=== PATIENT | female | born 1980 | race Caucasian/White ===

== ENCOUNTER → 2018-10-13 17:30 | Outpatient (CLI) | payer OTHER, SELFPAY | PROVIDERS: Referring Provider Obstetrics & Gynecology; Visit Provider Obstetrics & Gynecology | DX: N39.0 Urinary tract infection, site not specified (principal) | CPT/HCPCS: 87077; 87086; 87088; 87186 ==

== ENCOUNTER → 2019-11-16 | Outpatient (CLI) | payer OTHER, SELFPAY | END | disposition home or self-care (01) | LOC: LABSPEC 16:54 | PROVIDERS: Visit Provider Student in an Organized Health Care Education/Training Program | DX: N39.0 Urinary tract infection, site not specified (principal) | CPT/HCPCS: 87086; 87088 ==

== ENCOUNTER → 2020-03-17 | Outpatient (CLI) | payer OTHER, SELFPAY ==
[2020-03-22 13:25] LABS: HPV Reflexed? NOT INDICATED
== END | disposition home or self-care (01) ==
LOC: LABSPEC 09:42
PROVIDERS: Visit Provider Student in an Organized Health Care Education/Training Program
DX: Z12.4 Encounter for screening for malignant neoplasm of cervix (principal)
CPT/HCPCS: 88175; G0145

== ENCOUNTER → 2020-04-06 15:28 | Outpatient (CLI) | payer OTHER, SELFPAY ==
--- NOTE | 2020-04-06 15:32 | BI_ITS ---
MAMMOGRAPHY - BILATERAL SCREENING REASON FOR EXAM: Female, 39 years old. Routine annual screening examination. PERTINENT HISTORY: Grandmother with breast cancer. TECHNIQUE: Digital bilateral breast claudia (3D mammographic acquisition) in the CC and MLO projections. 2-D mediolateral oblique (MLO) and craniocaudad (CC) views of both breasts were obtained. CAD: Full Field Digital Mammography with Computer Added Detection was performed. COMPARISON: None. Baseline examination. FINDINGS: Breast Composition: The breasts are extremely dense, which lowers the sensitivity of mammography. There are no dominant masses or suspicious calcifications. No other significant abnormalities are identified. BI/SCRN MAMM (CAD)W/CLAUDIA BILAT IMPRESSION: Negative screening mammogram. Yearly followup mammogram recommended. (A) ASSESSMENT CATEGORY: BIRADS Category 1: Negative. A letter regarding these results will be sent to the patient by the facility within 30 days. Approximately 10% of breast cancers are not detected by mammography. A normal mammogram should not delay biopsy of a clinically suspicious abnormality. [id number] Electronically Signed: Sunil Boykin MD at 8:12 EST , Service support ,
== END ==
PROVIDERS: PCP Internal Medicine; Referring Provider Student in an Organized Health Care Education/Training Program; Visit Provider Student in an Organized Health Care Education/Training Program
DX: Z12.31 Encounter for screening mammogram for malignant neoplasm of breast (principal); Z80.3 Family history of malignant neoplasm of breast
CPT/HCPCS: 77063; 77067

== ENCOUNTER → 2021-02-14 08:44 | Outpatient (CLI) | payer OTHER, SELFPAY ==
--- NOTE | 2021-02-14 08:46 | US_ITS ---
STUDY: ULTRASOUND BREAST - LEFT REASON FOR EXAM: Female, 40 years old. Palpable lump left breast. TECHNIQUE: Axial and longitudinal images of the LEFT breast were performed with a high resolution ultrasound transducer. # OF IMAGES: 47 COMPARISON: Comparison is made with prior mammogram done earlier today. FINDINGS: LEFT Breast: The upper inner quadrant of the left breast was examined by ultrasound. There is dense fibroglandular tissue. There is a 4 mm x 5 mm x 2 mm cyst at the 11 o''clock position of the breast at 2 cm from nipple. There is also evidence of a 9 mm x 6 mm x 4 mm cyst at the 10 o''clock position of the breast at 4 cm from the nipple. US/Breast Limited Unilateral IMPRESSION: 2 small cysts are seen at the 10 o''clock and 11 o''clock position of the breast. ASSESSMENT CATEGORY: BIRADS Category 2: Benign. A letter regarding these results will be sent to the patient by the facility within 30 days. Electronically Signed: Sunil Boykin MD at 11:31 EST , Service support ,
--- NOTE | 2021-02-14 08:46 | BI_ITS ---
MAMMOGRAPHY - BILATERAL DIAGNOSTIC REASON FOR EXAM: Female, 40 years old. 2 week history of left breast lump. PERTINENT HISTORY: Grandmother with breast cancer. TECHNIQUE: Digital bilateral breast bryon (3D mammographic acquisition) in the CC and MLO projections. 2-D mediolateral oblique (MLO) and craniocaudad (CC) views of both breasts were obtained. CAD: Full Field Digital Mammography with Computer Added Detection was performed. COMPARISON: Comparison is made with prior study dated 04/06/2020. FINDINGS: Breast Composition: The breasts are extremely dense, which lowers the sensitivity of mammography. There are no dominant masses or suspicious calcifications. No other significant abnormalities are identified. There has been no significant change since the prior study. BI/DIAG MAMM W/CAD, BILAT IMPRESSION: Stable bilateral diagnostic mammogram. With the patient''s history of a palpable lump in the left breast, targeted ultrasound examination is recommended. ASSESSMENT CATEGORY: BIRADS Category 0: Incomplete. Need additional imaging evaluation. A letter regarding these results will be sent to the patient by the facility within 30 days. Approximately 10% of breast cancers are not detected by mammography. A normal mammogram should not delay biopsy of a clinically suspicious abnormality. Electronically Signed: Sunil Boykin MD at 11:10 EST , Service support ,
== END ==
PROVIDERS: PCP Internal Medicine; Visit Provider Student in an Organized Health Care Education/Training Program
DX: N63.22 Unspecified lump in the left breast, upper inner quadrant (principal)
CPT/HCPCS: 76642; 77062; 77066; G0279

== ENCOUNTER → 2021-10-25 | Outpatient (CLI) | payer OTHER, SELFPAY ==
[2021-10-25 12:31] LABS: AST(SGOT) 11 U/L (15-37); Alanine Aminotransfer ALT/SGPT 17 U/L (13-56); Albumin, Serum 4.2 g/dL (3.2-5.0); Alkaline Phosphatase 62 U/L (45-117); Bilirubin, Direct 0.16 mg/dL (0.00-0.30); Globulin 3.3 g/dL (2.2-4.2); Protein, Total 7.5 g/dL (6.4-8.2)
== END | disposition home or self-care (01) ==
LOC: MTLAB 10:34
PROVIDERS: PCP Internal Medicine; Referring Provider Physician Assistant; Visit Provider Physician Assistant
DX: B35.3 Tinea pedis (principal); L30.9 Dermatitis, unspecified; L84 Corns and callosities
CPT/HCPCS: 36415; 80076

== ENCOUNTER 2022-01-10 16:08 | Emergency (ER) | payer OTHER, SELFPAY ==
[2022-01-10 16:10] VITALS: BP 135/75; PULSE 102; RESP 14; TEMP 36.9; O2SAT 100; BMI 22.1
--- NOTE | 2022-01-10 16:32 | NURSING ---
NO OLD EKGS
--- NOTE | 2022-01-10 17:01 | EKG12_ITS ---
Test Reason : SOB Blood Pressure : / mmHG Vent. Rate : 101 BPM Atrial Rate : 101 BPM P-R Int : 126 ms QRS Dur : 074 ms QT Int : 336 ms P-R-T Axes : 064 089 004 degrees QTc Int : 435 ms Sinus tachycardia T wave abnormality, consider inferior ischemia Abnormal ECG Confirmed by LIZZY VELASQUEZ, DELIO ([id number]), newspaper or periodical editor GARDENIA PICHARDO ([id number]) on 01/12/2022 2:09:43 P M Referred By: SABAS/MAKEDA Confirmed By:LAITH BALL MD
--- NOTE | 2022-01-10 17:02 | NURSING ---
NO OLD EKGS
--- NOTE | 2022-01-10 17:15 | RAD_ITS ---
STUDY: X-RAY CHEST REASON FOR EXAM: Female, 41 years old. CHEST PAIN chest pain TECHNIQUE: XR Chest 1 View COMPARISON: None FINDINGS: There is no demonstrated pleural abnormality. Normal size heart. Normal mediastinum and latia. Normal visualized pulmonary arteries. Normal visualized aortic arch and descending thoracic aorta. Normal visualized thoracic spine. Normal visualized ribs, clavicles, and shoulders. There is no demonstrated abnormality of the visualized soft tissue structures of the upper abdomen. RAD/Chest 1 View IMPRESSION: There are no acute findings. Electronically Signed: Elder Wang MD at 17:23 EDT ,
[2022-01-10 17:29] LABS: Absolute Lymphocyte Count 1.82 X10^3/uL (0.83-4.51); Absolute Neutrophil Count 10.2 X10^3/uL (2.0-7.7); Basophil# 0.06 X10^3/uL; Basophil% 0.5 % (0-1); Eosinophil# 0.05 X10^3/uL; Eosinophils% 0.4 % (0-5); Hematocrit 40.3 % (37-47); Hemoglobin 13.5 g/dL (12.0-15.0); Lymphocyte # 1.82 X10^3/ul (0.83-4.51); Lymphocyte % 14.3 % (19-41); Mean Corp Hgb Conc 33.5 g/dL (32-36); Mean Corpuscular Hgb 28.6 pg (27.0-32.0); Mean Corpuscular Volume 85.4 fL (81-99); Mean Platelet Vol. 10.2 fl (6.2-12.0); Monocyte# 0.51 X10^3/uL; NRBC Flagged by Analyzer 0 % (0-5); Neutrophil # 10.21 X10^3/uL (2.7-7.7); Neutrophil % 80.3 % (47-70); Platelet Count 252 K/mm3 (150-450); RBC Distribution Width CV 12.3 % (11.6-14.6); RBC Distribution Width SD 38.3 fl (35.1-43.9); Red Blood Count 4.72 M/mm3 (4.2-5.4); White Blood Count 12.7 K/mm3 (4.4-11.0)
[2022-01-10 17:46] LABS: Anion Gap 5 (5-15); BUN 12 mg/dL (7-18); Calcium,Total 9.7 mg/dL (8.5-10.1); Chloride 108 mmol/L (98-107); Creatinine, Serum 0.75 mg/dL (0.55-1.02); EST Glomerular Filtration Rate 91 mL/min (>60); Est Glom Filt Rate - Afr Amer 110 mL/min (>60); Glucose 112 mg/dL (74-106); Sodium Level 140 mmol/L (136-145); Troponin-I HS 20 pg/mL (3.0-54.0)
[2022-01-10 18:03] VITALS: BP 113/76; PULSE 86; RESP 18; TEMP 36.6; O2SAT 100
--- NOTE | 2022-01-10 19:04 | EDS_ITS ---
HPI History of Present Illness Chief Complaint: Chest Pain Informant: patient Onset/Context/Timing Onset: Today Activity at onset: sudden and onset Timing: Continuous Quality: Positive for Dull Location: Left Chest (upper chest, no radiation) Current Severity: Mild Maximum Severity: Moderate Worsened By: Breathing Relieved By: Nothing Associated Symptoms: Positive for Lightheadedness and Palpitations; Negative for Nausea, Vomiting, Diaphoresis, Dyspnea or Cough Narrative Narrative: Started having chest discomfort earlier this morning, it has not gone away, but it is better than it was. Left upper chest, nonpleuritic. She felt lightheaded earlier, but separate from 2 episodes of palpitations that felt like skipping or racing, she checked her heart rate and it was in the 110s, up from 70 when she had checked it earlier on her apple watch, but the lightheadedness was not associated with the palpitations. No history of any heart problems. She drinks caffeine but similar amount every day and has never had palpitations before. She does not use drugs. She is on citalopram for anxiety, no other medications. No history of blood clots. No recent hospitalization, travel out of the area, surgery of any type, she had her appendix out remotely. She denies any urinary symptoms, recent illness. She was not near syncopal or syncopal today. [facility] Medical History Anxiety Home Medications citalopram 40 mg tablet (Celexa) 40 mg PO DAILY 02/17/21 [History Last Taken Unknown] Allergy/AdvReac Type Severity Reaction Status Date / Time No Known Allergies Allergy Verified 01/10/22 16:10 Family History (Updated 02/17/21 @ 09:20 by Nola Saturday) Grandmother Breast cancer Mother Diabetes Father Hypertension High cholesterol Surgical History History of appendectomy Social History Smoking Status: Never smoker alcohol intake: never substance use type: does not use ROS ROS ED Constitutional Constitutional ED: Denies chills or fever(s) Eyes Eyes: Denies change in vision or diplopia ENT ENT ED: Denies rhinorrhea or sore throat Cardiovascular Cardiovascular: Reports as per HPI, chest pain, lightheadedness, palpitations and racing heartbeat Respiratory/Chest Respiratory/Chest: Denies cough or dyspnea Gastrointestinal Gastrointestinal: Denies abdominal pain, diarrhea, nausea or vomiting Genitourinary Genitourinary ED: Denies dysuria or hematuria Musculoskeletal Musculoskeletal: Denies back pain or neck pain Integumentary Denies abscess or rash Neurologic Neurologic: Denies headache(s), paresthesias or weakness Psychiatric Psychiatric: Reports anxiety; Denies suicidal thoughts EXAM Physical Exam Const Vital Signs: 01/10/22 16:10 01/10/22 18:03 01/10/22 18:03 Temperature 98.4 F 97.8 F Temperature Source Temporal Temporal Pulse Rate 102 H 86 Respiratory Rate 14 18 Blood Pressure 135/75 H 113/76 Blood Pressure Mean 95 88 Pulse Ox 100 100 Oxygen Delivery Method Room Air Room Air Room Air 01/10/22 19:23 01/10/22 20:15 Temperature Temperature Source Pulse Rate 85 78 Respiratory Rate 20 H 24 H Blood Pressure 115/73 109/65 Blood Pressure Mean 87 79 Pulse Ox 100 100 Oxygen Delivery Method Room Air Room Air Positive well nourished and well developed General Appearance ED: well developed and NAD HEENT Reports moist mucous membranes normocephalic and atraumatic Eyes PERRL and EOMs intact bilaterally Neck full ROM and supple Chest Wall inspection of chest normal and palpation of chest normal Resp normal respiratory effort and clear to auscultation bilaterally Effort and Inspection: able to speak in complete sentences Cardio regular rate, regular rhythm and no murmurs Rate: other Other Details: Mild tachycardia during exam around 100-102 Peripheral Pulses: pulses 2+ throughout GI non-tender and non-distended Auscultation: normoactive bowel sounds Palpation: soft Back/Spine no CVA tenderness General Back: other FROM Extremity normal to inspection and no calf tenderness General Extremety ED: Negative for edema, pulses abnormal or tenderness General Extremity: Negative for edema or pulses abnormal Neuro oriented x3, CN's II-XII intact bilaterally and no sensory deficits noted Sensorium / Orientation: awake and alert Motor Exam: strength 5/5 throughout Skin no rashes or lesions noted and no wounds Heart Score History: Slightly/Non-Suspicious ECG: Nonspecific Repolarization Age: </= 45 years Risk Factors: No Risk Factors Troponin: </= Normal Limit Score: 1 MDM MDM MDM Narrative Medical decision making narrative: EKG shows some nonspecific T wave abnormalities but nothing acute, chest x-ray 1 view on my interpretation normal, blood work is unremarkable with a troponin of 20. Repeat was done 2 hours later, it went down to 19. I did a D-dimer, it is negative, ruling out pulmonary embolus as etiology for discomfort. With resting, her chest discomfort is much better. She did not have any telemetry events or more palpitations. At this time I think it is reasonable to discharge home with close outpatient follow-up, her doctor may choose to put her on a Holter or event monitor if she has recurrent episodes of palpitations which may or may not be related to the discomfort she was having and the lightheadedness. She has had no dysrhythmias here in the emergency department and her EKG shows nothing acute. Lab Data Attestation: I reviewed the patient's lab results. Labs: Laboratory Results - last 24 hr 01/10/22 01/10/22 01/10/22 17:20 17:20 19:20 WBC 12.7 H RBC 4.72 Hgb 13.5 Hct 40.3 MCV 85.4 MCH 28.6 MCHC 33.5 RDW Std Deviation 38.3 RDW Coeff of Ced 12.3 Plt Count 252 MPV 10.2 Immature Gran % (Auto) 0.500 Neut % (Auto) 80.3 H Lymph % (Auto) 14.3 L [place] % (Auto) 4.0 Eos % (Auto) 0.4 Baso % (Auto) 0.5 Absolute Neuts (auto) 10.2 H Absolute Lymphs (auto) 1.82 Nucleated RBC % 0 D-Dimer Quant (PE/DVT) < 0.27 L Sodium 140 Potassium 4.0 Chloride 108 H Carbon Dioxide 27.0 Anion Gap 5 BUN 12 Creatinine 0.75 Estim Creat Clear Calc 108.90 Est GFR (MDRD) Af Amer 110 Est GFR (MDRD) Non-Af 91 BUN/Creatinine Ratio 16.0 Glucose 112 H Calcium 9.7 Troponin I High Sens 20 01/10/22 19:20 WBC RBC Hgb Hct MCV MCH MCHC RDW Std Deviation RDW Coeff of Ced Plt Count MPV Immature Gran % (Auto) Neut % (Auto) Lymph % (Auto) [place] % (Auto) Eos % (Auto) Baso % (Auto) Absolute Neuts (auto) Absolute Lymphs (auto) Nucleated RBC % D-Dimer Quant (PE/DVT) Sodium Potassium Chloride Carbon Dioxide Anion Gap BUN Creatinine Estim Creat Clear Calc Est GFR (MDRD) Af Amer Est GFR (MDRD) Non-Af BUN/Creatinine Ratio Glucose Calcium Troponin I High Sens 19 Radiography Diagnostic Testing: Clinical Impression(s) from Imaging Studies Chest X-Ray 01/10/22 17:15 IMPRESSION: There are no acute findings. Electronically Signed: Elder Wang MD at 17:23 EDT Reading Location ID and State: [facility] / [place] , Service support , Rhythm Strip Rhythm Strip: Sinus Tach Rate: 100 Ectopy: None EKG Initial EKG: Attestation: I personally reviewed and interpreted this EKG as follows: Interpretation: No Acute Injury Pattern, Sinus Tachycardia and Non- Specific ST Changes (Inferior leads) Prior: No Prior Discharge Plan Triage Chief Complaint: Chest Pain ED Provider: Rickie Araujo Dx/Rx/DC Orders Clinical Impression: Left-sided chest pain, Palpitations Instructions: ED Palpitations Prescriptions: No Action citalopram [Celexa] 40 mg tablet 40 mg PO DAILY Primary Care Provider: Alysa Parks Referrals: Alysa Parks MD [Primary Care Provider] - As soon as possible Disposition Disposition: Home, Self Care
[2022-01-10 19:23] VITALS: BP 115/73; PULSE 85; RESP 20; O2SAT 100
[2022-01-10] MEDS: 0.9% Normal Saline 1,000 ML 999 ML IV (19:23)
[2022-01-10 19:50] LABS: Troponin-I HS 19 pg/mL (3.0-54.0)
[2022-01-10 20:15] VITALS: BP 109/65; PULSE 78; RESP 24; O2SAT 100
[2022-01-10 20:38] LABS: D-Dimer Quantitative (DVT/PE) < 0.27 FEU/ug/m (0.27-0.49)
[2022-01-10 22:00] VITALS: BP 105/75; PULSE 78; RESP 16; O2SAT 99
== END 2022-01-10 22:00 | disposition home or self-care (01) ==
PROVIDERS: Emergency Provider Emergency Medicine; PCP Internal Medicine; Visit Provider Emergency Medicine
DX: R07.9 Chest pain, unspecified (principal); R00.2 Palpitations; F41.9 Anxiety disorder, unspecified; Z79.899 Other long term (current) drug therapy
CPT/HCPCS: 71045; 80048; 84484; 85025; 85379; 93005; 96360; 99283; J7030; A4216

== ENCOUNTER → 2022-10-26 | Outpatient (CLI) | payer OTHER, SELFPAY ==
--- NOTE | 2022-10-26 09:17 | BI_ITS ---
MAMMOGRAPHY - BILATERAL SCREENING REASON FOR EXAM: Female, 42 years old. Routine annual screening examination. PERTINENT HISTORY: Grandmother with breast cancer. TECHNIQUE: Digital bilateral breast claudia (3D mammographic acquisition) in the CC and MLO projections. 2-D mediolateral oblique (MLO) and craniocaudad (CC) views of both breasts were obtained. CAD: Full Field Digital Mammography with Computer Added Detection was performed. COMPARISON: Comparison is made with prior study dated February 14, 2021. FINDINGS: Breast Composition: The breasts are extremely dense, which lowers the sensitivity of mammography. There are no dominant masses or suspicious calcifications. No other significant abnormalities are identified. There has been no significant change since the prior study. BI/SCRN MAMM (CAD)W/CLAUDIA BILAT IMPRESSION: Stable bilateral screening mammogram. Yearly follow-up mammogram recommended. (A) ASSESSMENT CATEGORY: BIRADS Category 1: Negative. A letter regarding these results will be sent to the patient by the facility within 30 days. Approximately 10% of breast cancers are not detected by mammography. A normal mammogram should not delay biopsy of a clinically suspicious abnormality. [id number] Electronically Signed: Sunil Boykin MD at 10:29 EDT ,
== END | disposition home or self-care (01) ==
LOC: OPBI 09:12
PROVIDERS: PCP Internal Medicine
DX: Z12.31 Encounter for screening mammogram for malignant neoplasm of breast (principal)
CPT/HCPCS: 77063; 77067

== ENCOUNTER → 2023-10-29 | Outpatient (CLI) | payer OTHER, SELFPAY ==
--- NOTE | 2023-10-29 09:12 | BI_ITS ---
MAMMOGRAPHY - BILATERAL SCREENING REASON FOR EXAM: Female, 43 years old. Routine annual screening examination. PERTINENT HISTORY: Grandmother with breast cancer. TECHNIQUE: Digital bilateral breast claudia (3D mammographic acquisition) in the CC and MLO projections. 2-D mediolateral oblique (MLO) and craniocaudad (CC) views of both breasts were obtained. CAD: Full Field Digital Mammography with Computer Added Detection was performed. COMPARISON: Comparison is made with prior study October 26, 2022 and February 14, 2021. FINDINGS: Breast Composition: The breasts are extremely dense, which lowers the sensitivity of mammography. There are no dominant masses or suspicious calcifications. No other significant abnormalities are identified. There has been no significant change since the prior study. BI/SCRN MAMM (CAD)W/CLAUDIA BILAT IMPRESSION: Stable bilateral screening mammogram. Yearly follow-up mammogram recommended. (A) ASSESSMENT CATEGORY: BIRADS Category 1: Negative. A letter regarding these results will be sent to the patient by the facility within 30 days. Approximately 10% of breast cancers are not detected by mammography. A normal mammogram should not delay biopsy of a clinically suspicious abnormality. [id number] Electronically Signed: Sunil Boykin MD at 10:12 EDT ,
== END | disposition home or self-care (01) ==
LOC: OPBI 09:10
PROVIDERS: PCP Internal Medicine; Referring Provider Obstetrics & Gynecology; Visit Provider Obstetrics & Gynecology
DX: Z12.31 Encounter for screening mammogram for malignant neoplasm of breast (principal); Z80.3 Family history of malignant neoplasm of breast
CPT/HCPCS: 77063; 77067

== ENCOUNTER → 2024-10-01 | Outpatient (CLI) | payer OTHER, SELFPAY ==
--- NOTE | 2024-10-01 17:02 | RAD_ITS ---
PROCEDURE: TIBIA FIBULA 2 VIEWS 10/01/2024 REASON FOR EXAM: LEG INJURY TECHNIQUE: Four views of the right tibia and fibula COMPARISON: None FINDINGS: No displaced fracture or traumatic malalignment. Postoperative changes of the foot are partially imaged. Soft tissues are unremarkable. Bone mineral density is subjectively normal. RAD/Tibia & Fibula 2 Views IMPRESSION: Unremarkable radiographs of the right tibia and fibula. Reading Location: [facility]
--- NOTE | 2024-10-01 17:02 | RAD_ITS ---
PROCEDURE: FOOT MIN 3 VIEWS 10/01/2024 REASON FOR EXAM: FOOT INJURY TECHNIQUE: Three views of the left foot COMPARISON: None FINDINGS: Minimally displaced and slightly comminuted fracture through the base of the 5th metatarsal with extension to the tarsometatarsal joint. There is overlying soft tissue swelling. Bone mineral density is subjectively normal. RAD/Foot min 3 Views IMPRESSION: Minimally displaced intra-articular fracture at the base of th left e 5th metat arsal. Reading Location: [facility]
== END | disposition home or self-care (01) ==
LOC: MTRAD 17:02
PROVIDERS: PCP Internal Medicine; Referring Provider Physician Assistant Surgical; Visit Provider Physician Assistant Surgical
DX: S99.922A Unspecified injury of left foot, initial encounter (principal); S89.91XA Unspecified injury of right lower leg, initial encounter; X58.XXXA Exposure to other specified factors, initial encounter
CPT/HCPCS: 73590; 73630

== ENCOUNTER → 2024-10-28 | Outpatient (CLI) | payer OTHER, SELFPAY ==
--- NOTE | 2024-10-28 07:32 | BI_ITS ---
EXAM: SCRN MAMM (CAD)W/CLAUDIA BILAT DATE: 10/28/2024 CLINICAL HISTORY: F, Age 44 y/o , SCREENING Grandmother with breast cancer. TECHNIQUE: SCRN MAMM (CAD)W/CLAUDIA BILAT COMPARISON: Prior exam(s) dated October 29, 2023.. FINDINGS: TISSUE DENSITY: The breasts are extremely dense, which lowers the sensitivity of mammography. Bilateral Breast Mammographic Findings: No significant masses, calcifications or other abnormalities are identified. No suspicious masses, areas of developing architectural distortion, or suspicious calcifications. There has been no significant interval change. BI/SCRN MAMM (CAD)W/CLAUDIA BILAT IMPRESSION: Stable examination. OVERALL FINAL ASSESSMENT BI-RADS 1: NEGATIVE. RECOMMENDATION: Routine annual follow-up in 1 Year A letter with findings and recommendations will be mailed to the patient. Reading Location: [id number]
--- OUTSIDE RECORDS SUMMARY | 2024-10-28 07:34 | XMS RPT_ITS | CCD ---
Author Organization [facility] Care Team Providers Care Bark Peeler Name Role Phone JUSTIN SUPERVISOR COSTUMING - NEONATAL PEDIATRIC NURSE, JOLENE Kaur Primary Care Phys ician Unavailable Primary Care Provider Taz Kahn MD Primary Care Provider JOHN VELASQUEZ, DR JADA Suarez Primary Care Physician FRANCINE VELASQUEZ, YAZ Attending Maria Isabel LOPEZ MD, DR JADA Suarez Primary Care Beti LOPEZ MD, DR JADA Suarez Primary Care Beti SKINNER MD, YAZ Consulting Unavailable FRANCINE VELASQUEZ, YAZ Attending Maria Isabel SKINNER MD, YAZ Attending Unavailable JOHN VELASQUEZ, DR JADA Suarez Primary Care Beti SKINNER MD, YAZ Attending Unavailable JOHN VELASQUEZ, DR JADA Suarez Primary Care Unavailjoana KENNEDY SUPERVISOR COSTUMING-NEONATAL PEDIATRIC NURSE, ERIC Attending Yuly Feliz MD, DR JADA Suarez Primary Care Beti SKINNER MD, YAZ Attending Unavailable JOHN VELASQUEZ, DR JADA Suarez Primary Care Beti SMITH MD, OVIDIO W Attending Maria Isabel LOPEZ MD, DR JADA Suarez Primary Care UnavailTaz Patiño MD Primary Care Provider [phone] Luis Felipe CANTU.NEONATAL PEDIATRIC NURSE, Patrica M Unavailable Dr. Taz López MD Primary Care Provider Sergio Smallwood Attending Provider Sergio Smallwood Referring Provider [phone] Taz López MD Referring Provider TAZ LÓPEZ Primary Care Unavailable OPAL LOPEZ Referring Unavailable OPAL LOPEZ Attending Unavailable TAZ LÓPEZ Primary Care Unavailable TESTRAKE, OPAL Referring Unavailable LÓPEZ, JEFFREY Primary Care Unavailable TESTRAKE, OPAL Attending Unavailable LÓPEZ, JEFFREY Primary Care Unavailable TESTRAKE, OPAL Attending Unavailable LÓPEZ, JEFFREY Primary Care Unavailable TESTRAKE, OPAL Referring Unavailable LÓPEZ, JEFFREY Primary Care Unavailable TESTRAKE, OPAL Attending Unavailable LÓPEZ, JEFFREY Primary Care Unavailable TESTRAKE, OPAL Referring Unavailable LÓPEZ, [facility] Primary Care Unavailable TESTRAKE, OPAL Referring Unavailable AIDEN DAVILA Attending Unavailable LÓPEZ, [facility] Primary Care Unavailable TESTRAKE, OPAL Referring Unavailable GIOVANNI, AIDEN Attending Unavailable LÓPEZ, JEFFREY Primary Care Unavailable TESTRAKE, OPAL Referring Unavailable GIOVANNI, AIDEN Attending Unavailable LÓPEZ, JEFFREY Primary Care Unavailable TESTRAKE, OPAL Attending Unavailable LÓPEZ, JEFFREY Primary Care Unavailable TESTRAKE, OPAL Referring Unavailable LÓPEZ, JEFFREY Primary Care Unavailable TESTRAKE, OPAL Referring Unavailable AIDEN DAVILA Attending Unavailable LÓPEZ, JEFFREY Primary Care Unavailable TESTRAKE, OPAL Referring Unavailable GIOVANNI, AIDEN Attending Unavailable LÓPEZ, JEFFREY Primary Care Unavailable TESTRAKE, OPAL Referring Unavailable AIDEN DAVILA Attending Unavailable LÓPEZ, JEFFREY Primary Care Unavailable TESTRAKE, OPAL Referring Unavailable JOCELIN HACKETT Attending Unavailable LÓPEZ, JEFFREY Primary Care Unavailable TESTRAKE, OPAL Referring Unavailable AIDEN DAVILA Attending Unavailable LÓPEZ, JEFFREY Primary Care Unavailable TESTRAKE, OPAL Referring Unavailable LÓPEZ, JEFFREY Primary Care Unavailable TESTRAKE, OPAL Referring Unavailable LÓPEZ, JEFFREY Primary Care Unavailable TESTRAKE, OPAL Referring Unavailable RICARDO LOPEZ Attending Unavailable LÓPEZ, JEFFREY Primary Care Unavailable TESTRAKE, OPAL Referring Unavailable LÓPEZ, JEFFREY Primary Care Unavailable TESTRAKE, OPAL Referring Unavailable LÓPEZ, JEFFREY Primary Care Unavailable TESTRAKE, OPAL Attending Unavailable LÓPEZ, JEFFREY Primary Care Unavailable TESTRAKE, OPAL Referring Unavailable TESTRAKE, OPAL Attending Unavailable KELLY, JEFFREY Primary Care Unavailable MAYE OSPINA Referring Unavailable LÓPEZ, JEFFREY Primary Care Unavailable TESTRAKE, OPAL Referring Unavailable Sergio Smallwood Referring Unavailable Sergio Smallwood Attending Unavailable Taz López Primary Care Unavailable Yaz Skinner Referring Unavailable Yaz Skinner Attending Unavailable Taz López Primary Care Unavailable Yaz Skinner Referring Unavailable Yaz Skinner Attending Unavailable Taz López Primary Care Unavailable Sergio Smallwood Attending Unavailable Taz López Referring Unavailable Taz López Primary Care Unavailable Medications Current Medications Medication Drug Class(es) Dates Sig (Normalized) Sig (Original) acetaminophen 500 mg oral tablet (1 source) Start: 08-31-2022 End: 09-28-2022 Tylenol Extra Strength 500 mg oral tablet Dose : 500 mg = 1 tab(s), Oral, q4h, X 14 day(s), # 30 tab(s), 1 Refill(s), 09/28/22 7:32:00 EDT, Pharmacy: [facility] #[id number], 175, cm, 08/31/22 6:30:00 EDT, Height Start Date: 08/31/22 Stop Date: 09/28/22 Status: Ordered acetaminophen 325 mg / oxyCODONE hydrochloride 5 mg oral tablet (4 sources) Opioid Agonist Start: 02-04-2024 End: 02-11-2024 take 1 tablet by mouth every six hours as needed oxyCODONE-acetamino phen (PERCOCET) 5-325 mg tablet Indications: Hallux valgus of right foot Take 1 tablet by mouth every 6 hours as needed for up to 7 days. 28 tablet 02/04/2024 02/11/2024 Active citalopram 40 mg oral tablet (20 sources) Serotonin Reuptake Inhibitor Start: 02-17-2021 take 1 tablet by mouth once daily Citalopram (Celexa) 40 mg tablet Active 40 mg PO DAILY February 17, 2021 1:00am Comment on above: Take 40 mg by mouth once daily. docusate sodium 100 mg oral capsule (1 source) Start: 08-31-2022 Colace 100 mg oral capsule Dose : 100 mg = 1 cap(s), Oral, BID, PRN as needed for constipation, # 60 cap(s), 0 Refill(s), Pharmacy: [facility] #[id number], 175, cm, 08/31/22 6:30:00 EDT, Height Start Date: 08/31/22 Status: Ordered ibuprofen 800 mg oral tablet (1 source) Nonsteroidal Anti-inflammatory Drug Start: 08-31-2022 End: 09-14-2022 ibuprofen 800 mg oral tablet Dose : 800 mg = 1 tab(s), Oral, q8h, X 14 day(s), # 42 tab(s), 0 Refill(s), 09/14/22 7:32:00 EDT, Pharmacy: [facility] #[id number], 175, cm, 08/31/22 6:30:00 EDT, Height Start Date: 08/31/22 Stop Date: 09/14/22 Status: Ordered metroNIDAZOLE 500 mg oral tablet (1 source) Nitroimidazole Antimicrobial Start: 09-19-2022 End: 09-26-2022 metroNIDAZOLE 500 mg oral tablet Dose : 500 mg = 1 tab(s), Oral, q12h, X 7 day(s), # 14 tab(s), 0 Refill(s), 09/26/22 10:52:00 EDT, Pharmacy: [facility] #[id number], 175, cm, 08/31/22 6:30:00 EDT, Height, 69 Start Date: 09/19/22 Stop Date: 09/26/22 Status: Ordered nitrofurantoin, macrocrystals 50 mg oral capsule (1 source) Nitrofuran Antibacterial Start: 09-11-2021 nitrofurantoin macrocrystals 50 mg oral capsule take 1 capsule by mouth if needed AFTER INTERCOURSE Start Date: 09/11/21 Status: Ordered oxyCODONE hydrochloride 5 mg oral tablet (1 source) Opioid Agonist Start: 08-31-2022 End: 09-07-2022 Roxicodone 5 mg oral tablet ( IMMEDIATE release ) Dose : 5 mg = 1 tab(s), Oral, q6h, X 7 day(s), # 20 tab(s), 0 Refill(s), 09/07/22 7:32:00 EDT, Pharmacy: [facility] #[id number], Postoperative pain, 175, cm, 08/31/22 6:30:00 EDT, Height, 70 Start Date: 08/31/22 Stop Date: 09/07/22 Status: Ordered PEG-3350 with Electrolytes (Eqv-GoLYTELY) oral powder for reconstitution (1 source) Start: 11-21-2022 PEG-3350 with Electrolytes (Eqv-GoLYTELY) oral powder for reconstitution See Instructions, Take as directed 1 day before colonoscopy. Follow instructions as provided by your GI provider at [facility] # 1 EA, 0 Refill(s), Pharmacy: [facility] #[id number], 175, cm, 10/15/22 13:09:00 EDT, Height, kg, 10/15/22 13:09:00 EDT, Dosing Weight Start Date: 11/21/22 Status: Ordered polyethylene glycol 3350 31535 mg powder for oral solution (1 source) Osmotic Laxative Start: 08-31-2022 End: 09-14-2022 take 17 doses by mouth once daily MiraLax oral powder for reconstitution Dose : 17 gram(s) =, Oral, qDay, dissolve in water before taking, X 14 day(s), # 238 gram(s), 0 Refill(s), 09/14/22 8:57:00 EDT, Pharmacy: [facility] #[id number], 175, cm, 08/31/22 6:30:00 EDT, Height Start Date: 08/31/22 Stop Date: 09/14/22 Status: Ordered Completed/Discontinued Medications Medication Drug Class(es) Dates Sig (Normalized) Sig (Original) cephalexin 500 mg oral capsule (11 sources) Cephalosporin Antibacterial Start: 02-04-2024 End: 03-24-2024 take 1 capsule by mouth three times daily cephALEXin (KEFLEX) 500 mg capsule Indications: Hallux valgus of right foot Take 1 capsule by mouth three times a day. 21 capsule 02/04/2024 03/24/2024 Discontinued ofloxacin 3 mg/ml otic solution (1 source) Quinolone Antimicrobial Start: 04-23-2021 End: 03-13-2022 ofloxacin (FLOXIN) 0.3 % otic solution INSTILL 10 DROPS INTO AFFECTED EAR(S) once daily for 10 days 0 04/23/2021 03/13/2022 Discontinued (Course of therapy completed) Comment on above: INSTILL 10 DROPS INT O AFFECTED EAR(S) once daily for 10 days polyethylene glycol 3350 439655 mg / potassium chloride 2970 mg / sodium bicarbonate 6740 mg / sodium chloride 5860 mg / sodium sulfate 49376 mg powder for oral solution (1 source) Osmotic Laxative Start: 11-20-2022 End: 11-21-2022 GaviLyte-G oral powder for reconstitution Dose = 8 oz, Oral, q10min, Drink 8oz every 10 minutes until contents of bottle are consumed., # 1 EA, 0 Refill(s) Start Date: 11/20/22 Stop Date: 11/21/22 Status: Ordered Problems Active Problems Problem Classification Problem Date Documented Da te Episodic/Chronic Abdominal pain (12 sources) Left lower quadrant pain; Translations: [Left lower quadrant pain] Onset: 08-31-2022 Episodic Acquired foot deformities (20 sources) Hallux valgus; Translations: [Hallux valgus (acquired), right foot] Onset: 11-06-2023 08-05-2023 Chronic Anxiety disorders (20 sources) Anxiety; Translations: [Anxiety disorder, unspecified] Onset: 04-23-2014 09-11-2021 Chronic Asthma (2 sources) Asthma 09-11-2021 Chronic Cardiac dysrhythmias (3 sources) Palpitations; Translations: [Palpitations] 01-18-2022 Episodic Female infertility (7 sources) Female infertility 09-11-2021 Chronic Fracture of lower limb (7 sources) Closed fracture of metatarsal bone of left foot; Translations: [Fracture of unspecified metatarsal bone(s), left foot, initial encounter for closed fracture] Onset: 10-02-2024 10-02-2024 Episodic Immunizations and screening for infectious disease (1 source) Exposure to streptococcal pharyngitis; Translations: [Contact with and (suspected) exposure to other bacterial communicable diseases] Episodic Nonmalignant breast conditions (4 sources) Cyst of breast; Translations: [Solitary cyst of left breast] 02-17-2021 Episodic Nonspecific chest pain (3 sources) Left sided chest pain; Translations: [Chest pain, unspecified] 01-18-2022 Episodic Other circulatory disease (2 sources) Abnormal peripheral pulse; Translations: [Other specified symptoms and signs involving the circulatory and respiratory systems] 09-05-2023 Episodic Other connective tissue disease (2 sources) Pain in hallux; Translations: [Pain in right toe(s)] 08-05-2023 Episodic Other female genital disorders (2 sources) Other specified noninflammatory disorders of vagina; Translations: [Other specified noninflammatory disorders of vagina] Onset: 02-06-2023 Episodic Other gastrointestinal disorders (1 source) Diarrhea; Translations: [Diarrhea, unspecified] Episodic Other gastrointestinal disorders (6 sources) Alteration in bowel elimination 06-13-2022 Episodic Other gastrointestinal disorders (6 sources) Constipation 06-13-2022 Episodic Other injuries and conditions due to external causes (1 source) Unspecified injury of unspecified foot, initial encounter; Translations: [Unspecified injury of unspecified foot, initial encounter] Onset: 10-01-2024 Episodic Other injuries and conditions due to external causes (1 source) Unspecified injury of unspecified lower leg, initial encounter; Translations: [Unspecified injury of unspecified lower leg, initial encounter] Onset: 10-01-2024 Episodic Other injuries and conditions due to external causes (1 source) Unspecified injury of left foot, initial encounter; Translations: [Unspecified injury of left foot, initial encounter] Onset: 10-06-2024 Episodic Other nervous system disorders (1 source) Postoperative pain ; Translations: [Other acute postprocedural pain] Onset: 08-31-2022 Episodic Other nervous system disorders (1 source) Paresthesia of foot ; Translations: [Anesthesia of skin] 07-04-2024 Episodic Other non-traumatic joint disorders (4 sources) Hip pain; Translations: [Pain in left hip] 01-18-2023 Episodic Other non-traumatic joint disorders (3 sources) Pain in right knee; Translations: [Pain in joint, lower leg] Onset: 10-02-2024 10-02-2024 Episodic Other screening for suspected conditions (not mental disorders or infectious disease) (5 sources) Patient encounter status; Translations: [Encounter for screening mammogram for malignant neoplasm of breast] Onset: 11-25-2023 Episodic Other upper respiratory infections (1 source) Pharyngitis; Translations: [Acute pharyngitis, unspecified] Episodic Screening and history of mental health and substance abuse codes (4 sources) H/O: anxiety state; Translations: [Personal history of other mental and behavioral disorders] 04-20-2013 Episodic Spondylosis; intervertebral disc disorders; other back problems (20 sources) Degeneration of lumbar intervertebral disc; Translations: [Other intervertebral disc degeneration, lumbar region] Onset: 01-23-2023 02-11-2023 Chronic Spondylosis; intervertebral disc disorders; other back problems (2 sources) Chronic low back pain; Translations: [Chronic bilateral low back pain without sciatica] 01-18-2023 Episodic Sprains and strains (4 sources) Sprain of right knee; Translations: [Sprain of unspecified site of right knee, initial encounter] Onset: 10-02-2024 10-02-2024 Episodic Unclassified (1 source) Hallux valgus of right foot 04-28-2024 Unclassified (4 sources) Acute pain of right knee 10-02-2024 Past or Other Problems Problem Classification Problem Date Documented Da te Episodic/Chronic Conditions associated with dizziness or vertigo (20 sources) Dizziness; Translations: [Dizziness and giddiness] Onset: 01-05-2013 Resolved: 06-07-2023 01-05-2013 Episodic E Codes: Fall (3 sources) Fall; Translations: [Unspecified fall, initial encounter] Onset: 02-06-2024 02-06-2024 Episodic Genitourinary symptoms and ill-defined conditions (2 sources) Unspecified symptoms and signs involving the genitourinary system; Translations: [Unspecified symptoms and signs involving the genitourinary system] Onset: 09-19-2022 Episodic Inflammatory diseases of female pelvic organs (2 sources) Acute vaginitis; Translations: [Acute vaginitis] Onset: 09-19-2022 Episodic Malaise and fatigue (20 sources) Fatigue; Translations: [Other fatigue] Onset: 01-16-2013 Resolved: 06-07-2023 01-16-2013 Episodic Other gastrointestinal disorders (20 sources) Chronic constipation; Translations: [Other constipation] Onset: 01-23-2023 01-23-2023 Episodic Other nervous system disorders (2 sources) Other acute postprocedural pain; Translations: [Other acute postprocedural pain] Onset: 09-19-2022 Episodic Other nervous system disorders (20 sources) Abnormal gait; Translations: [Unspecified abnormalities of gait and mobility] Onset: 05-15-2024 04-28-2024 Episodic Other nervous system disorders (1 source) Unspecified abnormalities of gait and mobility; Translations: [Gait disturbance] Onset: 05-14-2024 Episodic Other non-traumatic joint disorders (20 sources) Arthralgia of the pelvic region and thigh; Translations: [Pain in left hip] Onset: 01-23-2023 02-11-2023 Episodic Residual codes; unclassified (20 sources) Postoperative state; Translations: [Other specified postprocedural states] Onset: 05-15-2024 02-06-2024 Episodic Residual codes; unclassified (1 source) Other specified postprocedural states; Translations: [Post-operative state] Onset: 05-15-2024 Episodic Unclassified (3 sources) Closed fracture of metatarsal bone of left foot 10-02-2024 Results Test Name Value Interpretation Reference Range Facility XR FOOT 3V AP/LAT/OBL LTon 0 10-14-2024 XR FOOT 3V AP/LAT/OBL LT * * *Final Report* * * DATE OF EXAM: Oct 14 2024 3:05PM [id number] - XR FOOT 3V AP/LAT/OBL LT / PROCEDURE REASON: Closed nondisplaced fracture of metatarsal bone of left foot, unspecified metata * * * * Physician Interpretation * * * * EXAMINATION: XR FOOT 3V AP/LAT/OBL LT CLINICAL HISTORY: Closed nondisplaced fracture of metatarsal bone of left foot, unspecified metatarsal, initial encounter PT STATES LEFT FOOT FX FOLLOW UP COMPARISON: 10/02/2024 FINDINGS: There has been interval osseous bridging at the proximal fifth metatarsal fracture site, with persistent lucency. Joint spaces are preserved. Pes cavus. _ IMPRESSION: Healing fracture of base of fifth metatarsal. Field Control Inspector: PSCB Transcribe Date/Time: Oct 21 2024 10:34P Dictated by : TOSHA HUNG MD This examination was interpreted and the report reviewed and electronically signed by: TOSHA HUNG MD on Oct 21 2024 10:35PM EST [id number] Normal [facility] CNOVon 10-02-2024 CNOV Office Visit (FRFHWS ) JOSHUA DUNN ([id number]) 1980 F Date Time Provider Department 10/02/24 1:30 PM RICARDO LOPEZ During your visit today, we recorded the following information about you: Dwayne Aliza NATE Seals 10/02/2024 1:54 PM Signed AMB ROOMING INTAKE FLOWSHEET DATA Pain Pain Level: 6 Pain Location: Knee-Right Description: Aching, Radiating, Sharp Duration Amount of Time: 1 Duration Units: Days Frequency: Continuous Intervention/Comfort measure: Medication, Cold, Reposition Ricardo Lopez V, DO 10/02/2024 1:54 PM Signed Subjective The patient is a 44-year-old female presenting for evaluation of right knee pain following a fall. Right Knee Pain: - Acute onset following a fall yesterday. - Incident occurred while wearing a backpack leaf blower and stepping on a landscaping rock that gave way. - Union significant pain in the right leg before the fall. - Pain localized to the posterior aspect of the knee. - Able to bear weight, but reports significant pain. - Currently using crutches; finds it manageable to bear some weight on the heel. - Taking Advil with minimal relief; prefers to avoid heavy pain medications. Musculoskeletal: (+) right leg pain, (+) right foot swelling, (+) pain with weight bearing Objective Last menstrual period 11/22/2015. General: No acute distress. MSK/Ext: Right knee without visible swelling or effusion; tenderness over fibular head; mild pain with palpation and manipulation of the knee; able to flex and extend knee with some discomfort. Labs Tests Imaging - Foot X-ray: Fifth metatarsal fracture. - Knee X-ray: No evidence of fracture or effusion. - Tib-fib X-ray: No abnormalities identified. Assessment AND Plan 1. Sprain of unspecified site of right knee, initial encounter (S83.91XA) - Right knee sprain secondary to torsional injury during a fall; no joint effusion observed, and X-rays show no fractures. - Educated on the anatomy and function of ligaments and tendons, explaining the mechanism of injury and expected healing process. - Advised to use crutches as an assistive device, allowing partial weight-bearing as tolerated to prevent further injury and maintain balance. - Applied an KAREN wrap to the right knee to provide compression and reduce swelling; instructed to wear during the day and remove at night. - Recommended alternating ice application for 15-20 minutes several times a day to control swelling and inflammation. - Advised to take Advil and Tylenol, either concurrently or staggered, to manage pain and inflammation. - Encouraged gentle range of motion exercises to promote blood flow and facilitate healing. - Instructed to monitor for improvement over the next couple of weeks; if no significant improvement is noted, further evaluation may be necessary. Recording using Vinfolio software for draft documentation of the visit was discussed with the patient/authorized personal service representative; all questions welcomed and answered. Patient/authorized personal service representative agreed to proceed Referring Provider: OPAL LOPEZ [[id number]] Allergies As of Date: 10/02/2024 (No Known Allergies) Date Reviewed: 10/02/2024 Reviewed by: Aliza Rice MA - Fully Assessed Reason for Visit: Right Knee Pain [1209] Visit Diagnosis:Sprain of unspecified site of right knee, initial encounter [S83.91XA] Prescriptions as of 10/02/2024 - citalopram (CELEXA) 40 mg tablet Take 40 mg by mouth once daily. Problem List As Of Date 10/02/2024 Noted Resolved Dizziness [R42] 01/05/2013 06/07/2023 Fatigue [R53.83] 01/16/2013 06/07/2023 Anxiety [F41.9] 04/23/2014 Pelvic joint pain, left [M25.552] 01/23/2023 DDD (degenerative disc disease), lumbar [M51.36*01/23/2023 Chronic constipation [K59.09] 01/23/2023 Hallux valgus of right foot [M20.11] 11/06/2023 Post-operative state [Z98.890] 05/15/2024 Gait disturbance [R26.9] 05/15/2024 Encounter Status:Closed by RICARDO LOPEZ V on 10/02/24 [facility] CNOV Office Visit (PODIWS ) JOSHUA DUNN ([id number]) 1980 F Date Time Provider Department 10/02/24 10:45 AM OPAL LOPEZ During your visit today, we recorded the following information about you: Alicia Diaz LPN 10/02/2024 12:49 PM Signed AMB ROOMING INTAKE FLOWSHEET DATA Pain Pain Level: 6 Pain Location: Foot-Left Description: Aching, Radiating, Sharp Duration Amount of Time: 1 Duration Units: Days Frequency: Continuous Intervention/Comfort measure: Medication, Reposition, Cold, Positioning Patient presents with: Left Foot - Established Patient, Fracture, Pain, Swelling Patient was leaf blower backpack when she stepped on landscaping rock and rock gave way which led to fall. Patient complains for left foot pain and right knee pain. Patient was seen at now clinic on 10/01/2024. SARAH Gutierrez Amanda, RN 10/02/2024 12:[address] Lopez Joshua was provided with Pneumatic walking boot, size Large, and instructed/educated in its application, wear, and care. All questions were answered, and patient was able to demonstrate competence with the necessary skills to utilize the above equipment. Patient signed DJO Patient agreement. [employer] to bill patient's insurance for Boot. BRIONNA Villarreal Matthew 10/02/2024 12:49 PM Signed Subjective Joshua Dunn is a 44-year-old female with a history of right foot bunionectomy, presenting for evaluation of a left foot injury and right knee pain following a fall. Left Foot Injury: - Sustained a left foot injury yesterday around 16:15 while gardening; reports rolling the foot. - Evaluated at urgent care; x-rays revealed a fracture of the fifth metatarsal. - Currently using a surgical shoe. - Pain in the left foot was initially more severe than the right knee but is now described as even. - Denies known trauma to the right foot during the incident. Right Knee Pain: - Pain localized to the right knee, exacerbated by weight-bearing and use of crutches. - Bruising noted under the knee. - Pain described as severe, making crutch use impossible. - Pain in the right knee is now described as even with the left foot pain. Right Foot Bunionectomy: - Underwent right foot bunionectomy in August 2023. - Joshua reports ongoing numbness and night pain in the right foot, with good days and bad days. - Recent x-rays show progressive fusion with no alarming findings. - overall, patient is doing well. Musculoskeletal: (+) right knee pain, (+) left foot pain, (+) right foot night pain, (+) left foot swelling, (+) right knee swelling, (-) right ankle pain Skin: (+) bruising right knee, (+) bruising left midfoot Psychiatric: (+) nervousness PAST MEDICAL HISTORY Diagnosis Date Anxiety 2006 Dr. Jaramillo Chronic constipation 01/23/2023 Chronic pelvic pain in female 2022 [employer] Yaz Skinner MD DDD (degenerative disc disease), lumbar 01/23/2023 Pelvic joint pain, left 01/23/2023 Current Outpatient Medications Medication Sig Dispense Refill citalopram (CELEXA) 40 mg tablet Take 40 mg by mouth once daily. No current facility-administered medications for this visit. Family History Problem Relation Age of Onset Diabetes Mother Heart Father mild valvular HD Heart Sister mild valvular HD No Known Problems Brother Heart Maternal Grandmother Hypertension Maternal Grandmother Diabetes Maternal Grandfather Prostate Cancer Maternal Grandfather Breast Cancer Paternal Grandmother Diabetes Paternal Grandfather Malig Hyperthermia No Family History Objective Last menstrual period 11/22/2015. - Cardiovascular: Dorsalis pedis and posterior tibial pulses palpable bilaterally; capillary refill <5 seconds. - Skin: No open sores on bilateral feet; slight bruising and swelling on the lateral aspect of the left midfoot along the fifth metatarsal base; increased warmth and swelling on the right lateral fibula, distal to the knee. - Musculoskeletal: - Left Foot: Guarded movement. pain present to left 5th metatarsal base - right foot: s/p lapidus bunionectomy with rectus appearing first ray. - Right Knee: Pain with squeeze tests of the proximal tibia and fibula. Labs: Tests: Imaging: - X-ray (Left foot): Fifth metatarsal base fracture measuring approximately 13 mm from the base. Acceptable alignment, no displacement. - X-ray (Right foot): Post-bunionectomy progressive fusion with hardware in place. No alarming findings. Assessment AND Plan 1. Closed nondisplaced fracture of metatarsal bone of left foot, unspecified metatarsal, initial encounter (Q92.302A) - Fracture of the fifth metatarsal base with acceptable alignment, no displacement observed on x-ray. - Educated patient on the nature of the fracture, explaining it as an in-betweener type, close to a Hung fracture, which is a h (more content not included)... Normal [facility] CNPNon 10-02-2024 CNPN Telephone (PODIWS) JOSHUA DUNN ([id number]) 1980 F Date Time Provider Department 10/02/24 OPAL LOPEZIWS During your visit today, we recorded the following information about you: Opal Lopez 10/02/2024 3:42 PM Signed I shared chart with colleague who agrees in conservative care. Will repeat xray in 2 weeks and 4 weeks. Please have her follow-up in 4 weeks JEANNETTE Wright Amanda, BRIONNA 10/02/2024 3:54 PM Signed Appointment scheduled Allergies As of Date: 10/02/2024 (No Known Allergies) Date Reviewed: 10/02/2024 Reviewed by: Aliza Rice MA - Fully Assessed Primary Visit Diagnosis:Closed nondisplaced fracture of metatarsal bone of left foot, unspecified metatarsal, initial encounter [X19.759X] Order(s):XR FOOT GENERAL 3V AP/LAT/OBL LEFT [[id number]] Order #: [id number] FUTURE XR FOOT GENERAL 3V AP/LAT/OBL LEFT [[id number]] Order #: [id number] FUTURE Prescriptions as of 10/02/2024 - citalopram (CELEXA) 40 mg tablet Take 40 mg by mouth once daily. Problem List As Of Date 10/02/2024 Noted Resolved Dizziness [R42] 01/05/2013 06/07/2023 Fatigue [R53.83] 01/16/2013 06/07/2023 Anxiety [F41.9] 04/23/2014 Pelvic joint pain, left [M25.552] 01/23/2023 DDD (degenerative disc disease), lumbar [M51.36*01/23/2023 Chronic constipation [K59.09] 01/23/2023 Hallux valgus of right foot [M20.11] 11/06/2023 Post-operative state [Z98.890] 05/15/2024 Gait disturbance [R26.9] 05/15/2024 Encounter Status:Closed by RADHA BRAR on 10/02/24 Normal [facility] XR FOOT 3V AP/LAT/OBL BILon 10-02-2024 XR FOOT 3V AP/LAT/OBL PARKER * * *Final Report* * * DATE OF EXAM: Oct 02 2024 10:32AM WOX 5555 - XR FOOT 3V AP/LAT/OBL PARKER / PROCEDURE REASON: multiple diagnoses * * * * Physician Interpretation * * * * HISTORY: Closed nondisplaced fracture of metatarsal bone of left foot, unspecified metatarsal, initial encounter Post-operative state . Pt. states she fell 1 day ago. Pain throughout Lt foot. Rt foot pain. No injury. TECHNIQUE: XR FOOT 3V AP/LAT/OBL PARKER Laterality: BILATERAL Number of different views (projections): 5 COMPARISON: 07/02/2024 RESULT: Right foot: Again seen are postoperative changes of first TMT arthrodesis with plate and screw devices, and transversely oriented partially threaded screw spanning the first and second metatarsal bases in their articulation. Hardware is intact and similar to prior. Pes cavus. Plantar calcaneal and Achilles tendon enthesophytes. No acute fracture or dislocation. Left foot: Acute nondisplaced fracture of the fifth metatarsal base with intra-articular extension to the fifth TMT joint. No dislocation. Adjacent soft tissue swelling. Pes cavus. Tiny Achilles tendon enthesophyte. IMPRESSION: Acute fracture of the left fifth metatarsal base. Right foot postoperative changes similar to prior. Field Control Inspector: SHAMA Transcribe Date/Time: Oct 08 2024 7:11A Dictated by : MARQUEZ FERNANDES MD This examination was interpreted and the report reviewed and electronically signed by: MARQUEZ FERNANDES MD on Oct 08 2024 7:13AM EST [id number] Normal [facility] XR KNEE 4V AP/PA BOTH+LAT/ME R RTon 10-02-2024 XR KNEE 4V AP/PA BOTH+LAT/TOSHIA RT * * *Final Report* * * DATE OF EXAM: Oct 02 2024 12:10PM WOX 5203 - XR KNEE 4V AP/PA BOTH+LAT/TOSHIA RT / PROCEDURE REASON: Acute pain of right knee * * * * Physician Interpretation * * * * HISTORY: Acute pain of right knee . Pt. states she fell.. Pain lateral aspect of Rt knee and Rt proximal tib/fib. TECHNIQUE: XR KNEE 4V AP/PA BOTH+LAT/TOSHIA RT, XR TIBIA FIBULA 2V AP/LAT RT Laterality: RIGHT Number of different views (projections): 4 (accession [id number]), 2 (accession [id number]) COMPARISON: Left knee radiographs 04/09/2014 RESULT: Right knee: No acute fracture or dislocation. Right knee joint spaces and alignment are maintained. No right knee joint effusion. Mild anterior knee soft tissue swelling. Included images of the left knee are unremarkable. Right tibia/fibula: No acute fracture or dislocation. Alignment is maintained. Apparent mild soft tissue swelling about the leg greater distally. IMPRESSION: Right knee and right tibia/fibula: Mild soft tissue swelling. No acute osseous abnormality. Field Control Inspector: PSCB Transcribe Date/Time: Oct 08 2024 7:13A Dictated by : MARQUEZ FERNANDES MD This examination was interpreted and the report reviewed and electronically signed by: MARQUEZ FERNANDES MD on Oct 08 2024 7:15AM EST [id number] Normal [facility] XR TIBIA FIBULA 2V AP/LAT RT on 10-02-2024 XR TIBIA FIBULA 2V AP/LAT RT * * *Final Report* * * DATE OF EXAM: Oct 02 2024 12:10PM WOX 5266 - XR TIBIA FIBULA 2V AP/LAT RT / PROCEDURE REASON: Acute pain of right knee * * * * Physician Interpretation * * * * HISTORY: Acute pain of right knee . Pt. states she fell.. Pain lateral aspect of Rt knee and Rt proximal tib/fib. TECHNIQUE: XR KNEE 4V AP/PA BOTH+LAT/TOSHIA RT, XR TIBIA FIBULA 2V AP/LAT RT Laterality: RIGHT Number of different views (projections): 4 (accession [id number]), 2 (accession [id number]) COMPARISON: Left knee radiographs 04/09/2014 RESULT: Right knee: No acute fracture or dislocation. Right knee joint spaces and alignment are maintained. No right knee joint effusion. Mild anterior knee soft tissue swelling. Included images of the left knee are unremarkable. Right tibia/fibula: No acute fracture or dislocation. Alignment is maintained. Apparent mild soft tissue swelling about the leg greater distally. IMPRESSION: Right knee and right tibia/fibula: Mild soft tissue swelling. No acute osseous abnormality. Field Control Inspector: SHAMA Transcribe Date/Time: Oct 08 2024 7:13A Dictated by : MARQUEZ FERNANDES MD This examination was interpreted and the report reviewed and electronically signed by: MARQUEZ FERNANDES MD on Oct 08 2024 7:15AM EST [id number] Normal [facility] Foot min 3 Viewson Foot min 3 Views [facility] [address] [place] [address] [id number] Foot min 3 Views MR#: [id number] Acct: [id number] Name: JOSHUA DUNN Rep #: [id number] : 1980 F 44 From: Dillan Hernandez MD PCP: Dr. Taz López MD Status: REG CLI Study: Foot min 3 Views Date of Exam: 10/01/24 Exam# [id number] Ordering Dr: Sergio Davenport PROCEDURE: FOOT MIN 3 VIEWS 10/01/2024 REASON FOR EXAM: FOOT INJURY TECHNIQUE: Three views of the left foot COMPARISON: None FINDINGS: Minimally displaced and slightly comminuted fracture through the base of the 5th metatarsal with extension to the tarsometatarsal joint. There is overlying soft tissue swelling. Bone mineral density is subjectively normal. RAD/Foot min 3 Views IMPRESSION: Minimally displaced intra-articular fracture at the base of th left e 5th metatarsal. Reading Location: [facility] CC: [facility]; Dr. Taz López MD Field Control Inspector: Signed Normal [facility] Tibia Fibula 2 Viewson 10-01 Tibia Fibula 2 Views [facility] [address] [place] [address] Tibia Fibula 2 Views MR#: [id number] Acct: [id number] Name: JOSHUA DUNNBETH Rep #: [id number] : 1980 F 44 From: Dillan Hernandez MD PCP: Dr. Taz López MD Status: REG CLI Study: Tibia Fibula 2 Views Date of Exam: 10/01/24 Exam# [id number] Ordering Dr: Sergio Davenport PROCEDURE: TIBIA FIBULA 2 VIEWS 10/01/2024 REASON FOR EXAM: LEG INJURY TECHNIQUE: Four views of the right tibia and fibula COMPARISON: None FINDINGS: No displaced fracture or traumatic malalignment. Postoperative changes of the foot are partially imaged. Soft tissues are unremarkable. Bone mineral density is subjectively normal. RAD/Tibia Fibula 2 Views IMPRESSION: Unremarkable radiographs of the right tibia and fibula. Reading Location: J[facility] CC: [facility]; Dr. Taz López MD Field Control Inspector: Signed Normal [facility] Urgent Care Visit Reporton 0 10-01-2024 Urgent Care Visit Report [facility] [address], [address] [place] [address] OFFICE VISIT Date of Service: 10/01/24 MR#: [id number] Acct: [id number] Name: JOSHUA DUNNZABETH Rep #: [id number] : 1980 Provider: [facility] Age/Sex: 44/F Location: [facility] Status: Signed Intake Vital Signs 01/10/22 16:10 10/01/24 17:11 Height 5 ft 10 in 5 ft 10 in Weight: 160 lb BMI 22.9 BP 112/66 Blood Pressure Location Lt brachial Position Sitting Respiration 16 Pulse 77 Pulse Source NIBP Temp 98 F Temp Source Oral Pulse Oximetry (%) 98 Oxygen Delivery Method room air Intake Visit Reasons: L FOOT, R LEG INJURY Chief Complaint: left foot, right leg injury Signal Processing Engineer Required: No Is patient in pain?: Yes Allergies No Known Allergies Allergy (Verified 10/01/24 17:10) Medications ???Medication ???Instructions ???Recorded ???Confirmed ???Type citalopram 40 mg tablet (Celexa) 40 mg PO DAILY 02/17/21 10/01/24 H istory Is last menstrual period known: No Post menopausal: No Patient : No Have you fallen in the past year?: Yes [facility] Medical History (Updated 10/01/24 @ 17:38 by Sergio WILLIAM, PA) Anxiety Surgical History (Updated 10/01/24 @ 17:10 by Brinda Zafar) History of bunionectomy History of appendectomy Family History (Updated 02/17/21 @ 09:20 by Nola Saturday) Grandmother Breast cancer Mother Diabetes Father Hypertension High cholesterol Social History Smoking Status: Never smoker alcohol intake: never substance use type: does not use [facility] HPI Chief Complaint: left foot, right leg injury Details: JOSUHA DUNN, is a 44 F who presents to the office today for initial evaluation of left foot pain along with right leg injury. Patient states that she stepped on a landscaping rock rolling her left foot and then caught caught herself with her right leg. Patient states that most of her pain is in her left foot. Patient denies numbness, tingling or loss of range of motion. No previous injuries to the same. Patient states that ambulation makes the pain worse. No other associated symptoms or alleviating/aggravating factors. ROS Const Constitutional: No other (6 system ROS completed with pertinent findings in the HPI otherwise normal.) Exam Const General: cooperative and healthy appearing Skin General: no rashes or lesions noted Neuro General: patient alert Extrem General: full ROM and capillary refill normal Other: Pain to palpation proximal left fifth metatarsal along with moderate swelling. Full range of motion throughout with no pain to palpation of the right leg. Appropriate distal pulses intact throughout. Psych Appearance: grossly normal Mental Status: mental status grossly normal Coding Level of Care Code Off vis,new,level 4 Diagnoses Muscle strain of right lower leg S86.911A Nondisplaced fracture of fifth left metatarsal bone S92.355A Assessment and Plan Assessment and Plan (1) Muscle strain of right lower leg: Status: Acute (2) Nondisplaced fracture of fifth left metatarsal bone: Status: Acute Orders: Orders Foot min 3 Views Today S99.929A - Unspecified injury of unspecified foot, initial encounter Tibia Fibula 2 Views Today S89.90XA - Unspecified injury of unspecified lower leg, initial encounter Plan Three-view left foot x-ray read by myself finding a fracture of the proximal left fifth metatarsal going through the articular surface. Three-view right tibia and fibula x-rays read by myself and no acute osseous abnormalities, awaiting radiology interpretation at time of patient discharge. Patient placed in a postop shoe and advised to use the crutches that she has for ambulation with only touchdown weightbearing to the right foot. Patient advised she needs to follow-up with podiatry at the next available appointment. Advised to use ibuprofen or Tylenol as needed for pain unless contraindicated. RICE techniques advised to the patient. Patient advised of other symptomatic management techniques as well as potential red flags and when appropriate to report to the ED. Patient verbalized understanding and agreement with all the above. Clinical Quality Measures Falls Risk Screening/Assistive Devices Have you fallen in the past year?: Yes 10/01/24 7976 Date Sergio Montoya Signature: Date (if applicable) CC: Brandie [facility] Moises 07-04-2024 MCKENZIE Telephone (PODIWS) JOSHUA DUNN ([id number]) 1980 F Date Time Provider Department 07/04/24 OPAL LOPEZ During your visit today, we recorded the following information about you: Allergies As of Date: 07/04/2024 (No Known Allergies) Date Reviewed: 07/02/2024 Reviewed by: Fartun Mckay MA - Fully Assessed Reason for Visit: Patient Update [1234] Prescriptions as of 07/08/2024 - citalopram (CELEXA) 40 mg tablet Take 40 mg by mouth once daily. Problem List As Of Date 07/04/2024 Noted Resolved Dizziness [R42] 01/05/2013 06/07/2023 Fatigue [R53.83] 01/16/2013 06/07/2023 Anxiety [F41.9] 04/23/2014 Pelvic joint pain, left [M25.552] 01/23/2023 DDD (degenerative disc disease), lumbar [M51.36*01/23/2023 Chronic constipation [K59.09] 01/23/2023 Hallux valgus of right foot [M20.11] 11/06/2023 Post-operative state [Z98.890] 05/15/2024 Gait disturbance [R26.9] 05/15/2024 Encounter Status:Closed by ALICIA DIAZ on 07/08/24 [facility] CNOVyanni 07-02-2024 CNOV Office Visit (PODIWS ) JOSHUA DUNN ([id number]) 1980 F Date Time Provider Department 07/02/24 4:00 PM TESTRAKE, OPAL PODIWS During your visit today, we recorded the following information about you: Woody FartunNATE 07/04/2024 7:16 AM Signed Patient presents with: Right Foot - Post Op AMB ROOMING INTAKE FLOWSHEET DATA Risk Screening Do you have concerns about personal safety or safety in the home?: No Pain Pain Level: 5 Pain Location: Foot-Right Description: Aching, Sharp, Dull Duration Amount of Time: (Post op) Duration Units: Weeks Frequency: Continuous Intervention/Comfort measure: (None) Patient states she finished PT on Saturday. Continuing home exercises. Patient states her pain was intermittent until this past week. No specific injury. Taking no med's for the pain. Opal Lopez 07/04/2024 7:16 AM Signed FOLLOW UP PODIATRIC OFFICE VISIT Chief Complaint: This 43 year old who presents for follow up:right foot Patient presents to clinic for follow-up right foot Patient had surgery on the right bunion back in January Was getting better but noticed over this past week, the pain returned. Patient complains of burning type pain that will often wake her up at night. PAIN EVALUATION 06/28/2024 1641 07/02/2024 0726 07/02/2024 1624 Pain Level: -- -- 5 Pain Location: Foot-Right Foot-Right Foot-Right Description: Aching;Pressure;Sharp;S hooting;Throbbing Aching;Pressure;Sharp;S hooting;Throbbing Aching;Sharp;Dull Duration Amount of Time: -- -- -- Post op Duration Units: Weeks Weeks -- Frequency: Intermittent Intermittent Continuous Intervention/Comfort measure: Reposition;Cold;Exercis e;Heat;Massage;Position ing Reposition;Cold;Exercis e;Heat;Massage;Position ing -- None No results found for: HBA1C PCP: Taz López MD PAST MEDICAL HISTORY Diagnosis Date Anxiety 2006 Dr. Jaramillo Chronic constipation 01/23/2023 Chronic pelvic pain in female 2022 [employer] Yaz Skinner MD DDD (degenerative disc disease), lumbar 01/23/2023 Pelvic joint pain, left 01/23/2023 Current Outpatient Medications Medication Sig citalopram (CELEXA) 40 mg tablet Take 40 mg by mouth once daily. No current facility-administered medications for this visit. ALLERGIES No Known Allergies PAST SURGICAL HISTORY Procedure Laterality Date COLONOSCOPY SCREENING 11/2022 [facility] LAPAROSCOPIC APPENDECTOMY 03/18/2010 [facility] LAPAROSCOPIC SUPRACERVICAL HYSTERECTOMY 08/2022 Dr. Maryann Skinner, [facility] Physical Exam: OBJECTIVE: Constitutional: Pt is a well developed 43 year old female who is alert, oriented, cooperative and in no apparent distress. Eyes: Following during examination. No redness or drainage. Respiratory: RR normal and nonlabored. Even breathing. No evidence of distress. Psychology: Patient is engaged during conversation. Normal affect and mood. Does not appear depressed or anxious. NVSI unchanged from previous visit. Dermatological: No open sores noted to right foot. Healed incision sites with minimal scarring. Musculoskeletal/Orthopa edic: Patient has pain to palpation of medial aspect of right 1st metatarsal cuneiform joint. No pain to distal first ray. No pain to 2nd tarsal metatarsal joint. Range of motion of first mtpj is near anatomic. ASSESSMENT: (Z98.890) Post-operative state (primary encounter diagnosis) (R20.0, R20.2) Numbness and tingling of foot PLAN: Discussed pain in right foot. Clinically, her foot looks stable. First ray is rectus and rom of great toe joint is improving. I am ok with her progressing with activity as tolerated. I discussed the occasional numbness of right foot. This seems to be along the medial aspect of first metatarsal cun joint and it is possible the medial plate fixation could be placing pressure along the digital nerve. We discussed removal of this hardware pending xray and ct scan. I would only consider removing the hardware if complete fusion is present. I informed patient that complete fusion may take several months to achieve. Patient is ok leaving the hardware in as the pain seems tolerable. I will call in a topical pain cream to use as needed She can follow-up in 2 months or let us know how she is doing. Opal Lopez DPM Referring Provider: OPAL LOPEZ [[id number]] Allergies As of Date: 07/02/2024 (No Known Allergies) Date Reviewed: 07/02/2024 Reviewed by: Fartun Mckay MA - Fully Assessed Reason for Visit: Post Op [174] Primary Visit Diagnosis:Post-operativ e state [Z98.890] Other Visit Diagnosis:Numbness and tingling of foot [R20.0, R20.2] Order(s):XR FOOT GENERAL 3V AP/LAT/OBL RIGHT [[id number]] Order #: [id number] FUTURE Prescriptions as of 07/04/2024 - citalopram (CELEXA) 40 mg tablet Take 40 mg by mouth once daily. Problem List As Of Date 07/02/2024 Noted R (more content not included)... Normal [facility] XR FOOT 3V AP/LAT/OBL RTon 0 07-02-2024 XR FOOT 3V AP/LAT/OBL RT * * *Final Report* * * DATE OF EXAM: Jul 02 2024 5:02PM WRX 5337 - XR FOOT 3V AP/LAT/OBL RT / PROCEDURE REASON: Post-operative state * * * * Physician Interpretation * * * * EXAMINATION / TECHNIQUE: XR FOOT 3V AP/LAT/OBL RT HISTORY: post-op imaging. Pt states she has been experiencing pain around the hardware. Post-operative state COMPARISON: 04/23/2024. RESULT: Intact medial midfoot arthrodesis hardware. No acute fracture or dislocation. Remaining joint spaces are preserved. No osseous erosion. IMPRESSION: Postoperative changes with intact hardware. No acute bony abnormality. Field Control Inspector: PSCB Transcribe Date/Time: Jul 08 2024 5:22A Dictated by : ROX CURRY MD This examination was interpreted and the report reviewed and electronically signed by: ROX CURRY MD on Jul 08 2024 5:23AM EST [id number] Normal [facility] CNTHERAPYon 06-29-2024 CNTHERAPY OT/PT/Speech Visit (PTWS) JOSHUA DUNN ([id number]) 1980 F Date Time Provider Department 06/29/24 3:45 PM AIDEN DAVILA PTWS Date Time Provider Department Center 06/29/2024 3:45 PM [id number], COLIN PTWS Tia Travon Reason for Visit: PT Discharge [752] Primary Visit Diagnosis:Post-operativ e state [Z98.890] Other Visit Diagnoses:Hallux valgus of right foot [M20.11] Gait disturbance [R26.9] Allergies As of Date: 06/29/2024 (No Known Allergies) Date Reviewed: 04/27/2024 Reviewed by: Alicia Diaz LPN - Fully Assessed Prescriptions as of 06/29/2024 - citalopram (CELEXA) 40 mg tablet Take 40 mg by mouth once daily. Philatelic Consultant: Therapy (PT/OT/Speech/Resp) ID: [id number] 06/29/2024 4:09 PM Author: AIDEN DAVILA Signed by AIDEN DAVILA PT on 06/29/2024 at 4:09 PM Document text: Program_ID:[id number] Access Code: [email or web address] URL: [email or web address] Date: 06-29-2024 Prepared By: Aiden Davila Program Notes Exercises - Long Sitting Ankle Dorsiflexion AROM - 2 x daily - 7 x weekly - 3 sets - 10 reps - Supine Ankle Inversion and Eversion AROM - 2 x daily - 7 x weekly - 3 sets - 10 reps - Standing Dorsiflexion Self-Mobilization on Step - 1-2 x daily - 7 x weekly - 2 sets - 10 reps - Self Talar [place] with Anchored Resistance - 2 x daily - 7 x weekly - 3 sets - 10 reps - Long Sitting Ankle Plantar Flexion with Resistance - 1-2 x daily - 7 x weekly - 2 sets - 10-12 reps - Long Sitting Ankle Eversion with Resistance - 1-2 x daily - 7 x weekly - 2 sets - 10-12 reps - Long Sitting Ankle Dorsiflexion with Anchored Resistance - 1-2 x daily - 7 x weekly - 2 sets - 10-12 reps - Seated Ankle Inversion with Resistance and Legs Crossed - 1-2 x daily - 7 x weekly - 2 sets - 10-12 reps - Seated Arch Lifts - 2 x daily - 7 x weekly - 3 sets - 10-15 reps - Standing Eccentric Heel Raise - 2 x daily - 7 x weekly - 2-3 sets - 8-10 reps - Sidelying Ankle Inversion with Ankle Weight - 2 x daily - 7 x weekly - 2-3 sets - 10-15 reps - Sidelying Ankle Eversion Strengthening with Ankle Weight - 2 x daily - 7 x weekly - 2-3 sets - 10-15 reps Normal [facility] THERAPY NTon 06-29-2024 THERAPY NT HNO ID: [id number] Author: AIDEN DAVILA PT Service: ? Author Type: Physical Therapist Type: Therapy (PT/OT/Speech/Resp) Filed: 06/29/2024 16:09 Note Text: Program_ID:[id number] Access Code: [email or web address] URL: [email or web address] Date: 06-29-2024 Prepared By: Aiden Davila Program Notes Exercises - Long Sitting Ankle Dorsiflexion AROM - 2 x daily - 7 x weekly - 3 sets - 10 reps - Supine Ankle Inversion and Eversion AROM - 2 x daily - 7 x weekly - 3 sets - 10 reps - Standing Dorsiflexion Self-Mobilization on Step - 1-2 x daily - 7 x weekly - 2 sets - 10 reps - Self Talar [place] with Anchored Resistance - 2 x daily - 7 x weekly - 3 sets - 10 reps - Long Sitting Ankle Plantar Flexion with Resistance - 1-2 x daily - 7 x weekly - 2 sets - 10-12 reps - Long Sitting Ankle Eversion with Resistance - 1-2 x daily - 7 x weekly - 2 sets - 10-12 reps - Long Sitting Ankle Dorsiflexion with Anchored Resistance - 1-2 x daily - 7 x weekly - 2 sets - 10-12 reps - Seated Ankle Inversion with Resistance and Legs Crossed - 1-2 x daily - 7 x weekly - 2 sets - 10-12 reps - Seated Arch Lifts - 2 x daily - 7 x weekly - 3 sets - 10-15 reps - Standing Eccentric Heel Raise - 2 x daily - 7 x weekly - 2-3 sets - 8-10 reps - Sidelying Ankle Inversion with Ankle Weight - 2 x daily - 7 x weekly - 2-3 sets - 10-15 reps - Sidelying Ankle Eversion Strengthening with Ankle Weight - 2 x daily - 7 x weekly - 2-3 sets - 10-15 reps Normal [facility] CNTHERAPYon 06-22-2024 CNTHERAPY OT/PT/Speech Visit (PTWS) JOSHUA DUNN ([id number]) 1980 F Date Time Provider Department 06/22/24 3:45 PM AIDEN DAVILA PTWS Date Time Provider Department Center 06/22/2024 3:45 PM [id number], COLIN PTWS Tia Hale Reason for Visit: Physical Therapy [503] Primary Visit Diagnosis:Post-operativ e state [Z98.890] Other Visit Diagnoses:Hallux valgus of right foot [M20.11] Gait disturbance [R26.9] Allergies As of Date: 06/22/2024 (No Known Allergies) Date Reviewed: 04/27/2024 Reviewed by: Alicia Diaz LPN - Fully Assessed Prescriptions as of 06/22/2024 - citalopram (CELEXA) 40 mg tablet Take 40 mg by mouth once daily. Philatelic Consultant: Therapy (PT/OT/Speech/Resp) ID: [id number] 06/22/2024 4:12 PM Author: AIDEN DAVILA Signed by AIDEN DAVILA PT on 06/22/2024 at 4:12 PM Document text: Program_ID:[id number] Access Code: [email or web address] URL: [email or web address] Date: 06-22-2024 Prepared By: Aiden Davila Program Notes Exercises - Standing Toe Dorsiflexion Stretch - 2 x daily - 7 x weekly - 2 sets - 10 reps - Long Sitting Ankle Dorsiflexion AROM - 2 x daily - 7 x weekly - 3 sets - 10 reps - Supine Ankle Inversion and Eversion AROM - 2 x daily - 7 x weekly - 3 sets - 10 reps - Standing Dorsiflexion Self-Mobilization on Step - 1-2 x daily - 7 x weekly - 2 sets - 10 reps - Self Talar [place] with Anchored Resistance - 2 x daily - 7 x weekly - 3 sets - 10 reps - Long Sitting Ankle Plantar Flexion with Resistance - 1-2 x daily - 7 x weekly - 2 sets - 10-12 reps - Long Sitting Ankle Eversion with Resistance - 1-2 x daily - 7 x weekly - 2 sets - 10-12 reps - Long Sitting Ankle Dorsiflexion with Anchored Resistance - 1-2 x daily - 7 x weekly - 2 sets - 10-12 reps - Seated Ankle Inversion with Resistance and Legs Crossed - 1-2 x daily - 7 x weekly - 2 sets - 10-12 reps - Seated Arch Lifts - 2 x daily - 7 x weekly - 3 sets - 10-15 reps - Standing Eccentric Heel Raise - 2 x daily - 7 x weekly - 2-3 sets - 8-10 reps Normal [facility] THERAPY NTon 06-22-2024 THERAPY NT HNO ID: [id number] Author: AIDEN DAVILA PT Service: ? Author Type: Physical Therapist Type: Therapy (PT/OT/Speech/Resp) Filed: 06/22/2024 16:12 Note Text: Program_ID:[id number] Access Code: [email or web address] URL: [email or web address] Date: 06-22-2024 Prepared By: Aiden Davila Program Notes Exercises - Standing Toe Dorsiflexion Stretch - 2 x daily - 7 x weekly - 2 sets - 10 reps - Long Sitting Ankle Dorsiflexion AROM - 2 x daily - 7 x weekly - 3 sets - 10 reps - Supine Ankle Inversion and Eversion AROM - 2 x daily - 7 x weekly - 3 sets - 10 reps - Standing Dorsiflexion Self-Mobilization on Step - 1-2 x daily - 7 x weekly - 2 sets - 10 reps - Self Talar [place] with Anchored Resistance - 2 x daily - 7 x weekly - 3 sets - 10 reps - Long Sitting Ankle Plantar Flexion with Resistance - 1-2 x daily - 7 x weekly - 2 sets - 10-12 reps - Long Sitting Ankle Eversion with Resistance - 1-2 x daily - 7 x weekly - 2 sets - 10-12 reps - Long Sitting Ankle Dorsiflexion with Anchored Resistance - 1-2 x daily - 7 x weekly - 2 sets - 10-12 reps - Seated Ankle Inversion with Resistance and Legs Crossed - 1-2 x daily - 7 x weekly - 2 sets - 10-12 reps - Seated Arch Lifts - 2 x daily - 7 x weekly - 3 sets - 10-15 reps - Standing Eccentric Heel Raise - 2 x daily - 7 x weekly - 2-3 sets - 8-10 reps Normal [facility] CNTHERAPYon 06-15-2024 CNTHERAPY OT/PT/Speech Visit (PTWS) JOSHUA DUNN ([id number]) 1980 F Date Time Provider Department 06/15/24 4:30 PM AIDEN DAVILA PTWS Date Time Provider Department Center 06/15/2024 4:30 PM [id number], COLIN PTWS Tia Hale Reason for Visit: Physical Therapy [503] Primary Visit Diagnosis:Post-operativ e state [Z98.890] Other Visit Diagnoses:Hallux valgus of right foot [M20.11] Gait disturbance [R26.9] Allergies As of Date: 06/15/2024 (No Known Allergies) Date Reviewed: 04/27/2024 Reviewed by: Alicia Diaz LPN - Fully Assessed Prescriptions as of 06/15/2024 - citalopram (CELEXA) 40 mg tablet Take 40 mg by mouth once daily. [facility]/PT/Speech Visit (PTWS) JOSHUA DUNN ([id number]) 1980 F Date Time Provider Department 06/08/24 4:30 PM AIDEN DAVILA Date Time Provider Department Neal 06/08/2024 4:30 PM [id number] DAVILA Reason for Visit: Physical Therapy [503] Primary Visit Diagnosis:Post-operativ e state [Z98.890] Other Visit Diagnoses:Hallux valgus of right foot [M20.11] Gait disturbance [R26.9] Allergies As of Date: 06/08/2024 (No Known Allergies) Date Reviewed: 04/27/2024 Reviewed by: Alicia Diaz LPN - Fully Assessed Prescriptions as of 06/08/2024 - citalopram (CELEXA) 40 mg tablet Take 40 mg by mouth once daily. [facility] OT/PT/Speech Visit (PTWS) JOSHUA DUNN ([id number]) 1980 F Date Time Provider Department 06/01/24 5:15 PM AIDEN DAVILA PTWS Date Time Provider Department Neal 06/01/2024 5:15 PM [id number], COLIN PTWS Tia Travon Reason for Visit: Physical Therapy [503] Primary Visit Diagnosis:Post-operativ e state [Z98.890] Other Visit Diagnoses:Hallux valgus of right foot [M20.11] Gait disturbance [R26.9] Allergies As of Date: 06/01/2024 (No Known Allergies) Date Reviewed: 04/27/2024 Reviewed by: Alicia Diaz LPN - Fully Assessed Prescriptions as of 06/01/2024 - citalopram (CELEXA) 40 mg tablet Take 40 mg by mouth once daily. Philatelic Consultant: Therapy (PT/OT/Speech/Resp) ID: [id number] 06/01/2024 5:01 PM Author: AIDEN DAVILA Signed by AIDEN DAVILA PT on 06/01/2024 at 5:01 PM Document text: Program_ID:[id number] Access Code: [email or web address] URL: [email or web address] Date: 06-01-2024 Prepared By: Aiden Davila Program Notes Exercises - Standing Toe Dorsiflexion Stretch - 2 x daily - 7 x weekly - 2 sets - 10 reps - Long Sitting Ankle Dorsiflexion AROM - 2 x daily - 7 x weekly - 3 sets - 10 reps - Supine Ankle Inversion and Eversion AROM - 2 x daily - 7 x weekly - 3 sets - 10 reps - Standing Dorsiflexion Self-Mobilization on Step - 1-2 x daily - 7 x weekly - 2 sets - 10 reps - Self Talar [place] with Anchored Resistance - 2 x daily - 7 x weekly - 3 sets - 10 reps - Long Sitting Ankle Plantar Flexion with Resistance - 1-2 x daily - 7 x weekly - 2 sets - 10-12 reps - Long Sitting Ankle Eversion with Resistance - 1-2 x daily - 7 x weekly - 2 sets - 10-12 reps - Long Sitting Ankle Dorsiflexion with Anchored Resistance - 1-2 x daily - 7 x weekly - 2 sets - 10-12 reps - Seated Ankle Inversion with Resistance and Legs Crossed - 1-2 x daily - 7 x weekly - 2 sets - 10-12 reps Normal [facility] THERAPY NTon 06-01-2024 THERAPY NT HNO ID: [id number] Author: AIDEN DAVILA PT Service: ? Author Type: Physical Therapist Type: Therapy (PT/OT/Speech/Resp) Filed: 06/01/2024 17:01 Note Text: Program_ID:[id number] Access Code: [email or web address] URL: [email or web address] Date: 06-01-2024 Prepared By: Aiden Davila Program Notes Exercises - Standing Toe Dorsiflexion Stretch - 2 x daily - 7 x weekly - 2 sets - 10 reps - Long Sitting Ankle Dorsiflexion AROM - 2 x daily - 7 x weekly - 3 sets - 10 reps - Supine Ankle Inversion and Eversion AROM - 2 x daily - 7 x weekly - 3 sets - 10 reps - Standing Dorsiflexion Self-Mobilization on Step - 1-2 x daily - 7 x weekly - 2 sets - 10 reps - Self Talar [place] with Anchored Resistance - 2 x daily - 7 x weekly - 3 sets - 10 reps - Long Sitting Ankle Plantar Flexion with Resistance - 1-2 x daily - 7 x weekly - 2 sets - 10-12 reps - Long Sitting Ankle Eversion with Resistance - 1-2 x daily - 7 x weekly - 2 sets - 10-12 reps - Long Sitting Ankle Dorsiflexion with Anchored Resistance - 1-2 x daily - 7 x weekly - 2 sets - 10-12 reps - Seated Ankle Inversion with Resistance and Legs Crossed - 1-2 x daily - 7 x weekly - 2 sets - 10-12 reps Normal [facility] CNTHERAPYon 05-28-2024 CNTHERAPY OT/PT/Speech Visit (PTWS) JOSHUA DUNN ([id number]) 1980 F Date Time Provider Department 05/28/24 5:15 PM AIDEN DAVILA PTWS Date Time Provider Department Center 05/28/2024 5:15 PM [id number], COLIN PTWS Tia Hale Reason for Visit: Physical Therapy [503] Primary Visit Diagnosis:Post-operativ e state [Z98.890] Other Visit Diagnoses:Hallux valgus of right foot [M20.11] Gait disturbance [R26.9] Allergies As of Date: 05/28/2024 (No Known Allergies) Date Reviewed: 04/27/2024 Reviewed by: Alicia Diaz LPN - Fully Assessed Prescriptions as of 05/28/2024 - citalopram (CELEXA) 40 mg tablet Take 40 mg by mouth once daily. Philatelic Consultant: Therapy (PT/OT/Speech/Resp) ID: [id number] 05/28/2024 5:49 PM Author: AIDEN DAVILA Signed by AIDEN DAVILA PT on 05/28/2024 at 5:49 PM Document text: Program_ID:[id number] Access Code: [email or web address] URL: [email or web address] Date: 05-28-2024 Prepared By: Aiden Davila Program Notes Exercises - Standing Toe Dorsiflexion Stretch - 2 x daily - 7 x weekly - 2 sets - 10 reps - Seated Toe Flexion Extension PROM - 2 x daily - 7 x weekly - 3 sets - 10 reps - Long Sitting Ankle Dorsiflexion AROM - 2 x daily - 7 x weekly - 3 sets - 10 reps - Supine Ankle Inversion and Eversion AROM - 2 x daily - 7 x weekly - 3 sets - 10 reps - Standing Dorsiflexion Self-Mobilization on Step - 1-2 x daily - 7 x weekly - 2 sets - 10 reps - Self Talar [place] with Anchored Resistance - 2 x daily - 7 x weekly - 3 sets - 10 reps Normal [facility] THERAPY NTon 05-28-2024 THERAPY NT HNO ID: [id number] Author: AIDEN DAVILA PT Service: ? Author Type: Physical Therapist Type: Therapy (PT/OT/Speech/Resp) Filed: 05/28/2024 17:49 Note Text: Program_ID:[id number] Access Code: [email or web address] URL: [email or web address] Date: 05-28-2024 Prepared By: Aiden Davila Program Notes Exercises - Standing Toe Dorsiflexion Stretch - 2 x daily - 7 x weekly - 2 sets - 10 reps - Seated Toe Flexion Extension PROM - 2 x daily - 7 x weekly - 3 sets - 10 reps - Long Sitting Ankle Dorsiflexion AROM - 2 x daily - 7 x weekly - 3 sets - 10 reps - Supine Ankle Inversion and Eversion AROM - 2 x daily - 7 x weekly - 3 sets - 10 reps - Standing Dorsiflexion Self-Mobilization on Step - 1-2 x daily - 7 x weekly - 2 sets - 10 reps - Self Talar [place] with Anchored Resistance - 2 x daily - 7 x weekly - 3 sets - 10 reps Normal [facility] CNTHERAPYon 05-14-2024 CNTHERAPY OT/PT/Speech Visit (PTWS) JOSHUA DUNN ([id number]) 1980 F Date Time Provider Department 05/14/24 3:45 PM AIDEN DAVILA PTWS Date Time Provider Department Neal 05/14/2024 3:45 PM [id number], COLIN PTWS Tia Hale Reason for Visit: PT Eval [747] Primary Visit Diagnosis:Post-operativ e state [Z98.890] Other Visit Diagnoses:Hallux valgus of right foot [M20.11] Gait disturbance [R26.9] Allergies As of Date: 05/14/2024 (No Known Allergies) Date Reviewed: 04/27/2024 Reviewed by: Alicia Diaz LPN - Fully Assessed Prescriptions as of 05/15/2024 - citalopram (CELEXA) 40 mg tablet Take 40 mg by mouth once daily. Philatelic Consultant: Therapy (PT/OT/Speech/Resp) ID: [id number] 05/14/2024 4:30 PM Author: AIDEN DAVILA Signed by AIDEN DAVILA PT on 05/14/2024 at 4:30 PM Document text: Program_ID:[id number] Access Code: [email or web address] URL: [email or web address]/ Date: 05-14-2024 Prepared By: Aiden Davila Program Notes Exercises - Standing Toe Dorsiflexion Stretch - 2 x daily - 7 x weekly - 2 sets - 10 reps - Seated Toe Flexion Extension PROM - 2 x daily - 7 x weekly - 3 sets - 10 reps - Long Sitting Ankle Dorsiflexion AROM - 2 x daily - 7 x weekly - 3 sets - 10 reps - Supine Ankle Inversion and Eversion AROM - 2 x daily - 7 x weekly - 3 sets - 10 reps - Standing Dorsiflexion Self-Mobilization on Step - 1-2 x daily - 7 x weekly - 2 sets - 10 reps Normal [facility] THERAPY NTon 05-14-2024 THERAPY NT HNO ID: [id number] Author: AIDEN DAVILA, KINGS Service: ? Author Type: Physical Therapist Type: Therapy (PT/OT/Speech/Resp) Filed: 05/14/2024 16:30 Note Text: Program_ID:[id number] Access Code: [email or web address] URL: [email or web address] Date: 05-14-2024 Prepared By: Aiden Davila Program Notes Exercises - Standing Toe Dorsiflexion Stretch - 2 x daily - 7 x weekly - 2 sets - 10 reps - Seated Toe Flexion Extension PROM - 2 x daily - 7 x weekly - 3 sets - 10 reps - Long Sitting Ankle Dorsiflexion AROM - 2 x daily - 7 x weekly - 3 sets - 10 reps - Supine Ankle Inversion and Eversion AROM - 2 x daily - 7 x weekly - 3 sets - 10 reps - Standing Dorsiflexion Self-Mobilization on Step - 1-2 x daily - 7 x weekly - 2 sets - 10 reps Normal [facility] CNOVon 04-27-2024 CNOV Office Visit (PODIWS ) JOSHUA DUNN ([id number]) 1980 F Date Time Provider Department 04/27/24 4:00 PM OPAL LOPEZ PODIWS During your visit today, we recorded the following information about you: Alicia Diaz LPN 04/28/2024 11:12 AM Signed AMB ROOMING INTAKE FLOWSHEET DATA Pain Pain Level: 6 Pain Location: Foot-Right Description: Aching, Sharp, Stiffness Intervention/Comfort measure: Reposition, Relaxation, Cold, Positioning Patient presents with: Right Foot - Established Patient, Follow Up, Pain, Post Op SARAH Gutierrez Matthew 04/28/2024 11:12 AM Signed FOLLOW UP PODIATRIC OFFICE VISIT Chief Complaint: This 43 year old who presents for follow up:bunionectomy, right foot Patient presents to clinic for follow-up follow-up bunionectomy of right foot Patient had surgery on February 03. She is 83 days post-op She still has some pain that is 4/10- 6/10 Over all, doing stable Is wearing a regular shoe at this point. Notices that with certain shoes, she will experiene pain with pressure She mentions that she sometimes has difficult time walking or getting her balance. PAIN EVALUATION 04/26/20242026 Pain Level: 6 Pain Location: Foot-Right Description: Aching;Sharp;Stiffness Intervention/Comfort measure: Reposition;Relaxation;C old;Positioning No results found for: HBA1C PCP: Taz López MD PAST MEDICAL HISTORY Diagnosis Date Anxiety 2006 Dr. Jaramillo Chronic constipation 01/23/2023 Chronic pelvic pain in female 2022 [employer] Yaz Skinner MD DDD (degenerative disc disease), lumbar 01/23/2023 Pelvic joint pain, left 01/23/2023 Current Outpatient Medications Medication Sig citalopram (CELEXA) 40 mg tablet Take 40 mg by mouth once daily. No current facility-administered medications for this visit. ALLERGIES No Known Allergies PAST SURGICAL HISTORY Procedure Laterality Date COLONOSCOPY SCREENING 11/2022 [facility] LAPAROSCOPIC APPENDECTOMY 03/18/2010 [facility] LAPAROSCOPIC SUPRACERVICAL HYSTERECTOMY 08/2022 Dr. Maryann Skinner, [facility] Physical Exam: OBJECTIVE: Constitutional: Pt is a well developed 43 year old female who is alert, oriented, cooperative and in no apparent distress. Eyes: Following during examination. No redness or drainage. Respiratory: RR normal and nonlabored. Even breathing. No evidence of distress. Psychology: Patient is engaged during conversation. Normal affect and mood. Does not appear depressed or anxious. NVSI unchanged from previous visit. Dermatological: Nails 1-5 b/l are normal. Webspaces clean and dry 1-4 b/l. Skin appears well hydrated and supple. good color, texture, turgor. No open lesions present. No callosities present. Musculoskeletal/Orthopa edic: Patient has pain to palpation of medial aspect of left tarsal metatasrsal joint. Mild swelling along the left 1st tarsal metatarsal joint Rom of right 1st mtpj is slightly decreased but when compared to left, has nearly the same amount of motion Xrays reviewed shows progressive fusion of first metatarsal cun joint ASSESSMENT: (Z98.890) Post-operative state (primary encounter diagnosis) (M20.11) Hallux valgus of right foot (R26.9) Gait disturbance PLAN: Patient is 83 days post-op from lapidus bunioenctomy Her xrays show progressive healing. At this time, I am fine with her continuing to pursue activities as tolerated I discussed the pain in foot. She still has some swelling and this could be placing pressure on the superficial digital nerves. I would have her continue with compression stocking and wider shoe. If this pain persists, we discussed various options not limited to topical cream, trial of gabapentin and/or removal of hardware. For now, she is going to continue with compression stocking and will have her use voltaren gel I want and encourage her to continue with rom exercises of the great toe joint. Will make referral to physical therapy to help facilitate increased motion in the great toe F/u in 1-2 months JEANNETTE Wright Matthew 04/27/2024 4:25 PM Signed Continue with good supportive shoes, ie hoka, deras or asics Consider compression stocking for swelling Will make referral to physical therapy for range of motion exercises. Consider voltaren gel over the counter for topical pain relief. Can follow-up in 1-2 months to see how you are doing Opal Lopez DPM Referring Provider: OPAL LOPEZ [[id number]] Allergies As of Date: 04/27/2024 (No Known Allergies) Date Reviewed: 04/27/2024 Reviewed by: Alicia Diaz LPN - Fully Assessed Reason for Visit: Established Patient [175] Follow Up [171] Pain [78] Post Op [174] Primary Visit Diagnosis:Post-operativ e state [Z98.890] Other Visit Diagnoses:Hallux valgus of right foot [M20.11] Gait disturbance [R26.9] Order(s):CON (more content not included)... Normal [facility] XR FOOT 3V AP/LAT/OBL RTon 0 04-23-2024 XR FOOT 3V AP/LAT/OBL RT * * *Final Report* * * DATE OF EXAM: Apr 23 2024 3:44PM [id number] - XR FOOT 3V AP/LAT/OBL RT / PROCEDURE REASON: Post-operative state * * * * Physician Interpretation * * * * EXAMINATION / TECHNIQUE: XR FOOT 3V AP/LAT/OBL RT HISTORY: PT STATES POST OP FILMS RIGHT FOOT Post-operative state COMPARISON: 03/24/2024. RESULT: Status post medial midfoot arthrodesis with intact hardware. Bony alignment is unchanged. No new acute bony abnormality is identified. IMPRESSION: Healing medial midfoot arthrodesis with intact hardware. Field Control Inspector: PSCB Transcribe Date/Time: Apr 27 2024 7:17P Dictated by : ROX CURRY MD This examination was interpreted and the report reviewed and electronically signed by: ROX CURRY MD on Apr 27 2024 7:18PM EST [id number] Normal [facility] CNOVon 03-24-2024 CNOV Office Visit (PODIWS ) JOSHUA DUNN ([id number]) 1980 F Date Time Provider Department 03/24/24 3:15 PM OPAL LOPEZ PODIWS During your visit today, we recorded the following information about you: Alicia Diaz LPN 03/30/2024 10:04 PM Signed AMB ROOMING INTAKE FLOWSHEET DATA Pain Pain Level: 5 Pain Location: Foot-Right Description: Radiating, Sharp, Throbbing, Tingling Duration Amount of Time: 7 Duration Units: Weeks Frequency: Intermittent Intervention/Comfort measure: Reposition, Cold, Positioning Patient presents with: Right Foot - Post Op, Established Patient, Follow Up, Pain Patient complains of pain mainly at night. SARAH Gutierrez Matthew 03/24/2024 3:40 PM Signed Continue with the boot x 1 week In one week can transition into firm sole shoe with insert at 1 hour/day and increase daily Continue with karen wrap or compression stocking Follow-up in 1 month with repeat xrays JEANNETTE Wright Matthew 03/30/2024 10:04 PM Signed This 43 year old presents post op right foot lapidus bunionectomy Pain level: minimal Vomiting, fever, chills, shortness of breath: no Pain Control: n/a Weightbearing status: partial weightbearing in a boot PAST MEDICAL HISTORY Diagnosis Date Anxiety 2006 Dr. Jaramillo Chronic constipation 01/23/2023 Chronic pelvic pain in female 2022 [employer] Yaz Skinner MD DDD (degenerative disc disease), lumbar 01/23/2023 Pelvic joint pain, left 01/23/2023 Current Outpatient Medications Medication Sig citalopram (CELEXA) 40 mg tablet Take 40 mg by mouth once daily. No current facility-administered medications for this visit. ALLERGIES No Known Allergies Objective: first ray appears rectus. Minimal to no pain along right first ray. Mild swelling noted of right foot consistent with post-op expectations. No calf pain present. Patient has no pain to palpation of right calf. Negative Yarbrough's test. Xrays show progressive healing of right midfoot fusion. Assessment: (Z98.890) Post-operative state (primary encounter diagnosis) (M20.11) Hallux valgus of right foot Plan: Patient is s/p right foot lapidus bunionectomy. Patient is doing very well. I will allow patient to start walking in the boot In one week, I will allow her to transition to firm sole shoe with insert at one hour/day and increase daily Follow-up in one month with repeat xrays Discussed pro/cons regarding hardware removal. Patient to call if any issues arise. Opal Lopez DPM Allergies As of Date: 03/24/2024 (No Known Allergies) Date Reviewed: 03/24/2024 Reviewed by: Alicia Diaz LPN - Fully Assessed Reason for Visit: Post Op [174] Established Patient [175] Follow Up [171] Pain [78] Primary Visit Diagnosis:Post-operativ e state [Z98.890] Other Visit Diagnosis:Hallux valgus of right foot [M20.11] Prescriptions as of 03/30/2024 - citalopram (CELEXA) 40 mg tablet Take 40 mg by mouth once daily. Problem List As Of Date 03/24/2024 Noted Resolved Dizziness [R42] 01/05/2013 06/07/2023 Fatigue [R53.83] 01/16/2013 06/07/2023 Anxiety [F41.9] 04/23/2014 Pelvic joint pain, left [M25.552] 01/23/2023 DDD (degenerative disc disease), lumbar [M51.36*01/23/2023 Chronic constipation [K59.09] 01/23/2023 Hallux valgus of right foot [M20.11] 11/06/2023 Other instructions from your clinician: Continue with the boot x 1 week In one week can transition into firm sole shoe with insert at 1 hour/day and increase daily Continue with karen wrap or compression stocking Follow-up in 1 month with repeat xrays Opal Lopez DPM Medications Discontinued During This Encounter Prescriptions - cephALEXin (KEFLEX) 500 mg capsule (Discontinued) Take 1 capsule by mouth three times a day. Letter Text Encounter Status:Closed by OPAL LOPEZ DPM on 03/30/24 [facility] XR FOOT 3V AP/LAT/OBL RTon 0 03-24-2024 XR FOOT 3V AP/LAT/OBL RT * * *Final Report* * * DATE OF EXAM: Mar 24 2024 2:51PM WRX [id number] - XR FOOT 3V AP/LAT/OBL RT / PROCEDURE REASON: Post-operative state * * * * Physician Interpretation * * * * EXAMINATION / TECHNIQUE: XR FOOT 3V AP/LAT/OBL RT HISTORY: PT STATES 7 WEEKS POST OP RIGHT FOOT SURGERY Post-operative state COMPARISON: 02/20/2024. RESULT: Medial midfoot arthrodesis hardware is intact and unchanged in position. Bony alignment is unchanged. No new acute bony abnormality is identified. IMPRESSION: Healing postoperative changes with intact hardware. Field Control Inspector: PSCB Transcribe Date/Time: Mar 27 2024 5:51P Dictated by : ROX CURRY MD This examination was interpreted and the report reviewed and electronically signed by: ROX CURRY MD on Mar 27 2024 5:51PM EST [id number] Normal [facility] CNOVon 02-28-2024 CNOV Office Visit (PODIWS ) DUNNJOSHUA ([id number]) 1980 F Date Time Provider Department 02/28/24 1:00 PM OPAL LOPEZ PODIWS During your visit today, we recorded the following information about you: Ying Badillo RN 02/28/2024 3:35 PM Signed AMB ROOMING INTAKE FLOWSHEET DATA Pain Pain Level: 5 Pain Location: Foot-Right Description: Aching, Sharp Frequency: Continuous Intervention/Comfort measure: Reposition, Relaxation, Cold Patient presents with: Right Foot - Post Op Opal Lopez 02/28/2024 3:35 PM Signed DOS: 02/04/24 POD: 24 POV: 3 Surgical side: right This 43 year old presents post op lapidus bunionectomy Pain level: 5/10 Vomiting, fever, chills, shortness of breath: no Pain Control: n/a Weightbearing status: partial weightbearing to heel in boot PAST MEDICAL HISTORY Diagnosis Date 2006 Dr. Jaramillo Chronic constipation 01/23/2023 Chronic pelvic pain in female 2022 [employer] Yaz Skinner MD DDD (degenerative disc disease), lumbar 01/23/2023 Pelvic joint pain, left 01/23/2023 Current Outpatient Medications Medication Sig citalopram (CELEXA) 40 mg tablet Take 40 mg by mouth once daily. cephALEXin (KEFLEX) 500 mg capsule Take 1 capsule by mouth three times a day. No current facility-administered medications for this visit. ALLERGIES No Known Allergies Objective: Incision site is well coapted with no evidence of dehiscence. Suture was removed and incisions are now healed. Small bleeding from suture removal but no open wounds. no erythema and mild edema surrounding surgical site. No drainage. No lymphadenopathy. No lymphangitis. No surrounding cellulitis. Patient has no pain to palpation of right calf. Negative Yarbrough's test. Assessment: (Z98.890) Post-operative state (primary encounter diagnosis) Plan: Patient is 24 days s/p lapidus bunionectomy. At this time, suture was removed. All incisions are healed. Patient is now able to shower I will have her continue with boot and she can apply weight to heel for transfer Will have patient f/u in 3.5 weeks with follow-up xray At next follow-up, pending appearance on xray, may allow patient to start placing full weight in boot Discussed internal hardware. Discussed possible removal in future. If patient has any questions, she is to contact the office. JEANNETTE Wright Matthew 02/28/2024 1:26 PM Signed Your incisions are now healed. Ok to shower. Ok to apply lotion Continue with walking in boot to heel. Repeat xray in 3.5 -4 weeks Follow-up in 3.5 -4 weeks Alicia Diaz LPN 02/28/2024 3:35 PM Signed Per Joshua Santa surgical site was dressed with non adherent, 4 in roll gauze and karen wrap. instructed/educated in its application, wear, and care. All questions were answered, and patient was able to demonstrate competence with the necessary skills to utilize the above equipment. Alicia Diaz LPN Allergies As of Date: 02/28/2024 (No Known Allergies) Date Reviewed: 02/28/2024 Reviewed by: Ying Badillo, BRIONNA - Fully Assessed Reason for Visit: Post Op [174] Primary Visit Diagnosis:Post-operativ e state [Z98.890] Order(s):XR FOOT GENERAL 3V AP/LAT/OBL RIGHT [[id number]] Order #: [id number] FUTURE Prescriptions as of 02/28/2024 - cephALEXin (KEFLEX) 500 mg capsule Take 1 capsule by mouth three times a day. - citalopram (CELEXA) 40 mg tablet Take 40 mg by mouth once daily. Problem List As Of Date 02/28/2024 Noted Resolved Dizziness [R42] 01/05/2013 06/07/2023 Fatigue [R53.83] 01/16/2013 06/07/2023 Anxiety [F41.9] 04/23/2014 Pelvic joint pain, left [M25.552] 01/23/2023 DDD (degenerative disc disease), lumbar [M51.36*01/23/2023 Chronic constipation [K59.09] 01/23/2023 Hallux valgus of right foot [M20.11] 11/06/2023 Other instructions from your clinician: Your incisions are now healed. Ok to shower. Ok to apply lotion Continue with walking in boot to heel. Repeat xray in 3.5 -4 weeks Follow-up in 3.5 -4 weeks Encounter Status:Closed by OPAL LOPEZ DPM on 02/28/24 [facility] CNOVon 02-20-2024 CNOV Office Visit (PODIWS ) JOSHUA DUNN ([id number]) 1980 F Date Time Provider Department 02/20/24 1:00 PM OPAL LOPEZ PODIWS During your visit today, we recorded the following information about you: Wendie Mcmillan MA 02/25/2024 6:44 PM Signed AMB ROOMING INTAKE FLOWSHEET DATA Pain Pain Level: 6 Pain Location: Foot-Right Description: Aching, Sharp, Shooting, Surgical/Not Incision Frequency: Continuous Intervention/Comfort measure: Medication, Reposition, Cold, Modify dressing application, Positioning Opal Lopez 02/25/2024 6:44 PM Signed This 43 year old presents post op right lapidus bunionectomy Pain level: minimal Vomiting, fever, chills, shortness of breath: no Pain Control: n/a Weightbearing status: nwb Patient does report falling again recently . She does not feel that the pain is too severe PAST MEDICAL HISTORY Diagnosis Date Anxiety 2006 Dr. Jaramillo Chronic constipation 01/23/2023 Chronic pelvic pain in female 2022 [employer] Yaz Skinner MD DDD (degenerative disc disease), lumbar 01/23/2023 Pelvic joint pain, left 01/23/2023 Current Outpatient Medications Medication Sig citalopram (CELEXA) 40 mg tablet Take 40 mg by mouth once daily. cephALEXin (KEFLEX) 500 mg capsule Take 1 capsule by mouth three times a day. (Patient not taking: Reported on 02/20/2024) No current facility-administered medications for this visit. ALLERGIES No Known Allergies Objective: Incision site is well coapted with no evidence of dehiscence. No erythema and mild edema surrounding surgical site. No drainage. No lymphadenopathy. No lymphangitis. No surrounding cellulitis. Patient has no pain to palpation of right calf. Negative Yarbrough's test. Xrays reviewed. Stable post-op appearance s/p lapidus bunionectomy. No loosening of hardware. No fracture noted. Expected post-op swelling noted. Assessment: (Z98.890) Post-operative state (primary encounter diagnosis) Plan: Bandage removed and new dressing applied. Sutures: due to swelling, will plan to remove next week Weightbearing status: ok for partial weightbearing in boot to right heel RTC 1 week Continue with aspirin for dvt prophylaxis JEANNETTE Wright Matthew 02/20/2024 1:37 PM Signed Your foot appears stable Continue with dressing change every 2 days or so Apply nonadherent with betadine followed by guaze and karen wrap vs tubigrip Plan to remove suture next week. Continue with boot. Ok to apply weight to heel for transfer Continue with 81 mg aspirin twice daily for dvt Alicia Diaz LPN 02/25/2024 6:44 PM Signed Per Joshua Santa incision site was dressed with iodine, adaptic, nonadherent, 4 in roll gauze, and karen wrap. instructed/educated in its application, wear, and care. All questions were answered, and patient was able to demonstrate competence with the necessary skills to utilize the above equipment. Alicia Diaz LPN Allergies As of Date: 02/20/2024 (No Known Allergies) Date Reviewed: 02/20/2024 Reviewed by: Wendie Mcmillan MA - Fully Assessed Reason for Visit: Post Op [174] Primary Visit Diagnosis:Post-operativ e state [Z98.890] Prescriptions as of 02/25/2024 - cephALEXin (KEFLEX) 500 mg capsule Take 1 capsule by mouth three times a day. - citalopram (CELEXA) 40 mg tablet Take 40 mg by mouth once daily. Problem List As Of Date 02/20/2024 Noted Resolved Dizziness [R42] 01/05/2013 06/07/2023 Fatigue [R53.83] 01/16/2013 06/07/2023 Anxiety [F41.9] 04/23/2014 Pelvic joint pain, left [M25.552] 01/23/2023 DDD (degenerative disc disease), lumbar [M51.36*01/23/2023 Chronic constipation [K59.09] 01/23/2023 Hallux valgus of right foot [M20.11] 11/06/2023 Other instructions from your clinician: Your foot appears stable Continue with dressing change every 2 days or so Apply nonadherent with betadine followed by guaze and karen wrap vs tubigrip Plan to remove suture next week. Continue with boot. Ok to apply weight to heel for transfer Continue with 81 mg aspirin twice daily for dvt Encounter Status:Closed by OPAL LOPEZ DPM on 02/25/24 Normal [facility] XR FOOT 3V AP/LAT/OBL RTon 1 04-22-2023 XR FOOT 3V AP/LAT/OBL RT * * *Final Report* * * DATE OF EXAM: Feb 20 2024 1:29PM [id number] [id number] - XR FOOT 3V AP/LAT/OBL RT / PROCEDURE REASON: Post-operative state * * * * Physician Interpretation * * * * PROCEDURE: Right foot INDICATION: Post-operative state .PT STATES 2 WEEKS POST OP RIGHT, FELL AGAIN AT HOME TECHNIQUE: XR FOOT 3V AP/LAT/OBL RT COMPARISON: 02/06/2024 FINDINGS: Stable bridging hardware at the 1st MTP joint and from the bases of the 1st and 2nd metatarsals. There is good bony apposition at the 1st TMT joint. There is incomplete bony fusion. No acute fracture or dislocation. Soft tissue swelling without soft tissue gas. IMPRESSION: Stable postoperative changes. Field Control Inspector: PSCB Transcribe Date/Time: Feb 23 2024 12:24P Dictated by : VILMA BOLDEN MD This examination was interpreted and the report reviewed and electronically signed by: VILMA BOLDEN MD on Feb 23 2024 12:25PM EST [id number] Normal [facility] CNOVon 02-06-2024 CNOV Office Visit (PODIWS ) JOSHUA DUNN ([id number]) 1980 F Date Time Provider Department 02/06/24 1:00 PM OPAL LOPEZ PODIWS During your visit today, we recorded the following information about you: Alicia Diaz LPN 02/06/2024 3:14 PM Signed AMB ROOMING INTAKE FLOWSHEET DATA Pain Pain Level: 7 Pain Location: Foot-Right Description: Throbbing, Stabbing Duration Amount of Time: 3 Duration Units: Days Frequency: Continuous Intervention/Comfort measure: Relaxation, Reposition, Medication Patient presents with: Right Foot - Established Patient, Pain, Post Op, Swelling, Follow Up Patient presents to office 2 days s/p Lapidus bunionectomy with possible armida osteotomy, right foot. Patient states she took a fall this morning down 1 stair landing on her toes. Patient complains of pain 7/10. Patient last took percocet around 4 Am and has been aleve instead of percocet when able. SARAH Gutierrez Matthew 02/06/2024 3:14 PM Signed DOS: 02/04/24 POD: 2 POV: 1 Surgical side: right This 43 year old presents post op right foot lapidus bunionectomy (lapiplasty) Pain level: 7/10 Vomiting, fever, chills, shortness of breath: no Pain Control: percocet Weightbearing status: nwb Patient did sustain a fall today. She was coming down the steps and missed the last step. Her weight landed on her toe. PAST MEDICAL HISTORY Diagnosis Date Anxiety 2006 Dr. Jaramillo Chronic constipation 01/23/2023 Chronic pelvic pain in female 2022 [employer] Yaz Skinner MD DDD (degenerative disc disease), lumbar 01/23/2023 Pelvic joint pain, left 01/23/2023 Current Outpatient Medications Medication Sig cephALEXin (KEFLEX) 500 mg capsule Take 1 capsule by mouth three times a day. oxyCODONE-acetaminophen (PERCOCET) 5-325 mg tablet Take 1 tablet by mouth every 6 hours as needed for up to 7 days. citalopram (CELEXA) 40 mg tablet Take 40 mg by mouth once daily. No current facility-administered medications for this visit. ALLERGIES No Known Allergies Objective: Incision site is well coapted with no evidence of dehiscence. No erythema and moderate edema surrounding surgical site. No drainage. No lymphadenopathy. No lymphangitis. No surrounding cellulitis. Patient has no pain to palpation of right calf. Negative Yarbrough's test. Assessment: (W19.XXXA) Fall, initial encounter (primary encounter diagnosis) (M20.11) Hallux valgus of right foot (Z98.890) Post-operative state Plan: Bandage removed and new dressing applied. Incisions all look well. Will have her change dressing every 2 -3days. She will apply betadine and adaptic to incision followed by arik camilo. Will place her in pneumatic boot. Sutures: will plan for removal at 3 weeks post-op. Weightbearing status: partial weightbearing to heel in boot for transfer only. RTC 2 weeks as this provider will be out of the office next week. This provider has provided patient with my phone number so she can contact me if she has any issues. Continue with 81 mg aspirin bid out of caution for dvt Reviewed xrays as patient had fall. I do not see any fracture or hardware loosening. JEANNETTE Wright Matthew 02/06/2024 3:04 PM Signed Your foot appears stable Would continue with boot Elevate your foot x 2-3 pillows to minimize swelling. Change dressing every 2-3 days. Apply betadine and adaptic to incision followed by arik Can take 81 mg aspirin twice daily to lower risk of blood clot If you have any shortness of breath or calf pain, present to Emergency Dept Call Dr. Lopez at [phone] with any questions. JEANNETTE Wright Amelia, LPN 02/06/2024 3:26 PM Signed Per Joshua Santa was provided with [employer], size L, and instructed/educated in its application, wear, and care. All questions were answered, and patient was able to demonstrate competence with the necessary skills to utilize the above equipment. Billed to [place] Per Joshua Santa incision site was dressed with iodine, adaptic, non adherent, 4x4 guaze anchoring great toe secured with 4 in roll gauze and karen wrap. Instructed/educated in its application, wear, and care. All questions were answered, and patient was able to verbalize competence with the necessary skills to utilize the above equipment. Patient was provided with supplies. Alicia Diaz LPN Allergies As of Date: 02/06/2024 (No Known Allergies) Date Reviewed: 02/06/2024 Reviewed by: Alicia Diaz LPN - Fully Assessed Reason for Visit: Established Patient [175] Pain [78] Post Op [174] Swelling [205] Follow Up [171] Primary Visit Diagnosis:Fall, initial encounter [W19.XXXA] Other Visit Diagnoses:Hallux valgus of right foot [M20.11] Post-operative state [Z98.890] Order(s):XR FOOT GENERAL 3V AP/LAT/OBL RIGHT [[id number]] Order #: [id number] (more content not included)... Normal [facility] CNPAlissa 02-06-2024 CNPN Telephone (PODIWS) JOSHUA DUNN ([id number]) 1980 F Date Time Provider Department 02/06/24 OPAL LOPEZ During your visit today, we recorded the following information about you: Alicia Diaz LPN 02/06/2024 4:52 PM Signed Patient was seen in office for 2 day post op visit. Patient called into office stating that there is painful burning sensation at every incision site. Provider was consulted. Per Dr. Lopez, have patient lossen dressing if pain falls to improve patient is to perform dressing change, remove boot and elevate foot 4 pillows high. Patient verbalized understanding and will contact office or provide if issues persist or worsen. Alicia Diaz LPN Allergies As of Date: 02/06/2024 (No Known Allergies) Date Reviewed: 02/06/2024 Reviewed by: Alicia Diaz LPN - Fully Assessed Prescriptions as of 02/07/2024 - cephALEXin (KEFLEX) 500 mg capsule Take 1 capsule by mouth three times a day. - oxyCODONE-acetaminophen (PERCOCET) 5-325 mg tablet Take 1 tablet by mouth every 6 hours as needed for up to 7 days. - citalopram (CELEXA) 40 mg tablet Take 40 mg by mouth once daily. Problem List As Of Date 02/06/2024 Noted Resolved Dizziness [R42] 01/05/2013 06/07/2023 Fatigue [R53.83] 01/16/2013 06/07/2023 Anxiety [F41.9] 04/23/2014 Pelvic joint pain, left [M25.552] 01/23/2023 DDD (degenerative disc disease), lumbar [M51.36*01/23/2023 Chronic constipation [K59.09] 01/23/2023 Hallux valgus of right foot [M20.11] 11/06/2023 Encounter Status:Closed by ALICIA DIAZ on 02/07/24 Normal [facility] XR FOOT 3V AP/LAT/OBL RTon 1 04-07-2023 XR FOOT 3V AP/LAT/OBL RT * * *Final Report* * * DATE OF EXAM: Feb 06 2024 2:10PM [id number] [id number] - XR FOOT 3V AP/LAT/OBL RT / PROCEDURE REASON: Fall, initial encounter * * * * Physician Interpretation * * * * EXAMINATION: XR FOOT 3V AP/LAT/OBL RT PATIENT/TECHNOLOGIST PROVIDED HISTORY: PT STATES SURGERY ON RIGHT FOOD SATURDAY FELL AT HOME TODAY. CLINICAL INFORMATION ( PROVIDED BY ORDERING CLINICIAN) : Fall, initial encounter TECHNIQUE: XR FOOT 3V AP/LAT/OBL RT COMPARISON: 02/04/2024 RESULT: No acute fracture or dislocation. Again seen are postsurgical changes of first TMT joint arthrodesis and screw fixation across the base of the first and second metatarsals. Hardware remains intact without periprosthetic lucency. Alignment is unchanged. Soft tissue swelling of the forefoot. IMPRESSION: Expected postoperative findings. No acute osseous findings. Field Control Inspector: PSCB Transcribe Date/Time: Feb 10 2024 2:32P Dictated by : KEVIN GREGORY MD This examination was interpreted and the report reviewed and electronically signed by: KEVIN GREGORY MD on Feb 10 2024 2:34PM EST [id number] Normal [facility] ANES POSTPROC EVALon 024 ANES POSTPROC EVAL HNO ID: [id number] Author: VERNON MOREIRA MD Service: Anesthesiology Author Type: Anesthesiologist Type: Anesthesia Postprocedure Evaluation Filed: 02/04/2024 19:02 Note Text: POST ANESTHESIA EVALUATION NOTE : 1980 Procedure Summary Date: 02/04/24 Room / Location: [place] [address] / OR Anesthesia Start: 1402 Anesthesia Stop: 1748 Procedures: BUNIONECTOMY W/1ST MTJ AND MCJ ARTHRODESIS,ANY METHOD (Right: Popliteal) BUNIONECTOMY W/PROXIMAL PHALANX OSTEOTOMY,ANY METHOD (Right: Popliteal) Diagnosis: Acquired hallux valgus of right foot (Acquired hallux valgus of right foot [M20.11]) Surgeons: Opal Lopez Responsible Provider: Vernon Moreira MD Anesthesia Type: MAC ASA Status: 2 Anesthesia Type: MAC Last Vitals Vitals Value Taken Time BP 102/71 02/04/24 1900 Temp 37.2 ?C (98.9 ?F) 02/04/24 1751 HR SpO2 79 02/04/24 1901 Resp 11 02/04/24 1901 SpO2 95 % 02/04/24 1901 Vitals shown include unfiled device data. Post Anesthesia Patient Status Patient Evaluation: PACU. PACU/ICU Patient Condition: stable. Anticipated Disposition: phase 2 then home. Neurological Status: aware and responsive. Pulmonary Status: breathing comfortably on room air Airway Control: returned to baseline unsupported. Cardiovascular Status: stable. Pain Management: clinically adequate - multimodal analgesia pain management approach Postoperative Hydration: acceptable. Intraoperative Events: no significant anesthesia events Post Operative Nausea/Vomiting Status: no significant post operative nausea or vomiting Recommendation: continue current plan of care and further care per PACU/ICU/floor team. Anesthesia Observations No Documentation SIGNATURE: Vernon Moreira MD PATIENT NAME: Joshua Dunn DATE: February 04, 2024 TIME: 7:01 PM CSN: [id number] [facility] ANES PRE-OPon 02-04-2024 ANES PRE-OP HNO ID: [id number] Author: ELMER EDGE MD Service: Anesthesiology Author Type: Anesthesiologist Type: Anesthesia Preprocedure Evaluation Filed: 02/04/2024 12:53 Note Text: ANESTHESIOLOGY DAY OF SURGERY NOTE : 1980 Procedure Information Date/Time: 02/04/24 1225 Procedures: BUNIONECTOMY W/1ST MTJ AND MCJ ARTHRODESIS,ANY METHOD (Right: Popliteal) - general with Popliteal block BUNIONECTOMY W/PROXIMAL PHALANX OSTEOTOMY,ANY METHOD (Right: Popliteal) Location: MM OR01 / MM OR Surgeons: Opal Lopez Estimated body mass index is 22.67 kg/m? as calculated from the following: Height as of 01/15/24: 177.8 cm (5' 10). Weight as of 01/15/24: 71.7 kg (158 lb). Most recent hematocrit and potassium results: Hematocrit 38.2 01/15/2024 Potassium 4.0 01/15/2024 Relevant Problems No relevant active problems I - PHYSICAL EVALUATION AIRWAY Patient intubated: No. Tracheostomy tube not present Mallampati: I. TM distance: >3 FB. Neck ROM: full ROM without neurological symptoms. Mouth opening: adequate. Short neck: no. Thick neck: no DENTAL Dental findings: teeth intact. Additional exam findings: no II - ANESTHESIA PLAN ASA Score: 2 Anesthetic Plan: MAC NPO Status: adequate Beta Adenike Monitoring Plan Monitoring plan: Standard ASA. Post Procedure Analgesic Plan Postoperative analgesic plan: parenteral or oral opioids, peripheral nerve block and multimodal analgesia. Informed Consent Anesthetic risks, benefits, alternatives, personnel and consent discussed: yes. Patient / Responsible Alliance Party agrees to proceed: yes Patient / Surrogate agrees to blood products: yes DNR status not reviewed with patient and/or family prior to surgery. Significant changes in the patient condition since the History and Physical, not otherwise documented in primary service progress note: no. Potential Anesthesia issues that may suggest increased risk of complications or contraindication to planned procedure: none. Vitals Value Taken Time BP 106/69 02/04/24 1215 Pulse 69 02/04/24 1215 Resp 20 02/04/24 1215 Temp 36.6 ?C (97.8 ?F) 02/04/24 1215 SpO2 100 % 02/04/24 1215 Facility-Administered Medications as of 02/04/2024 Medication Dose Route Frequency lidocaine (PF) 10 mg/mL (1 %) 1-2 mg injection (XYLOCAINE) 0.1-0.2 mL INTRADERMAL PRN NaCl 0.9% iv flush bag 20 mL INTRAVENOUS PRN ceFAZolin iv piggyback 2 g in D5W (iso-osmotic) 100 mL (ANCEF) 2 g INTRAVENOUS Pre-Op Once midazolam (PF) 4 mg injection (VERSED) 4 mg INTRAVENOUS ONCE scopolamine (delivers 1 mg over 3 days) 1 Patch (TRANSDERM-SCOP) 1 Patch TRANSDERMAL q 72 HR And [START ON 02/07/2024] scopolamine - REMOVE PATCH OTHER q 72 HR And scopolamine - VERIFY patch OTHER q 8 H midazolam (PF) 6 mg injection (VERSED) 6 mg INTRAVENOUS ONCE Outpatient Medications as of 02/04/2024 Medication Sig citalopram (CELEXA) 40 mg tablet Take 40 mg by mouth once daily. I have interviewed and examined the patient. I have reviewed the medical record and/or the pre-anesthesia evaluation, pertinent labs, and test results. This contains updated information obtained within 48 hours of Surgery/Procedure. SIGNATURE: Elmer Edge MD PATIENT NAME: Joshua Dunn DATE: February 04, 2024 TIME: 12:47 PM CSN: [id number] [facility] HISTORY PHYSICALon 4 HISTORY PHYSICAL HNO ID: [id number] Author: OPAL LOPEZ, ? Service: Podiatry Author Type: Physician Type: H&P Filed: 02/04/2024 12:38 Note Text: UPDATED HISTORY AND PHYSICAL EXAMINATION SERVICE DATE: 02/04/2024 SERVICE TIME: 12:34 SENSITIVE EXAMINATION CONSENT: The sensitive examination was discussed with the Patient or Patient's Authorized Entertainment Lawyer. As applicable, any other physician, advance practice provider, medical student, or other health professional student that will be observing or involved in the sensitive examination for educational or training purposes was discussed with the Patient or Authorized Entertainment Lawyer. The Patient or Authorized Entertainment Lawyer has agreed to proceed with the sensitive examination. (Sensitive examination includes inspection and/or palpation of the breasts, pelvis, prostate and anorectal regions) PHYSICAL EXAM MUST BE COMPLETED ON ADMISSION The History and Physical (completed in the past 30 days) has been reviewed and the patient has been examined. The contents accurately reflect the patient's condition with the following additions or revisions since the HANDP was completed. Examination indicates no changes. This HANDP can be found in the Electronic Medical Record dated 01/15/24. Physical exam: Lungs are clear Heart: regular rate and rhythm Foot: Vascular: DP and PT pulses are palpable to right foot. CFT is brisk. Derm: no open lesions noted to right foot M/s: bunion with hypermobility, right first ray Plan for lapidus with possible armida, right foot Discussed popliteal block. Patient declining today. SIGNATURE: Opal Lopez DPM PATIENT NAME: Joshua Dunn DATE: February 04, 2024 TIME: 12:34 PM [facility] OPERATIVE NOon 02-04-2024 OPERATIVE NO HNO ID: [id number] Author: OPAL LOPEZ, ? Service: Podiatry Author Type: Physician Type: Operative Report Filed: 02/05/2024 22:23 Note Text: OPERATIVE/PROCEDURE REPORT LOG ID: [id number] SURGERY/PROCEDURE DATE: 02/04/2024 INCISION/PROCEDURE START TIME: 2:27 PM INCISION CLOSE/PROCEDURE END TIME: 5:36 PM SURGEON(S)/PROCEDURALIS T(S) AND BEHAVIORAL THERAPY COORDINATOR(S): Surgeons and Role: * Opal Lopez - Primary * James, [place]AN[place] - Resident - Assisting * Melanie Salcedo DPM No Additional Staff SURGERY/PROCEDURE(S): Lapidus bunionectomy, right foot ANESTHESIA: [facility] - Extremity Lower SURGERY/PROCEDURE DETAILS: This patient is a pleasant 43 year old female who complains of painful bunion of the right foot. This has been progressively causing her pain. She has tried wider shoes, padding, inserts but continues to have pain. On exam, she has a hypermobile bunion deformity with an increased IM 1-2. We discussed surgical intervention by way of lapidus bunionectomy. I discussed the nature of the lapidus bunionectomy, that being a midtarsal fusion (first metatarsal cun fusion). I discussed the risks of the procedure not limited to infection, pain, swelling, bleeding, slow wound healing, nonunion, malunion, delayed union. We also discussed undercorrection, overcorrection, hallux varus. I discussed post-op protocol to include period of nwb followed by protective ambulation in a boot. All questions have been answered. No guarantees expressed. I also discussed risk of dvt following surgery. We discussed the use of blood thinners following surgery. This patient declined any lovenox or blood thinner. I offered popliteal/saphenous nerve block but she elected for regional. The patient was transferred to the operating room and placed on the operating room table in the supine position. She was identified by name and procedure. The patient was placed under sedation and a local field block consisting of 1% lidocaine plain was placed along the first ray. A well padded tourniquet was placed to the right calf. The right lower extremity was prepped and draped in the usual aseptic technique. . The right lower extremity was then elevated and the tourniquet was inflated . Time out was performed making note of the procedure and personal involved. Attention was directed to the right foot. A dorsal medial incision along the first metatarsal cuneiform joint was made. This incision was made with aide of intra-op flouroscopy. Careful dissection was performed down thru the subcutaneous tissue. The capsule was identified along the first metatarsal cuneiform joint. The capsule was reflected off the joint. Using a sagittal saw, the 1st metatarsal cuneiform joint was planed to allow placement of the cutting guide by navarro. After the joint was planed, a lateral release of the first metatarsal phalangeal joint was performed using a speed release.. A small incision along the first interspace was performed to perform the lateral release. Dissection performed down thru layers. The lateral capsule was incised vertically. The lateral release was performed. A k-wire was placed along the proximal 1st ray and stressing of the great toe joint confirmed successful release. The sesamoids were able to be relocated beneath the 1st metatarsal head. Attention was then directed to the first metatarsal cuneiform joint. A cutting guide was placed along the first metatarsal cuneiform joint and then the IM 1-2 was reduced with reduction clamp by navarro. A small longitudinal incision was performed just lateral to the 2nd metatarsal shaft to allow placement of the reduction clamp. The IM 1-2 was now reduced. AP xrays confirmed successful reduction of our IM.Lateral xrays confirmed no elevation of the first ray. The joint cartilage was then resected via sagittal saw by using the cutting guide. The joint was then distracted. The fragments were removed. The joint was irrigated with saline. Subchondral drilling was then performed. The joint was then compressed. At this time, it was noted there was a significant dorsal step off and it was noted that some elevatus was noted. It was at this time that decision was made to remove all cutting guides and reciprocally plane the first metatarsal cun joint to allow for correctoin of elevatus. Upon completing this, xrays confirmed satisfactory alignment of the first ray without gapping of the dorsal or plantar aspect of the first metatarsal cuneiform joint. Placement of temporary fixation was performed with crossing k-wires. Two speedplates were then placed, one dorsally and one medially . All temporary fixation was removed and good compression was noted across our first metatarsal cuneiform fusion. Attention was then directed to the first mtpj. A small linear incision along the medial eminence was performed. Dissection was performed thru layers to the first metatarsal phalangea (more content not included)... [facility] XR FOOT 3V AP/LAT/OBL RTon 1 04-05-2023 XR FOOT 3V AP/LAT/OBL RT * * *Final Report* * * DATE OF EXAM: Feb 04 2024 6:50PM MMX [id number] - XR FOOT 3V AP/LAT/OBL RT / PROCEDURE REASON: Post-operative / post-procedure assessment * * * * Physician Interpretation * * * * HISTORY: post-op. Post-operative / post-procedure assessment. TECHNIQUE: XR FOOT 3V AP/LAT/OBL RT Laterality: RIGHT COMPARISON: 09/05/2023 RESULT: There is now postsurgical change including dorsal hardware crossing the first TMT joint and additional screw crossing the bases of the first and second metatarsals. Hardware appears intact and alignment is anatomic. There is dorsal soft tissue swelling. - IMPRESSION: Postsurgical change. Field Control Inspector: SHAMA Transcribe Date/Time: Feb 05 2024 8:41A Dictated by : MELANIE RAMÍREZ MD This examination was interpreted and the report reviewed and electronically signed by: MELANIE RAMÍREZ MD on Feb 05 2024 8:42AM EST [id number] [facility] JOSHUA DUNN ([id number]) 1980 F Date Time Provider Department 01/20/24 OPAL LOPEZ During your visit today, we recorded the following information about you: Alicia Diaz LPN 01/20/2024 4:38 PM Signed Patient has been identified by name and date of : Yes, Provider opal Lopez Date 01/20/2024 Time 4:37 Type of form: [facility] Form received via: Fax When form is completed, fax form to fax number provided. Form has been forwarded to: Provider's desk. Provider name: SARAH Daigle Amanda, RN 01/30/2024 10:00 AM Signed Forms Faxed at this time Allergies As of Date: 01/20/2024 (No Known Allergies) Date Reviewed: 01/15/2024 Reviewed by: Maye Ospina APRN.[facility] - Fully Assessed Reason for Visit: [place] Paperwork [4185] Prescriptions as of 03/02/2024 - cephALEXin (KEFLEX) 500 mg capsule Take 1 capsule by mouth three times a day. - citalopram (CELEXA) 40 mg tablet Take 40 mg by mouth once daily. Problem List As Of Date 01/20/2024 Noted Resolved Dizziness [R42] 01/05/2013 06/07/2023 Fatigue [R53.83] 01/16/2013 06/07/2023 Anxiety [F41.9] 04/23/2014 Pelvic joint pain, left [M25.552] 01/23/2023 DDD (degenerative disc disease), lumbar [M51.36*01/23/2023 Chronic constipation [K59.09] 01/23/2023 Hallux valgus of right foot [M20.11] 11/06/2023 Encounter Status:Closed by ALICIA DIAZ on 03/02/24 Normal [facility] Basic metabolic 2000 panelOr dered By: Melonie Jang on 01-15-2024 Anion gap [Moles/Vol] 11 mmol/L 8 - 15 mmol/L [facility] Calcium [Mass/Vol] 9.1 mg/dL 8.5 - 10. 2 mg/dL [facility] Chloride [Moles/Vol] 102 mmol/L 98 - 10 7 mmol/L [facility] CO2 [Moles/Vol] 24 mmol/L 22 - 30 mmol/L [facility] Creatinine [Mass/Vol] 0.79 mg/dL 0.58 - 0.96 mg/dL [facility] GFR/1.73 sq M.predicted among non-blacks MDRD (S/P/Bld) [Vol rate/Area] 97 mL/min/{1.73_m2} - PINF [facility] Comment on above: Estimated Glomerular Filtration Rate (eGFR) is calculated using the 2020 CKD-EPI creatinine equation. This equation utilizes serum creatinine, sex, and age as parameters. The creatinine assay has traceable calibration to isotope dilution-mass spectrometry. Refer to KDIGO guidelines for clinical interpretation. In patients with unstable renal function, e.g. those with acute kidney injury, the eGFR may not accurately reflect actual GFR. Glucose [Mass/Vol] 92 mg/dL 74 - 99 mg/dL [facility] Comment on above: The [place] Diab[employer] s Association (ADA) provides guidance for cutoff values for fasting glucose and random glucose. The ADA defines fasting as no caloric intake for at least 8 hours. Fasting plasma glucose results between 100 to 125 mg/dL indicate increased risk for diabetes (prediabetes). Fasting plasma glucose results greater than or equal to 126 mg/dL meet the criteria for diagnosis of diabetes. In the absence of unequivocal hyperglycemia, results should be confirmed by repeat testing. In a patient with classic symptoms of hyperglycemia or hyperglycemic crisis, random plasma glucose results greater than or equal to 200 mg/dL meet the criteria for diagnosis of diabetes. Reference: Standards of Medical Care in Diabetes 2016, [place] [employer] Association. Diabetes Care. 2016.39(Suppl 1). Interpretation and review of laboratory results Normal [facility] Potassium [Moles/Vol] 4.0 mmol/L 3.7 - 5.1 mmol/L [facility] Sodium [Moles/Vol] 137 mmol/L 136 - 144 mmol/L [facility] Urea nitrogen [Mass/Vol] 12 mg/dL 7 - 21 mg/dL [facility] Basic metabolic 2000 panelon 01-15-2024 Anion gap [Moles/Vol] 11 mmol/L Normal 8-15 [facility] Comment on above: Order Comment: Speci men Type: BLOOD SPECIMENOrdering Facility: [facility] Address: [address] [place] [address] Performed By: #### 2 4321-2 ####[facility] [id number] [place] [address] [place] Calcium [Mass/Vol] 9.1 mg/dL Normal 8.5-10.2 [facility] Comment on above: Order Comment: Speci men Type: BLOOD SPECIMENOrdering Facility: [facility] Address: [address] [place] [address] Performed By: #### 2 4321-2 ####[facility]ITALLIA [id number] [place] [address] [place] Chloride [Moles/Vol] 102 mmol/L Normal 98-107 [facility] Comment on above: Order Comment: Speci men Type: BLOOD SPECIMENOrdering Facility: [facility] Address: [address] [place] [address] Performed By: #### 2 4321-2 ####[facility]ITALNCLIA [id number] [place] [address] [place] CO2 [Moles/Vol] 24 mmol/L Normal 22-30 [facility] Comment on above: Order Comment: Speci men Type: BLOOD SPECIMENOrdering Facility: [facility] Address: [address] [place] [address] Performed By: #### 2 4321-2 ####[facility] HOSPITALNCS[facility] [id number] [place] [address] [place] Creatinine [Mass/Vol] 0.79 mg/dL Normal 0.58-0.96 [facility] Comment on above: Order Comment: Speci men Type: BLOOD SPECIMENOrdering Facility: [facility] Address: [address] [place] [address] Performed By: #### 2 4321-2 ####[facility] H[facility]PITALNCS[facility] [id number] [place] [address] [place] Creatinine and Glomerular filtration rate.predicted panel (S/P/Bld) 97 mL/min/1.73m??? Normal >=60 [facility] Comment on above: Order Comment: Speci men Type: BLOOD SPECIMENOrdering Facility: [facility] Address: [address] [place] [address] Result Comment: Marlene mated Glomerular Filtration Rate (eGFR) is calculated using the 2020 CKD-EPI creatinine equation. This equation utilizes serum creatinine, sex, and age as parameters. The creatinine assay has traceable calibration to isotope dilution-mass spectrometry. Refer to KDIGO guidelines for clinical interpretation. In patients with unstable renal function, e.g. those with acute kidney injury, the eGFR may not accurately reflect actual GFR. Performed By: #### 2 4321-2 ####[facility] HOSPITALNCLIA [id number] [place] [address] [place] Glucose [Mass/Vol] 92 mg/dL Normal 74-99 [facility] Comment on above: Order Comment: Speci men Type: BLOOD SPECIMENOrdering Facility: [facility] Address: [address] [place] [address] Result Comment: The [place] Diabetes Association (ADA) provides guidance for cutoff values for fasting glucose and random glucose. The ADA defines fasting as no caloric intake for at least 8 hours. Fasting plasma glucose results between 100 to 125 mg/dL indicate increased risk for diabetes (prediabetes). Fasting plasma glucose results greater than or equal to 126 mg/dL meet the criteria for diagnosis of diabetes. In the absence of unequivocal hyperglycemia, results should be confirmed by repeat testing. In a patient with classic symptoms of hyperglycemia or hyperglycemic crisis, random plasma glucose results greater than or equal to 200 mg/dL meet the criteria for diagnosis of diabetes. Reference: Standards of Medical Care in Diabetes 2016, [place] Diabetes Association. Diabetes Care. 2016.39(Suppl 1). Performed By: #### 2 4321-2 ####[facility] MILLTOWNCLIA [id number] [place] [address] [place] Potassium [Moles/Vol] 4.0 mmol/L Normal 3.7-5.1 [facility] Comment on above: Order Comment: Speci men Type: BLOOD SPECIMENOrdering Facility: [facility] Address: [address] [place] [address] Performed By: #### 2 4321-2 ####[facility]ITALLIA [id number] [place] [address] [place] Sodium [Moles/Vol] 137 mmol/L Normal 136-144 [facility] Comment on above: Order Comment: Speci men Type: BLOOD SPECIMENOrdering Facility: [facility] Address: [address] [place] [address] Performed By: #### 2 4321-2 ####[facility] MILLTOWNCLIA [id number] [place] [address] [place] Urea nitrogen [Mass/Vol] 12 mg/dL Normal 7-21 [facility] Comment on above: Order Comment: Speci men Type: BLOOD SPECIMENOrdering Facility: [facility] Address: [address] [place] [address] Performed By: #### 2 4321-2 ####[facility] EMERALD COASTWNCLIA [id number] [place] [id number] [place] CBC W Auto Differential pane l (Bld)on 01-15-2024 Basophils (Bld) [#/Vol] 0.06 10*3/uL [facility] Basophils/100 WBC (Bld) 0.7 % [facility] Differential cell count method Nom (Bld) Auto [facility] Eosinophils (Bld) [#/Vol] 0.11 10*3/uL [facility] Eosinophils/100 WBC (Bld) 1.4 % [facility] Erythrocyte distribution width (RBC) [Ratio] 12.1 % 11.5 - 15.0 % [facility] Hematocrit (Bld) [Volume fraction] 38.2 % 36.0 - 46.0 % [facility] Hemoglobin (Bld) [Mass/Vol] 12.8 g/dL 11.5 - 15.5 g/dL [facility] Immature granulocytes (Bld) [#/Vol] 0.03 10*3/uL [facility] Immature granulocytes/100 WBC (Bld) 0.4 % [facility] Lymphocytes (Bld) [#/Vol] 2.42 10*3/uL [facility] Lymphocytes/100 WBC (Bld) 30.0 % [facility] MCH (RBC) [Entitic mass] 29.0 pg 26.0 - 34.0 pg [facility] MCHC (RBC) [Mass/Vol] 33.5 g/dL 30.5 - 36.0 g/dL [facility] MCV (RBC) [Entitic vol] 86.4 fL 80.0 - 100.0 fL [facility] Monocytes (Bld) [#/Vol] 0.57 10*3/uL [facility] Monocytes/100 WBC (Bld) 7.1 % [facility] Neutrophils (Bld) [#/Vol] 4.89 10*3/uL [facility] Neutrophils/100 WBC (Bld) 60.4 % [facility] Nucleated RBC (Bld) [#/Vol] [facility] Nucleated RBC/100 WBC (Bld) [Ratio] 0.0 % /100 WBC [facility] Platelet mean volume (Bld) [Entitic vol] 9.9 fL 9.0 - 12.7 fL [facility] Platelets (Bld) [#/Vol] 251 10*3/uL [facility] RBC (Bld) [#/Vol] 4.42 10*6/uL 3.90 - 5.2 0 m/uL [facility] WBC (Bld) [#/Vol] 8.08 10*3/uL [facility] Basophils (Bld) [#/Vol] 0.06 10*3/uL Normal <0.11 [facility] Comment on above: Order Comment: Speci men Type: BLOOD SPECIMENOrdering Facility: [facility] Address: [address] [place] [address] Performed By: #### 5 7021-8 ####[facility] MILLWNCLIA [id number] [place] [address] [place] Basophils/100 WBC (Bld) 0.7 % Normal [facility] Comment on above: Order Comment: Speci men Type: BLOOD SPECIMENOrdering Facility: [facility] Address: [address] [place] [address] Performed By: #### 5 7021-8 ####[facility] HOSPITALLIA [id number] [place] [address] [place] Differential cell count method Nom (Bld) Auto Normal [facility] Comment on above: Order Comment: Speci men Type: BLOOD SPECIMENOrdering Facility: [facility] Address: [address] [place] [address] Performed By: #### 5 7021-8 ####[facility] MILLWNCLIA [id number] [place] [address] [place] Eosinophils (Bld) [#/Vol] 0.11 10*3/uL Normal <0.46 [facility] Comment on above: Order Comment: Speci men Type: BLOOD SPECIMENOrdering Facility: [facility] Address: [address] [place] [address] Performed By: #### 5 7021-8 ####[facility] MILLGLENSHAWNCLIA [id number] [place] [address] [place] Eosinophils/100 WBC (Bld) 1.4 % Normal [facility] Comment on above: Order Comment: Speci men Type: BLOOD SPECIMENOrdering Facility: [facility] Address: [address] [place] [address] Performed By: #### 5 7021-8 ####[facility] HOSPITALNCA [id number] [place] [address] [place] Erythrocyte distribution width (RBC) [Ratio] 12.1 % Normal 11.5-15.0 [facility] Comment on above: Order Comment: Speci men Type: BLOOD SPECIMENOrdering Facility: [facility] Address: [address] [place] [address] Performed By: #### 5 7021-8 ####[facility] HOSPITALNCS[facility] [id number] [place] [address] [place] Hematocrit (Bld) [Volume fraction] 38.2 % Normal 36.0-46.0 [facility] Comment on above: Order Comment: Speci men Type: BLOOD SPECIMENOrdering Facility: [facility] Address: [address] [place] [address] Performed By: #### 5 7021-8 ####[facility] HOSPITALNCA [id number] [place] [address] [place] Hemoglobin (Bld) [Mass/Vol] 12.8 g/dL Normal 11.5-15.5 [facility] Comment on above: Order Comment: Speci men Type: BLOOD SPECIMENOrdering Facility: [facility] Address: [address] [place] [address] Performed By: #### 5 7021-8 ####[facility] HOSPITALNCLIA [id number] [place] [address] [place] Immature granulocytes (Bld) [#/Vol] 0.03 10*3/uL Normal <0.10 [facility] Comment on above: Order Comment: Speci men Type: BLOOD SPECIMENOrdering Facility: [facility] Address: [address] [place] [address] Performed By: #### 5 7021-8 ####[facility] HOSPITALTATE [id number] [place] [address] [place] Immature granulocytes/100 WBC (Bld) 0.4 % Normal [facility] Comment on above: Order Comment: Speci men Type: BLOOD SPECIMENOrdering Facility: [facility] Address: [address] [place] [address] Performed By: #### 5 7021-8 ####[facility] [id number] [place] [address] [place] Lymphocytes (Bld) [#/Vol] 2.42 10*3/uL Normal 1.00-4.00 [facility] Comment on above: Order Comment: Speci men Type: BLOOD SPECIMENOrdering Facility: [facility] Address: [address] [place] [address] Performed By: #### 5 7021-8 ####[facility] [id number] [place] [address] [place] Lymphocytes/100 WBC (Bld) 30.0 % Normal [facility] Comment on above: Order Comment: Speci men Type: BLOOD SPECIMENOrdering Facility: [facility] Address: [address] [place] [address] Performed By: #### 5 7021-8 ####[facility] [id number] [place] [address] [place] MCH (RBC) [Entitic mass] 29.0 pg Normal 26.0-34.0 [facility] Comment on above: Order Comment: Speci men Type: BLOOD SPECIMENOrdering Facility: [facility] Address: [address] [place] [address] Performed By: #### 5 7021-8 ####[facility] HOSPITALNCLIA [id number] [place] [address] [place] MCHC (RBC) [Mass/Vol] 33.5 g/dL Normal 30.5-36.0 [facility] Comment on above: Order Comment: Speci men Type: BLOOD SPECIMENOrdering Facility: [facility] Address: [address] [place] [address] Performed By: #### 5 7021-8 ####[facility] HOSPITALNCLIA [id number] [place] [address] [place] MCV (RBC) [Entitic vol] 86.4 fL Normal 80.0-100.0 [facility] Comment on above: Order Comment: Speci men Type: BLOOD SPECIMENOrdering Facility: [facility] Address: [address] [place] [address] Performed By: #### 5 7021-8 ####[facility] [id number] [place] [address] [place] Monocytes (Bld) [#/Vol] 0.57 10*3/uL Normal <0.87 [facility] Comment on above: Order Comment: Speci men Type: BLOOD SPECIMENOrdering Facility: [facility] Address: [address] [place] [address] Performed By: #### 5 7021-8 ####[facility]PITALLIA [id number] [address] [place] [facility] Monocytes/100 WBC (Bld) 7.1 % Normal [facility] Comment on above: Order Comment: Speci men Type: BLOOD SPECIMENOrdering Facility: [facility] Address: [address] [place] [address] Performed By: #### 5 7021-8 ####[facility] HOSPITALNCLIA [id number] [place] [address] [place] Neutrophils (Bld) [#/Vol] 4.89 10*3/uL Normal 1.45-7.50 [facility] Comment on above: Order Comment: Speci men Type: BLOOD SPECIMENOrdering Facility: [facility] Address: [address] [place] [address] Performed By: #### 5 7021-8 ####[facility] [id number] [place] [address] [place] Neutrophils/100 WBC (Bld) 60.4 % Normal [facility] Comment on above: Order Comment: Speci men Type: BLOOD SPECIMENOrdering Facility: [facility] Address: [address] [place] [address] Performed By: #### 5 7021-8 ####[facility] HOSPITALNCS[facility] [id number] [place] [address] [place] Nucleated RBC (Bld) [#/Vol] 10*3/uL Normal <0.01 [facility] Comment on above: Order Comment: Speci men Type: BLOOD SPECIMENOrdering Facility: [facility] Address: [address] [place] [address] Performed By: #### 5 7021-8 ####[facility] [id number] [place] [address] [place] Nucleated RBC/100 WBC (Bld) [Ratio] 0.0 /100 WBC Normal [facility] Comment on above: Order Comment: Speci men Type: BLOOD SPECIMENOrdering Facility: [facility] Address: [address] [place] [address] Performed By: #### 5 7021-8 ####[facility] HOSPITALNCS[facility] [id number] [place] [address] [place] Platelet mean volume (Bld) [Entitic vol] 9.9 fL Normal 9.0-12.7 [facility] Comment on above: Order Comment: Speci men Type: BLOOD SPECIMENOrdering Facility: [facility] Address: [address] [place] [address] Performed By: #### 5 7021-8 ####[facility] TIA HINOJOSANCLIA [id number] [place] [address] [place] Platelets (Bld) [#/Vol] 251 10*3/uL Normal 150-400 [facility] Comment on above: Order Comment: Speci men Type: BLOOD SPECIMENOrdering Facility: [facility] Address: [address] [place] [address] Performed By: #### 5 7021-8 ####[facility] TRAVONRichardNCLIA [id number] [place] [address] [place] RBC (Bld) [#/Vol] 4.42 10*6/uL Normal 3.90-5.20 [facility] Comment on above: Order Comment: Speci men Type: BLOOD SPECIMENOrdering Facility: [facility] Address: [address] [place] [address] Performed By: #### 5 7021-8 ####[facility] HOSPITALNCAPA [id number] [address] [place] WBC (Bld) [#/Vol] 8.08 10*3/uL Normal 3.70-11.00 [facility] Comment on above: Order Comment: Speci men Type: BLOOD SPECIMENOrdering Facility: [facility] Address: [address] [place] [address] Performed By: #### 5 7021-8 ####[facility] HOSPITALNCLIA [id number] [address] [facility] [facility] Moises 01-15-2024 MCKENZIE Telephone (PODIMM) JOSHUA DUNN ([id number]) 1980 F Date Time Provider Department 01/15/24 JOHN OPAL REGALADO During your visit today, we recorded the following information about you: Opal Lopez 01/15/2024 1:51 PM Signed Patient name: Joshua Dunn* Type of surgery:Lapidus bunionectomy. Possible armida right* Diagnosis: hallux valgus right* Length of surgery:180* min Seasonal Package Handler needed: none* Anesthesia: general Special equipment: c arm. Vendor Equipment lapiplasty (treace). Arthrex dynamite stape (armida)* Special instructions: This case was scheduled for [facility] on the . Will now do at [facility] on the . Dr. Salcedo to assist. Opal Lopez 01/15/2024 2:48 PM Signed Joshua Dunn is a patient that I would like to add to [facility]. I spoke with Amber who agreed to assist. February 03 we would add after his 3 cases. Would need his nurse or Amber to let hospital know that we are adding our patient. Katherin, would you be able to keep amber's block time but we add our lapidus to that slot. Alicia: I contacted our rep who is aware. I will also reach out to [employer]x reps in case I need the staple. Thanks Allergies As of Date: 01/15/2024 (No Known Allergies) Date Reviewed: 01/15/2024 Reviewed by: Maye Ospina APRN.NEONATAL PEDIATRIC NURSE - Fully Assessed Reason for Visit: Patient Update [1234] Prescriptions as of 02/04/2024 - cephALEXin (KEFLEX) 500 mg capsule Take 1 capsule by mouth three times a day. - oxyCODONE-acetaminophen (PERCOCET) 5-325 mg tablet Take 1 tablet by mouth every 6 hours as needed for up to 7 days. - citalopram (CELEXA) 40 mg tablet Take 40 mg by mouth once daily. Facility-Administered Medications as of 02/04/2024 - lidocaine (PF) 10 mg/mL (1 %) 1-2 mg injection (XYLOCAINE) - NaCl 0.9% iv flush bag - ceFAZolin iv piggyback 2 g in D5W (iso-osmotic) 100 mL (ANCEF) - midazolam (PF) 4 mg injection (VERSED) - scopolamine (delivers 1 mg over 3 days) 1 Patch (TRANSDERM-SCOP) - scopolamine - REMOVE PATCH - scopolamine - VERIFY patch - lactated ringers iv infusion - propofol injection (DIPRIVAN) - midazolam (PF) injection (VERSED) - fentaNYL 50 mcg/mL injection (SUBLIMAZE) - lidocaine (PF) 20 mg/mL (2 %) injection (XYLOCAINE) - propofol infusion (DIPRIVAN) - ondansetron (PF) injection (ZOFRAN) - dexAMETHasone sodium phosphate injection (DECADRON) Problem List As Of Date 01/15/2024 Noted Resolved Dizziness [R42] 01/05/2013 06/07/2023 Fatigue [R53.83] 01/16/2013 06/07/2023 Anxiety [F41.9] 04/23/2014 Pelvic joint pain, left [M25.552] 01/23/2023 DDD (degenerative disc disease), lumbar [M51.36*01/23/2023 Chronic constipation [K59.09] 01/23/2023 Hallux valgus of right foot [M20.11] 11/06/2023 Encounter Status:Closed by ALICIA DIAZ on 02/04/24 Normal [facility] HISTORY PHYSICALon HISTORY PHYSICAL HNO ID: [id number] Author: MAYE OSPINA APRN.NEONATAL PEDIATRIC NURSE Service: ? Author Type: Nurse Practitioner Type: H&P Filed: 01/15/2024 15:44 Note Text: [facility] HISTORY AND PHYSICAL EXAMINATION SERVICE DATE: 01/15/2024 SERVICE TIME: 3:43 PM PRIMARY CARE PHYSICIAN: Taz López MD Assessment Patient has the following medical conditions which may affect jaya-operative course: Anxiety Assessment: controlled on rx Pelvic joint pain, left Assessment: chronic, otc analgesics as needed Marquez Activity Status Index: METS: Climb a flight of stairs or walk up a hill (5.50 METs) DASI Score: 5.5 Patient denies any chest pain or undue shortness of breath with the above physical activity. Clinical Frailty Scale: 1. Very fit STOP-Bang Score: Denies snoring loudly Denies feeling tired, fatigued, or sleepy during the daytime Has not been observed to stop breathing or choking/gasping during sleep Denies having high blood pressure BMI less than or equal to 35 kg/m2 Patient 50 years old or younger Does not have a large neck Non-male patient STOP-Bang Score: 0 [id number] Score: Age: <65 Sex: female CHF history: No Hypertension history: No Stroke/TIA/thromboembol ism history: No Vascular disease history: No Diabetes history: No [id number] Score: 1 ARISCAT Score: Age: <=50 Preoperative SpO2: >=96% Respiratory infection in the last month: No Preoperative anemia: No Surgical incision: peripheral Duration of surgery: 2-3 hrs Emergency procedure: No ARISCAT Score: 16 ANESTHESIA FINDINGS: Intubation History: No history of difficult intubation Significant Anesthesia Considerations: none Airway History: No history of difficult airway I - PHYSICAL EVALUATION AIRWAY Patient intubated: No. Tracheostomy tube not present Mallampati: II. TM distance: >3 FB. Neck ROM: full ROM without neurological symptoms. Mouth opening: adequate. Short neck: no. Thick neck: no Mohr present: no Lip Bite Test: I Microretrognathia/Micro nagthia/Recessed Chin: No DENTAL Dental findings: teeth intact. Additional comments: +crowns/back. II - ANESTHESIA PLAN Anesthetic Plan: other Beta Adenike Monitoring Plan Post Procedure Analgesic Plan Prepared for Surgery: optimally prepared for surgery, pending [see comment]. labs CONSULTS: Patient does not require consults for optimization at this time Planned Anesthetic: other anesthesia choice The Following Tests/Procedures Have Been Initiated: Orders Placed This Encounter >CBC + AUTO DIFF Standing Status: Future Standing Expiration Date: 04/15/2024 >BMP Standing Status: Future Standing Expiration Date: 04/15/2024 REASON FOR VISIT: Joshua Dunn is a 43 year old female who is scheduled for Procedure(s): BUNIONECTOMY W/1ST MTJ AND MCJ ARTHRODESIS,ANY METHOD (Right) BUNIONECTOMY W/PROXIMAL PHALANX OSTEOTOMY,ANY METHOD (Right) at the request of Dr. Opal Lopez for consultation. My final recommendation will be communicated back to the requesting physician by way of shared medical record or letter. Subjective The patient has the following: COVID-19 Immunization Status Overdue - Covid-19 Vaccine ( season) Overdue since 11/17/2023 05/20/2020 Imm Admin: COVID-19 original vaccine, full dose, monovalent (MODERNA) 04/19/2020 Imm Admin: COVID-19 original vaccine, full dose, monovalent (MODERNA) CHIEF COMPLAINT: Pre-op exam HPI: Joshua Dunn is a 43 year old seen for PAC due to scheduled above surgery because of right foot bunion. 10/14/2023, Dr. Opal Lopez Patient presents to clinic for follow-up bunion deformity of right foot Has had pain with the bunion since she 22 years old. States that she got her foot stuck under a go cart when she was 22 and has had pain ever since. She now has pain when shoes rub against the bunion Is here interested in bunion surgery. REVIEW OF SYSTEMS: General: No weight loss, malaise or fevers. 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 No neurological symptoms or problems. Respiratory: No history of current cough or dyspnea, or pneumonia in the past 6 weeks. No history of respiratory/pulmonary symptoms or problems. Cardiovascular: No history of HTN requiring medication, no history of angina, CHF, MO, cardiac surgery or stents. Denies rest pain, gangrene or revascularization/amput ation for PVD. No history of cardiovascular symptoms or problems. GI: No history of GI symptoms or problems. No history of esophageal varices, recent ascites, or ETOH greater than 2 drinks per day. : No history of dysuria, frequency or incontinence, stones or chronic kidney disease. No difficulty urinating, nocturia > 1 time per night or hematuria. PEDIATRIC NURSE: Negative for abnormal vaginal bleeding, abnormal vaginal discharge. Endocr (more content not included)... Normal [facility] CNCOon 11-07-2023 CNCO Letter Text Normal [facility] [id number] 11-06-2023 [id number] HNO ID: [id number] Author: JOCELIN HACKETT PT Service: ? Author Type: Physical Therapist Type: [id number] Filed: 11/06/2023 17:09 Note Text: [facility] Physical Therapy Plan of Care Certification Patient Name: Joshua Dunn : 1980 [facility] #: [id number] Date: 11/06/2023 To: Opal Lopez DPM From Therapist: Jocelin Hackett PT RE: Patient Certification/ Recertification Your review, approval and electronic signature are required in order to comply with Pay[facility] / Plan: [employer] PPO / Product Type: PPO / regulations. The identified Physical Therapy PLAN OF CARE for the patient is as follows: M20.11 Hallux valgus of right foot PLAN OF CARE: Assessment: Joshua Dunn presents with diagnosis of hallux valgus of right foot that interferes with (correct and safe use of crutches) . She presents with impairments in ADL's, balance, gait, independence in exercise, joint mobility, overall function, patient reported outcome measures, symptom management, and tissue tenderness. PROMIS? (Patient-Reported Outcomes Measurement Information System) scores were reviewed and identified as within normal limits. Prognosis for therapy is Good due to: current objective clinical presentation, good overall health status, acuteness of condition, within-session changes, good support system/ coping skills . She will benefit from skilled therapy services to meet the goals established for this plan of care as noted below. Anticipated post-operative precautions: NWB Anticipated ability to follow post-op precautions: Without caregiver assistance in their current home environment Goals for Episode of Care: created on 11/06/23 through 11/06/23 Patient will demonstrate independent and proper use of assisstive device to allow for improved walking quality and safety therefore reducing the risk of falls. Patient Goals: indep with B crutches while NWB RLE Planned Interventions, Frequency, and Duration: Current Frequency: 1 visit Duration: 1 visit Total Number of Visits Planned: 1 Planned Treatment Interventions: Therapeutic exercise (97341), Neuromuscular re-education (72645), Manual therapy (24878), Therapeutic activities (77636), Self-detention management (47607), Gait Training (72191) PLAN FOR NEXT VISIT: pt. indep with B crutches while NWB RLE - DC PT Patient demonstrates good understanding of plan of care and treatment. The above goals and plan of care were discussed and agreed upon by patient/family. For further details regarding this patient refer to the Physical Therapy electronically documented visit dated 11/06/2023. Provider Attestation I have reviewed the treatment plan for Joshua Dunn, CCF# [id number] for the period of 11/06/23 -- 12/18/23, established on 11/06/2023. Signature certifies the need for therapy services. Normal [facility] CNTHERAPYon 11-06-2023 CNTHERAPY OT/PT/Speech Visit (PTWS) JOSHUA DUNN ([id number]) 1980 F Date Time Provider Department 11/06/23 3:45 PM JOCELIN HACKETT PTWS Date Time Provider Department Center 11/06/2023 3:45 PM [id number] HACKETT PTWS [facility] Reason for Visit: PT Eval [747] Visit Diagnosis:Hallux valgus of right foot [M20.11] Allergies As of Date: 11/06/2023 (No Known Allergies) Date Reviewed: 10/14/2023 Reviewed by: Alicia Diaz LPN - Fully Assessed Prescriptions as of 11/06/2023 - citalopram (CELEXA) 40 mg tablet Take 40 mg by mouth once daily. Philatelic Consultant: Therapy (PT/OT/Speech/Resp) ID: [id number] 11/06/2023 4:08 PM Author: JOCELIN HACKETT Signed by JOCELIN HACKETT PT on 11/06/2023 at 4:08 PM Document text: Program_ID:[id number] Access Code: [email or web address] URL: [email or web address] Date: 11-06-2023 Prepared By: Jocelin Hackett Program Notes Patient Education - Walking with Crutches: Non Weight-Bearing - cc Gait Training Crutches Non Weight Bearing NWB Normal [facility] THERAPY NTon 11-06-2023 THERAPY NT HNO ID: [id number] Author: JOCELIN HACKETT PT Service: ? Author Type: Physical Therapist Type: Therapy (PT/OT/Speech/Resp) Filed: 11/06/2023 16:08 Note Text: Program_ID:[id number] Access Code: [email or web address] URL: [email or web address] Date: 11-06-2023 Prepared By: Jocelin Hackett Program Notes Patient Education - Walking with Crutches: Non Weight-Bearing - cc Gait Training Crutches Non Weight Bearing NWB Normal [facility] SCRN MAMM (CAD)W/MILES BILATo n 10-29-2023 SCRN MAMM (CAD)W/MILES BILAT [facility] Imaging Services [address] [place] [id number] SCRN MAMM (CAD)W/MILES BILAT MR#: [id number] Acct: [id number] Name: JOSHUA DUNN Rep #: [id number] : 1980 F 43 From: Sunil rudolph MD PCP: Dr. Taz López MD Status: REG [facility] Study: SCRN MAMM (CAD)W/MILES BILAT Date of Exam: 10/16 06/08 Exam# [id number] Ordering [place]: [place] [id number] MAMMOGRAPHY - BILATERAL SCREENING REASON FOR EXAM: Female, 43 years old. Routine annual screening examination. PERTINENT HISTORY: Grandmother with breast cancer. TECHNIQUE: Digital bilateral breast miles (3D mammographic acquisition) in the CC and MLO projections. 2-D mediolateral oblique (MLO) and craniocaudad (CC) views of both breasts were obtained. CAD: Full Field Digital Mammography with Computer Added Detection was performed. COMPARISON: Comparison is made with prior study October 26, 2022 and February 14, 2021. FINDINGS: Breast Composition: The breasts are extremely dense, which lowers the sensitivity of mammography. There are no dominant masses or suspicious calcifications. No other significant abnormalities are identified. There has been no significant change since the prior study. BI/SCRN MAMM (CAD)W/MILES BILAT IMPRESSION: Stable bilateral screening mammogram. Yearly follow-up mammogram recommended. (A) ASSESSMENT CATEGORY: BIRADS Category 1: Negative. A letter regarding these results will be sent to the patient by the facility within 30 days. Approximately 10% of breast cancers are not detected by mammography. A normal mammogram should not delay biopsy of a clinically suspicious abnormality. [id number] Electronically Signed: Sunil Boykin MD at 10:12 EDT , CC: Dr. Yaz Skinner MD; Dr. Taz López MD Field Control Inspector: Signed Normal [facility] 25-hydroxyvitamin D3 [Mass/V ol]on 09-06-2023 Interpretation and review of laboratory results Normal [facility] The reference range interval was based on an analysis of samples from healthy adults and may not pertain to children from 0-18 years old. [facility] VITAMIN D 25 HYDROXYon 09-05 25-hydroxyvitamin D3 [Mass/Vol] 34.4 ng/mL 31.0 - 80.0 ng/mL [facility] Comment on above: Classification of 25 [place] Vitamin D status: Deficiency/Insufficiency: < or = 30 ng/ml. Sufficiency/Optimal Levels: 31-80 ng/mL Toxicity: > 100 ng/mL. Test performed by chemiluminescent immunoassay. XR Foot - right AP and Later al and obliqueon 08-05-2023 IMPRESSION: No acute radiographic abnormalities seen in the right foot Field Control Inspector: SHAMA Transcribe Date/Time: Aug 05 2023 3:38P Dictated by : VANESSA NAIDU MD This examination was interpreted and the report reviewed and electronically signed by: VANESSA NAIDU MD on Aug 05 2023 3:40PM [facility] DIVISION OF RADIOLOGY * * *Final Report* * * DATE OF EXAM: Aug 05 2023 3:34PM WOX 5337 - XR FOOT 3V AP/LAT/OBL RT / PROCEDURE REASON: Pain of right great toe * * * * Physician Interpretation * * * * EXAM TITLE: XR FOOT 3V AP/LAT/OBL RT EXAM DATE/TIME: 08/05/2023 3:34 PM COMPARISON: None CLINICAL INDICATION/HISTORY: Pain in great toe. TECHNIQUE: AP, lateral and oblique views of the right foot are presented. FINDINGS: No acute fractures or subluxations are noted. There appears be borderline bunion deformity. The joint spaces are maintained, without obvious osteophyte formation. The mineralization of the bones is normal. There is no significant soft tissue swelling. DIVISION OF RADIOLOGY Provider, Phuong Rosaura [facility] - 08/05/2023 * * *Final Report* * * DATE OF EXAM: Aug 05 2023 3:34PM WOX 5337 - XR FOOT 3V AP/LAT/OBL RT / PROCEDURE REASON: Pain of right great toe * * * * Physician Interpretation * * * * EXAM TITLE: XR FOOT 3V AP/LAT/OBL RT EXAM DATE/TIME: 08/05/2023 3:34 PM COMPARISON: None CLINICAL INDICATION/HISTORY: Pain in great toe. TECHNIQUE: AP, lateral and oblique views of the right foot are presented. FINDINGS: No acute fractures or subluxations are noted. There appears be borderline bunion deformity. The joint spaces are maintained, without obvious osteophyte formation. The mineralization of the bones is normal. There is no significant soft tissue swelling. IMPRESSION IMPRESSION: No acute radiographic abnormalities seen in the right foot Field Control Inspector: SHAMA Transcribe Date/Time: Aug 05 2023 3:38P Dictated by : VANESSA NAIDU MD This examination was interpreted and the report reviewed and electronically signed by: VANESSA NAIDU MD on Aug 05 2023 3:40PM EST [facility] Radiology Study observation (narrative) [facility] XR Foot - right AP and Later al and obliqueOrdered By: Ccf Provider on 08-05-2023 [facility] LIPID PANEL, NONFASTINGon Cholesterol [Mass/Vol] 156 mg/dL <200 mg/dL [facility] HDL Cholesterol, Nonfasting 69 mg/dL >39 mg/dL [facility] LDL Cholesterol, Nonfasting 75 mg/dL <100 mg/dL [facility] LDL/HDL Ratio, Nonfasting 1.09 mg/dL <2.54 mg/dL [facility] Non HDL Cholesterol, Nonfasting 87 mg/dL <130 mg/dL [facility] Total Chol/HDL Ratio, Nonfasting 2.26 mg/dL <5.10 mg/dL [facility] Triglycerides, Nonfasting 60 mg/dL <150 mg/dL [facility] VLDL Cholesterol, Nonfasting 12 mg/dL <30 mg/dL [facility] CTPCRon 02-07-2023 C. trachomatis Interp Normal See CT Interp N [facility] ([place]) Comment on above: Result Comment: C. t rachomatis DNA not detected. Specimen is presumptive negative for C. trachomatis. A negative result does not preclude C. trachomatis infection because results depend on adequate specimen collection, absence of inhibitors, and sufficient DNA to be detected. See CT Interp N Performed By: #### C TPCR, [email or web address] ####[address] [address] C.trachomatis PCR Negative Normal Negative [facility] ([place]) Comment on above: Result Comment: Roscoe chi (PCR) assay performed on the Mary Tiki 4800 system. Performed By: #### C TPCR, NGPCR1 ####[address] [address] Chlam Source Cervix Normal [facility] ([place]) Comment on above: Performed By: #### C TPCR, [email or web address] ####[place] [id number] [place] [address] [id number] 02-07-2023 GC PCR Source Cervix Normal [facility] ([place]) Comment on above: Performed By: #### C TPCR, NGPCR1 ####[place] [id number] [place] [address] N. gonorrhoeae (PCR) Negative Normal Negative [facility] ([place]) Comment on above: Result Comment: Mole cular (PCR) assay performed on the Mary Tiki 4800 System. Performed By: #### C TPCR, NGPCR1 ####[address] [address] N. gonorrhoeae Interp Normal See NG Interp N [facility] ([place]) Comment on above: Result Comment: N. g onorrhoeae DNA not detected. Specimen is presumptive negative for N. gonorrhoeae. A negative result does not preclude Neisseria gonorrhoeae infection because results depend on adequate specimen collection, absence of inhibitors, and sufficient DNA to be detected. See NG Interp N Performed By: #### C TPCR, NGPCR1 ####[place] [address] LABORATORYOrdered By: Cindy Mcfarlane on 02-06-2023 C. trachomatis DNA MAYO+probe Ql (Unsp spec) Negative 2 (02/06/23 4:29 PM) Normal Negative [facility] Comment on above: Interpretive Data: M olecular (PCR) assay performed on the Mary Tiki 4800 system. C. trachomatis DNA MAYO+probe Ql (Unsp spec) C. trachomatis DNA not detected. Specimen is presumptive negative forC. trachomatis.A negative result does not preclude C. trachomatis infection becauseresults depend on adequate specimen collection, absence of inhibitors,and sufficient DNA to be detected. Normal See CT Interp N [facility] Auto Viro/Sero SS N. gonorrhoeae DNA MAYO+probe Ql (Unsp spec) Negative 1 (02/06/23 4:29 PM) Normal Negative [facility]Sero SS Comment on above: Interpretive Data: M olecular (PCR) assay performed on the Mary Tiki 4800 System. N. gonorrhoeae DNA MAYO+probe Ql (Unsp spec) N. gonorrhoeae DNA not detected. Specimen is presumptive negative forN. gonorrhoeae. A negative result does not preclude Neisseria gonorrhoeaeinfection because results depend on adequate specimen collection, absenceof inhibitors, and sufficient DNA to be detected. Normal See NG Interp N [facility]Sero [facility] Laboratory - Specimen inform ationOrdered By: Cindy Mcfarlane on 02-06-2023 Specimen source Nom (Unsp spec) Cervix (02/06/23 4:29 PM) Normal [facility] Viro/Sero SS No Panel InformationOrdered By: Patrick Andrew on 02-06-2023 Affirm Pathogens DNA Direct Probe Trichomonas vaginalis DNA Probe Negative Gardnerella vaginalis DNA Probe Negative Judith species DNA Probe Positive [facility] No Panel Informationon 02-06 FUNSM Fungal elements observed by calcofluor white stain. [facility] Work Phone: XR Pelvis and Hip - left AP and Lateral frogon 01-22-2023 IMPRESSION: No acute osseous abnormalities. Field Control Inspector: SHAMA Transcribe Date/Time: Jan 22 2023 4:09P Dictated by : ANA KENT MD This examination was interpreted and the report reviewed and electronically signed by: ANA KENT MD on Jan 22 2023 4:12PM [facility] DIVISION OF RADIOLOGY * * *Final Report* * * DATE OF EXAM: Jan 22 2023 4:04PM WOX 5351 - XR HIP 3V PELV+ AP/LAT LT / PROCEDURE REASON: multiple diagnoses * * * * Physician Interpretation * * * * EXAMINATION: XR HIP 3V PELV+ AP/LAT LT CLINICAL HISTORY: Hip pain Technique: XR HIP 3V PELV+ AP/LAT LT -- LEFT with 3 views on 3 images Comparison: none RESULT: No acute fracture or dislocation. Joint spaces are maintained. DIVISION OF RADIOLOGY Provider, [facility] - 01/22/2023 * * *Final Report* * * DATE OF EXAM: Jan 22 2023 4:04PM WOX 5351 - XR HIP 3V PELV+ AP/LAT LT / PROCEDURE REASON: multiple diagnoses * * * * Physician Interpretation * * * * EXAMINATION: XR HIP 3V PELV+ AP/LAT LT CLINICAL HISTORY: Hip pain Technique: XR HIP 3V PELV+ AP/LAT LT -- LEFT with 3 views on 3 images Comparison: none RESULT: No acute fracture or dislocation. Joint spaces are maintained. IMPRESSION IMPRESSION: No acute osseous abnormalities. Field Control Inspector: [employer] Transcribe Date/Time: Jan 22 2023 4:09P Dictated by : ANA KENT MD This examination was interpreted and the report reviewed and electronically signed by: ANA KENT MD on Jan 22 2023 4:12PM EST [facility] Radiology Study observation (narrative) [facility] XR Pelvis and Hip - left AP and Lateral frogOrdered By: Ccf Provider on 01-22-2023 [facility] XR Lumbar spine 3 Viewson IMPRESSION: Lumbar spine degenerative changes with L5-S1 disc space narrowing. Field Control Inspector: [employer] Transcribe Date/Time: Jan 21 2023 10:26A Dictated by : VANESSA NAIDU MD This examination was interpreted and the report reviewed and electronically signed by: VANESSA NAIDU MD on Jan 21 2023 10:28AM EST DIVISION OF RADIOLOGY * * *Final Report* * * DATE OF EXAM: Jan 18 2023 3:57PM WOX 5228 - XR LUMBAR 3V AP/LAT/L5-S1 / PROCEDURE REASON: multiple diagnoses * * * * Physician Interpretation * * * * EXAM TITLE: XR LUMBAR 3V AP/LAT/L5-S1 EXAM DATE/TIME: 01/18/2023 3:57 PM COMPARISON: None. CLINICAL INDICATION/HISTORY: Chronic left hip pain. TECHNIQUE: AP, lateral and cone down lateral views of the lumbar spine are presented. FINDINGS: There are five fjy-ypj-bffcnib lumbar vertebrae. No fracture or subluxations are noted. L5-S1 disc space narrowing is demonstrated, with endplate sclerosis and osteophyte formation. Others: Moderate to large stool burden. DIVISION OF RADIOLOGY Provider, [facility] - 01/21/2023 * * *Final Report* * * DATE OF EXAM: Jan 18 2023 3:57PM WOX 5228 - XR LUMBAR 3V AP/LAT/L5-S1 / PROCEDURE REASON: multiple diagnoses * * * * Physician Interpretation * * * * EXAM TITLE: XR LUMBAR 3V AP/LAT/L5-S1 EXAM DATE/TIME: 01/18/2023 3:57 PM COMPARISON: None. CLINICAL INDICATION/HISTORY: Chronic left hip pain. TECHNIQUE: AP, lateral and cone down lateral views of the lumbar spine are presented. FINDINGS: There are five uwz-ccz-wldvmvs lumbar vertebrae. No fracture or subluxations are noted. L5-S1 disc space narrowing is demonstrated, with endplate sclerosis and osteophyte formation. Others: Moderate to large stool burden. IMPRESSION IMPRESSION: Lumbar spine degenerative changes with L5-S1 disc space narrowing. Field Control Inspector: SHAMA Transcribe Date/Time: Jan 21 2023 10:26A Dictated by : VANESSA NAIDU MD This examination was interpreted and the report reviewed and electronically signed by: VANESSA NAIDU MD on Jan 21 2023 10:28AM EST [facility] XR Lumbar spine 3 ViewsOrder ed By: Ccf Provider on 01-21-2023 [facility] XR Lumbar spine 3 Viewson Radiology Study observation (narrative) [facility] CT ABDOMEN/PELVIS W/CONTRAST on 01-11-2023 CT ABDOMEN/PELVIS W/CONTRAST ORIGINAL EXAMINATION: CT OF THE ABDOMEN AND PELVIS WITH CONTRAST 01/11/2023 1:36 pm TECHNIQUE: CT of the abdomen and pelvis was performed with the administration of intravenous contrast. Multiplanar reformatted images are provided for review. Automated exposure control, iterative reconstruction, and/or weight based adjustment of the mA/kV was utilized to reduce the radiation dose to as low as reasonably achievable. COMPARISON: None. HISTORY: ORDERING SYSTEM PROVIDED HISTORY: Reason for Exam: left lower quadrant pain, constipation FINDINGS: Lower Chest: Visualized lung bases unremarkable. Organs: Liver, spleen, pancreas, bilateral adrenal glands are unremarkable. Bilateral kidneys show normal morphology and enhancement pattern. Small 2-3 mm renal calculus seen on bilateral kidneys, no obstruction is seen. 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 The bilateral ureters nondilated. Urinary bladder unremarkable. GI/Bowel: Small hiatal hernia. No dilated bowel loops seen. No acute gastrointestinal abnormality. Scattered sigmoid colonic diverticula with no evidence of diverticulitis. Pelvis: Uterus not seen, possibly surgically absent. Peritoneum/Retroperiton eum: No obvious lymphadenopathy. No aortic aneurysm. Bones/Soft Tissues: Moderate degenerative changes in the lumbosacral spine region. IMPRESSION: No acute abnormality. Nonobstructing bilateral nephrolithiasis. I have personally reviewed the images of this examination and agree with the resident's findings and interpretation. Interpreted by: Marcelino Ronquillo MD Preliminary Report By: Royce Padilla Electronically signed By Marcelino Ronquillo MD Dictated Date: 01/11/2023 3:01:42 PM Prelim Date: 01/11/2023 4:43:12 PM Sign Date: 01/11/2023 4:43:12 PM Ordering Provider: ERIC KENNEDY [facility] ([place]) No Panel Informationon 09-19 Culture Urine 10,000 - 50,000 cfu/ ml Mixed growth consistent with normal urogenital alfred. [facility] Work Phone: Final Surgical Pathology Rep [facility] 09-04-2022 Final Surgical Pathology Report . Pathology Reports Accession: Collected Date/Time: Received Date/Time: Pathologist: [id number] 08/31/2022 08:59 EDT 09/03/2022 08:16 EDT SAMUEL DA SILVA MD Final Surgical Pathology Report DIAGNOSIS: CERVIX, UTERUS, BILATERAL FALLOPIAN TUBES (63 G): - CERVIX: CHRONIC CERVICITIS - ENDOMETRIUM: PROLIFERATIVE PHASE; NEGATIVE FOR HYPERPLASIA - MYOMETRIUM: UNREMARKABLE - BILATERAL FALLOPIAN TUBES: UNREMARKABLE CLINICAL INFORMATION: PELVIC AND PERINEAL PAIN, ABNORMAL UTERINE AND VAGINAL BLEEDING, UNSPECIFIED Procedure: TOTAL LAPAROSCOPIC HYSTERECTOMY WITH BILATERAL SALPINGECTOMY, CYSTOSCOPY Preoperative diagnosis: CHRONIC PELVIC PAIN, ABNORMAL UTERINE BLEEDING Postoperative diagnosis: CHRONIC PELVIC PAIN, ABNORMAL UTERINE BLEEDING SPECIMEN: A CERVIX, UTERUS, BILATERAL FALLOPIAN TUBES GROSS DESCRIPTION: A. Received in formalin, labeled with the patients name, Case #[id number], and uterus, cervix, bilateral fallopian tubes Weight/dimensions-63 g and measures 8 cm (fundus to cervix), 5 cm (cornu to cornu), 3.5 cm (anterior to posterior). Cyauzg-esr-gsst, smooth Cervix/endocervix-3 cm in diameter and 3.5 cm in length Endometrium-triangular- shaped endometrial cavity measuring 1.5 x 2.5 cm, endometrium lining measuring 0.1 cm Pgiaaqqwvo-rmr-zscm measuring up to 1.6 cm with no masses or nodules identified Right fallopian tube: 6.5 x 0.7 cm Left fallopian tube: 6 x 0.6 cm RS-5 Cassette Summary: A1-Cervix A2-Anterior endomyometrium A3-Posterior endomyometrium A4-Right fallopian tube A5-Left fallopian tube Dictated by KAREN CHOW MICROSCOPIC DESCRIPTION: The microscopic examination is performed, except in the case of Gross Only. Electronically Signed by Pathology Report verified by [facility] SAMUEL DA SILVA Sign out Date: 09/04/2022 12:23 Performing Lab: [facility], [address] [place] [address] Pathology Dept Disclaimer If ancillary studies were utilized, the following Laboratory Developed Test (LDT) disclaimer will apply: Pathology Reports Accession: Collected Date/Time: Received Date/Time: Pathologist: [id number] 08/31/2022 08:59 EDT 09/03/2022 08:16 EDT SAMUEL DA SILVA MD Disclaimer Under CLIA requirements, [facility] Pathology Laboratory is qualified to perform high complexity testing. For all ancillary stains, positive and negative controls stain appropriately. Performance characteristics of immunohistochemical and chromogenic in-situ hybridization tests have been determined by [facility] Pathology Laboratory. These tests are used for clinical purposes, They should not be regarded as investigational or for research. Normal [facility] ([place]) Gel ABOon 08-31-2022 ABO/Rh Interp Positive Invalid Interpretation Code [facility] ([place]) Comment on above: Performed By: #### A EUGENE BREWER ####[id number] [place], [place] [address] Gel ABSon 08-31-2022 Antibody Screen Gel Negative Normal [facility] ([place]) Comment on above: Performed By: #### A DANIELLA, ALONDRAG ####[address] [place], [place] [address] LABORATORYOrdered By: Thuy Silva on 08-31-2022 ABO/Rh Interp Positive Invalid Interpretation Code AO BB SS Antibody Screen Gel Negative ABSC (08/31/22 6:11 AM) Invalid Interpretation Code AO BB SS HCG ( test) Ql Negative (08/31/22 6:11 AM) Invalid Interpretation Code AO Manual Urine SS test (u) int Not detected Invalid Interpretation Code AO Manual Urine SS PREGUon 08-31-2022 HCG ( test) Ql (U) Negative Normal [facility] ([place]) Comment on above: Performed By: #### P REGU ####[address] [address] test (u) int Not detected Invalid Interpretation Code [facility] ([place]) Comment on above: Performed By: #### P REGU ####[address] [address] .Auto Diffon 08-21-2022 Basophil, Absolute 0.1 10 3/mcL Normal 0.0-0.2 [facility] ([place]) Comment on above: Performed By: #### G FR, ANEU, ABOG, ADIFF, CMP, CBC, ANSG #### [address] [address] Basophils/100 WBC (Bld) 0.8 % Normal 0.0-2.5 [facility] ([place]) Comment on above: Performed By: #### G FR, ANEU, ABOG, ADIFF, CMP, CBC, ANSG #### [address] [address] Eosinophil, Absolute 0.2 10 3/mcL Normal 0.0-0.4 [facility] ([place]) Comment on above: Performed By: #### G FR, ANEU, ABOG, ADIFF, CMP, CBC, ANSG #### [address] [address] Eosinophils/100 WBC (Bld) 2.9 % Normal 0.0-7.0 [facility] ([place] Comment on above: Performed By: #### G FR, ANEU, ABOG, ADIFF, CMP, CBC, ANSG #### [address] [address] Lymphocyte, Absolute 1.9 10 3/mcL Normal 0.8-3.9 [facility] ([place]) Comment on above: Performed By: #### G FR, ANEU, ABOG, ADIFF, CMP, CBC, ANSG #### [address] [address] Lymphocytes/100 WBC (Bld) 29.2 % Normal 10.0-50.0 [facility] ([place] Comment on above: Performed By: #### G FR, ANEU, ABOG, ADIFF, CMP, CBC, ANSG #### [address] [address] Monocyte, Absolute 0.4 10 3/mcL Normal 0.2-1.0 [facility] ([place]) Comment on above: Performed By: #### G FR, ANEU, ABOG, ADIFF, CMP, CBC, ANSG #### [address] [address] Monocytes/100 WBC (Bld) 6.2 % Normal 1.7-13.0 [facility] ([place] Comment on above: Performed By: #### G FR, ANEU, ABOG, ADIFF, CMP, CBC, ANSG #### [address] [address] Neutrophils/100 WBC (Bld) 60.9 % Normal 37.0-80.0 [facility] ([place] Comment on above: Performed By: #### G FR, ANEU, ABOG, ADIFF, CMP, CBC, ANSG #### [address] [address] .GFRon 08-21-2022 GFR 105 ml/min/1.73sqm Normal [facility] ([place]) Comment on above: Result Comment: GFR Population mean for , Non- Americans Ages 20-29 = 116 mL/min/1.73 sq.m. Ages 30-39 = 107 mL/min/1.73 sq.m. Ages 40-49 = 99 mL/min/1.73 sq.m. Ages 50-59 = 93 mL/min/1.73 sq.m. Ages 60-69 = 85 mL/min/1.73 sq.m. Ages 70+ = 75 mL/min/1.73 sq.m. Chronic Kidney Disease: Less than 60 mL/min/1.73 square meters End Stage Renal Disease: Less than 15 mL/min/1.73 square meters Performed By: #### G FR, ANEU, ABOG, ADIFF, CMP, CBC, ANSG #### [address] [address] GFR Non- 87 ml/min/1.73sqm Normal [facility] ([place]) Comment on above: Result Comment: GFR Population mean for , Non- Americans Ages 20-29 = 116 mL/min/1.73 sq.m. Ages 30-39 = 107 mL/min/1.73 sq.m. Ages 40-49 = 99 mL/min/1.73 sq.m. Ages 50-59 = 93 mL/min/1.73 sq.m. Ages 60-69 = 85 mL/min/1.73 sq.m. Ages 70+ = 75 mL/min/1.73 sq.m. Chronic Kidney Disease: Less than 60 mL/min/1.73 square meters End Stage Renal Disease: Less than 15 mL/min/1.73 square meters Performed By: #### G FR, ANEU, ABOG, ADIFF, CMP, CBC, ANSG #### [address] [address] .NEUABSon 08-21-2022 Neutrophil, Absolute 3.9 10 3/mcL Normal 2.9-6.2 [facility] ([place]) Comment on above: Performed By: #### G FR, ANEU, ABOG, ADIFF, CMP, CBC, ANSG #### [address] [address] CBCon 08-21-2022 Erythrocyte distribution width (RBC) [Ratio] 12.6 % Normal 11.5-14.5 [facility] ([place]) Comment on above: Order Comment: Pre-A dmission Testing Performed By: #### G FR, ANEU, ABOG, ADIFF, CMP, CBC, ANSG #### [address] [place] [address] Hematocrit (Bld) [Volume fraction] 38.3 % Normal 37.0-47.0 [facility] ([place] Comment on above: Order Comment: Pre-A dmission Testing Performed By: #### G FR, ANEU, ABOG, ADIFF, CMP, CBC, ANSG #### [address] [address] Hgb 13.0 G/dL Normal 12.0-16.0 [facility] ([place] Comment on above: Order Comment: Pre-A dmission Testing Performed By: #### G FR, ANEU, ABOG, ADIFF, CMP, CBC, ANSG #### [place] [address] MCH (RBC) [Entitic mass] 28.5 pg Normal 27.0-31.2 [facility] ([place] Comment on above: Order Comment: Pre-A dmission Testing Performed By: #### G FR, ANEU, ABOG, ADIFF, CMP, CBC, ANSG #### [address] [address] MCHC 33.9 G/dL Normal 33.0-37.0 [facility] ([place] Comment on above: Order Comment: Pre-A dmission Testing Performed By: #### G FR, ANEU, ABOG, ADIFF, CMP, CBC, ANSG #### [address] [address] MCV (RBC) [Entitic vol] 84.1 fL Normal 80.0-94.0 [facility] ([place] Comment on above: Order Comment: Pre-A dmission Testing Performed By: #### G FR, ANEU, ABOG, ADIFF, CMP, CBC, ANSG #### [address] [address] Platelet 256 10 3/mcL Normal 130-400 [facility] ([place] Comment on above: Order Comment: Pre-A dmission Testing Performed By: #### G FR, ANEU, ABOG, ADIFF, CMP, CBC, ANSG #### [address] [address] Platelet mean volume (Bld) [Entitic vol] 8.1 fL Normal 7.4-10.4 [facility] ([place] Comment on above: Order Comment: Pre-A dmission Testing Performed By: #### G FR, ANEU, ABOG, ADIFF, CMP, CBC, ANSG #### [address] [address] RBC 4.55 10 6/mcL Normal 4.20-5.40 [facility] ([place] Comment on above: Order Comment: Pre-A dmission Testing Performed By: #### G FR, ANEU, ABOG, ADIFF, CMP, CBC, ANSG #### [address] [address] WBC 6.4 10 3/mcL Normal 4.6-10.8 [facility] ([place] Comment on above: Order Comment: Pre-A dmission Testing Performed By: #### G FR, ANEU, ABOG, ADIFF, CMP, CBC, ANSG #### [address] [address] CMPon 08-21-2022 Albumin Level 3.9 G/dL Normal 3.5-5.0 [facility] ([place] Comment on above: Performed By: #### G FR, ANEU, ABOG, ADIFF, CMP, CBC, ANSG #### [address] [address] Albumin/Globulin [Mass ratio] 1.3 {ratio} Normal 1.1-2.5 [facility] ([place] Comment on above: Performed By: #### G FR, ANEU, ABOG, ADIFF, CMP, CBC, ANSG #### [address] [address] ALP [Catalytic activity/Vol] 84 U/L Normal 40-135 [facility] ([place] Comment on above: Performed By: #### G FR, ANEU, ABOG, ADIFF, CMP, CBC, ANSG #### [address] [address] ALT [Catalytic activity/Vol] 20 U/L Normal 14-59 [facility] ([place] Comment on above: Performed By: #### G FR, ANEU, ABOG, ADIFF, CMP, CBC, ANSG #### [address] [address] AST [Catalytic activity/Vol] 11 U/L Normal 10-40 [facility] ([place] Comment on above: Performed By: #### G FR, ANEU, ABOG, ADIFF, CMP, CBC, ANSG #### [address] [address] Bili Total 0.5 mg/dL Normal 0.2-1.0 [facility] ([place]) Comment on above: Result Comment: Use of this assay is not recommended for patients undergoing treatment with eltrombopag due to the potential for falsely elevated results. Performed By: #### G FR, ANEU, ABOG, ADIFF, CMP, CBC, ANSG #### [place] [id number] BUN/Creatinine Ratio 12 ratio Normal 7-27 [facility] ([place]) Comment on above: Performed By: #### G FR, ANEU, ABOG, ADIFF, CMP, CBC, ANSG #### [address] [address] Calcium [Mass/Vol] 9.0 mg/dL Normal 8.4-10.2 [facility] ([place]) Comment on above: Performed By: #### G FR, ANEU, ABOG, ADIFF, CMP, CBC, ANSG #### [address] [address] Chloride [Moles/Vol] 106 mmol/L Normal 98-107 [facility] ([place] Comment on above: Performed By: #### G FR, ANEU, ABOG, ADIFF, CMP, CBC, ANSG #### [address] [address] CO2 [Moles/Vol] 29 mmol/L Normal 22-29 [facility] ([place] Comment on above: Performed By: #### G FR, ANEU, ABOG, ADIFF, CMP, CBC, ANSG #### [address] [address] Creatinine [Mass/Vol] 0.74 mg/dL Normal 0.55-1.02 [facility] ([place]) Comment on above: Performed By: #### G FR, ANEU, ABOG, ADIFF, CMP, CBC, ANSG #### [address] [address] Electrolyte Balance 9.0 mEq/L Normal 4.0-15.0 [facility] ([place] Comment on above: Performed By: #### G FR, ANEU, ABOG, ADIFF, CMP, CBC, ANSG #### [address] [address] Globulin 2.9 G/dL Normal [facility] ([place]) Comment on above: Performed By: #### G FR, ANEU, ABOG, ADIFF, CMP, CBC, ANSG #### [address] [address] Glucose [Mass/Vol] 87 mg/dL Normal 70-105 [facility] ([place]) Comment on above: Performed By: #### G FR, ANEU, ABOG, ADIFF, CMP, CBC, ANSG #### [address] [address] Potassium [Moles/Vol] 4.0 mmol/L Normal 3.5-5.1 [facility] ([place]) Comment on above: Performed By: #### G FR, ANEU, ABOG, ADIFF, CMP, CBC, ANSG #### [address] [address] Sodium [Moles/Vol] 144 mmol/L Normal 136-145 [facility] ([place]) Comment on above: Performed By: #### G FR, ANEU, ABOG, ADIFF, CMP, CBC, ANSG #### [address] [address] Total Protein 6.8 G/dL Normal 6.4-8.2 [facility] ([place] Comment on above: Performed By: #### G FR, ANEU, ABOG, ADIFF, CMP, CBC, ANSG #### [address] [address] Urea nitrogen [Mass/Vol] 9 mg/dL Normal 7-18 [facility] ([place] Comment on above: Performed By: #### G FR, ANEU, ABOG, ADIFF, CMP, CBC, ANSG #### [address] [address] Gel ABOon 08-21-2022 ABO/Rh Interp Positive Invalid Interpretation Code [facility] ([place]) Comment on above: Performed By: #### G FR, ANEU, ABOG, ADIFF, CMP, CBC, ANSG #### [address] [address] Gel ABSon 08-21-2022 Antibody Screen Gel Negative Normal [facility] ([place] Comment on above: Performed By: #### G FR, ANEU, ABOG, ADIFF, CMP, CBC, ANSG #### [address] [address] LABORATORYOrdered By: Julio C Castellanos on 08-21-2022 ABO/Rh Interp Positive Invalid Interpretation Code AO BB SS Antibody Screen Gel Negative ABSC (08/21/22 9:15 AM) Invalid Interpretation Code AO BB SS Basophil, Absolute 0.1 103/mcL Invalid Interpretation Code 0.0 - 0.2 10^3/mcL AO Workflow SS Basophils/100 WBC (Bld) 0.8 % Invalid Interpretation Code 0.0 - 2.5 % AO Workflow SS Eosinophil, Absolute 0.2 103/mcL Invalid Interpretation Code 0.0 - 0.4 10^3/mcL AO Workflow SS Eosinophils/100 WBC (Bld) 2.9 % Invalid Interpretation Code 0.0 - 7.0 % AO Workflow SS Erythrocyte distribution width (RBC) [Ratio] 12.6 % Invalid Interpretation Code 11.5 - 14.5 % AO Workflow SS Hematocrit (Bld) [Volume fraction] 38.3 % Invalid Interpretation Code 37.0 - 47.0 % AO Workflow SS Hemoglobin (Bld) [Mass/Vol] 13.0 G/dL Invalid Interpretation Code 12.0 - 16.0 G/dL AO Workflow SS Lymphocyte, Absolute 1.9 103/mcL Invalid Interpretation Code 0.8 - 3.9 10^3/mcL AO Workflow SS Lymphocytes/100 WBC (Bld) 29.2 % Invalid Interpretation Code 10.0 - 50.0 % AO Workflow SS MCH (RBC) [Entitic mass] 28.5 pg Invalid Interpretation Code 27.0 - 31.2 pg AO Workflow SS MCHC 33.9 G/dL Invalid Interpretation Code 33.0 - 37.0 G/dL AO Workflow SS MCV (RBC) [Entitic vol] 84.1 fL Invalid Interpretation Code 80.0 - 94.0 fL AO Workflow SS Monocyte, Absolute 0.4 103/mcL Invalid Interpretation Code 0.2 - 1.0 10^3/mcL AO Workflow SS Monocytes/100 WBC (Bld) 6.2 % Invalid Interpretation Code 1.7 - 13.0 % AO Workflow SS Neutrophil, Absolute 3.9 103/mcL Invalid Interpretation Code 2.9 - 6.2 10^3/mcL AO Workflow SS Neutrophils/100 WBC (Bld) 60.9 % Invalid Interpretation Code 37.0 - 80.0 % AO Workflow SS Platelet mean volume (Bld) [Entitic vol] 8.1 fL Invalid Interpretation Code 7.4 - 10.4 fL AO Workflow SS Platelets (Bld) [#/Vol] 256 103/mcL Invalid Interpretation Code 130 - 400 10^3/mcL AO Workflow SS RBC (Bld) [#/Vol] 4.55 106/mcL Invalid Interpretation Code 4.20 - 5.40 10^6/mcL AO Workflow SS WBC (Bld) [#/Vol] 6.4 103/mcL Invalid Interpretation Code 4.6 - 10.8 10^3/mcL AO Workflow SS LABORATORYOrdered By: SYSTEM SYSTEM on 08-21-2022 Albumin BCP dye [Mass/Vol] 3.9 G/dL Invalid Interpretation Code 3.5 - 5.0 G/dL AO ADM SS Albumin/Globulin [Mass ratio] 1.3 {ratio} Invalid Interpretation Code 1.1 - 2.5 ratio AO ADM SS ALP [Catalytic activity/Vol] 84 U/L Invalid Interpretation Code 40 - 135 U/L AO ADM SS ALT With P-5'-P [Catalytic activity/Vol] 20 U/L Invalid Interpretation Code 14 - 59 U/L AO ADM SS AST With P-5'-P [Catalytic activity/Vol] 11 U/L Invalid Interpretation Code 10 - 40 U/L AO ADM SS Bilirubin [Mass/Vol] 0.5 mg/dL Invalid Interpretation Code 0.2 - 1.0 mg/dL AO ADM SS Calcium [Mass/Vol] 9.0 mg/dL Invalid Interpretation Code 8.4 - 10.2 mg/dL AO ADM SS Chloride [Moles/Vol] 106 mmol/L Invalid Interpretation Code 98 - 107 mmol/L AO ADM SS CO2 [Moles/Vol] 29 mmol/L Invalid Interpretation Code 22 - 29 mmol/L AO ADM SS Creatinine [Mass/Vol] 0.74 mg/dL Invalid Interpretation Code 0.55 - 1.02 mg/dL AO ADM SS Electrolyte Balance 9.0 mEq/L Invalid Interpretation Code 4.0 - 15.0 mEq/L AO ADM SS GFR/1.73 sq M.predicted among blacks MDRD (S/P/Bld) [Vol rate/Area] 105 ml/min/1.73sqm Invalid Interpretation Code AO Chemistry S GFR/1.73 sq M.predicted among non-blacks MDRD (S/P/Bld) [Vol rate/Area] 87 ml/min/1.73sqm Invalid Interpretation Code AO Chemistry S Globulin 2.9 G/dL Invalid Interpretation Code AO ADM SS Glucose [Mass/Vol] 87 mg/dL Invalid Interpretation Code 70 - 105 mg/dL AO ADM SS Potassium [Moles/Vol] 4.0 mmol/L Invalid Interpretation Code 3.5 - 5.1 mmol/L AO ADM SS Protein [Mass/Vol] 6.8 G/dL Invalid Interpretation Code 6.4 - 8.2 G/dL AO ADM SS Sodium [Moles/Vol] 144 mmol/L Invalid Interpretation Code 136 - 145 mmol/L AO ADM SS Urea nitrogen [Mass/Vol] 9 mg/dL Invalid Interpretation Code 7 - 18 mg/dL AO ADM SS Urea nitrogen/Creatinine [Mass ratio] 12 ratio Invalid Interpretation Code 7 - 27 ratio AO ADM SS STREP A MOLECULAR (POC)on Procedural Control Valid [facility] Strep A (POCT) Negative Negative [facility] CBC W Auto Differential pane l (Bld)on 03-14-2022 Basophils (Bld) [#/Vol] 0.05 10*3/uL <0.11 k/uL [facility] Basophils/100 WBC (Bld) 0.6 % [facility] Differential cell count method Nom (Bld) Auto [facility] Eosinophils (Bld) [#/Vol] 0.11 10*3/uL <0.46 k/uL [facility] Eosinophils/100 WBC (Bld) 1.4 % [facility] Erythrocyte distribution width (RBC) [Ratio] 12.3 % 11.5 - 15.0 % [facility] Hematocrit (Bld) [Volume fraction] 39.5 % 36.0 - 46.0 % [facility] Hemoglobin (Bld) [Mass/Vol] 13.2 g/dL 11.5 - 15.5 g/dL [facility] Immature granulocytes (Bld) [#/Vol] <0.10 k/uL [facility] Immature granulocytes/100 WBC (Bld) 0.2 % [facility] Lymphocytes (Bld) [#/Vol] 2.42 10*3/uL 1.00 - 4.00 k/uL [facility] Lymphocytes/100 WBC (Bld) 30.2 % [facility] MCH (RBC) [Entitic mass] 28.8 pg 26.0 - 34.0 pg [facility] MCHC (RBC) [Mass/Vol] 33.4 g/dL 30.5 - 36.0 g/dL [facility] MCV (RBC) [Entitic vol] 86.2 fL 80.0 - 100.0 fL [facility] Monocytes (Bld) [#/Vol] 0.59 10*3/uL <0.87 k/uL [facility] Monocytes/100 WBC (Bld) 7.4 % [facility] Neutrophils (Bld) [#/Vol] 4.82 10*3/uL 1.45 - 7.50 k/uL [facility] Neutrophils/100 WBC (Bld) 60.2 % [facility] Nucleated RBC (Bld) [#/Vol] <0.01 k/uL [facility] Nucleated RBC/100 WBC (Bld) [Ratio] 0.0 /100 WBC [facility] Platelet mean volume (Bld) [Entitic vol] 10.6 fL 9.0 - 12.7 fL [facility] Platelets (Bld) [#/Vol] 280 10*3/uL 150 - 400 k/uL [facility] RBC (Bld) [#/Vol] 4.58 10*6/uL 3.90 - 5.2 0 m/uL [facility] WBC (Bld) [#/Vol] 8.01 10*3/uL 3.70 - 11. 00 k/uL [facility] Comprehensive metabolic 2000 panelon 03-14-2022 Albumin [Mass/Vol] 4.6 g/dL 3.9 - 4.9 g/dL [facility] ALP [Catalytic activity/Vol] 68 U/L 34 - 123 U/L [facility] ALT [Catalytic activity/Vol] 12 U/L 7 - 38 U/L [facility] Anion gap [Moles/Vol] 11 mmol/L 9 - 18 mmol/L [facility] AST [Catalytic activity/Vol] 14 U/L 13 - 35 U/L [facility] Bilirubin [Mass/Vol] 0.2 mg/dL 0.2 - 1 .3 mg/dL [facility] Calcium [Mass/Vol] 9.4 mg/dL 8.5 - 10. 2 mg/dL [facility] Chloride [Moles/Vol] 102 mmol/L 97 - 10 5 mmol/L [facility] CO2 [Moles/Vol] 27 mmol/L 22 - 30 mmol/L [facility] Creatinine [Mass/Vol] 0.75 mg/dL 0.58 - 0.96 mg/dL [facility] Estimated Glomerular Filtration Rate 104 mL/min/1.73m >=60 mL/min/1.73m [facility] Glucose [Mass/Vol] 83 mg/dL 74 - 99 mg/dL [facility] Potassium [Moles/Vol] 3.9 mmol/L 3.7 - 5.1 mmol/L [facility] Protein [Mass/Vol] 6.9 g/dL 6.3 - 8.0 g/dL [facility] Sodium [Moles/Vol] 140 mmol/L 136 - 144 mmol/L [facility] Urea nitrogen [Mass/Vol] 10 mg/dL 7 - 21 mg/dL [facility] UA DIP, URINE (POC)on 2021 BILIRUBIN UA (POCT) Negative Negative [facility] CLARITY UA (POCT) Clear [facility] COLOR UA (POCT) Yellow [facility] GLUCOSE UA (POCT) Negative Negative mg/dL [facility] HEMOGLOBIN/BLOOD UA (POCT) Negative Negative [facility] KETONE UA (POCT) Negative Negative mg/dL [facility] LEUKOCYTES UA (POCT) Negative Negative [facility] [facility] NITRITE UA (POCT) Negative Negative [facility] PH UA (POCT) 6.0 4.5 - 8.0 [facility] Protein Ql (U) Negative Negative mg/dL [facility] SPECIFIC GRAVITY UA (POCT) 1.025 1.005 - 1.030 [facility] UROBILINOGEN UA (POCT) 0.2 E.U./dL Normal E.U./dL [facility] Basophil percentageon 2021 Bilirubin [Mass/Vol] 0.70 mg/dL 0.20-1.00 [facility] Work Phone: Comment on above: For patients on eltr ombopag therapy, use of Dimension [place] TBIL is not recommended. Protein [Mass/Vol] 7.5 g/dL 6.4-8.2 [facility] Work Phone: Direct bilirubinon Bilirubin.direct [Mass/Vol] 0.16 mg/dL 0.00-0.30 [facility] Work Phone: Laboratory - Chemistry and C hemistry - challengeon 10-25-2021 ALP [Catalytic activity/Vol] 62 U/L 45-117 [facility] Work Phone: ALT [Catalytic activity/Vol] 17 U/L 13-56 [facility] Work Phone: [phone] Globulin (S) [Mass/Vol] 3.3 g/dL 2.2-4.2 [facility] Work Phone: [phone] Serum or plasma albumin michell urement (mass/volume)on 10-25-2021 Albumin [Mass/Vol] 4.2 g/dL 3.2-5.0 [facility] Work Phone: [phone] Thin prep Papanicolaou smear with manual screeningon 10-25-2021 Thin prep Papanicolaou smear with manual screening 11 U/L 15-37 [facility] Work Phone: [phone] Vital Signs Date Time Vital Sign Value Performing Clinician Facility 10-01-2024 17:11-0400 Body height 177.[address] Taz López MD Work Phone: [facility] 10-01-2024 17:11-0400 Body mass index (BMI) [Ratio] 22.9 kg/m2 Dr. Taz López MD Work Phone: [phone] [place] [address] 10-01-2024 17:11-0400 Body temperature 98 [degF] Dr. Taz López MD Work Phone: [phone] [place] [address] 10-01-2024 17:11-0400 Body weight 72.[address] Taz López MD Work Phone: [phone] [place] [address] 10-01-2024 17:11-0400 Diastolic blood pressure 66 mm[Hg] Dr. Taz López MD Work Phone: [phone] [place] [address] 10-01-2024 17:11-0400 Heart rate 77 /min Dr. Taz López MD Work Phone: [phone] [place] [address] 10-01-2024 17:11-0400 Respiratory rate 16 /min Dr. Taz López MD Work Phone: [phone] [place] [address] 10-01-2024 17:11-0400 SaO2% (BldA) [Mass fraction] 98 % Dr. Taz López MD Work Phone: [phone] [place] [address] 10-01-2024 17:11-0400 Systolic blood pressure 112 mm[Hg] Dr. Taz López MD Work Phone: [facility] 01-15-2024 15:23-0400 Body height 177.8 cm Pacc 1 Work Phone: [facility] 01-15-2024 15:23-0400 Body mass index (BMI) [Ratio] 22.67 kg/m2 Pacc 1 Work Phone: [facility] 01-15-2024 15:23-0400 Body temperature 97.7 [degF] Pacc 1 Work Phone: [facility] 01-15-2024 15:23-0400 Body weight 71.67 kg Pacc 1 Work Phone: [facility] 01-15-2024 15:23-0400 Diastolic blood pressure 70 mm[Hg] Pacc 1 Work Phone: [facility] 01-15-2024 15:23-0400 Heart rate 72 /min Pacc 1 Work Phone: [facility] 01-15-2024 15:23-0400 Respiratory rate 14 /min Pacc 1 Work Phone: [facility] 01-15-2024 15:23-0400 SaO2% (BldA) [Mass fraction] 100 % Pacc 1 Work Phone: [facility] 01-15-2024 15:23-0400 Systolic blood pressure 112 mm[Hg] Pacc 1 Work Phone: [facility] 08-05-2023 15:18-0400 Body mass index (BMI) [Ratio] 23.39 kg/m2 Favian Taylor MD Work Phone: [facility] 08-05-2023 15:18-0400 Body temperature 98.01 [degF] Favian Taylor MD Work Phone: [facility] 08-05-2023 15:18-0400 Body weight 72.9 kg Favian Taylor MD Work Phone: [facility] 08-05-2023 15:18-0400 Diastolic blood pressure 82 mm[Hg] Favian Taylor MD Work Phone: [facility] 08-05-2023 15:18-0400 Heart rate 79 /min Favian Taylor MD Work Phone: [facility] 08-05-2023 15:18-0400 Respiratory rate 19 /min Favian Taylor MD Work Phone: [facility] 08-05-2023 15:18-0400 SaO2% (BldA) [Mass fraction] 99 % Favian Taylor MD Work Phone: [facility] 08-05-2023 15:18-0400 Systolic blood pressure 110 mm[Hg] Favian Taylor MD Work Phone: [facility] 06-07-2023 15:36-0400 Body height 176.5 cm Taz López MD Work Phone: [facility] 06-07-2023 15:36-0400 Body temperature 97.9 [degF] Taz López MD Work Phone: [facility] 06-07-2023 15:36-0400 Body weight 73.03 kg Taz López MD Work Phone: [facility] 06-07-2023 15:36-0400 Diastolic blood pressure 56 mm[Hg] Taz López MD Work Phone: [facility] 06-07-2023 15:36-0400 Heart rate 84 /min Taz López MD Work Phone: [facility] 06-07-2023 15:36-0400 Respiratory rate 12 /min Taz López MD Work Phone: [facility] 06-07-2023 15:36-0400 SaO2% (BldA) [Mass fraction] 99 % Taz López MD Work Phone: [facility] 06-07-2023 15:36-0400 Systolic blood pressure 122 mm[Hg] Taz López MD Work Phone: [facility] 11-26-2022 12:16-0400 Diastolic Blood Pressure Non-Invasive 66 1 OVIDIO SMITH MD [facility] 11-26-2022 12:16-0400 Heart rate 63 /min OVIDIO SMITH MD [facility] 11-26-2022 12:16-0400 Respiratory rate 16 /min OVIDIO SMITH MD [facility] 11-26-2022 12:16-0400 Systolic Blood Pressure Non-Invasive 115 1 OVIDIO SMITH MD [facility] 11-26-2022 12:03-0400 Diastolic Blood Pressure Non-Invasive 75 1 OVIDIO SMITH MD [facility] 11-26-2022 12:03-0400 Heart rate 69 /min OVIDIO SMITH MD [facility] 11-26-2022 12:03-0400 Respiratory rate 17 /min OVIDIO SMITH MD [facility] 11-26-2022 12:03-0400 Systolic Blood Pressure Non-Invasive 109 1 OVIDIO SMITH MD [facility] 11-26-2022 11:48-0400 Body temperature 98.24 [degF] OVIDIO SMITH MD [facility] 11-26-2022 11:48-0400 Diastolic Blood Pressure Non-Invasive 71 1 OVIDIO SMITH MD [facility] 11-26-2022 11:48-0400 Heart rate 72 /min OVIDIO SMITH MD [facility] 11-26-2022 11:48-0400 Respiratory rate 17 /min OVIDIO SMITH MD [facility] 11-26-2022 11:48-0400 Systolic Blood Pressure Non-Invasive 109 1 OVIDIO SMITH MD [facility] 11-26-2022 11:40-0400 Respiratory Rate - Anes 22 br/min OVIDIO SMITH MD [facility] 11-26-2022 11:35-0400 Respiratory Rate - Anes 25 br/min OVIDIO SMITH MD [facility] 11-26-2022 11:30-0400 Respiratory Rate - Anes 20 br/min OVIDIO SMITH MD [facility] 11-26-2022 10:59-0400 Body height 175 cm OVIDIO SMITH MD [facility] 11-26-2022 10:59-0400 Body weight 67.1 kg OVIDIO SMITH MD [facility] 11-26-2022 10:59-0400 Body weight 21.91 kg/m2 OVIDIO SMITH MD [facility] 11-26-2022 10:46-0400 Body height 175 cm OVIDIO SMITH MD [facility] 11-26-2022 10:46-0400 Body temperature 97.7 [degF] OVIDIO SMITH MD [facility] 11-26-2022 10:46-0400 Body weight 67.1 kg OVIDIO SMITH MD [facility] 11-26-2022 10:46-0400 Heart rate 77 /min OVIDIO SMITH MD [facility] 08-31-2022 12:25-0400 Diastolic Blood Pressure Non-Invasive 68 1 YAZ SKINNER MD [facility] 08-31-2022 12:25-0400 Heart rate 71 /min YAZ SKINNER MD [facility] 08-31-2022 12:25-0400 Systolic Blood Pressure Non-Invasive 111 1 YAZ SKINNER MD [facility] 08-31-2022 12:05-0400 Diastolic Blood Pressure Non-Invasive 69 1 YAZ SKINNER MD [facility] 08-31-2022 12:05-0400 Heart rate 69 /min YAZ SKINNER MD [facility] 08-31-2022 12:05-0400 Systolic Blood Pressure Non-Invasive 102 1 YAZ SKINNER MD [facility] 08-31-2022 11:28-0400 Diastolic Blood Pressure Non-Invasive 66 1 YAZ SKINNER MD [facility] 08-31-2022 11:28-0400 Heart rate 63 /min YAZ SKINNER MD [facility] 08-31-2022 11:28-0400 Systolic Blood Pressure Non-Invasive 98 1 YAZ SKINNER MD [facility] 08-31-2022 10:15-0400 Respiratory rate 16 /min YAZ SKINNER MD [facility] 08-31-2022 09:55-0400 Respiratory rate 17 /min YAZ SKINNER MD [facility] 08-31-2022 09:42-0400 Respiratory rate 19 /min YAZ SKINNER MD [facility] 08-31-2022 09:05-0400 Respiratory Rate - Anes 0 br/min YAZ SKINNER MD [facility] 08-31-2022 09:01-0400 Body temperature 96.98 [degF] YAZ SKINNER MD [facility] 08-31-2022 08:55-0400 Respiratory Rate - Anes 14 br/min YAZ SKINNER MD [facility] 08-31-2022 08:45-0400 Body temperature 97.39 [degF] YAZ SKINNER MD [facility] 08-31-2022 08:40-0400 Body temperature 97.52 [degF] YAZ SKINNER MD [facility] 08-31-2022 08:35-0400 Body temperature 97.47 [degF] YAZ SKINNER MD [facility] 08-31-2022 06:22-0400 Body height 175 cm YAZ SKINNER MD [facility] 08-31-2022 06:22-0400 Body temperature 98.78 [degF] YAZ SKINNER MD [facility] 08-31-2022 06:22-0400 Body weight 70 kg YAZ SKINNER MD [facility] 08-31-2022 06:22-0400 Heart rate 61 /min YAZ SKINNER MD [facility] 08-21-2022 08:57-0400 Body height 175 cm YAZ SKINNER MD [facility] 08-21-2022 08:57-0400 Body weight 70 kg YAZ SKINNER MD [facility] 03-13-2022 15:09-0500 Body weight 70.76 kg 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 Phone: [facility] 03-13-2022 15:09-0500 Diastolic blood pressure 78 mm[Hg] 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 Phone: [facility] 03-13-2022 15:09-0500 Heart rate 73 /min 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 Phone: [facility] 03-13-2022 15:09-0500 Respiratory rate 14 /min 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 Phone: [facility] 03-13-2022 15:09-0500 Systolic blood pressure 121 mm[Hg] 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 Phone: [facility] Encounters Encounter Date Encounter Type Care Provider Facility Start: 10-28-2024 ambulatory Yaz Skinner Facility :[facility] Start: 10-14-2024 ambulatory TAZ LÓPEZ Faci lity:[facility] Start: 10-14-2024 End: 10-14-2024 Subsequent hospital visit by physician Xr [facility] Work Phone: Radiology Comment on above: Closed nondisplaced fracture of metatarsal bone of left foot, unspecified metatarsal, initial encounter [S92.302A] Start: 10-02-2024 End: 10-02-2024 Telephone encounter Opal Lopez Work Phone: Podiatry Start: 10-02-2024 End: 10-02-2024 Patient encounter procedure Ricardo Lopez DO Work Phone: [facility] Comment on above: Sprain of unspecifie d site of right knee, initial encounter Start: 10-02-2024 End: 10-02-2024 ambulatory TAZ LÓPEZ Facility:[facility] Start: 10-02-2024 ambulatory JEFFREY LÓPEZ Faci lity:[facility] Start: 10-02-2024 End: 10-02-2024 Subsequent hospital visit by physician Xr [facility] Work Phone: Radiology Comment on above: Acute pain of right knee [M25.561] Start: 10-02-2024 End: 10-02-2024 Patient encounter procedure Opal Lopez Work Phone: Podiatry Comment on above: Closed nondisplaced fracture of metatarsal bone of left foot, unspecified metatarsal, initial encounter (Primary Dx); Post-operative state; Acute pain of right knee Start: 10-02-2024 End: 10-02-2024 ambulatory TAZ LÓPEZ Facility:[facility] Start: 10-02-2024 End: 10-02-2024 Subsequent hospital visit by physician Harmony [facility] Tia Work Phone: Radiology Comment on above: Closed nondisplaced fracture of metatarsal bone of left foot, unspecified metatarsal, initial encounter [S92.302A] Start: 10-01-2024 End: 10-01-2024 Patient encounter procedure Sergio WILLIAM -[facility] Work Phone: Start: 10-01-2024 End: 10-02-2024 ambulatory Opal Lopez Work Phone: Podiatry Comment on above: Broken Foot Start: 10-01-2024 End: 10-01-2024 ambulatory Sergio WILLIAM Facility:[facility] Start: 07-08-2024 End: 09-07-2024 Follow-up encounter Opal Brownbabita Work Phone: Podiatry Start: 07-04-2024 End: 07-08-2024 Telephone encounter Opal Lopez Work Phone: Podiatry Comment on above: Patient Update Start: 07-02-2024 End: 07-02-2024 Subsequent hospital visit by physician Harmony [facility] Tia Doherty Work Phone: Radiology Comment on above: Post-operative state [Z98.890] Start: 07-02-2024 End: 07-02-2024 Patient encounter procedure Opal Lopez Work Phone: Podiatry Comment on above: Post-operative state (Primary Dx); Numbness and tingling of foot Start: 07-02-2024 End: 07-02-2024 ambulatory TAZ LÓPEZ Facility:[facility] Start: 06-29-2024 End: 06-29-2024 ambulatory Aiden Davila PT Work Phone: [facility] Comment on above: Post-operative state (Primary Dx); Hallux valgus of right foot; Gait disturbance Start: 06-22-2024 End: 06-22-2024 ambulatory Aiden Davila PT Work Phone: [facility] Comment on above: Post-operative state (Primary Dx); Hallux valgus of right foot; Gait disturbance Start: 06-15-2024 End: 06-15-2024 ambulatory Adien Davila PT Work Phone: [facility] Comment on above: Post-operative state (Primary Dx); Hallux valgus of right foot; Gait disturbance Start: 06-08-2024 End: 06-08-2024 ambulatory Aiden Davila PT Work Phone: [facility] Comment on above: Post-operative state (Primary Dx); Hallux valgus of right foot; Gait disturbance Start: 06-01-2024 End: 06-01-2024 ambulatory Aiden Davila PT Work Phone: [facility] Comment on above: Post-operative state (Primary Dx); Hallux valgus of right foot; Gait disturbance Start: 05-28-2024 End: 05-28-2024 ambulatory Aiden Davila PT Work Phone: [facility] Comment on above: Post-operative state (Primary Dx); Hallux valgus of right foot; Gait disturbance Start: 05-14-2024 End: 05-14-2024 ambulatory Aiden Davila PT Work Phone: [facility] Comment on above: Post-operative state (Primary Dx); Hallux valgus of right foot; Gait disturbance Start: 04-27-2024 End: 04-27-2024 ambulatory TAZ LÓPEZ Facility:[facility] Start: 04-27-2024 End: 04-27-2024 Patient encounter procedure Opal Lopez Work Phone: Podiatry Comment on above: Post-operative state (Primary Dx); Hallux valgus of right foot; Gait disturbance Start: 04-23-2024 End: 02-06-2025 Orders Only Opal Lopez Work Phone: Podiatry Comment on above: Post-operative state (Primary Dx) Post-operative state [Z98.890] Start: 03-24-2024 End: 03-24-2024 Patient encounter procedure Opal Lopez Work Phone: Podiatry Comment on above: Post-operative state (Primary Dx); Hallux valgus of right foot Start: 03-24-2024 End: 03-24-2024 ambulatory TAZ LÓPEZ Facility:[facility] Start: 03-24-2024 End: 03-24-2024 Subsequent hospital visit by physician Xr [facility] Tia Doherty Work Phone: Radiology Comment on above: Post-operative state [Z98.890] Start: 02-28-2024 End: 02-28-2024 ambulatory TAZ STONEZ Facility:[facility] Start: 02-28-2024 End: 02-28-2024 Patient encounter procedure Opal Brownbabita Work Phone: Podiatry Comment on above: Post-operative state (Primary Dx) Start: 02-20-2024 End: 02-20-2024 Subsequent hospital visit by physician Xr [facility] [employer] Work Phone: Radiology Comment on above: Post-operative state [Z98.890] Start: 02-20-2024 End: 02-20-2024 ambulatory TAZ LÓPEZ Facility:[facility] Start: 02-20-2024 End: 02-20-2024 Patient encounter procedure Opal Brizuelaconstantine Work Phone: Podiatry Comment on above: Post-operative state (Primary Dx) Start: 02-18-2024 End: 03-13-2024 ambulatory Opal Brownbabita Work Phone: Podiatry Comment on above: recent fall Start: 02-18-2024 End: 03-13-2024 E-mail encounter from caregiver Opal Brownbabita Work Phone: Podiatry Start: 02-18-2024 End: 02-20-2024 Patient encounter procedure Opal Lopez Work Phone: Podiatry Comment on above: Upcoming Appointment Start: 02-06-2024 End: 02-07-2024 Telephone encounter Opal Lopez Work Phone: Podiatry Start: 02-06-2024 End: 02-06-2024 Subsequent hospital visit by physician Harmony [facility] Mob Work Phone: Radiology Comment on above: Fall, initial encoun ter [W19.XXXA] Start: 02-06-2024 End: 02-06-2024 ambulatory TAZ LÓPEZ Facility:[facility] Start: 02-06-2024 End: 02-06-2024 Patient encounter procedure Opal Lopez Work Phone: Podiatry Comment on above: Fall, initial encoun ter (Primary Dx); Hallux valgus of right foot; Post-operative state Start: 02-04-2024 End: 02-04-2024 Orders Only Opal Lopez Work Phone: Podiatry Comment on above: Hallux valgus of rig ht foot (Primary Dx) Start: 01-20-2024 End: 03-02-2024 Telephone encounter Opal Lopez Work Phone: Podiatry Comment on above: FMLA Paperwork Start: 01-15-2024 Encounter for other preprocedural examination TAZ LÓPEZ [facility] Start: 01-15-2024 End: 01-15-2024 Admission to establishment [facility] 1 Work Phone: Pre Anesthesia Start: 01-15-2024 End: 01-15-[address] [facility] Start: 01-15-2024 End: 01-15-2024 Manual pelvic examination [facility] 1 Work Phone: Pre Anesthesia Comment on above: Pre-operative examin ation (Primary Dx); Anxiety; Pelvic joint pain, left Start: 01-15-2024 End: 01-15-2024 Preprocedural examination done [facility] 1 Work Phone: [facility] Work Phone: Start: 01-15-2024 End: 02-04-2024 Telephone encounter Opal Lopez Work Phone: Podiatry Comment on above: Patient Update Start: 12-04-2023 End: 12-09-2023 ambulatory Taz López MD Work Phone: Internal Medicine [place] [phone] Start: 11-06-2023 End: 11-06-2023 ambulatory Jocelin Hackett PT [facility] Physical Therapy Comment on above: Hallux valgus of rig ht foot Start: 10-29-2023 End: 10-29-2023 ambulatory Yaz Skinner Facility:[facility] Start: 10-22-2023 End: 11-12-2023 Telephone encounter Opal Lopez Work Phone: Podiatry Comment on above: Schedule Surgery Start: 10-14-2023 End: 10-14-2023 Patient encounter procedure Opal Lopez Work Phone: Podiatry Comment on above: Hallux valgus of rig ht foot (Primary Dx) Start: 09-05-2023 End: 09-05-2023 Subsequent hospital visit by physician Harmony [facility] Tia Doherty Work Phone: Radiology Comment on above: Hallux valgus of rig ht foot [M20.11] Start: 09-05-2023 End: 09-05-2023 Patient encounter procedure Opal Brownconstantine Work Phone: Podiatry Comment on above: Hallux valgus of rig ht foot (Primary Dx); Diminished pulses in lower extremity Start: 08-05-2023 End: 08-05-2023 Subsequent hospital visit by physician Harmony [facility] Tia Work Phone: Radiology Comment on above: Pain of right great toe [M79.674] Start: 08-05-2023 End: 08-05-2023 Patient encounter procedure Favian Taylor MD Work Phone: [facility] Comment on above: Pain of right great toe (Primary Dx); Hallux valgus of right foot Start: 06-07-2023 End: 06-07-2023 Patient encounter procedure Taz López MD Work Phone: Internal Medicine [place] Comment on above: Routine medical exam (Primary Dx); Screening for lipid disorders Start: 06-07-2023 End: 06-07-2023 Patient encounter status Taz López MD Work Phone: [facility] Work Phone: Start: 02-27-2023 End: 02-27-2023 ambulatory Lorena Stone INTERNATIONAL LOGISTICS MANAGER Work Phone: [facility] Start: 02-27-2023 End: 02-27-2023 Manual pelvic examination Lorena Stone INTERNATIONAL LOGISTICS MANAGER Work Phone: [facility] Physical Therapy Comment on above: Pelvic joint pain, l eft (Primary Dx); DDD (degenerative disc disease), lumbar Start: 02-11-2023 End: 02-11-2023 ambulatory Brittani Lemon PT [facility] Start: 02-11-2023 End: 02-11-2023 Manual pelvic examination Brittani Lemon PT [facility] Ph ysical Therapy Comment on above: Pelvic joint pain, l eft (Primary Dx); DDD (degenerative disc disease), lumbar Start: 02-06-2023 End: 02-11-2023 ambulatory YAZ SKINNER MD Facility:[facility] Start: 02-06-2023 End: 02-10-2023 Outreach Lab YAZ SIKNNER MD [facility] Start: 01-22-2023 End: 01-22-2023 Subsequent hospital visit by physician Xr [facility] T[facility] Work Phone: Radiology Comment on above: Chronic left hip airam n [M25.552, G89.29] Start: 01-18-2023 End: 01-18-2023 Subsequent hospital visit by physician Harmony [facility] Work Phone: Radiology Comment on above: Chronic bilateral lo w back pain without sciatica [M54.50, G89.29] Start: 01-18-2023 Telephone encounter Taz vizcaino MD Work Phone: Internal Medicine [place] Comment on above: Orders Start: 01-18-2023 End: 01-18-2023 ambulatory Patrica Deleon APRN.NEONATAL PEDIATRIC NURSE Work Phone: Internal Medicine [place] Comment on above: Left lower quadrant abdominal pain (Primary Dx); Chronic left hip pain; Chronic bilateral low back pain without sciatica Start: 01-18-2023 End: 01-18-2023 Telemedicine consultation with patient Patrica Deleon APRN.NEONATAL PEDIATRIC NURSE Work Phone: [facility] Start: 01-11-2023 End: 01-12-2023 ambulatory ERIC KENNEDY SUPERVISOR COSTUMING-NEONATAL PEDIATRIC NURSE Facility:[facility] Start: 01-11-2023 End: 01-11-2023 Patient encounter procedure ERIC KENNEDY SUPERVISOR COSTUMING-NEONATAL PEDIATRIC NURSE [facility] Start: 11-26-2022 End: 11-26-2022 ambulatory OVIDIO SMITH MD Facility:[facility] Start: 11-26-2022 End: 11-26-2022 Minor Procedure OVIDIO SMITH MD [facility] Start: 10-26-2022 End: 10-26-2022 ambulatory [facility] Work Phone: Start: 10-26-2022 End: 10-26-2022 Patient encounter procedure [facility] Work Phone: Start: 09-19-2022 End: 09-24-2022 ambulatory YAZ SKINNER MD Facility:[facility] Start: 09-19-2022 End: 09-24-2022 ambulatory YAZ SKINNER MD Facility:[facility] Start: 09-19-2022 End: 09-23-2022 Outreach Lab YAZ SKINNER MD [facility] Start: 08-31-2022 End: 08-31-[address] JADA LOPEZ MD Facility:[facility] Start: 08-31-2022 End: 08-31-2022 Manual pelvic examination YAZ SKINNER MD [facility] Start: 08-21-2022 End: 08-22-2022 ambulatory YAZ SKINNER MD Facility:[facility] Start: 08-21-2022 End: 08-21-2022 Admission to establishment YAZ SKINNER MD [facility] Start: 08-15-2022 ambulatory Jeffrey Sebastian victor MD Work Phone: Internal Medicine [facility] Start: 07-27-2022 End: 07-27-2022 ambulatory Haim Saravia SUPERVISOR COSTUMING.NEONATAL PEDIATRIC NURSE Work Phone: Telemedicine Comment on above: Pharyngitis, unspeci fied etiology (Primary Dx); Strep throat exposure Start: 07-27-2022 End: 07-27-2022 Telemedicine consultation with patient Haim Saravia SUPERVISOR COSTUMING.NEONATAL PEDIATRIC NURSE Work Phone: [facility] Start: 05-03-2022 ambulatory Patrica Older SUPERVISOR COSTUMING .NEONATAL PEDIATRIC NURSE Work Phone: [facility] Start: 05-03-2022 Patient encounter procedure Na z Older SUPERVISOR COSTUMING.NEONATAL PEDIATRIC NURSE Work Phone: Internal Medicine [place] Comment on above: Passport Application Examiner Martha crockett Start: 04-23-2022 ambulatory Patrica Older SUPERVISOR COSTUMING .NEONATAL PEDIATRIC NURSE Work Phone: Internal Medicine [facility] Comment on above: results Start: 04-23-2022 E-mail encounter fro m caregiver 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 Phone: [facility] Start: 03-20-2022 ambulatory Patrica Older SUPERVISOR COSTUMING .NEONATAL PEDIATRIC NURSE Work Phone: [facility] Medicine [facility] Comment on above: lab results Start: 03-20-2022 E-mail encounter fro m caregiver 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 Phone: [facility] Start: 03-13-2022 End: 03-13-2022 Patient encounter procedure 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 Phone: Internal Medicine [facility] Comment on above: Left lower quadrant abdominal pain (Primary Dx) Start: 10-25-2021 End: 10-25-2021 Patient encounter procedure T[facility] Comm [facility] [facility] Start: 09-11-2021 End: 09-15-2021 Outreach Lab YAZ SKINNER MD [facility] Procedures Date Procedure Procedure Detail Performing Clinician Start: 10-01-2024 Plain X-ray of tibia and fibula Dr. Taz López MD Work Phone: Start: 10-01-2024 X-ray of foot, three or more views Dr. Taz López MD Work Phone: Start: 08-05-2023 Radex foot complete minimum 3 views Favian Taylor MD Work Phone: Start: 06-07-2023 Adult depression scr eening assessment Opal Lopez Work Phone: Start: 01-22-2023 Radex hip unilateral with pelvis 2-3 views Patrica Briscoe SUPERVISOR COSTUMING.NEONATAL PEDIATRIC NURSE Work Phone: Start: 01-18-2023 Radex spine lumbosac ral 2/3 views Patrica Briscoe SUPERVISOR COSTUMING.NEONATAL PEDIATRIC NURSE Work Phone: Start: 10-26-2022 Screening mammography Start: 07-27-2022 STREP A MOLECULAR (POC) Haim Saravia SUPERVISOR COSTUMING.NEONATAL PEDIATRIC NURSE Work Phone: Start: 03-13-2022 Urnls dip stick/tabl et rgnt auto w/o microscopy 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 Phone: Start: 03-18-2010 Laparoscopic appendectomy YAZ SKINNER MD Hysterectomy OVIDIO SMITH MD Comment on above: Laparoscopic Plan of Treatment Date Care Activity Detail Author Start: 11-16-2024 Influenza vaccination C [facility] Start: 11-02-2024 End: 11-01-2025 XR Foot - left AP and Lateral and oblique XR FOOT GENERAL 3V AP/LAT/OBL LEFT Radiology Routine Closed nondisplaced fracture of metatarsal bone of left foot, unspecified metatarsal, initial encounter Expected: 11/02/2024, Expires: 11/01/2025 [facility] Comment on above: Expected: 11/02/2024 , Expires: 11/01/2025 Start: 10-29-2024 End: 10-29-2024 Patient encounter procedure 10/29/2024 1:00 PM EDT Office Visit Podiatry [address] [place] [address] Opal Lopez [address] [place] [address] 4 week follow up fracture Podiatry Comment on above: 4 week follow up fra cture Start: 10-16-2024 End: 11-01-2025 XR Foot - left AP and Lateral and oblique XR FOOT GENERAL 3V AP/LAT/OBL LEFT Radiology Routine Closed nondisplaced fracture of metatarsal bone of left foot, unspecified metatarsal, initial encounter Expected: 10/16/2024, Expires: 11/01/2025 [facility] Work Phone: Comment on above: Expected: 10/16/2024 , Expires: 11/01/2025 Start: 10-15-2024 End: 10-15-2024 Patient encounter procedure 10/15/2024 1:15 PM EDT Office Visit Podiatry [address] [place] [address] Opal Lopez [address] [place] [address] LEFT FOOT FX 10-01-24 Podiatry Comment on above: LEFT FOOT FX 10-01-24 Start: 10-01-2024 XR Tibia and Fibula 2 Views [facility] Start: 07-01-2024 End: 07-01-2024 Patient encounter procedure Podiatry Comment on above: 2 month follow up Start: 06-29-2024 End: 06-29-2024 ambulatory [facility] Comment on above: Dx: Post-operative s hussein [Z98.890 (ICD-10-CM)]; Hallux valgus of right foot [M20.11 (ICD-10-CM)]; Gait disturbance [R26.9 (ICD-10-CM)] Start: 06-22-2024 End: 06-22-2024 ambulatory [facility] Comment on above: Dx: Post-operative s hussein [Z98.890 (ICD-10-CM)]; Hallux valgus of right foot [M20.11 (ICD-10-CM)]; Gait disturbance [R26.9 (ICD-10-CM)] Start: 06-15-2024 End: 06-15-2024 ambulatory 06/15/2024 4:30 PM EDT OT/PT/Speech Visit [facility] [address] [place], [place] [id number] Aiden Davila, PT [address] [place], [place] [phone] Dx: Post-operative state [Z98.890 (ICD-10-CM)]; Hallux valgus of right foot [M20.11 (ICD-10-CM)]; Gait disturbance [R26.9 (ICD-10-CM)] [facility] Comment on above: Dx: Post-operative s hussein [Z98.890 (ICD-10-CM)]; Hallux valgus of right foot [M20.11 (ICD-10-CM)]; Gait disturbance [R26.9 (ICD-10-CM)] Start: 06-08-2024 End: 06-08-2024 ambulatory 06/08/2024 4:30 PM EDT OT/PT/Speech Visit [facility] [address] [place], [place] [phone] Aiden Davila, PT [address] [place] [address] Dx: Post-operative state [Z98.890 (ICD-10-CM)]; Hallux valgus of right foot [M20.11 (ICD-10-CM)]; Gait disturbance [R26.9 (ICD-10-CM)] [facility] Comment on above: Dx: Post-operative s hussein [Z98.890 (ICD-10-CM)]; Hallux valgus of right foot [M20.11 (ICD-10-CM)]; Gait disturbance [R26.9 (ICD-10-CM)] Start: 06-06-2024 Depression Screening Depression Scre [facility] Start: 06-01-2024 End: 06-01-2024 ambulatory 06/01/2024 5:15 PM EDT OT/PT/Speech Visit [facility] [address], [place] [phone] Aiden Davila, PT [address] [place], [place] [phone] Dx: Post-operative state [Z98.890 (ICD-10-CM)]; Hallux valgus of right foot [M20.11 (ICD-10-CM)]; Gait disturbance [R26.9 (ICD-10-CM)] [facility] Comment on above: Dx: Post-operative s hussein [Z98.890 (ICD-10-CM)]; Hallux valgus of right foot [M20.11 (ICD-10-CM)]; Gait disturbance [R26.9 (ICD-10-CM)] Start: 05-28-2024 End: 05-28-2024 ambulatory 05/28/2024 5:15 PM EDT OT/PT/Speech Visit [facility] [address] [place], [place] [phone] Aiden Davila, PT [address] [place] [address] Dx: Post-operative state [Z98.890 (ICD-10-CM)]; Hallux valgus of right foot [M20.11 (ICD-10-CM)]; Gait disturbance [R26.9 (ICD-10-CM)] [facility] Comment on above: Dx: Post-operative s hussein [Z98.890 (ICD-10-CM)]; Hallux valgus of right foot [M20.11 (ICD-10-CM)]; Gait disturbance [R26.9 (ICD-10-CM)] Start: 05-14-2024 End: 05-14-2024 ambulatory 05/14/2024 3:45 PM EST OT/PT/Speech Visit [facility] [address] [place], [place] [phone] Aiden Davila, PT [address] [place], [place] [phone] Cardiomyopathy, nonischemic (HCC) [I42.8] [facility] Comment on above: Cardiomyopathy, alexus schemic (HCC) [I42.8] Start: 04-27-2024 End: 04-27-2024 Patient encounter procedure 04/27/2024 4:00 PM EST Office Visit Podiatry [address], [place] [phone] Opal Lopez [address] [id number] 4 week post op Podiatry Comment on above: 4 week post op Start: 04-21-2024 End: 04-21-2024 Patient encounter procedure 04/21/2024 3:30 PM EST Office Visit Podiatry [address], [place] [phone] Opal Lopez [address] [id number] 4 week post op Podiatry Comment on above: 4 week post op Start: 03-24-2024 End: 03-24-2024 Patient encounter procedure 03/24/2024 3:15 PM EST Office Visit Podiatry [address] [place], [place] [address] Opal Lopez [address] [address] 4 week follow up Podiatry Comment on above: 4 week follow up Start: 02-28-2024 End: 02-28-2024 Patient encounter procedure 02/28/2024 1:00 PM EST Office Visit Podiatry [address] [place], [place] [address] Opal Lopez [address] [address] S/p Podiatry Comment on above: S/p Start: 02-20-2024 End: 02-20-2024 Patient encounter procedure Podiatry Comment on above: s/p Start: 02-14-2024 End: 02-14-2024 Patient encounter procedure 02/14/2024 10:00 AM EST Office Visit Podiatry [address] [place] [address] Opal Lopez [address] [place], [place] [phone] s/p Podiatry Comment on above: s/p Start: 02-06-2024 End: 02-06-2024 Patient encounter procedure Podiatry Comment on above: s/p Start: 02-04-2024 Subsequent hospital visit by physician 02/04/2024 Hospital Encounter [facility] [address] [place] [address] Opal Lopez [address] [place] [address] Acquired hallux valgus of right foot [M20.11] [facility] Comment on above: Acquired hallux valg us of right foot [M20.11] Start: 02-04-2024 End: 02-04-2024 Corrj hallux valgus w/sesmdc w/1metar medial cnf BUNIONECTOMY W/1ST MTJ AND MCJ ARTHRODESIS,ANY METHOD Acquired hallux valgus of right foot 02/04/2024 1:47 PM EST [facility] OR Start: 02-04-2024 End: 02-04-2024 Corrj hallux valgus w/sesmdc w/prox phlnx osteot BUNIONECTOMY W/PROXIMAL PHALANX OSTEOTOMY,ANY METHOD Acquired hallux valgus of right foot 02/04/2024 1:47 PM EST [facility] OR Start: 02-03-2024 End: 02-03-2024 Admission to same day surgery center 02/03/2024 7:30 AM EST - 02/03/2024 9:45 AM EST Surgery [facility] [address] [place] [address] [address] [place] [address] BUNIONECTOMY W/1ST MTJ AND MCJ ARTHRODESIS,ANY METHOD [facility] Comment on above: BUNIONECTOMY W/1ST M TJ AND MCJ ARTHRODESIS,ANY METHOD Start: 02-03-2024 End: 02-03-2024 Corrj hallux valgus w/sesmdc w/1metar medial cnf BUNIONECTOMY W/1ST MTJ AND MCJ ARTHRODESIS,ANY METHOD Acquired hallux valgus of right foot 02/03/2024 7:30 AM EST ME OR Start: 02-03-2024 End: 02-03-2024 Corrj hallux valgus w/sesmdc w/prox phlnx osteot BUNIONECTOMY W/PROXIMAL PHALANX OSTEOTOMY,ANY METHOD Acquired hallux valgus of right foot 02/03/2024 7:30 AM EST ME OR Start: 02-03-2024 Subsequent hospital visit by physician 02/03/2024 7:30 AM EST Hospital Encounter [address] [address] [address] [place] [address] Acquired hallux valgus of right foot [M20.11] [facility] Comment on above: Acquired hallux valg us of right foot [M20.11] Start: 11-17-2023 Covid-19 Vaccine ( season) Covid-19 Vaccine ( season) [facility] Start: 11-17-2023 Covid-19 Vaccine () Covid-19 Vaccine () [facility] Start: 11-17-2023 Influenza vaccination [facility] Start: 11-06-2023 End: 11-06-2023 ambulatory 11/06/2023 3:45 PM EDT OT/PT/Speech Visit [facility] [address] [place] [address] Jocelin Hackett, PT Hallux valgus of right foot [M20.11] [facility] Comment on above: Hallux valgus of rig ht foot [M20.11] Start: 10-27-2023 Mammography Mammogram Screening [facility] Start: 10-27-2023 Screening for malign ant neoplasm of breast Mammogram Screening [facility] Start: 10-14-2023 End: 10-14-2023 Patient encounter procedure 10/14/2023 8:00 AM EDT Office Visit Podiatry [address] [place] [address] Opal Lopez [address] [place] [address] Right foot Bunion follow up Podiatry Comment on above: Right foot Bunion fo llow up Start: 10-11-2023 End: 10-11-2023 Patient encounter procedure 10/11/2023 8:00 AM EDT Office Visit Vasculary Surgery [address] [place] [address] [facility] Comment on above: [facility] Start: 03-18-2023 Behavioral Health Screening Behavioral Health Screening [facility] Start: 11-16-2022 Covid-19 Vaccine () Covid-19 Vaccine () [facility] Start: 11-16-2022 Influenza vaccination C [facility] Start: 07-27-2022 End: 07-28-2022 STREP A MOLECULAR (POC) STREP A MOLECULAR (POC) Microbiology Routine Pharyngitis, unspecified etiology Expected: 07/27/2022, Expires: 07/28/2022 [facility] Work Phone: Comment on above: Expected: 07/27/2022 , Expires: 07/28/2022 Start: 2022 Mammography MAMMOGRAM [facility] Start: 03-18-2022 DEPRESSION ASSESSMENT DEPRESSION ASS ESSMENT [facility] Start: 11-16-2021 Influenza vaccination INFLUENZA (#1) [facility] Start: 03-18-2021 DEPRESSION ASSESSMENT DEPRESSION ASS [facility] Start: 07-15-2020 COVID-19 VACCINE (3 - Booster for Moderna series) COVID-19 VACCINE (3 - Booster for Moderna series) [facility] Start: 07-13-2018 Urine microalbumin profile DTaP,Tdap,Td Vaccine (2 - Td or Tdap) [facility] Start: 06-16-2017 PAP TESTING PAP TESTING [facility] Start: 06-16-2017 Screening for malign ant neoplasm of cervix Pap Testing [facility] Start: 06-17-2015 Screening for malign ant neoplasm of cervix Cervical Cancer Screening [facility] Start: 01-16-2014 HPV TESTING HPV TESTING [facility] Start: 01-16-2014 Screening for malign ant neoplasm of cervix HPV Testing [facility] Start: 2001 Hepatitis B Vaccine (1 of 3 - 19+ 3-dose series) Hepatitis B Vaccine (1 of 3 - 19+ 3-dose series) [facility] Start: 2001 Urine microalbumin profile DTAP,TDAP,TD (1 - Tdap) [facility] Start: 2000 Depression Screening Depression Scre ening [facility] Start: 2000 HEPATITIS C SCREENING HEPATITIS C [facility] Start: 2000 Hepatitis C screening Hepatitis C [facility] Start: 2000 HIV SCREENING HIV SCREENING [facility] Start: 2000 HIV screening HIV Screening [facility] Start: 1982 HEPATITIS B (1 of 3 - 3-dose series) HEPATITIS B (1 of 3 - 3-dose series) [facility] Start: 1982 Hepatitis B Vaccine (1 of 3 - 3-dose series) Hepatitis B Vaccine (1 of 3 - 3-dose series) [facility] Corrj hallux valgus w/sesmdc w/1metar medial cnf BUNIONECTOMY W/1ST MTJ AND MCJ ARTHRODESIS,ANY METHOD Acquired hallux valgus of right foot MM OR Corrj hallux valgus w/sesmdc w/prox phlnx osteot BUNIONECTOMY W/PROXIMAL PHALANX OSTEOTOMY,ANY METHOD Acquired hallux valgus of right foot [facility] OR End: 01-02-2025 DBT Breast - bilateral screening KATHY SCREENING W MILES Radiology Routine Encounter for screening mammogram for breast cancer 1 Occurrences starting 12/04/2023 until 01/02/2025 [facility] Work Phone: Comment on above: 1 Occurrences starti ng 12/04/2023 until 01/02/2025 End: 09-14-2023 KATHY SCREENING KATHY SCREENING Radiology Routine Encounter for screening mammogram for breast cancer 1 Occurrences starting 08/15/2022 until 09/14/2023 [facility] Work Phone: Comment on above: 1 Occurrences starti ng 08/15/2022 until 09/14/2023 End: 02-17-2024 Radex spine lumbosacral 2/3 views XR LUMBAR GENERAL 3V AP/LAT/L5-S1 Radiology Routine Chronic bilateral low back pain without sciatica 1 Occurrences starting 01/18/2023 until 02/17/2024 [facility] Work Phone: Comment on above: 1 Occurrences starti ng 01/18/2023 until 02/17/2024 Radex spine lumbosac ral 2/3 views XR LUMBAR GENERAL 3V AP/LAT/L5-S1 Radiology Routine Chronic bilateral low back pain without sciatica 01/18/2023 3:57 PM EDT [facility] Work Phone: UA DIP B/O UA DIP B/O Lab R outine Left lower quadrant abdominal pain Ordered: 03/13/2022 [facility] Work Phone: Comment on above: Ordered: 03/13/2022 End: 09-04-2024 US.doppler Extremity arteries - bilateral for physiologic artery study [facility] Vascular Lab Routine Hallux valgus of right foot Diminished pulses in lower extremity 1 Occurrences starting 09/05/2023 until 09/04/2024 [facility] Comment on above: 1 Occurrences starti ng 09/05/2023 until 09/04/2024 End: 11-01-2025 XR Ankle - right AP and Lateral and oblique XR ANKLE GENERAL 3V AP/LAT/OBL RIGHT Radiology Routine Acute pain of right knee 1 Occurrences starting 10/02/2024 until 11/01/2025 [facility] Comment on above: 1 Occurrences starti ng 10/02/2024 until 11/01/2025 End: 11-01-2025 XR Foot - bilateral AP and Lateral and oblique XR FOOT GENERAL 3V AP/LAT/OBL BILATERAL Radiology Routine Closed nondisplaced fracture of metatarsal bone of left foot, unspecified metatarsal, initial encounter Post-operative state 1 Occurrences starting 10/02/2024 until 11/01/2025 [facility] Work Phone: Comment on above: 1 Occurrences starti ng 10/02/2024 until 11/01/2025 XR Foot - bilateral AP and Lateral and oblique XR FOOT GENERAL 3V AP/LAT/OBL BILATERAL Radiology Routine Closed nondisplaced fracture of metatarsal bone of left foot, unspecified metatarsal, initial encounter Post-operative state 10/02/2024 10:32 AM EDT [facility] XR Foot - left AP an d Lateral and oblique XR FOOT GENERAL 3V AP/LAT/OBL LEFT Radiology Routine Closed nondisplaced fracture of metatarsal bone of left foot, unspecified metatarsal, initial encounter 10/14/2024 3:05 PM EDT [facility] Work Phone: XR Foot - right AP a nd Lateral and oblique XR FOOT GENERAL 3V AP/LAT/OBL RIGHT Radiology Routine Hallux valgus of right foot Diminished pulses in lower extremity 09/05/2023 4:43 PM EDT [facility] Work Phone: End: 10-04-2024 XR Foot - right AP and Lateral and oblique XR FOOT GENERAL 3V AP/LAT/OBL RIGHT Radiology Routine Hallux valgus of right foot Diminished pulses in lower extremity 1 Occurrences starting 09/05/2023 until 10/04/2024 [facility] Work Phone: Comment on above: 1 Occurrences starti ng 09/05/2023 until 10/04/2024 End: 03-07-2025 XR Foot - right AP and Lateral and oblique XR FOOT GENERAL 3V AP/LAT/OBL RIGHT Radiology Routine Fall, initial encounter 1 Occurrences starting 02/06/2024 until 03/07/2025 [facility] Work Phone: Comment on above: 1 Occurrences starti ng 02/06/2024 until 03/07/2025 XR Foot - right AP a nd Lateral and oblique XR FOOT GENERAL 3V AP/LAT/OBL RIGHT Radiology Routine Fall, initial encounter 02/06/2024 2:10 PM [facility] End: 03-19-2025 XR Foot - right AP and Lateral and oblique XR FOOT GENERAL 3V AP/LAT/OBL RIGHT Radiology Routine Post-operative state 1 Occurrences starting 02/18/2024 until 03/19/2025 [facility] Work Phone: Comment on above: 1 Occurrences starti ng 02/18/2024 until 03/19/2025 XR Foot - right AP a nd Lateral and oblique XR FOOT GENERAL 3V AP/LAT/OBL RIGHT Radiology Routine Post-operative state 02/20/2024 1:29 PM [facility] End: 03-29-2025 XR Foot - right AP and Lateral and oblique XR FOOT GENERAL 3V AP/LAT/OBL RIGHT Radiology Routine Post-operative state 1 Occurrences starting 02/28/2024 until 03/29/2025 [facility] Work Phone: Comment on above: 1 Occurrences starti ng 02/28/2024 until 03/29/2025 XR Foot - right AP a nd Lateral and oblique XR FOOT GENERAL 3V AP/LAT/OBL RIGHT Radiology Routine Post-operative state 03/24/2024 2:[address] [facility] Work Phone: End: 05-23-2025 XR Foot - right AP and Lateral and oblique XR FOOT GENERAL 3V AP/LAT/OBL RIGHT Radiology Routine Post-operative state 1 Occurrences starting 04/23/2024 until 05/23/2025 [facility] Work Phone: Comment on above: 1 Occurrences starti ng 04/23/2024 until 05/23/2025 XR Foot - right AP a nd Lateral and oblique XR FOOT GENERAL 3V AP/LAT/OBL RIGHT Radiology Routine Post-operative state 04/23/2024 3:44 PM EST [facility] XR Foot - right AP a nd Lateral and oblique XR FOOT GENERAL 3V AP/LAT/OBL RIGHT Radiology Routine Post-operative state 07/02/2024 5:02 PM EDT [facility] Work Phone: End: 08-01-2025 XR Foot - right AP and Lateral and oblique XR FOOT GENERAL 3V AP/LAT/OBL RIGHT Radiology Routine Post-operative state 1 Occurrences starting 07/02/2024 until 08/01/2025 [facility] Work Phone: Comment on above: 1 Occurrences starti ng 07/02/2024 until 08/01/2025 End: 02-20-2024 XR HIP GENERAL 3V PELV/AP/LAT LEFT XR HIP GENERAL 3V PELV/AP/LAT LEFT Radiology STAT Chronic left hip pain 1 Occurrences starting 01/21/2023 until 02/20/2024 [facility] Work Phone: Comment on above: 1 Occurrences starti ng 01/21/2023 until 02/20/2024 End: 11-01-2025 XR Knee - right 4 Views XR KNEE GENERAL 4V AP BOTH/PA BOTH/LAT/MERC RIGHT Radiology Routine Acute pain of right knee 1 Occurrences starting 10/02/2024 until 11/01/2025 [facility] Comment on above: 1 Occurrences starti ng 10/02/2024 until 11/01/2025 XR Knee - right 4 Views XR KNEE GENERAL 4V AP BOTH/PA BOTH/LAT/MERC RIGHT Radiology Routine Acute pain of right knee 10/02/2024 12:10 PM EDT [facility] End: 11-01-2025 XR Tibia and Fibula - right AP and Lateral XR TIBIA FIBULA 2V AP/LAT RIGHT Radiology Routine Acute pain of right knee 1 Occurrences starting 10/02/2024 until 11/01/2025 [facility] Comment on above: 1 Occurrences starti ng 10/02/2024 until 11/01/2025 XR Tibia and Fibula - right AP and Lateral XR TIBIA FIBULA 2V AP/LAT RIGHT Radiology Routine Acute pain of right knee 10/02/2024 12:[address] 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 Phone: [facility] Work Phone: 12-23-2015 influenza, seasonal, injectable, preservative free Taz López MD Work Phone: [facility] Work Phone: 07-13-2008 tetanus toxoid, redu hugo diphtheria toxoid, and acellular pertussis vaccine, adsorbed Taz López MD Work Phone: [facility] Work Phone: Payers Date Payer Category Payer Self-pay [id number] 2022 Private Health Insurance [employer] [id number] 2022 Unknown [id number] 2022 Unknown [id number] 2018 Unknown [id number] 1982 Unknown [id number] .[id number] 1982 Unknown [id number] .2. 1982 Unknown [id number] .2. 1982 Unknown [id number] .2. 1982 Unknown [id number] .[id number] 1982 Unknown [id number] .[id number] 1982 Unknown [id number] Unknown [id number] Unknown [id number] Unknown [id number] Unknown [id number] Unknown [id number] Social History Date Type Detail Facility Start: 01-02-2013 End: 09-11-2021 Tobacco smoking status Never smoked tobacco (finding) [facility] Sex Assigned At Sex [facility] Start: 02-17-2021 End: 01-10-2022 Tobacco smoking status NHIS Unknown if ever smoked [facility] Start: 02-02-2021 None [facility] Start: 02-02-2021 Homeless [facility] Start: 02-02-2021 Non-smoker [facility] Start: 1980 Sex Assigned At Female [facility] Start: 01-02-2013 Tobacco use and exposure Smokeless tobacco non-user [facility] Work Phone: Start: 03-13-2022 End: 04-16-2022 Alcohol intake Current non-drinker of alcohol (finding) [facility] Start: 03-13-2022 History SDOH Alcohol Frequency 2 [facility] Start: 03-13-2022 History SDOH Alcohol Std Drinks 1 [facility] Start: 03-13-2022 History SDOH Social Connections Phone 5 [facility] Start: 03-13-2022 History SDOH Social Connections Get Together 3 [facility] Start: 03-13-2022 End: 01-18-2023 History of Social function [facility] Start: 03-13-2022 End: 01-18-2023 Social connection and isolation panel [facility] Do you belong to any clubs or organizations such as temple groups, unions, fraternal or athletic groups, or school groups? Yes [facility] Are you now , , , , never or living with a partner? [facility] How often to you hav e a drink containing alcohol? Monthly or less [facility] How many standard dr inks containing alcohol do you have on a typical day? 1 or 2 [facility] How often do you hav e 6 or more drinks on 1 occasion? Never [facility] Do you feel stress - tense, restless, nervous, or anxious, or unable to sleep at night because your mind is troubled all the time - these days [OSQ] Only a little [facility] For an average week in the last 30 days, how many days per week did you engage in moderate to strenuous exercise (like walking fast, running, jogging, dancing, swimming, biking, or other activities that cause a light or heavy sweat)? Patient refused [facility] (I/We) worried soco er (my/our) food would run out before (I/we) got money to buy more. Never true [facility] In the past 12 month s, was there a time when you were not able to pay the mortgage or rent on time? No [facility] Start: 06-17-2019 Gender identity Identifies as female gender (finding) [facility] Start: 06-17-2019 Sexual orientation Heterosexual (finding) [facility] Start: 06-08-2023 End: 10-02-2024 Alcohol intake Current drinker of alcohol (finding) [facility] Start: 06-07-2023 Alcohol Comment 1 drink every few months. [facility] Medical Equipment Procedure Code Equipment Code Equipment Origin al Text Equipment Identifier Dates Lapiplasty Speed plate Rapid Compression Implant [id number] Start: 02-04-2024 Lapiplasty Speed plate Rapid Compression Implant [id number] Start: 02-04-2024 Lapiplasty Headl ess Interfrag Screws 4mm X 36mm 40mm [id number] Start: 02-04-2024 Functional Status Date Assessment Result Facility 11-26-2022 Functional Status Maintained [facility] 08-31-2022 Functional Status bilateral knee high [facility] 08-31-2022 Functional Status [facility] 08-31-2022 Functional Status ice on [facility] 08-31-2022 Functional Status Maintained [facility] 08-21-2022 Functional Status Sensory Deficits None A [facility] 04-23-2014 Are you deaf, or do you have serious difficulty hearing No 04/23/2014 3:25 PM Maye Anders LPN No [facility] 04-23-2014 Are you blind, or do you have serious difficulty seeing, even when wearing glasses No 04/23/2014 3:25 PM Maye Anders LPN No [facility] 04-23-2014 Do you have serious difficulty walking or climbing stairs No 04/23/2014 3:25 PM Maye Anders LPN No [facility] 04-23-2014 Do you have difficul ty dressing or bathing No 04/23/2014 3:25 PM Maye Anders LPN No [facility] 04-23-2014 Because of a physica l, mental, or emotional condition, do you have difficulty doing errands alone such as visiting a physician's office or shopping No 04/23/2014 3:25 PM Maye Anders LPN No [facility] Mental Status Date Assessment Result Facility 11-26-2022 Mental Status Orientation Oriented x 4 [facility] 11-26-2022 Mental Status [facility] 08-31-2022 Mental Status Oriented x 4 [facility] 08-31-2022 Mental Status [facility] 04-23-2014 Because of a physica l, mental, or emotional condition, do you have serious difficulty concentrating, remembering, or making decisions No 04/23/2014 3:25 PM Maye Anders LPN No [facility] Clinical Notes 01-16-2013 to 10-02-2024 Telephone Encounter - Radha Brar RN - 10/02/2024 3:53 PM EDTTelephone Encounter - Radha Brar RN - 10/02/2024 3:53 PM EDTTelephone Encounter - Opal Lopez - 10/02/2024 3:41 PM EDT Note Date & Type Note Facility 10-02-2024 Telephone encount er Note Appointment scheduled [facility] 10-02-2024 Miscellaneous Notes Formattin g of this note might be different from the original. Appointment scheduled I shared chart with colleague who agrees in conservative care. Will repeat xray in 2 weeks and 4 weeks. Please have her follow-up in 4 weeks Opal Testrake, DPM documented in this encounter [facility] 10-02-2024 Telephone encount er Note I shared chart with colleague who agrees in conservative care. Will repeat xray in 2 weeks and 4 weeks. Please have her follow-up in 4 weeks Opal Lopez DPM [facility] 10-02-2024 Note HNO ID: [id number] Author: RICARDO LOPEZ, DO Service: ? Author Type: Physician Type: Progress Notes Filed: 10/02/2024 13:54 Note Text: Subjective The patient is a 44-year-old female presenting for evaluation of right knee pain following a fall. Right Knee Pain: - Acute onset following a fall yesterday. - Incident occurred while wearing a backpack leaf blower and stepping on a landscaping rock that gave way. - Union significant pain in the right leg before the fall. - Pain localized to the posterior aspect of the knee. - Able to bear weight, but reports significant pain. - Currently using crutches; finds it manageable to bear some weight on the heel. - Taking Advil with minimal relief; prefers to avoid heavy pain medications. Musculoskeletal: (+) right leg pain, (+) right foot swelling, (+) pain with weight bearing Objective Last menstrual period 11/22/2015. General: No acute distress. MSK/Ext: Right knee without visible swelling or effusion; tenderness over fibular head; mild pain with palpation and manipulation of the knee; able to flex and extend knee with some discomfort. Labs Tests Imaging - Foot X-ray: Fifth metatarsal fracture. - Knee X-ray: No evidence of fracture or effusion. - Tib-fib X-ray: No abnormalities identified. Assessment AND Plan 1. Sprain of unspecified site of right knee, initial encounter (S83.91XA) - Right knee sprain secondary to torsional injury during a fall; no joint effusion observed, and X-rays show no fractures. - Educated on the anatomy and function of ligaments and tendons, explaining the mechanism of injury and expected healing process. - Advised to use crutches as an assistive device, allowing partial weight-bearing as tolerated to prevent further injury and maintain balance. - Applied an KAREN wrap to the right knee to provide compression and reduce swelling; instructed to wear during the day and remove at night. - Recommended alternating ice application for 15-20 minutes several times a day to control swelling and inflammation. - Advised to take Advil and Tylenol, either concurrently or staggered, to manage pain and inflammation. - Encouraged gentle range of motion exercises to promote blood flow and facilitate healing. - Instructed to monitor for improvement over the next couple of weeks; if no significant improvement is noted, further evaluation may be necessary. Recording using Vinfolio software for draft documentation of the visit was discussed with the patient/authorized personal service representative; all questions welcomed and answered. Patient/authorized personal service representative agreed to proceed [facility] 10-02-2024 History of Presen t illness Narrative Subjective The patient is a 44-year-old female presenting for evaluation of right knee pain following a fall. Right Knee Pain: - Acute onset following a fall yesterday. - Incident occurred while wearing a backpack leaf blower and stepping on a landscaping rock that gave way. - Union significant pain in the right leg before the fall. - Pain localized to the posterior aspect of the knee. - Able to bear weight, but reports significant pain. - Currently using crutches; finds it manageable to bear some weight on the heel. - Taking Advil with minimal relief; prefers to avoid heavy pain medications. Musculoskeletal: (+) right leg pain, (+) right foot swelling, (+) pain with weight bearing Objective Last menstrual period 11/22/2015. General: No acute distress. MSK/Ext: Right knee without visible swelling or effusion; tenderness over fibular head; mild pain with palpation and manipulation of the knee; able to flex and extend knee with some discomfort. Labs Tests Imaging - Foot X-ray: Fifth metatarsal fracture. - Knee X-ray: No evidence of fracture or effusion. - Tib-fib X-ray: No abnormalities identified. Assessment & Plan 1. Sprain of unspecified site of right knee, initial encounter (S83.91XA) - Right knee sprain secondary to torsional injury during a fall; no joint effusion observed, and X-rays show no fractures. - Educated on the anatomy and function of ligaments and tendons, explaining the mechanism of injury and expected healing process. - Advised to use crutches as an assistive device, allowing partial weight-bearing as tolerated to prevent further injury and maintain balance. - Applied an KAREN wrap to the right knee to provide compression and reduce swelling; instructed to wear during the day and remove at night. - Recommended alternating ice application for 15-20 minutes several times a day to control swelling and inflammation. - Advised to take Advil and Tylenol, either concurrently or staggered, to manage pain and inflammation. - Encouraged gentle range of motion exercises to promote blood flow and facilitate healing. - Instructed to monitor for improvement over the next couple of weeks; if no significant improvement is noted, further evaluation may be necessary. Recording using Vinfolio software for draft documentation of the visit was discussed with the patient/authorized personal service representative; all questions welcomed and answered. Patient/authorized personal service representative agreed to proceed AMB ROOMING INTAKE FLOWSHEET DATA Pain Pain Level: 6 Pain Location: Knee-Right Description: Aching, Radiating, Sharp Duration Amount of Time: 1 Duration Units: Days Frequency: Continuous Intervention/Comfort measure: Medication, Cold, Reposition documented in this encounter [facility] 10-02-2024 Note HNO ID: [id number] Author: ALIZA RICE MA Service: ? Author Type: Drug Room Operator Type: Progress Notes Filed: 10/02/2024 13:54 Note Text: AMB ROOMING INTAKE FLOWSHEET DATA Pain Pain Level: 6 Pain Location: Knee-Right Description: Aching, Radiating, Sharp Duration Amount of Time: 1 Duration Units: Days Frequency: Continuous Intervention/Comfort measure: Medication, Cold, Reposition [facility] 10-02-2024 Note HNO ID: [id number] Author: OPAL LOPEZ, ? Service: ? Author Type: Physician Type: Progress Notes Filed: 10/02/2024 12:49 Note Text: Subjective Joshua Dunn is a 44-year-old female with a history of right foot bunionectomy, presenting for evaluation of a left foot injury and right knee pain following a fall. Left Foot Injury: - Sustained a left foot injury yesterday around 16:15 while gardening; reports rolling the foot. - Evaluated at urgent care; x-rays revealed a fracture of the fifth metatarsal. - Currently using a surgical shoe. - Pain in the left foot was initially more severe than the right knee but is now described as even. - Denies known trauma to the right foot during the incident. Right Knee Pain: - Pain localized to the right knee, exacerbated by weight-bearing and use of crutches. - Bruising noted under the knee. - Pain described as severe, making crutch use impossible. - Pain in the right knee is now described as even with the left foot pain. Right Foot Bunionectomy: - Underwent right foot bunionectomy in August 2023. - Joshua reports ongoing numbness and night pain in the right foot, with good days and bad days. - Recent x-rays show progressive fusion with no alarming findings. - overall, patient is doing well. Musculoskeletal: (+) right knee pain, (+) left foot pain, (+) right foot night pain, (+) left foot swelling, (+) right knee swelling, (-) right ankle pain Skin: (+) bruising right knee, (+) bruising left midfoot Psychiatric: (+) nervousness PAST MEDICAL HISTORY Diagnosis Date Anxiety 2006 Dr. Jaramillo Chronic constipation 01/23/2023 Chronic pelvic pain in female 2022 [employer] Yaz Skinner MD DDD (degenerative disc disease), lumbar 01/23/2023 Pelvic joint pain, left 01/23/2023 Current Outpatient Medications Medication Sig Dispense Refill citalopram (CELEXA) 40 mg tablet Take 40 mg by mouth once daily. No current facility-administered medications for this visit. Family History Problem Relation Age of Onset Diabetes Mother Heart Father mild valvular HD Heart Sister mild valvular HD No Known Problems Brother Heart Maternal Grandmother Hypertension Maternal Grandmother Diabetes Maternal Grandfather Prostate Cancer Maternal Grandfather Breast Cancer Paternal Grandmother Diabetes Paternal Grandfather Malig Hyperthermia No Family History Objective Last menstrual period 11/22/2015. - Cardiovascular: Dorsalis pedis and posterior tibial pulses palpable bilaterally; capillary refill <5 seconds. - Skin: No open sores on bilateral feet; slight bruising and swelling on the lateral aspect of the left midfoot along the fifth metatarsal base; increased warmth and swelling on the right lateral fibula, distal to the knee. - Musculoskeletal: - Left Foot: Guarded movement. pain present to left 5th metatarsal base - right foot: s/p lapidus bunionectomy with rectus appearing first ray. - Right Knee: Pain with squeeze tests of the proximal tibia and fibula. Labs: Tests: Imaging: - X-ray (Left foot): Fifth metatarsal base fracture measuring approximately 13 mm from the base. Acceptable alignment, no displacement. - X-ray (Right foot): Post-bunionectomy progressive fusion with hardware in place. No alarming findings. Assessment AND Plan 1. Closed nondisplaced fracture of metatarsal bone of left foot, unspecified metatarsal, initial encounter (S92.302A) - Fracture of the fifth metatarsal base with acceptable alignment, no displacement observed on x-ray. - Educated patient on the nature of the fracture, explaining it as an in-betweener type, close to a Hung fracture, which is a high-risk fracture due to poor vascularity. - Discussed treatment options: non-operative management with a boot and crutch, with repeat x-rays at 2 weeks, 4 weeks, and 6 weeks; or surgical intervention involving a screw placement. 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 - Informed patient that this provider is out of the office starting tomorrow and with or availability, if she were to be interested in surgery, may consult with colleague that can possibly get her in sooner. She states she will use a boot and continue with conservative care unless she is advised to pursue surgery and can get in sooner. - Provided a boot for the left foot. 2. Post-operative state (Z98.890) - Recent bunionectomy on the right foot with progressive fusion observed on x-ray; no alarming findings. - Discussed the option of hardware removal if it becomes bothersome. - Continue monitoring for any changes or discomfort. 3. Acute pain of right knee (M25.561) - Pain and swelling noted in the right knee, with increased warmth observed on examination. - Ordered x-rays of the right leg and ankle to rule out high ankle sprain or proximal fibula (more content not included)... [facility] 10-02-2024 History of Presen t illness Narrative Subjective Joshua Dunn is a 44-year-old female with a history of right foot bunionectomy, presenting for evaluation of a left foot injury and right knee pain following a fall. Left Foot Injury: - Sustained a left foot injury yesterday around 16:15 while gardening; reports rolling the foot. - Evaluated at urgent care; x-rays revealed a fracture of the fifth metatarsal. - Currently using a surgical shoe. - Pain in the left foot was initially more severe than the right knee but is now described as even. - Denies known trauma to the right foot during the incident. Right Knee Pain: - Pain localized to the right knee, exacerbated by weight-bearing and use of crutches. - Bruising noted under the knee. - Pain described as severe, making crutch use impossible. - Pain in the right knee is now described as even with the left foot pain. Right Foot Bunionectomy: - Underwent right foot bunionectomy in August 2023. - Joshua reports ongoing numbness and night pain in the right foot, with good days and bad days. - Recent x-rays show progressive fusion with no alarming findings. - overall, patient is doing well. Musculoskeletal: (+) right knee pain, (+) left foot pain, (+) right foot night pain, (+) left foot swelling, (+) right knee swelling, (-) right ankle pain Skin: (+) bruising right knee, (+) bruising left midfoot Psychiatric: (+) nervousness PAST MEDICAL HISTORY Diagnosis Date Anxiety 2006 Dr. Jaramillo Chronic constipation 01/23/2023 Chronic pelvic pain in female 2022 [employer] Yaz Skinner MD DDD (degenerative disc disease), lumbar 01/23/2023 Pelvic joint pain, left 01/23/2023 Current Outpatient Medications Medication Sig Dispense Refill citalopram (CELEXA) 40 mg tablet Take 40 mg by mouth once daily. No current facility-administered medications for this visit. Family History Problem Relation Age of Onset Diabetes Mother Heart Father mild valvular HD Heart Sister mild valvular HD No Known Problems Brother Heart Maternal Grandmother Hypertension Maternal Grandmother Diabetes Maternal Grandfather Prostate Cancer Maternal Grandfather Breast Cancer Paternal Grandmother Diabetes Paternal Grandfather Malig Hyperthermia No Family History Objective Last menstrual period 11/22/2015. - Cardiovascular: Dorsalis pedis and posterior tibial pulses palpable bilaterally; capillary refill <5 seconds. - Skin: No open sores on bilateral feet; slight bruising and swelling on the lateral aspect of the left midfoot along the fifth metatarsal base; increased warmth and swelling on the right lateral fibula, distal to the knee. - Musculoskeletal: - Left Foot: Guarded movement. pain present to left 5th metatarsal base - right foot: s/p lapidus bunionectomy with rectus appearing first ray. - Right Knee: Pain with squeeze tests of the proximal tibia and fibula. Labs: Tests: Imaging: - X-ray (Left foot): Fifth metatarsal base fracture measuring approximately 13 mm from the base. Acceptable alignment, no displacement. - X-ray (Right foot): Post-bunionectomy progressive fusion with hardware in place. No alarming findings. Assessment & Plan 1. Closed nondisplaced fracture of metatarsal bone of left foot, unspecified metatarsal, initial encounter (S92.302A) - Fracture of the fifth metatarsal base with acceptable alignment, no displacement observed on x-ray. - Educated patient on the nature of the fracture, explaining it as an in-betweener type, close to a Hung fracture, which is a high-risk fracture due to poor vascularity. - Discussed treatment options: non-operative management with a boot and crutch, with repeat x-rays at 2 weeks, 4 weeks, and 6 weeks; or surgical intervention involving a screw placement. 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 - Informed patient that this provider is out of the office starting tomorrow and with or availability, if she were to be interested in surgery, may consult with colleague that can possibly get her in sooner. She states she will use a boot and continue with conservative care unless she is advised to pursue surgery and can get in sooner. - Provided a boot for the left foot. 2. Post-operative state (Z98.890) - Recent bunionectomy on the right foot with progressive fusion observed on x-ray; no alarming findings. - Discussed the option of hardware removal if it becomes bothersome. - Continue monitoring for any changes or discomfort. 3. Acute pain of right knee (M25.561) - Pain and swelling noted in the right knee, with increased warmth observed on examination. - Ordered x-rays of the right leg and ankle to rule out high ankle sprain or proximal fibular fracture. - Referred patient to Dr. Arvind Lopez for further evaluation and management of right knee pain; appointment scheduled for this afternoon. - Will discuss potential use of a knee brace with Dr. Lopez's nurse. Recording using Vinfolio software for draft documentation of the visit was discussed with the patient/authorized personal service representative; all questions welcomed and answered. Patient/authorized personal service representative agreed to proceed Opal Lopez DPM Per Dr. Lopez, Joshua was provided with Pneumatic walking boot, size Large, and instructed/educated in its application, wear, and care. All questions were answered, and patient was able to demonstrate competence with the necessary skills to utilize the above equipment. Patient signed DJO Patient agreement. [employer] to bill patient's insurance for Boot. Radha Brar RN AMB ROOMING INTAKE FLOWSHEET DATA Pain Pain Level: 6 Pain Location: Foot-Left Description: Aching, Radiating, Sharp Duration Amount of Time: 1 Duration Units: Days Frequency: Continuous Intervention/Comfort measure: Medication, Reposition, Cold, Positioning Patient presents with: Left Foot - Established Patient, Fracture, Pain, Swelling Patient was leaf blower backpack when she stepped on [place] rock and rock gave way which led to fall. Patient complains for left foot pain and right knee pain. Patient was seen at [facility] on 10/01/2024. Alicia Diaz LPN documented in this encounter [facility] 10-02-2024 History of Presen t illness Narrative Radiology Service Progress Note PATIENT NAME: Joshua Dunn DATE OF SERVICE: October 02, 2024 TIME: 11:59 AM PATIENT IDENTITY VERIFICATION COMPLETED USING TWO (2) IDENTIFIERS: Name and Date of confirmed by patient verbally. FALL SCREENING: Has the patient had 2 falls in the last year or 1 fall with injury or currently using an Ambulatory Assistive Device (Walker, Cane, Wheelchair, Crutches, etc.)? No PATIENT GENDER DATA: Assigned female at . status: : No status: NO. PATIENT RELEVANT IMPLANT DATA REVIEWED: Not Applicable PATIENT PRESENTS WITH AN IMPLANTABLE OR ATTACHED JACK WINDER: No RADIOLOGY DEPARTMENT: General X-ray: Exam(s) Completed: Lower Extremity X-Ray(s): Knee, AP / Lat / Tunne / Merchant Right and Wt. Bearing and Tibia Fibula, Right PERIPHERAL IV DATA: Not applicable SIGNED BY: RT Lana(Martha) October 02, 2024 11:59 AM documented in this encounter [facility] 10-02-2024 Note HNO ID: [id number] Author: MARCIO EDWARD RT(Martha) Service: ? Author Type: Technologist Type: Progress Notes Filed: 10/02/2024 12:11 Note Text: Radiology Service Progress Note PATIENT NAME: Joshua Dunn DATE OF SERVICE: October 02, 2024 TIME: 11:59 AM PATIENT IDENTITY VERIFICATION COMPLETED USING TWO (2) IDENTIFIERS: Name and Date of confirmed by patient verbally. FALL SCREENING: Has the patient had 2 falls in the last year or 1 fall with injury or currently using an Ambulatory Assistive Device (Walker, Cane, Wheelchair, Crutches, etc.)? No PATIENT GENDER DATA: Assigned female at . status: : No status: NO. PATIENT RELEVANT IMPLANT DATA REVIEWED: Not Applicable PATIENT PRESENTS WITH AN IMPLANTABLE OR ATTACHED JACK WINDER: No RADIOLOGY DEPARTMENT: General X-ray: Exam(s) Completed: Lower Extremity X-Ray(s): Knee, AP / Lat / Tunne / Merchant Right and Wt. Bearing and Tibia Fibula, Right PERIPHERAL IV DATA: Not applicable SIGNED BY: RT Lana(R) October 02, 2024 11:59 AM [facility] 10-02-2024 Note HNO ID: [id number] Author: RADHA BRAR RN Service: ? Author Type: Registered Nurse Type: Progress Notes Filed: 10/02/2024 12:49 Note Text: Per Dr. Lopez, Joshua was provided with Pneumatic walking boot, size Large, and instructed/educated in its application, wear, and care. All questions were answered, and patient was able to demonstrate competence with the necessary skills to utilize the above equipment. Patient signed DJO Patient agreement. [employer] to bill patient's insurance for Boot. Radha Brar RN [facility] 10-02-2024 Note HNO ID: [id number] Author: ALICIA DIAZ LPN Service: ? Author Type: LICENSED NURSE Type: Progress Notes Filed: 10/02/2024 12:49 Note Text: AMB ROOMING INTAKE FLOWSHEET DATA Pain Pain Level: 6 Pain Location: Foot-Left Description: Aching, Radiating, Sharp Duration Amount of Time: 1 Duration Units: Days Frequency: Continuous Intervention/Comfort measure: Medication, Reposition, Cold, Positioning Patient presents with: Left Foot - Established Patient, Fracture, Pain, Swelling Patient was leaf blower backpack when she stepped on landscaping rock and rock gave way which led to fall. Patient complains for left foot pain and right knee pain. [facility]. Alicia Diaz LPN [facility] 10-02-2024 History of Presen t illness Narrative Radiology Service Progress Note PATIENT NAME: Joshua Dunn DATE OF SERVICE: October 02, 2024 TIME: 10:22 AM PATIENT IDENTITY VERIFICATION COMPLETED USING TWO (2) IDENTIFIERS: Name and Date of confirmed by patient verbally. FALL SCREENING: Has the patient had 2 falls in the last year or 1 fall with injury or currently using an Ambulatory Assistive Device (Walker, Cane, Wheelchair, Crutches, etc.)? Yes, Patient High Risk for Falls What interventions were put in place to prevent falls during this visit? Increased Observations by Caregivers PATIENT GENDER DATA: Assigned female at . status: : No status: NO. PATIENT RELEVANT IMPLANT DATA REVIEWED: Not Applicable PATIENT PRESENTS WITH AN IMPLANTABLE OR ATTACHED JACK WINDER: No RADIOLOGY DEPARTMENT: General X-ray: Exam(s) Completed: Lower Extremity X-Ray(s): Foot, Bilateral and Wt. Bearing PERIPHERAL IV DATA: Not applicable SIGNED BY: RT Lana(Martha) October 02, 2024 10:22 AM documented in this encounter [facility] 10-02-2024 Note HNO ID: [id number] Author: MARCIO EDWARD RT(Martha) Service: ? Author Type: Technologist Type: Progress Notes Filed: 10/02/2024 10:32 Note Text: Radiology Service Progress Note PATIENT NAME: Joshua Dunn DATE OF SERVICE: October 02, 2024 TIME: 10:22 AM PATIENT IDENTITY VERIFICATION COMPLETED USING TWO (2) IDENTIFIERS: Name and Date of confirmed by patient verbally. FALL SCREENING: Has the patient had 2 falls in the last year or 1 fall with injury or currently using an Ambulatory Assistive Device (Walker, Cane, Wheelchair, Crutches, etc.)? Yes, Patient High Risk for Falls What interventions were put in place to prevent falls during this visit? Increased Observations by Caregivers PATIENT GENDER DATA: Assigned female at . status: : No status: NO. PATIENT RELEVANT IMPLANT DATA REVIEWED: Not Applicable PATIENT PRESENTS WITH AN IMPLANTABLE OR ATTACHED JACK WINDER: No RADIOLOGY DEPARTMENT: General X-ray: Exam(s) Completed: Lower Extremity X-Ray(s): Foot, Bilateral and Wt. Bearing PERIPHERAL IV DATA: Not applicable SIGNED BY: RT Lana(R) October 02, 2024 10:22 AM [facility] 10-01-2024 Evaluation note Diagnosis Onset Date Resolution Muscle strain of right lower leg acute October 01, 2024 5:02pm Nondisplaced fracture of fifth left metatarsal bone acute October 01, 2024 5:02pm [facility] Work Phone: [phone]) 491-887807-17-2025 Radiology Diagnostic study note [facility] Imaging Services [address] [place] [address] Tibia & Fibula 2 Views MR#: [id number] Acct: [id number] Name: JOSHUA DUNN Rep #: [id number] : 1980 F 44 From: Sheila Hernandez MD PCP: Dr. Taz López MD Status: R EG CLI Study:Tibia & Fibula 2 Views Date of Exam: 10/01/24 Exam# [id number] Ordering Dr: Erick Davenport PROCEDURE: TIBIA FIBULA 2 VIEWS 10/01/2024 REASON FOR EXAM: LEG INJURY TECHNIQUE: Four views of the right tibia and fibula COMPARISON: None FINDINGS: No displaced fracture or traumatic malalignment. Postoperative changes of the foot are partially imaged. Soft tissues are unremarkable. Bone mineral density is subjectively normal. RAD/Tibia & Fibula 2 Views IMPRESSION: Unremarkable radiographs of the right tibia and fibula. Reading Location: [id number] CC: STEWART Joy; Dr. Taz López MD ~ Field Control Inspector: Signed [facility]07-17-2025 Radiology Diagnostic study note [facility] Imaging Services [address] [place], [place] [address] Foot min 3 Views MR#: [id number] Acct: [id number] Name: JOSHUA DUNN Rep #: [id number] : 1980 F 44 From: Sheila Hernandez MD PCP: Dr. Taz López MD Status: R EG CLI Study:Foot min 3 Views Date of Exam: Exam# [id number] Ordering Dr: Erick Davenport PROCEDURE: FOOT MIN 3 VIEWS 10/01/2024 REASON FOR EXAM: FOOT INJURY TECHNIQUE: Three views of the left foot COMPARISON: None FINDINGS: Minimally displaced and slightly comminuted fracture through the base of the 5thmetatarsal with extension to the tarsometatarsal joint. There is overlying soft tissue swelling. Bone mineral density is subjectively normal. RAD/Foot min 3 Views IMPRESSION: Minimally displaced intra-articular fracture at the base of th left e 5th metatarsal. Reading Location: [id number] CC: STEWART Joy; Dr. Taz López MD ~ Field Control Inspector: Signed [facility]04-17-2025 History of Present illness Narrative* Maryanne Cueto Tech - 07/02/2024 4:40 PM EDT Radiology Service Progress Note PATIENT NAME: Joshua Dunn DATE OF SERVICE: July 02, 2024 TIME: 4:54 PM PATIENT IDENTITY VERIFICATION COMPLETED USING TWO (2) IDENTIFIERS: Name and Date of confirmedby patient verbally. FALL SCREENING: Has the patient had 2 falls in the last year or 1 fall with injury or currently using an Ambulatory Assistive Device (Walker, Cane, Wheelchair, Crutches, etc.)? No PATIENT GENDER DATA: Assigned female at . status: : No status:NO. PATIENT RELEVANT IMPLANT DATA REVIEWED: Not Applicable PATIENT PRESENTS WITH AN IMPLANTABLE OR ATTACHED JACK WINDER: No RADIOLOGY DEPARTMENT: General X-ray: Exam(s) Completed: Lower Extremity X- Ray(s): Foot, Right PERIPHERAL IV DATA: Not applicable SIGNED BY: Margarito Cuellar July 02, 2024 4:54 PM [facility]25 NoteHNO ID: [id number] Author: MARYANNE CUETO Tech Service: ? Author Type: Technologist Type: Progress Notes Filed: 07/02/2024 17:02 Note Text: Radiology Service Progress Note PATIENT NAME: Joshua Dunn DATE OF SERVICE: July 02, 2024 TIME: 4:54 PM PATIENT IDENTITY VERIFICATION COMPLETED USING TWO (2) IDENTIFIERS: Name and Date of confirmed by patient verbally. FALL SCREENING: Has the patient had 2 falls in the last year or 1 fall with injury or currently using an Ambulatory Assistive Device (Walker, Cane, Wheelchair, Crutches, etc.)? No PATIENT GENDER DATA: Assigned female at . status: : No status: NO. PATIENT RELEVANT IMPLANT DATA REVIEWED: Not Applicable PATIENT PRESENTS WITH AN IMPLANTABLE OR ATTACHED JACK WINDER: No RADIOLOGY DEPARTMENT: General X-ray: Exam(s) Completed: Lower Extremity X-Ray(s): Foot, Right PERIPHERAL IV DATA: Not applicable SIGNED BY: Margarito Cuellar July 02, 2024 4:54 [facility]04-17-2025 NoteHNO ID: [id number] Author: OPAL LOPEZ, ? Service: ? Author Type: Physician Type: Progress Notes Filed: 07/04/2024 07:16 Note Text: FOLLOW UP PODIATRIC OFFICE VISIT Chief Complaint: This 43 year old who presents for follow up:right foot Patient presents to clinic for follow-up right foot Patient had surgery on the right bunion back in January Was getting better but noticed over this past week, the pain returned. Patient complains of burning type pain that will often wake her up at night. PAIN EVALUATION 06/28/2024 1641 07/02/2024 0726 07/02/2024 1624 Pain Level: -- -- 5 Pain Location: Foot-Right Foot-Right Foot-Right Description: Aching;Pressure;Sharp;Shooting;Throbbing Aching;Pressure;Sharp;Shooting;Throbbing Aching;Sharp;Dull Duration Amount of Time: -- -- -- Post op Duration Units: Weeks Weeks -- Frequency: Intermittent Intermittent Continuous Intervention/Comfort measure: Reposition;Cold;Exercise;Heat;Massage;PositioningReposition;Cold;Exercise;Heat;M assage;Positioning -- None No results found for: HBA1C PCP: Taz López MD PAST MEDICAL HISTORY Diagnosis Date Anxiety 2006 Dr. Jaramillo Chronic constipation 01/23/2023 Chronic pelvic pain in female 2022 [employer] Yaz Skinner MD DDD (degenerative disc disease), lumbar 01/23/2023 Pelvic joint pain, left 01/23/2023 Current Outpatient Medications Medication Sig citalopram (CELEXA) 40 mg tablet Take 40 mg by mouth once daily. No current facility-administered medications for this visit. ALLERGIES No Known Allergies PAST SURGICAL HISTORY Procedure Laterality Date COLONOSCOPY SCREENING 11/2022 Allyssa Walker LAPAROSCOPIC APPENDECTOMY 03/18/2010 [facility] LAPAROSCOPIC SUPRACERVICAL HYSTERECTOMY 08/2022 Dr. Maryann Skinner [facility] Physical Exam: OBJECTIVE: Constitutional: Pt is a well developed 43 year old female who is alert, oriented, cooperative and in no apparent distress. Eyes: Following during examination. No redness or drainage. Respiratory: RR normal and nonlabored. Even breathing. No evidence of distress. Psychology: Patient is engaged during conversation. Normal affect and mood. Does not appear depressed or anxious. NVSI unchanged from previous visit. Dermatological: No open sores noted to right foot. Healed incision sites with minimal scarring. Musculoskeletal/Orthopaedic: Patient has pain to palpation of medial aspect of right 1st metatarsal cuneiform joint. No pain to distal first ray. No pain to 2nd tarsal metatarsal joint. Range of motion of first mtpj is near anatomic. ASSESSMENT: (Z98.890) Post-operative state (primary encounter diagnosis) (R20.0, R20.2) Numbness and tingling of foot PLAN: Discussed pain in right foot. Clinically, her foot looks stable. First ray is rectus and rom of great toe joint is improving. I am ok with her progressing with activity as tolerated. I discussed the occasional numbness of right foot. This seems to be along the medial aspect of first metatarsal cun joint and it is possible the medial plate fixation could be placing pressure along the digital nerve. We discussed removal of this hardware pending xray and ct scan. I would only consider removing the hardware if complete fusion is present. I informed patient that complete fusion may take several months to achieve. Patient is ok leaving the hardware in as the pain seems tolerable. I will call in a topical pain cream to use as needed She can follow-up in 2 months or let us know how she is doing. Opal Lopez, [facility]04-17-2025 History of Present illness Narrative* Imani Lopezew - 07/02/2024 4:33 PM EDT Images from the original note were not included. FOLLOW UP PODIATRIC OFFICE VISIT Chief Complaint: This 43 year old who presents for follow up:right foot Patient presents to clinic for follow-up right foot Patient had surgery on the right bunion back in January Was getting better but noticed over this past week, the pain returned. Patient complains of burning type pain that will often wake her up at night. PAIN EVALUATION 06/28/2024 1641 07/02/2024 0726 07/02/2024 1624 Pain Level: -- -- 5 Pain Location: Foot-Right Foot-Right Foot-Right Description: Aching;Pressure;Sharp;Shooting;Throbbing Aching;Pressure;Sharp;Shooting;Throbbing Aching;Sharp;Dull Duration Amount of Time: -- -- -- Post op Duration Units: Weeks Weeks -- Frequency: Intermittent Intermittent Continuous Intervention/Comfort measure: Reposition;Cold;Exercise;Heat;Massage;Positioning Reposition;Cold;Exercise;Heat;Massage;Positioning -- None No results found for: HBA1C PCP: Taz López MD PAST MEDICAL HISTORY Diagnosis Date Anxiety 2006 Dr. Jaramillo Chronic constipation 01/23/2023 Chronic pelvic pain in female 2022 [employer] Yaz Skinner MD DDD (degenerative disc disease), lumbar 01/23/2023 Pelvic joint pain, left 01/23/2023 Current Outpatient Medications Medication Sig citalopram (CELEXA) 40 mg tablet Take 40 mg by mouth once daily. No current facility-administered medications for this visit. ALLERGIES No Known Allergies PAST SURGICAL HISTORY Procedure Laterality Date COLONOSCOPY SCREENING 11/2022 [facility] LAPAROSCOPIC APPENDECTOMY 03/18/2010 [facility] LAPAROSCOPIC SUPRACERVICAL HYSTERECTOMY 08/2022 Dr. Maryann Skinner, [facility] Physical Exam: OBJECTIVE: Constitutional: Pt is a well developed 43 year old female who is alert, oriented, cooperative and in no apparent distress. Eyes: Following during examination. No redness or drainage. Respiratory: RR normal and nonlabored. Even breathing. No evidence of distress. Psychology: Patient is engaged during conversation. Normal affect and mood. Does not appear depressed or anxious. NVSI unchanged from previous visit. Dermatological: No open sores noted to right foot. Healed incision sites with minimal scarring. Musculoskeletal/Orthopaedic: Patient has pain to palpation of medial aspect of right 1st metatarsal cuneiform joint. No pain to distal first ray. No pain to 2nd tarsal metatarsal joint. Range of motion of first mtpj is near anatomic. ASSESSMENT: (Z98.890) Post-operative state (primary encounter diagnosis) (R20.0, R20.2) Numbness and tingling of foot PLAN: Discussed pain in right foot. Clinically, her foot looks stable. First ray is rectus and rom of great toe joint is improving. I am ok with her progressing with activity as tolerated. I discussed the occasional numbness of right foot. This seems to be along the medial aspect of first metatarsal cun joint and it is possible the medial plate fixation could be placing pressure along the digital nerve. We discussed removal of this hardware pending xray and ct scan. I would only consider removing the hardware if complete fusion is present. I informed patient that complete fusion may take several months to achieve. Patient is ok leaving the hardware in as the pain seems tolerable. I will call in a topical pain cream to use as needed She can follow-up in 2 months or let us know how she is doing. Opal Lopez DPM * Fartun Mckay MA - 07/02/2024 4:22 PM EDT Patient presents with: Right Foot - Post Op AMB ROOMING INTAKE FLOWSHEET DATA Risk Screening Do you have concerns about personal safety or safety in the home?: No Pain Pain Level: 5 Pain Location: Foot-Right Description: Aching, Sharp, Dull Duration Amount of Time: (Post op) Duration Units: Weeks Frequency: Continuous Intervention/Comfort measure: (None) Patient states she finished PT on Saturday. Continuing home exercises. Patient states her pain was intermittent until this past week. No specific injury. Taking no med's for the pain. [facility]25 NoteHNO ID: [id number] Author: FARTUN MCKAY MA Service: ? Author Type: Drug Room Operator Type: Progress Notes Filed: 07/04/2024 07:16 Note Text: Patient presents with: Right Foot - Post Op AMB ROOMING INTAKE FLOWSHEET DATA Risk Screening Do you have concerns about personal safety or safety in the home?: No Pain Pain Level: 5 Pain Location: Foot-Right Description: Aching, Sharp, Dull Duration Amount of Time: (Post op) Duration Units: Weeks Frequency: Continuous Intervention/Comfort measure: (None) Patient states she finished PT on Saturday. Continuing home exercises. Patient states her pain was intermittent until this past week. No specific injury. Taking no med's for the pain.[facility]04-14-2025 History of Present illness Narrative* Aiden Davila, PT - 06/29/2024 4:09 PM EDT Program_ID:[id number] Access Code: [email or web address] URL: [email or web address] Date: 06-29-2024 Prepared By: Aiden Davila Program Notes Exercises - Long Sitting Ankle Dorsiflexion AROM - 2 x daily - 7 x weekly - 3 sets - 10 reps - Supine Ankle Inversion and Eversion AROM - 2 x daily - 7 x weekly - 3 sets - 10 reps - Standing Dorsiflexion Self-Mobilization on Step - 1-2 x daily - 7 x weekly - 2 sets - 10 reps - Self [place]ar [place] with Anchored Resistance - 2 x daily - 7 x weekly - 3 sets - 10 reps - Long Sitting Ankle Plantar Flexion with Resistance - 1-2 x daily - 7 x weekly - 2 sets - 10-12 reps - Long Sitting Ankle Eversion with Resistance - 1-2 x daily - 7 x weekly - 2 sets - 10-12 reps - Long Sitting Ankle Dorsiflexion with Anchored Resistance - 1-2 x daily - 7 x weekly - 2 sets - 10-12 reps - Seated Ankle Inversion with Resistance and Legs Crossed - 1-2 x daily - 7 x weekly - 2 sets - 10-12 reps - Seated Arch Lifts - 2 x daily - 7 x weekly - 3 sets - 10-15 reps - Standing Eccentric Heel Raise - 2 x daily - 7 x weekly - 2-3 sets - 8-10 reps - Sidelying Ankle Inversion with Ankle Weight - 2 x daily - 7 x weekly - 2-3 sets - 10-15 reps - Sidelying Ankle Eversion Strengthening with Ankle Weight - 2 x daily - 7 x weekly - 2-3 sets - 10-15 reps * Aiden Davila, PT - 06/29/2024 3:41 PM EDT Images from the original note were not included. Episode Visit Count: 7 Therapist That Will Accept/Oversee The Plan Of Care: Aiden Davila, PT. Start of Care Date: 05/14/24 Onset Date: 11/05/02 (20+ years before surgery, worse the last couple of years.) Plan of Care Certification Date: (N/A) Next Certification Due Date: (N/A) Patient Identified by Name and Date of : Yes REHABILITATION AND SPORTS THERAPY PHYSICAL THERAPY DISCONTINUANCE OF CARE PLAN OF CARE UPDATE: Assessment: Joshua Dunn is discontinued from Physical Therapy services due to goal achievement. and Patient/Client declining further intervention. Patient to return to referring provider in the coming days to discuss R Medial Foot Prognosis and Pain. Patient was seen for 7 visits from Start of Care Date: 05/14/24 to 06/29/2024 and treatment included: Therapeutic exercise and Manual therapy. Updated: 06/29/24. Goals for Episode of Care: established 05/14/24 Patient reported outcome of physical function will increase T-score by a minimum 5 points. (NOT MET) [place] in home exercise program. (Goal Met) Patient will decrease pain rating by 2 points to meet minimal clinical important difference for numeric pain rating scale. (Not Met for medial foot). Patient will increase active ROM of R Ankle Grossly to allow pt to to improve gait mechanics / gait pattern . (Goal Met) Perform stair negotiation with decreased report of symptoms/pain in 8-10 weeks. (Goal Met) Increased strength of R Foot/Ankle Grossly to 5/5 MMT for improved ADL/IADLs. (Goal Met) Normal gait without pain/symptoms. (Goal Met) Patient Goals: Getting back to normal gait and improved function. (Goal Met) SUBJECTIVE: 146 days post-op from R bunionectomy. States happy with progress made so far on ankle mobility and walking/stairs/squatting/driving. Feels like she is walking normally again. Reports she feels like she accomplished what she came to PT for. Currently, still having pain in the medial forefoot-midfoot. No improvement there. Dr. Lopez is thinking scar tissue built up around nerve vs. hardware. Follows up with Dr. Lopez on Saturday. Functional Limitations: nothing Pain: Pain Pain Level: 5 Pain Location: Foot - Right (Medial Forefoot.) Description: Sore Frequency: Continuous Post Treatment Pain Post Treatment Pain Level: No Change Post Treatment Pain Location: Foot - Right Post Treatment Pain Description: Sore PROMIS Scales 06/13/2024 05/13/2024 11/06/2023 Higher is Better Phys Func - T Score 43 (mild dysfunction) 42 (mild dysfunction) 53 (within normal limits) Phys Func - Percentile 24 21 62 Self-Eff Symptom - T Score 51 (Average) 49 (Average) 56 (Average) Self-Eff Symptom - Percentile 54 46 73 T-scores: mean of general population = 50. 5 points is clinically meaningfully difference Percentiles provide an indication of how the patient's score ranks in relation to the general population. Higher percentile rankings indicate better function/quality of life. 50th percentile is the average of the general population and indicates half of respondents had a worse score. OBJECTIVE MEASURES WITH LEVEL OF FUNCTION: Ankle Observations R Swelling: Mild inflammation along the right 1st tarsal metatarsal joint R Ankle Palpation Tenderness: Comments R Ankle Palpation Tenderness Comments: Incisional; right 1st tarsal metatarsal joint R Foot Observations: Figure 8: 20 3/4in L Foot Observations: Figure 8: 21 in LE AROM R LE AROM: Relatively WFL/NL for R Foot and Ankle. R Ankle Dorsiflexion: 20 Degrees R Ankle Plantar Flexion: 50 Degrees R Ankle Inversion: 30 R Ankle Eversion: 20 LE Joint Mobility R 1st Ray: Rigid LE Strength R LE Strength: No pain with OP resistance. R Ankle Dorsiflexion (L4): 5/5 R Ankle Plantar Flexion: 5/5 R Ankle Inversion: 5/5 R Ankle Eversion: 5/5 R Great Toes Extension (L5, S1): 5/5 Gait Gait Observation: WNL; improved R Stance time. Improved time spent in RLE terminal stance compared to prior. Stairs: Reciprocal, WNL TREATMENT: Therapeutic Exercise: 1: Stationary Upright Bike: 5 Min. Direct 1:1 and subj taken. 2: Seated R Arch Lifts: 2x12, 1-2. 3: *R Sidelying R Inv: 2x15, 3#. 4: *L Sidelying R Eversion: 2x15, 3#. 5: Re-assessment and objectives collected; Pt. condition and goals assessed. HEP was reviewed andthe patient was instructed to continue with HEP to tolerance. New handouts printed Skilled Intervention: Patient was educated in proper exercise technique and purpose for exercises. Skilled judgment was used in selection of appropriate interventions. Correct performance of therapeutic exercises was facilitated with verbal cuing. Billing Therapeutic Exercise Treatment Minutes: 28 Skilled Treatment Time Minutes (timed and untimed codes): 28 Total Session Time (minutes): 28 Session Start Time : 1544 Session Stop Time : 1613 Aiden Davila PT documented in [facility] encounter[facility]04-[facility]-2025 NoteHNO ID: [id number] Author: AIDEN DAVILA PT Service: ? Author Type: Physical Therapist Type: Progress Notes Filed: 06/29/2024 16:14 Note Text: Episode Visit Count: 7 Therapist That Will Accept/Oversee The Plan Of Care: Aiden Davila PT. Start of Care Date: 05/14/24 Onset Date: 11/05/02 (20+ years before surgery, worse the last couple of years.) Plan of Care Certification Date: (N/A) Next Certification Due Date: (N/A) Patient Identified by Name and Date of : Yes REHABILITATION AND SPORTS THERAPY PHYSICAL THERAPY DISCONTINUANCE OF CARE PLAN OF CARE UPDATE: Assessment: Joshua Dunn is discontinued from Physical Therapy services due to goal achievement. and Patient/Client declining further intervention. Patient to return to referring provider in the coming days to discuss R Medial Foot Prognosis and Pain. Patient was seen for 7 visits from Start of Care Date: 05/14/24 to 06/29/2024 and treatment included: Therapeutic exercise and Manual therapy. Updated: 06/29/24. Goals for Episode of Care: established 05/14/24 Patient reported outcome of physical function will increase T-score by a minimum 5 points. (NOT MET) [place] in home exercise program. (Goal Met) Patient will decrease pain rating by 2 points to meet minimal clinical important difference for numeric pain rating scale. (Not Met for medial foot). Patient will increase active ROM of R Ankle Grossly to allow pt to to improve gait mechanics / gait pattern . (Goal Met) Perform stair negotiation with decreased report of symptoms/pain in 8-10 weeks. (Goal Met) Increased strength of R Foot/Ankle Grossly to 5/5 MMT for improved ADL/IADLs. (Goal Met) Normal gait without pain/symptoms. (Goal Met) Patient Goals: Getting back to normal gait and improved function. (Goal Met) SUBJECTIVE: 146 days post-op from R bunionectomy. States happy with progress made so far on ankle mobility and walking/stairs/squatting/driving. Feels like she is walking normally again. Reports she feels like she accomplished what she came to PT for. Currently, still having pain in the medial forefoot-midfoot. No improvement there. Dr. Lopez is thinking scar tissue built up around nerve vs. hardware. Follows up with Dr. Lopez on Saturday. Functional Limitations: nothing Pain: Pain Pain Level: 5 Pain Location: Foot - Right (Medial Forefoot.) Description: Sore Frequency: Continuous Post Treatment Pain Post Treatment Pain Level: No Change Post Treatment Pain Location: Foot - Right Post Treatment Pain Description: Sore PROMIS Scales 06/13/2024 05/13/2024 11/06/2023 Higher is Better Phys Func - T Score 43 (mild dysfunction) 42 (mild dysfunction) 53 (within normal limits) Phys Func - Percentile 24 21 62 Self-Eff Symptom - T Score 51 (Average) 49 (Average) 56 (Average) Self-Eff Symptom - Percentile 54 46 73 T-scores: mean of general population = 50. 5 points is clinically meaningfully difference Percentiles provide an indication of how the patient's score ranks in relation to the general population. Higher percentile rankings indicate better function/quality of life. 50th percentile is the average of the general population and indicates half of respondents had a worse score. OBJECTIVE MEASURES WITH LEVEL OF FUNCTION: Ankle Observations R Swelling: Mild inflammation along the right 1st tarsal metatarsal joint R Ankle Palpation Tenderness: Comments R Ankle Palpation Tenderness Comments: Incisional; right 1st tarsal metatarsal joint R Foot Observations: Figure 8: 20 3/4in L Foot Observations: Figure 8: 21 in LE AROM R LE AROM: Relatively WFL/NL for R Foot and Ankle. R Ankle Dorsiflexion: 20 Degrees R Ankle Plantar Flexion: 50 Degrees R Ankle Inversion: 30 R Ankle Eversion: 20 LE Joint Mobility R 1st Ray: Rigid LE Strength R LE Strength: No pain with OP resistance. R Ankle Dorsiflexion (L4): 5/5 R Ankle Plantar Flexion: 5/5 R Ankle Inversion: 5/5 R Ankle Eversion: 5/5 R Great Toes Extension (L5, S1): 07/20 Gait Gait Observation: WNL; improved R Stance time. Improved time spent in RLE terminal stance compared to prior. Stairs: Reciprocal, WNL TREATMENT: Therapeutic Exercise: 1: Stationary Upright Bike: 5 Min. Direct 1:1 and subj taken. 2: Seated R Arch Lifts: 2x12, 1-2. 3: *R Sidelying R Inv: 2x15, 3#. 4: *L Sidelying R Eversion: 2x15, 3#. 5: Re-assessment and objectives collected; Pt. condition and goals assessed. HEP was reviewed and the patient was instructed to continue with HEP to tolerance. New handouts printed Skilled Intervention: Patient was educated in proper exercise technique and purpose for exercises. Skilled judgment was used in selection of appropriate interventions. Correct performance of therapeutic exercises was facilitated with verbal cuing. Billing Therapeutic Exercise Treatment Minutes: 28 Skilled Treatment Time Minutes (timed and untimed codes): 28 (more content not included)...[facility]04-07-2025 History of Present illness Narrative* Aiden Davila, PT - 06/22/2024 4:12 PM EDT Program_ID:[id number] Access Code: [email or web address] URL: [email or web address] Date: 06-22-2024 Prepared By: Aiden Davila Program Notes Exercises - Standing Toe Dorsiflexion Stretch - 2 x daily - 7 x weekly - 2 sets - 10 reps - Long Sitting Ankle Dorsiflexion AROM - 2 x daily - 7 x weekly - 3 sets - 10 reps - Supine Ankle Inversion and Eversion AROM - 2 x daily - 7 x weekly - 3 sets - 10 reps - Standing Dorsiflexion Self-Mobilization on Step - 1-2 x daily - 7 x weekly - 2 sets - 10 reps - Self Talar [place] with Anchored Resistance - 2 x daily - 7 x weekly - 3 sets - 10 reps - Long Sitting Ankle Plantar Flexion with Resistance - 1-2 x daily - 7 x weekly - 2 sets - 10-12 reps - Long Sitting Ankle Eversion with Resistance - 1-2 x daily - 7 x weekly - 2 sets - 10-12 reps - Long Sitting Ankle Dorsiflexion with Anchored Resistance - 1-2 x daily - 7 x weekly - 2 sets - 10-12 reps - Seated Ankle Inversion with Resistance and Legs Crossed - 1-2 x daily - 7 x weekly - 2 sets - 10-12 reps - Seated Arch Lifts - 2 x daily - 7 x weekly - 3 sets - 10-15 reps - Standing Eccentric Heel Raise - 2 x daily - 7 x weekly - 2-3 sets - 8-10 reps * Aiden Davila, PT - 06/22/2024 3:45 PM EDT Episode Visit Count: 6 Therapist That Will Accept/Oversee The Plan Of Care: Aiden Davila PT. Start of Care Date: 05/14/24 Onset Date: 11/05/02 (20+ years before surgery, worse the last couple of years.) Plan of Care Certification Date: (N/A) Next Certification Due Date: (N/A) Patient Identified by Name and Date of : Yes REHABILITATION AND SPORTS THERAPY PHYSICAL THERAPY TREATMENT NOTE ASSESSMENT: Joshua Dunn tolerated the session with expected muscle soreness. She demonstrated tolerance to R Arch lifts despite limited toe motion. The patient will continue to benefit from ongoingskilled physical therapy to progress toward set goals. PLAN FOR NEXT VISIT: MD SUBJECTIVE: States this last week the medial foot has been more painful; hard to attribute anythingto it. Does not think the exercises are affecting it. States not wearing the best shoes she can feel more pain. No longer feeling ankle pain and strain in the deluca as before. Followup with Dr. Lopez next Sat. Pain: Pain Pain Level: 6 Pain Location: Foot - Right (Medial Forefoot.) Description: Sore Frequency: Continuous Post Treatment Pain Post Treatment Pain Level: No Change Post Treatment Pain Location: Foot - Right Post Treatment Symptoms: Muscle Aches OBJECTIVE MEASURES WITH LEVEL OF FUNCTION: Good form demonstrated throughout session and completion of ther-ex. TREATMENT: Therapeutic Exercise: 1: Stationary Upright Bike: 5 Min. Direct 1:1 and subj taken. 2: BAPs Level 4: 1 Sets of 20 each, FWD/BWD, [id number], circles CW & CCW. 3: *Seated R Arch Lifts: 3 Sets 10-15, 1-2. 4: *Standing Eccentric Calf Raise: 3x8, 3-sec lower. 5: Seated R Soleus Raise: 3x15, 15# Skilled Intervention: Patient was educated in proper exercise technique and purpose for exercises. Reviewed and educated patient on additions/changes for home exercise program as above (*). Skilled judgment was used in selection of appropriate interventions. Provided written instruction for home exercise program to facilitate proper performance and compliance. Correct performance of therapeutic exercises was facilitated with verbal and tactile cuing. Billing Therapeutic Exercise Treatment Minutes: 39 Skilled Treatment Time Minutes (timed and untimed codes): 39 Total Session Time (minutes): 39 Session Start Time : 1545 Session Stop Time : 1624 Aiden Davila PT [facility] NoteHNO ID: [id number] Author: AIDEN DAVILA PT Service: ? Author Type: Physical Therapist Type: Progress Notes Filed: 06/22/2024 16:26 Note Text: Episode Visit Count: 6 Therapist That Will Accept/Oversee The Plan Of Care: Aiden Davila PT. Start of Care Date: 05/14/24 Onset Date: 11/05/02 (20+ years before surgery, worse the last couple of years.) Plan of Care Certification Date: (N/A) Next Certification Due Date: (N/A) Patient Identified by Name and Date of : Yes REHABILITATION AND SPORTS THERAPY PHYSICAL THERAPY TREATMENT NOTE ASSESSMENT: Joshua Dunn tolerated the session with expected muscle soreness. She demonstrated tolerance to R Arch lifts despite limited toe motion. The patient will continue to benefit from ongoing skilled physical therapy to progress toward set goals. PLAN FOR NEXT VISIT: MD SUBJECTIVE: States this last week the medial foot has been more painful; hard to attribute anything to it. Does not think the exercises are affecting it. States not wearing the best shoes she can feel more pain. No longer feeling ankle pain and strain in the [place] as before. Followup with Dr. Lopez next Sat. Pain: Pain Pain Level: 6 Pain Location: Foot - Right (Medial Forefoot.) Description: Sore Frequency: Continuous Post Treatment Pain Post Treatment Pain Level: No Change Post Treatment Pain Location: Foot - Right Post Treatment Symptoms: Muscle Aches OBJECTIVE MEASURES WITH LEVEL OF FUNCTION: Good form demonstrated throughout session and completion of ther-ex. TREATMENT: Therapeutic Exercise: 1: Stationary Upright Bike: 5 Min. Direct 1:1 and subj taken. 2: BAPs Level 4: 1 Sets of 20 each, FWD/BWD, [id number], circles CW AND CCW. 3: *Seated R Arch Lifts: 3 Sets 10-15, 1-2. 4: *Standing Eccentric Calf Raise: 3x8, 3-sec lower. 5: Seated R Soleus Raise: 3x15, 15# Skilled Intervention: Patient was educated in proper exercise technique and purpose for exercises. Reviewed and educated patient on additions/changes for home exercise program as above (*). Skilled judgment was used in selection of appropriate interventions. Provided written instruction for home exercise program to facilitate proper performance and compliance. Correct performance of therapeutic exercises was facilitated with verbal and tactile cuing. Billing Therapeutic Exercise Treatment Minutes: 39 Skilled Treatment Time Minutes (timed and untimed codes): 39 Total Session Time (minutes): 39 Session Start Time : 1545 Session Stop Time : 1624 Aiden Davila [facility]03-31-2025 NoteHNO ID: [id number] Author: AIDEN DAVILA PT Service: ? Author Type: Physical Therapist Type: Progress Notes Filed: 06/15/2024 17:10 Note Text: Episode Visit Count: 5 Therapist That Will Accept/Oversee The Plan Of Care: Aiden Davila PT. Start of Care Date: 05/14/24 Onset Date: 11/05/02 (20+ years before surgery, worse the last couple of years.) Plan of Care Certification Date: (N/A) Next Certification Due Date: (N/A) Patient Identified by Name and Date of : Yes REHABILITATION AND SPORTS THERAPY PHYSICAL THERAPY TREATMENT NOTE ASSESSMENT: Joshua Dunn tolerated the session with expected muscle soreness. She demonstrated Difficulty with BAPs eversion.. The patient will continue to benefit from ongoing skilled physical therapy to progress toward set goals and to continue with post-operative protocol. PLAN FOR NEXT VISIT: R Ankle Foot/Ankle Mobility, SUBJECTIVE: Still having pain in the medial forefoot where the hardware is. Worse as the day progresses. States really happy about progress overall. Pain: Pain Pain Level: 4 Pain Location: Foot - Right Description: Sore Frequency: Continuous Post Treatment Pain Post Treatment Pain Level: No Change Post Treatment Pain Location: Foot - Right Post Treatment Symptoms: Muscle Aches OBJECTIVE MEASURES WITH LEVEL OF FUNCTION: Difficulty with BAPs eversion. TREATMENT: Therapeutic Exercise: 1: Stationary Upright Bike: 5 Min. Direct 1:1 and subj taken. 2: PROM to R Ankle: x20 each motion (PF,DF,Inv,Ev). 3: BAPs Level 4: 2 Sets of 20 each, FWD/BWD, [id number], circles CW AND CCW. 4: Self-Talar [place] with Anchored Resistance: 2x20, OTB. 5: R Ankle Alphabets: 2 Sets. Skilled Intervention: Patient was educated in proper exercise technique and purpose for exercises. Skilled judgment was used in selection of appropriate interventions. Correct performance of therapeutic exercises was facilitated with verbal and tactile cuing. Billing Therapeutic Exercise Treatment Minutes: 40 Skilled Treatment Time Minutes (timed and untimed codes): 40 Total Session Time (minutes): 40 Session Start Time : 1630 Session Stop Time : 1710 Aiden Davila [facility]03-31-2025 History of Present illness Narrative* Aiden Davila, PT - 06/15/2024 4:32 PM EDT Episode Visit Count: 5 Therapist That Will Accept/Oversee The Plan Of Care: Aiden Davila PT. Start of Care Date: 05/14/24 Onset Date: 11/05/02 (20+ years before surgery, worse the last couple of years.) Plan of Care Certification Date: (N/A) Next Certification Due Date: (N/A) Patient Identified by Name and Date of : Yes REHABILITATION AND SPORTS THERAPY PHYSICAL THERAPY TREATMENT NOTE ASSESSMENT: Joshua Dunn tolerated the session with expected muscle soreness. She demonstrated Difficulty with BAPs eversion.. The patient will continue to benefit from ongoing skilled physical therapy to progress toward set goals and to continue with post-operative protocol. PLAN FOR NEXT VISIT: R Ankle Foot/Ankle Mobility, SUBJECTIVE: Still having pain in the medial forefoot where the hardware is. Worse as the day progresses. States really happy about progress overall. Pain: Pain Pain Level: 4 Pain Location: Foot - Right Description: Sore Frequency: Continuous Post Treatment Pain Post Treatment Pain Level: No Change Post Treatment Pain Location: Foot - Right Post Treatment Symptoms: Muscle Aches OBJECTIVE MEASURES WITH LEVEL OF FUNCTION: Difficulty with BAPs eversion. TREATMENT: Therapeutic Exercise: 1: Stationary Upright Bike: 5 Min. Direct 1:1 and subj taken. 2: PROM to R Ankle: x20 each motion (PF,DF,Inv,Ev). 3: BAPs Level 4: 2 Sets of 20 each, FWD/BWD, Fzvf-xw-besz, circles CW & CCW. 4: Self-Talar [place] with Anchored Resistance: 2x20, OTB. 5: R Ankle Alphabets: 2 Sets. Skilled Intervention: Patient was educated in proper exercise technique and purpose for exercises. Skilled judgment was used in selection of appropriate interventions. Correct performance of therapeutic exercises was facilitated with verbal and tactile cuing. Billing Therapeutic Exercise Treatment Minutes: 40 Skilled Treatment Time Minutes (timed and untimed codes): 40 Total Session Time (minutes): 40 Session Start Time : 1630 Session Stop Time : 1710 Aiden Davila PT documented in this encounterGood [facility]ar[facility]03-24-2025 NoteHNO ID: [id number] Author: AIDEN DAVILA PT Service: ? Author Type: Physical Therapist Type: Progress Notes Filed: 06/08/2024 17:17 Note Text: Episode Visit Count: 4 Therapist That Will Accept/Oversee The Plan Of Care: Aiden Davila PT. Start of Care Date: 05/14/24 Onset Date: 11/05/02 (20+ years before surgery, worse the last couple of years.) Plan of Care Certification Date: (N/A) Next Certification Due Date: (N/A) Patient Identified by Name and Date of : Yes REHABILITATION AND SPORTS THERAPY PHYSICAL THERAPY TREATMENT NOTE ASSESSMENT: Joshua Dunn tolerated the session with no issues. She demonstrated understanding of desensitization and how to initiate on her own. The patient will continue to benefit from ongoing skilled physical therapy to progress toward set goals and to continue with post-operative protocol. PLAN FOR NEXT VISIT: Progress WB activity as tolerated. SUBJECTIVE: Medial forefoot-midfoot has been bothering her and keeping her up lately. States improvement in mobility and rest of the foot AND ankle feeling good. Pain: Pain Pain Level: 5 Pain Location: Foot - Right (Medial Forefoot.) Description: Sore Frequency: Continuous Post Treatment Pain Post Treatment Pain Level: 4 Post Treatment Pain Location: Foot - Right OBJECTIVE MEASURES WITH LEVEL OF FUNCTION: Decreased R Foot/Ankle Swelling. Able to wear her Deras shoes that she could not fit in weeks ago. TREATMENT: Therapeutic Exercise: 1: PROM to R Ankle: x20 each motion (PF,DF,Inv,Ev). 2: PROM to R Big Toe Ext: x20ea. 3: Longsitting Ankle AROM, DF/PF AND Inv/Ev: 3x10 each. 5: *Instructed on [facility] desensitization program for HEP. 6: *PurpTB given for HEP progression. Skilled Intervention: Patient was educated in proper exercise technique and purpose for exercises. Reviewed and educated patient on additions/changes for home exercise program as above (*). Skilled judgment was used in selection of appropriate interventions. Provided written instruction for home exercise program to facilitate proper performance and compliance. Correct performance of therapeutic exercises was facilitated with verbal and tactile cuing. Patient education as noted. Manual Therapy: 1: Lateral Tasal Joint Mobs to tolerance. 2: STM AND CFM to incision. Skilled Intervention: Manual skills to improve joint mobility, ROM, and decrease pain. Utilized anatomy knowledge of the therapist, and assessment of patient's response to intervention. Billing Therapeutic Exercise Treatment Minutes: 24 Manual TherapyTreatment Minutes: 14 Skilled Treatment Time Minutes (timed and untimed codes): 38 Total Session Time (minutes): 38 Session Start Time : 1635 Session Stop Time : 1713 Aiden Davila, [facility]03-24-2025 History of Present illness Narrative* Aiden Davila, PT - 06/08/2024 4:38 PM EDT Episode Visit Count: 4 Therapist That Will Accept/Oversee The Plan Of Care: Aiden Davila PT. Start of Care Date: 05/14/24 Onset Date: 11/05/02 (20+ years before surgery, worse the last couple of years.) Plan of Care Certification Date: (N/A) Next Certification Due Date: (N/A) Patient Identified by Name and Date of : Yes REHABILITATION AND SPORTS THERAPY PHYSICAL THERAPY TREATMENT NOTE ASSESSMENT: Joshua Dunn tolerated the session with no issues. She demonstrated understanding of desensitization and how to initiate on her own. The patient will continue to benefit from ongoing skilled physical therapy to progress toward set goals and to continue with post-operative protocol. PLAN FOR NEXT VISIT: Progress WB activity as tolerated. SUBJECTIVE: Medial forefoot-midfoot has been bothering her and keeping her up lately. States improvement in mobility and rest of the foot & ankle feeling good. Pain: Pain Pain Level: 5 Pain Location: Foot - Right (Medial Forefoot.) Description: Sore Frequency: Continuous Post Treatment Pain Post Treatment Pain Level: 4 Post Treatment Pain Location: Foot - Right OBJECTIVE MEASURES WITH LEVEL OF FUNCTION: Decreased R Foot/Ankle Swelling. Able to wear her Deras shoes that she could not fit in weeks ago. TREATMENT: Therapeutic Exercise: 1: PROM to R Ankle: x20 each motion (PF,DF,Inv,Ev). 2: PROM to R Big Toe Ext: x20ea. 3: Longsitting Ankle AROM, DF/PF & Inv/Ev: 3x10 each. 5: *Instructed on [facility] desensitization program for HEP. 6: *PurpTB given for HEP progression. Skilled Intervention: Patient was educated in proper exercise technique and purpose for exercises. Reviewed and educated patient on additions/changes for home exercise program as above (*). Skilled judgment was used in selection of appropriate interventions. Provided written instruction for home exercise program to facilitate proper performance and compliance. Correct performance of therapeutic exercises was facilitated with verbal and tactile cuing. Patient education as noted. Manual Therapy: 1: Lateral Tasal Joint Mobs to tolerance. 2: STM & CFM to incision. Skilled Intervention: Manual skills to improve joint mobility, ROM, and decrease pain. Utilized anatomy knowledge of the therapist, and assessment of patient's response to intervention. Billing Therapeutic Exercise Treatment Minutes: 24 Manual TherapyTreatment Minutes: 14 Skilled Treatment Time Minutes (timed and untimed codes): 38 Total Session Time (minutes): 38 Session Start Time : 1635 Session Stop Time : 1713 Aiden Davila PT documented in this encounterGood [facility]aritan [facility]03-17-2025 History of Present illness Narrative* Aiden Davila, PT - 06/01/2024 5:01 PM EDT Program_ID:[id number] Access Code: [email or web address] URL: [email or web address] Date: 06-01-2024 Prepared By: Aiden Davila Program Notes Exercises - Standing Toe Dorsiflexion Stretch - 2 x daily - 7 x weekly - 2 sets - 10 reps - Long Sitting Ankle Dorsiflexion AROM - 2 x daily - 7 x weekly - 3 sets - 10 reps - Supine Ankle Inversion and Eversion AROM - 2 x daily - 7 x weekly - 3 sets - 10 reps - Standing Dorsiflexion Self-Mobilization on Step - 1-2 x daily - 7 x weekly - 2 sets - 10 reps - Self Talar [place] with Anchored Resistance - 2 x daily - 7 x weekly - 3 sets - 10 reps - Long Sitting Ankle Plantar Flexion with Resistance - 1-2 x daily - 7 x weekly - 2 sets - 10-12 reps - Long Sitting Ankle Eversion with Resistance - 1-2 x daily - 7 x weekly - 2 sets - 10-12 reps - Long Sitting Ankle Dorsiflexion with Anchored Resistance - 1-2 x daily - 7 x weekly - 2 sets - 10-12 reps - Seated Ankle Inversion with Resistance and Legs Crossed - 1-2 x daily - 7 x weekly - 2 sets - 10-12 reps * Aiden Davila, PT - 06/01/2024 4:24 PM EDT Episode Visit Count: 3 Therapist That Will Accept/Oversee The Plan Of Care: Aiden Davila, PT. Start of Care Date: 05/14/24 Onset Date: 11/05/02 (20+ years before surgery, worse the last couple of years.) Plan of Care Certification Date: (N/A) Next Certification Due Date: (N/A) Patient Identified by Name and Date of : Yes REHABILITATION AND SPORTS THERAPY PHYSICAL THERAPY TREATMENT NOTE ASSESSMENT: Joshua Dunn tolerated the session with no issues. She demonstrated good control with ankle 4 way resistance exercises.. The patient will continue to benefit from ongoing skilled physical therapy to progress toward set goals and to continue with post-operative protocol. PLAN FOR NEXT VISIT: Progress WB activity as tolerated. SUBJECTIVE: Still doing every other with exercises; states it can flare up if doing back to back; reports the flare up is not at the point of taking advil. Pain: Pain Pain Level: 4 Pain Location: Foot - Right Description: Sore Frequency: Continuous Post Treatment Pain Post Treatment Pain Level: No Change Post Treatment Pain Location: Foot - Right OBJECTIVE MEASURES WITH LEVEL OF FUNCTION: Improved ambulation and time spent on right lower extremity in terminal stance. No noticeable limp or antalgic gait. TREATMENT: Therapeutic Exercise: 1: PROM to R Ankle: x20 each motion (PF,DF,Inv,Ev). 2: PROM to R Big Toe Ext: x20ea. 3: Longsitting R Ankle 4-Way: 3x10 each, Blue TB. 4: Standing Ankle Rockers on Wedge: 2x10 with wedge placement both directions. (For mid foot mobilizations.) Skilled Intervention: Patient was educated in proper exercise technique and purpose for exercises. Skilled judgment was used in selection of appropriate interventions. Correct performance of therapeutic exercises was facilitated with verbal cuing. Billing Therapeutic Exercise Treatment Minutes: 40 Skilled Treatment Time Minutes (timed and untimed codes): 40 Total Session Time (minutes): 40 Session Start Time : 1628 Session Stop Time : 1708 Aiden Davila PT documented in this encounterGood Samaritan Hospital03-17-2025 NoteHNO ID: [id number] Author: AIDEN DAVILA PT Service: ? Author Type: Physical Therapist Type: Progress Notes Filed: 06/01/2024 17:14 Note Text: Episode Visit Count: 3 Therapist That Will Accept/Oversee The Plan Of Care: Aiden Davila PT. Start of Care Date: 05/14/24 Onset Date: 11/05/02 (20+ years before surgery, worse the last couple of years.) Plan of Care Certification Date: (N/A) Next Certification Due Date: (N/A) Patient Identified by Name and Date of : Yes REHABILITATION AND SPORTS THERAPY PHYSICAL THERAPY TREATMENT NOTE ASSESSMENT: Joshua Dunn tolerated the session with no issues. She demonstrated good control with ankle 4 way resistance exercises.. The patient will continue to benefit from ongoing skilled physical therapy to progress toward set goals and to continue with post-operative protocol. PLAN FOR NEXT VISIT: Progress WB activity as tolerated. SUBJECTIVE: Still doing every other with exercises; states it can flare up if doing back to back; reports the flare up is not at the point of taking advil. Pain: Pain Pain Level: 4 Pain Location: Foot - Right Description: Sore Frequency: Continuous Post Treatment Pain Post Treatment Pain Level: No Change Post Treatment Pain Location: Foot - Right OBJECTIVE MEASURES WITH LEVEL OF FUNCTION: Improved ambulation and time spent on right lower extremity in terminal stance. No noticeable limp or antalgic gait. TREATMENT: Therapeutic Exercise: 1: PROM to R Ankle: x20 each motion (PF,DF,Inv,Ev). 2: PROM to R Big Toe Ext: x20ea. 3: Longsitting R Ankle 4-Way: 3x10 each, Blue TB. 4: Standing Ankle Rockers on Wedge: 2x10 with wedge placement both directions. (For mid foot mobilizations.) Skilled Intervention: Patient was educated in proper exercise technique and purpose for exercises. Skilled judgment was used in selection of appropriate interventions. Correct performance of therapeutic exercises was facilitated with verbal cuing. Billing Therapeutic Exercise Treatment Minutes: 40 Skilled Treatment Time Minutes (timed and untimed codes): 40 Total Session Time (minutes): 40 Session Start Time : 1628 Session Stop Time : 1708 Aiden Davila, [facility]03-13-2025 History of Present illness Narrative* Aiden aDvila, PT - 05/28/2024 5:49 PM EDT Program_ID:[id number] Access Code: [email or web address] URL: [email or web address] Date: 05-28-2024 Prepared By: Aiden Davila Program Notes Exercises - Standing Toe Dorsiflexion Stretch - 2 x daily - 7 x weekly - 2 sets - 10 reps - Seated Toe Flexion Extension PROM - 2 x daily - 7 x weekly - 3 sets - 10 reps - Long Sitting Ankle Dorsiflexion AROM - 2 x daily - 7 x weekly - 3 sets - 10 reps - Supine Ankle Inversion and Eversion AROM - 2 x daily - 7 x weekly - 3 sets - 10 reps - Standing Dorsiflexion Self-Mobilization on Step - 1-2 x daily - 7 x weekly - 2 sets - 10 reps - Self Talar [place] with Anchored Resistance - 2 x daily - 7 x weekly - 3 sets - 10 reps * Aiden Davila, PT - 05/28/2024 5:14 PM EDT Episode Visit Count: 2 Therapist That Will Accept/Oversee The Plan Of Care: Aiden Davila PT. Start of Care Date: 05/14/24 Onset Date: 11/05/02 (20+ years before surgery, worse the last couple of years.) Plan of Care Certification Date: (N/A) Next Certification Due Date: (N/A) Patient Identified by Name and Date of : Yes REHABILITATION AND SPORTS THERAPY PHYSICAL THERAPY TREATMENT NOTE ASSESSMENT: Joshua Dunn tolerated the session with expected muscle soreness. She demonstrated improvements in R Ankle Mobility & Tolerance to activity. The patient will continue to benefit fromongoing skilled physical therapy to progress toward set goals. PLAN FOR NEXT VISIT: Mobility with Wedge placement. SUBJECTIVE: Patient reports she feels mobility is improving. Doing exercises every other day right now because every day was bothering it. States she overdid the last two days so the foot is sore. Pain: Pain Pain Level: 6 Pain Location: Foot - Right Description: Sore, Aching Frequency: Continuous Post Treatment Pain Post Treatment Pain Level: No Change Post Treatment Pain Location: Foot - Right OBJECTIVE MEASURES WITH LEVEL OF FUNCTION: Improved R Ankle AROM & PROM compared to IE. Observed and eyeballed motion to compare, no measurements collected. Gait Stairs: Reciprocal, WNL TREATMENT: Therapeutic Exercise: 1: PROM to R Ankle: x20 each motion (PF,DF,Inv,Ev). 2: *Standing Toe Dorsiflexion Stretch: 2x10, 2-3 hold. 3: *Standing Toe Dorsiflexion Stretch: 3x10, 2-3 hold. 4: Seated Toe Flexion Extension Self-PROM: 3x10. 5: Standing Dorsiflexion Self-Mobilization on Step: 2x10, 1-2. 6: Longsitting Ankle AROM, DF/PF & Inv/Ev: 3x10 each. 7: *Self-Talar [place] with Anchored Resistance: 2x10, OTB. Skilled Intervention: Patient was educated in proper exercise technique and purpose for exercises. Reviewed and educated patient on additions/changes for home exercise program as above (*). Skilled judgment was used in selection of appropriate interventions. Provided written instruction for home exercise program to facilitate proper performance and compliance. Correct performance of therapeutic exercises was facilitated with verbal cuing. Billing Therapeutic Exercise Treatment Minutes: 39 Skilled Treatment Time Minutes (timed and untimed codes): 39 Total Session Time (minutes): 39 Session Start Time : 1715 Session Stop Time : 175 Aiden Davila PT documented in this encounterGood [facility]25 NoteHNO ID: [id number] Author: AIDEN DAVILA PT Service: ? Author Type: Physical Therapist Type: Progress Notes Filed: 05/28/2024 17:55 Note Text: Episode Visit Count: 2 Therapist That Will Accept/Oversee The Plan Of Care: Aiden Davila PT. Start of Care Date: 05/14/24 Onset Date: 11/05/02 (20+ years before surgery, worse the last couple of years.) Plan of Care Certification Date: (N/A) Next Certification Due Date: (N/A) Patient Identified by Name and Date of : Yes REHABILITATION AND SPORTS THERAPY PHYSICAL THERAPY TREATMENT NOTE ASSESSMENT: Joshua Dunn tolerated the session with expected muscle soreness. She demonstrated improvements in R Ankle Mobility AND Tolerance to activity. The patient will continue to benefit from ongoing skilled physical therapy to progress toward set goals. PLAN FOR NEXT VISIT: Mobility with Wedge placement. SUBJECTIVE: Patient reports she feels mobility is improving. Doing exercises every other day right now because every day was bothering it. States she overdid the last two days so the foot is sore. Pain: Pain Pain Level: 6 Pain Location: Foot - Right Description: Sore, Aching Frequency: Continuous Post Treatment Pain Post Treatment Pain Level: No Change Post Treatment Pain Location: Foot - Right OBJECTIVE MEASURES WITH LEVEL OF FUNCTION: Improved R Ankle AROM AND PROM compared to IE. Observed and eyeballed motion to compare, no measurements collected. Gait Stairs: Reciprocal, WNL TREATMENT: Therapeutic Exercise: 1: PROM to R Ankle: x20 each motion (PF,DF,Inv,Ev). 2: *Standing Toe Dorsiflexion Stretch: 2x10, 2-3 hold. 3: *Standing Toe Dorsiflexion Stretch: 3x10, 2-3 hold. 4: Seated Toe Flexion Extension Self-PROM: 3x10. 5: Standing Dorsiflexion Self-Mobilization on Step: 2x10, 1-2. 6: Longsitting Ankle AROM, DF/PF AND Inv/Ev: 3x10 each. 7: *Self-Talar [place] with Anchored Resistance: 2x10, OTB. Skilled Intervention: Patient was educated in proper exercise technique and purpose for exercises. Reviewed and educated patient on additions/changes for home exercise program as above (*). Skilled judgment was used in selection of appropriate interventions. Provided written instruction for home exercise program to facilitate proper performance and compliance. Correct performance of therapeutic exercises was facilitated with verbal cuing. Billing Therapeutic Exercise Treatment Minutes: 39 Skilled Treatment Time Minutes (timed and untimed codes): 39 Total Session Time (minutes): 39 Session Start Time : 1715 Session Stop Time : 1754 Aiden Davila [facility]02-27-2025 History of Present illness Narrative* Aiden Davila, PT - 05/14/2024 4:30 PM EST Program_ID:[id number] Access Code: [email or web address] URL: [email or web address] Date: 05-14-2024 Prepared By: Aiden Davila Program Notes Exercises - Standing Toe Dorsiflexion Stretch - 2 x daily - 7 x weekly - 2 sets - 10 reps - Seated Toe Flexion Extension PROM - 2 x daily - 7 x weekly - 3 sets - 10 reps - Long Sitting Ankle Dorsiflexion AROM - 2 x daily - 7 x weekly - 3 sets - 10 reps - Supine Ankle Inversion and Eversion AROM - 2 x daily - 7 x weekly - 3 sets - 10 reps - Standing Dorsiflexion Self-Mobilization on Step - 1-2 x daily - 7 x weekly - 2 sets - 10 reps * Aiden Davila, PT - 05/14/2024 3:43 PM EST Images from the original note were not included. Episode Visit Count: 1 Therapist That Will Accept/Oversee The Plan Of Care: Aiden Davila PT. Start of Care Date: 05/14/24 Onset Date: 11/05/02 (20+ years before surgery, worse the last couple of years.) Plan of Care Certification Date: (N/A) Next Certification Due Date: (N/A) Patient Identified by Name and Date of : Yes REHABILITATION AND SPORTS THERAPY PHYSICAL THERAPY EVALUATION PLAN OF CARE: Assessment: Joshua Dunn presents with diagnosis of s/p (100 days) right foot lapidus bunionectomy(lapiplasty) that interferes with walking, stair negotiation, squatting, sleeping, working, physical activities . The patient presents with impairments in ADL's, gait, independence in exercise, joint mobility, overall function, range of motion, soft tissue healing, strength, and symptom management.PROMIS (Patient-Reported Outcomes Measurement Information System) scores were reviewed and identified as a rehabilitation concern. Prognosis for therapy is Good due to: current objective clinical presentation, good overall health status, good support system/ coping skills . The patient will benefitfrom skilled therapy services to meet the goals established for this plan of care as noted below. Goals for Episode of Care: established 05/14/24 Patient reported outcome of physical function will increase T-score by a minimum 5 points. [place] in home exercise program. Patient will decrease pain rating by 2 points to meet minimal clinical important difference for numeric pain rating scale. Patient will increase active ROM of R Ankle Grossly to allow pt to to improve gait mechanics / gaitpattern . Perform stair negotiation with decreased report of symptoms/pain in 8-10 weeks. Increased strength of R Foot/Ankle Grossly to 5/5 MMT for improved ADL/IADLs. Normal gait without pain/symptoms. Patient Goals: Getting back to normal gait and improved function. Time Frame for Goals and Treatment : 07/24/24 Planned Interventions, Frequency, and Duration: Current Frequency: 1x/week Duration: 6 weeks Total Number of Visits Planned: 6 Planned Treatment Interventions: Therapeutic exercise (07301), Neuromuscular re- education (78972), Manual therapy (43682), Therapeutic activities (07422), Self- detention management (39475), Patient/Family/Caregiver Education PLAN FOR NEXT VISIT: Assess Stair Completion; A/AA/PROM to Ankle & Foot as tolerated. Progress ther-ex as able. Patient demonstrates good understanding of plan of care and treatment. The above goals and plan of care were discussed and agreed upon by patient/family. SUBJECTIVE: 100 days post-op from R bunionectomy. Post-op protocol to included a period of nwb followed by protective ambulation in a boot, she was out of the boot end of Mar 2024. She did have 1 fall down the stairs early on. Currently, having pain in the medial forefoot-midfoot. Dr. Lopez is thinking scartissue built up around nerve vs. hardware. Major complaint is she is also having difficulty with mobility with the ankle. Pain with walking, stairs (descend > ascend), squatting, driving. She doesnot feel like she walks normally currently. Patient Goals: Getting back to normal gait and improved function. 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 Intake Information: Prescription present Previous Treatment: (Before surgery tried wider shoes, padding, inserts) Falls Interview: Fall without injury in the last year Pain: Pain Pain Level: 6 Pain Location: Foot - Right Description: Aching Frequency: Continuous Detailed Pain Score: Yes Worst Pain Level: 8 (Activities and end of the day.) Average Pain Level: 6 (4-6) Post Treatment Pain Post Treatment Pain Level: No Change Post Treatment Pain Location: Foot - Right PROMIS Scales 05/13/2024 11/06/2023 03/14/2023 Higher is Better Phys Func - T Score 42 (mild dysfunction) 53 (within normal limits) 51 (within normal limits) Phys Func - Percentile 21 62 54 Self-Eff Symptom - T Score 49 (Average) 56 (Average) 50 (Average) Self-Eff Symptom - Percentile 46 73 50 Proxy-reported T-scores: mean of general population = 50. 5 points is clinically meaningfully difference Percentiles provide an indication of how the patient's score ranks in relation to the general population. Higher percentile rankings indicate better function/quality of life. 50th percentile is the average of the general population and indicates half of respondents had a worse score. OBJECTIVE MEASURES WITH LEVEL OF FUNCTION: Ankle Observations Weight Bearing Status: Other (See Comment) (Full WB.) R Ankle Presents with: Swelling R Swelling: Mild swelling along the left 1st tarsal metatarsal joint R Ankle Palpation Tenderness: Talar dome, Anterior tibialis (Incisional/medial aspect of left tarsal metatasrsal joint) Ankle Brace/Support: None R Foot Observations: Figure 8: 21.5in L Foot Observations: Figure 8: 20.5in LE AROM R LE AROM: Great Ext of First Toe is slightly limited, close to Left. R Ankle Dorsiflexion: 18 Degrees R Ankle Plantar Flexion: 44 Degrees (Pain at her end range.) R Ankle Inversion: 23 R Ankle Eversion: 9 (Pain at her end range) LE PROM R Ankle Dorsiflexion: 20 Degrees R Ankle Plantar Flexion: 47 Degrees R Ankle Inversion: 26 Degrees R Ankle Eversion: 12 Degrees LE Strength R LE Strength: Slight pain with push on resistance PF, INV, Toe Ext. R Ankle Dorsiflexion (L4): 4+/5 R Ankle Plantar Flexion: 4+/5 R Ankle Inversion: 4+/5 R Ankle Eversion: 4+/5 R Great Toes Extension (L5, S1): 4/5 Gait Weight Bearing Status: FWB Gait: Independent Gait Device: None Gait Deviations: Right Lower Extremity Gait Deviations Right Lower Extremity: Stance time decreased Gait Observation: Decreased time spent on RLE in terminal stance due to great toe extension limitation. Stairs: Not Assessed. Education: Education Learning Preferences: Demonstration, Explanation, Printed Materials Barriers: None Learning/educational needs: Home exercise program, Plan of Care, Procedure / Surgery, Safety, Gait Training Education Provided: Yes, see treatment interventions for education provided Education Provided To: Patient Education Mode/Type: Demonstration, Explanation/Discussion, Literature/Printed Materials Response to Education/Teach Back: States/Identifies TREATMENT: PT Treatment Interventions: Therapeutic Exercise Evaluation Therapeutic Exercise: 1: Reviewed HEP Exercises. PT provided demonstration and cueing of exercises for proper completion. Pt demonstrated understanding. 2: Discussed therapy goals, exercise purpose, HEP handout provided. Discussed exam findings, surgery, tissue healing timelines. Mobility vs. stability following hardware placement. Patient was educated to limit &/or modify painful activities as able currently. 3: *Standing Toe Dorsiflexion Stretch: x10, 2-3 hold. 4: *Seated Toe Flexion Extension Self-PROM: x10. 5: *Standing Dorsiflexion Self-Mobilization on Step: x10, 1-2. 6: *Longsitting Ankle AROM, DF/PF & Inv/Ev: x10 each. 7: *PROM to Ankle PF/DF, Inv/EV: x10 each. Push to tolerance. Skilled Intervention: Patient was educated in proper exercise technique and purpose for exercises. Reviewed and educated patient on additions/changes for home exercise program as above (*). Skilled judgment was used in selection of appropriate interventions. Provided written instruction for home exercise program to facilitate proper performance and compliance. Correct performance of therapeutic exercises was facilitated with verbal and tactile cuing. Patient education as noted. Billing * Evaluation Low Complexity: 1 Unit Therapeutic Exercise Treatment Minutes: 25 Skilled Treatment Time Minutes (timed and untimed codes): 45 Total Session Time (minutes): 45 Session Start Time : 1545 Session Stop Time : 1630 Aiden Davila PT documented in this encounterGood [facility]aritan [facility]02-27-2025 NoteHNO ID: [id number] Author: AIDEN DAVILA PT Service: ? Author Type: Physical Therapist Type: Progress Notes Filed: 05/15/2024 08:09 Note Text: Episode Visit Count: 1 Therapist That Will Accept/Oversee The Plan Of Care: Aiden Davila PT. Start of Care Date: 05/14/24 Onset Date: 11/05/02 (20+ years before surgery, worse the last couple of years.) Plan of Care Certification Date: (N/A) Next Certification Due Date: (N/A) Patient Identified by Name and Date of : Yes REHABILITATION AND SPORTS THERAPY PHYSICAL THERAPY EVALUATION PLAN OF CARE: Assessment: Joshua Dunn presents with diagnosis of s/p (100 days) right foot lapidus bunionectomy (lapiplasty) that interferes with walking, stair negotiation, squatting, sleeping, working, physical activities . The patient presents with impairments in ADL's, gait, independence in exercise, joint mobility, overall function, range of motion, soft tissue healing, strength, and symptom management. PROMIS? (Patient-Reported Outcomes Measurement Information System) scores were reviewed and identified as a rehabilitation concern. Prognosis for therapy is Good due to: current objective clinical presentation, good overall health status, good support system/ coping skills . The patient will benefit from skilled therapy services to meet the goals established for this plan of care as noted below. Goals for Episode of Care: established 05/14/24 Patient reported outcome of physical function will increase T-score by a minimum 5 points. [place] in home exercise program. Patient will decrease pain rating by 2 points to meet minimal clinical important difference for numeric pain rating scale. Patient will increase active ROM of R Ankle Grossly to allow pt to to improve gait mechanics / gait pattern . Perform stair negotiation with decreased report of symptoms/pain in 8-10 weeks. Increased strength of R Foot/Ankle Grossly to 5/5 MMT for improved ADL/IADLs. Normal gait without pain/symptoms. Patient Goals: Getting back to normal gait and improved function. Time Frame for Goals and Treatment : 07/24/24 Planned Interventions, Frequency, and Duration: Current Frequency: 1x/week Duration: 6 weeks Total Number of Visits Planned: 6 Planned Treatment Interventions: Therapeutic exercise (92529), Neuromuscular re-education (50766), Manual therapy (62175), Therapeutic activities (19887), Self-detention management (95729), Patient/Family/Caregiver Education PLAN FOR NEXT VISIT: Assess Stair Completion; A/AA/PROM to Ankle AND Foot as tolerated. Progress ther-ex as able. Patient demonstrates good understanding of plan of care and treatment. The above goals and plan of care were discussed and agreed upon by patient/family. SUBJECTIVE: 100 days post-op from R bunionectomy. Post-op protocol to included a period of nwb followed by protective ambulation in a boot, she was out of the boot end of Mar 2024. She did have 1 fall down the stairs early on. Currently, having pain in the medial forefoot-midfoot. Dr. Lopez is thinking scar tissue built up around nerve vs. hardware. Major complaint is she is also having difficulty with mobility with the ankle. Pain with walking, stairs (descend > ascend), squatting, driving. She does not feel like she walks normally currently. Patient Goals: Getting back to normal gait and improved function. 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 Intake Information: Prescription present Previous Treatment: (Before surgery tried wider shoes, padding, inserts) Falls Interview: Fall without injury in the last year Pain: Pain Pain Level: 6 Pain Location: Foot - Right Description: Aching Frequency: Continuous Detailed Pain Score: Yes Worst Pain Level: 8 (Activities and end of the day.) Average Pain Level: 6 (4-6) Post Treatment Pain Post Treatment Pain Level: No Change Post Treatment Pain Location: Foot - Right PROMIS Scales 05/13/2024 11/06/2023 03/14/2023 Higher is Better Phys Func - T Score 42 (mild dysfunction) 53 (within normal limits) 51 (within normal limits) Phys Func - Percentile 21 62 54 Self-Eff Symptom - T Score 49 (Average) 56 (Average) 50 (Average) Self-Eff Symptom - Percentile 46 73 50 Proxy-reported T-scores: mean of general population = 50. 5 points is clinically meaningfully difference Percentiles provide an indication of how the patient's score ranks in relation to the general population. Higher percentile rankings indicate better function/quality of life. 50th percentile is the average of the general population and indicates half of respondents had a worse score. OBJECTIVE MEASURES (more content not included)...[facility] 04-27-2024 Instructions* Patient Instructions* Opal Lopez - 04/27/2024 4:25 PM EST Continue with good supportive shoes, ie hoka, deras or asics Consider compression stocking for swelling Will make referral to physical therapy for range of motion exercises. Consider voltaren gel over the counter for topical pain relief. Can follow-up in 1-2 months to see how you are doing Opal Lopez DPM documented in this encounterGood Samaritan Hospital02-10-2025 NoteHNO ID: [id number] Author: OPAL LOPEZ, ? Service: ? Author Type: Physician Type: Progress Notes Filed: 04/28/2024 11:12 Note Text: FOLLOW UP PODIATRIC OFFICE VISIT Chief Complaint: This 43 year old who presents for follow up:bunionectomy, right foot Patient presents to clinic for follow-up follow-up bunionectomy of right foot Patient had surgery on February 03. She is 83 days post-op She still has some pain that is 4/10- 6/10 Over all, doing stable Is wearing a regular shoe at this point. Notices that with certain shoes, she will experiene pain with pressure She mentions that she sometimes has difficult time walking or getting her balance. PAIN EVALUATION 04/26/20242026 Pain Level: 6 Pain Location: Foot-Right Description: Aching;Sharp;Stiffness Intervention/Comfort measure: Reposition;Relaxation;Cold;Positioning No results found for: HBA1C PCP: Taz López MD PAST MEDICAL HISTORY Diagnosis Date Anxiety 2006 Dr. Jaramillo Chronic constipation 01/23/2023 Chronic pelvic pain in female 2022 [employer] Yaz Skinner MD DDD (degenerative disc disease), lumbar 01/23/2023 Pelvic joint pain, left 01/23/2023 Current Outpatient Medications Medication Sig citalopram (CELEXA) 40 mg tablet Take 40 mg by mouth once daily. No current facility-administered medications for this visit. ALLERGIES No Known Allergies PAST SURGICAL HISTORY Procedure Laterality Date COLONOSCOPY SCREENING 11/2022 [facility] LAPAROSCOPIC APPENDECTOMY 03/18/2010 [facility] LAPAROSCOPIC SUPRACERVICAL HYSTERECTOMY 08/2022 Dr. Maryann Skinner, [facility] Physical Exam: OBJECTIVE: Constitutional: Pt is a well developed 43 year old female who is alert, oriented, cooperative and in no apparent distress. Eyes: Following during examination. No redness or drainage. Respiratory: RR normal and nonlabored. Even breathing. No evidence of distress. Psychology: Patient is engaged during conversation. Normal affect and mood. Does not appear depressed or anxious. NVSI unchanged from previous visit. Dermatological: Nails 1-5 b/l are normal. Webspaces clean and dry 1-4 b/l. Skin appears well hydrated and supple. good color, texture, turgor. No open lesions present. No callosities present. Musculoskeletal/Orthopaedic: Patient has pain to palpation of medial aspect of left tarsal metatasrsal joint. Mild swelling along the left 1st tarsal metatarsal joint Rom of right 1st mtpj is slightly decreased but when compared to left, has nearly the same amount of motion Xrays reviewed shows progressive fusion of first metatarsal cun joint ASSESSMENT: (Z98.890) Post-operative state (primary encounter diagnosis) (M20.11) Hallux valgus of right foot (R26.9) Gait disturbance PLAN: Patient is 83 days post-op from lapidus bunioenctomy Her xrays show progressive healing. At this time, I am fine with her continuing to pursue activities as tolerated I discussed the pain in foot. She still has some swelling and this could be placing pressure on the superficial digital nerves. I would have her continue with compression stocking and wider shoe. If this pain persists, we discussed various options not limited to topical cream, trial of gabapentin and/or removal of hardware. For now, she is going to continue with compression stocking and will have her use voltaren gel I want and encourage her to continue with rom exercises of the great toe joint. Will make referral to physical therapy to help facilitate increased motion in the great toe F/u in 1-[address] [facility]02-10-2025 History of Present illness Narrative* Opal Lpoez - 04/27/2024 4:07 PM EST Images from the original note were not included. FOLLOW UP PODIATRIC OFFICE VISIT Chief Complaint: This 43 year old who presents for follow up:bunionectomy, right foot Patient presents to clinic for follow-up follow-up bunionectomy of right foot Patient had surgery on February 03. She is 83 days post-op She still has some pain that is 4/10- 6/10 Over all, doing stable Is wearing a regular shoe at this point. Notices that with certain shoes, she will experiene pain with pressure She mentions that she sometimes has difficult time walking or getting her balance. PAIN EVALUATION 04/26/20242026 Pain Level: 6 Pain Location: Foot-Right Description: Aching;Sharp;Stiffness Intervention/Comfort measure: Reposition;Relaxation;Cold;Positioning No results found for: HBA1C PCP: Taz López MD PAST MEDICAL HISTORY Diagnosis Date Anxiety 2006 Dr. Jaramillo Chronic constipation 01/23/2023 Chronic pelvic pain in female 2022 [employer] Yaz Skinner MD DDD (degenerative disc disease), lumbar 01/23/2023 Pelvic joint pain, left 01/23/2023 Current Outpatient Medications Medication Sig citalopram (CELEXA) 40 mg tablet Take 40 mg by mouth once daily. No current facility-administered medications for this visit. ALLERGIES No Known Allergies PAST SURGICAL HISTORY Procedure Laterality Date COLONOSCOPY SCREENING 11/2022 [facility] LAPAROSCOPIC APPENDECTOMY 03/18/2010 [facility] LAPAROSCOPIC SUPRACERVICAL HYSTERECTOMY 08/2022 Dr. Maryann Skinner, [facility] Physical Exam: OBJECTIVE: Constitutional: Pt is a well developed 43 year old female who is alert, oriented, cooperative and in no apparent distress. Eyes: Following during examination. No redness or drainage. Respiratory: RR normal and nonlabored. Even breathing. No evidence of distress. Psychology: Patient is engaged during conversation. Normal affect and mood. Does not appear depressed or anxious. NVSI unchanged from previous visit. Dermatological: Nails 1-5 b/l are normal. Webspaces clean and dry 1-4 b/l. Skin appears well hydrated and supple. good color, texture, turgor. No open lesions present. No callosities present. Musculoskeletal/Orthopaedic: Patient has pain to palpation of medial aspect of left tarsal metatasrsal joint. Mild swelling along the left 1st tarsal metatarsal joint Rom of right 1st mtpj is slightly decreased but when compared to left, has nearly the same amount of motion Xrays reviewed shows progressive fusion of first metatarsal cun joint ASSESSMENT: (Z98.890) Post-operative state (primary encounter diagnosis) (M20.11) Hallux valgus of right foot (R26.9) Gait disturbance PLAN: Patient is 83 days post-op from lapidus bunioenctomy Her xrays show progressive healing. At this time, I am fine with her continuing to pursue activities as tolerated I discussed the pain in foot. She still has some swelling and this could be placing pressure on thesuperficial digital nerves. I would have her continue with compression stocking and wider shoe. If this pain persists, we discussed various options not limited to topical cream, trial of gabapentin and/or removal of hardware. For now, she is going to continue with compression stocking and will haveher use voltaren gel I want and encourage her to continue with rom exercises of the great toe joint. Will make referral to physical therapy to help facilitate increased motion in the great toe F/u in 1-2 months Opal Lopez DPM * Alicia Diaz LPN - 04/27/2024 4:02 PM EST AMB ROOMING INTAKE FLOWSHEET DATA Pain Pain Level: 6 Pain Location: Foot-Right Description: Aching, Sharp, Stiffness Intervention/Comfort measure: Reposition, Relaxation, Cold, Positioning Patient presents with: Right Foot - Established Patient, Follow Up, Pain, Post Op Alicia Diaz LPN documented in this encounterGood [facility]aritan [facility]02-[facility]-2025 NoteHNO ID: [id number] Author: ALICIA DIAZ LPN Service: ? Author Type: LICENSED NURSE Type: Progress Notes Filed: 04/28/2024 11:12 Note Text: AMB ROOMING INTAKE FLOWSHEET DATA Pain Pain Level: 6 Pain Location: Foot-Right Description: Aching, Sharp, Stiffness Intervention/Comfort measure: Reposition, Relaxation, Cold, Positioning Patient presents with: Right Foot - Established Patient, Follow Up, Pain, Post Op [facility] NoteHNO ID: [id number] Author: OPAL LOPEZ, ? Service: ? Author Type: Physician Type: Progress Notes Filed: 03/30/2024 22:04 Note Text: This 43 year old presents post op right foot lapidus bunionectomy Pain level: minimal Vomiting, fever, chills, shortness of breath: no Pain Control: n/a Weightbearing status: partial weightbearing in a boot PAST MEDICAL HISTORY Diagnosis Date Anxiety 2006 Dr. Jaramillo Chronic constipation 01/23/2023 Chronic pelvic pain in female 2022 [employer] Yaz Skinner MD DDD (degenerative disc disease), lumbar 01/23/2023 Pelvic joint pain, left 01/23/2023 Current Outpatient Medications Medication Sig citalopram (CELEXA) 40 mg tablet Take 40 mg by mouth once daily. No current facility-administered medications for this visit. ALLERGIES No Known Allergies Objective: first ray appears rectus. Minimal to no pain along right first ray. Mild swelling noted of right foot consistent with post-op expectations. No calf pain present. Patient has no pain to palpation of right calf. Negative Yarbrough's test. Xrays show progressive healing of right midfoot fusion. Assessment: (Z98.890) Post-operative state (primary encounter diagnosis) (M20.11) Hallux valgus of right foot Plan: Patient is s/p right foot lapidus bunionectomy. Patient is doing very well. I will allow patient to start walking in the boot In one week, I will allow her to transition to firm sole shoe with insert at one hour/day and increase daily Follow-up in one month with repeat xrays Discussed pro/cons regarding hardware removal. Patient to call if any issues arise. Opal Lopez [facility]01-13-2025 History of Present illness Narrative* Opal Lopez - 03/30/2024 10:00 PM EST This 43 year old presents post op right foot lapidus bunionectomy Pain level: minimal Vomiting, fever, chills, shortness of breath: no Pain Control: n/a Weightbearing status: partial weightbearing in a boot PAST MEDICAL HISTORY Diagnosis Date Anxiety 2006 Dr. Jaramillo Chronic constipation 01/23/2023 Chronic pelvic pain in female 2022 [employer] Yaz Skinner MD DDD (degenerative disc disease), lumbar 01/23/2023 Pelvic joint pain, left 01/23/2023 Current Outpatient Medications Medication Sig citalopram (CELEXA) 40 mg tablet Take 40 mg by mouth once daily. No current facility-administered medications for this visit. ALLERGIES No Known Allergies Objective: first ray appears rectus. Minimal to no pain along right first ray. Mild swelling noted of right foot consistent with post-op expectations. No calf pain present. Patient has no pain to palpation of right calf. Negative Yarbrough's test. Xrays show progressive healing of right midfoot fusion. Assessment: (Z98.890) Post-operative state (primary encounter diagnosis) (M20.11) Hallux valgus of right foot Plan: Patient is s/p right foot lapidus bunionectomy. Patient is doing very well. I will allow patient to start walking in the boot In one week, I will allow her to transition to firm sole shoe with insert at one hour/day and increase daily Follow-up in one month with repeat xrays Discussed pro/cons regarding hardware removal. Patient to call if any issues arise. Opal Lopez DPM * Alicia Diaz LPN - 03/24/2024 3:02 PM EST AMB ROOMING INTAKE FLOWSHEET DATA Pain Pain Level: 5 Pain Location: Foot-Right Description: Radiating, Sharp, Throbbing, Tingling Duration Amount of Time: 7 Duration Units: Weeks Frequency: Intermittent Intervention/Comfort measure: Reposition, Cold, Positioning Patient presents with: Right Foot - Post Op, Established Patient, Follow Up, Pain Patient complains of pain mainly at night. Alicia Diaz LPN documented in this encounterGood [facility]aritan Hospital01-07-2025 Instructions* Patient Instructions* Opal Lopez - 03/24/2024 3:40 PM EST Continue with the boot x 1 week In one week can transition into firm sole shoe with insert at 1 hour/day and increase daily Continue with karen wrap or compression stocking Follow-up in 1 month with repeat xrays Opal Lopez DPM documented in this encounterGood Samaritan Hospital01-07-2025 NoteHNO ID: [id number] Author: ALICIA DIAZ LPN Service: ? Author Type: LICENSED NURSE Type: Progress Notes Filed: 03/30/2024 22:04 Note Text: AMB ROOMING INTAKE FLOWSHEET DATA Pain Pain Level: 5 Pain Location: Foot-Right Description: Radiating, Sharp, Throbbing, Tingling Duration Amount of Time: 7 Duration Units: Weeks Frequency: Intermittent Intervention/Comfort measure: Reposition, Cold, Positioning Patient presents with: Right Foot - Post Op, Established Patient, Follow Up, Pain Patient complains of pain mainly at night. [facility]-07-[facility] History of Present illness Narrative* Brittani Smith RT(R) - 03/24/2024 2:40 PM EST Radiology Service Progress Note PATIENT NAME: Joshua Dunn DATE OF SERVICE: March 24, 2024 TIME: 2:54 PM PATIENT IDENTITY VERIFICATION COMPLETED USING TWO (2) IDENTIFIERS: Name and Date of confirmedby patient verbally. FALL SCREENING: Has the patient had 2 falls in the last year or 1 fall with injury or currently using an Ambulatory Assistive Device (Walker, Cane, Wheelchair, Crutches, etc.)? Yes, Patient High Riskfor Falls What interventions were put in place to prevent falls during this visit? Increased Observations by Caregivers PATIENT GENDER DATA: Female. status: : No status: NO. PATIENT RELEVANT IMPLANT DATA REVIEWED: Not Applicable PATIENT PRESENTS WITH AN IMPLANTABLE OR ATTACHED JACK WINDER: No RADIOLOGY DEPARTMENT: General X-ray: Exam(s) Completed: Lower Extremity X- Ray(s): Foot, Right PERIPHERAL IV DATA: Not applicable SIGNED BY: SAM Hennessy) March 24, 2024 2:54 PM documented in this encounterGood Samaritan Hospital01-07-2025 NoteHNO ID: [id number] Author: BRITTANI SMITH RT(R) Service: ? Author Type: Technologist Type: Progress Notes Filed: 03/24/2024 14:54 Note Text: Radiology Service Progress Note PATIENT NAME: Joshua Dunn DATE OF SERVICE: March 24, 2024 TIME: 2:54 PM PATIENT IDENTITY VERIFICATION COMPLETED USING TWO (2) IDENTIFIERS: Name and Date of confirmed by patient verbally. FALL SCREENING: Has the patient had 2 falls in the last year or 1 fall with injury or currently using an Ambulatory Assistive Device (Walker, Cane, Wheelchair, Crutches, etc.)? Yes, Patient High Risk for Falls What interventions were put in place to prevent falls during this visit? Increased Observations by Caregivers PATIENT GENDER DATA: Female. status: : No status: NO. PATIENT RELEVANT IMPLANT DATA REVIEWED: Not Applicable PATIENT PRESENTS WITH AN IMPLANTABLE OR ATTACHED JACK WINDER: No RADIOLOGY DEPARTMENT: General X-ray: Exam(s) Completed: Lower Extremity X-Ray(s): Foot, Right PERIPHERAL IV DATA: Not applicable SIGNED BY: Brittani Smith, RT(R) March 24, 2024 2:54 [facility]12-13-2024 NoteHNO ID: [id number] Author: ALICIA DIAZ LPN Service: ? Author Type: LICENSED NURSE Type: Progress Notes Filed: 02/28/2024 15:35 Note Text: Per Joshua Santa surgical site was dressed with non adherent, 4 in roll gauze and karen wrap. instructed/educated in its application, wear, and care. All questions were answered, and patient was able to demonstrate competence with the necessary skills to utilize the above equipment. [facility] History of Present illness Narrative* Alicia Diaz LPN - 02/28/2024 1:45 PM EST Per Joshua Santa surgical site was dressed with non adherent, 4 in roll gauze and karen wrap.instructed/educated in its application, wear, and care. All questions were answered, and patient was able to demonstrate competence with the necessary skills to utilize the above equipment. Alicia Diaz LPN * Opal Lopez - 02/28/2024 1:04 PM EST DOS: 02/04/24 POD: 24 POV: 3 Surgical side: right This 43 year old presents post op lapidus bunionectomy Pain level: 5/10 Vomiting, fever, chills, shortness of breath: no Pain Control: n/a Weightbearing status: partial weightbearing to heel in boot PAST MEDICAL HISTORY Diagnosis Date Anxiety 2006 Dr. Jaramillo Chronic constipation 01/23/2023 Chronic pelvic pain in female 2022 [employer] Yaz Skinner MD DDD (degenerative disc disease), lumbar 01/23/2023 Pelvic joint pain, left 01/23/2023 Current Outpatient Medications Medication Sig citalopram (CELEXA) 40 mg tablet Take 40 mg by mouth once daily. cephALEXin (KEFLEX) 500 mg capsule Take 1 capsule by mouth three times a day. No current facility-administered medications for this visit. ALLERGIES No Known Allergies Objective: Incision site is well coapted with no evidence of dehiscence. Suture was removed and incisions are now healed. Small bleeding from suture removal but no open wounds. no erythema and mild edema surrounding surgical site. No drainage. No lymphadenopathy. No lymphangitis. No surrounding cellulitis. Patient has no pain to palpation of right calf. Negative Yarbrough's test. Assessment: (Z98.890) Post-operative state (primary encounter diagnosis) Plan: Patient is 24 days s/p lapidus bunionectomy. At this time, suture was removed. All incisions are healed. Patient is now able to shower I will have her continue with boot and she can apply weight to heel for transfer Will have patient f/u in 3.5 weeks with follow-up xray At next follow-up, pending appearance on xray, may allow patient to start placing full weight in boot Discussed internal hardware. Discussed possible removal in future. If patient has any questions, she is to contact the office. Opal Lopez DPM * Ying Badillo RN - 02/28/2024 12:58 PM EST AMB ROOMING INTAKE FLOWSHEET DATA Pain Pain Level: 5 Pain Location: Foot-Right Description: Aching, Sharp Frequency: Continuous Intervention/Comfort measure: Reposition, Relaxation, Cold Patient presents with: Right Foot - Post Op documented in this encounterGood Samaritan Hospital12-13-2024 Instructions* Patient Instructions* Opal Lopez - 02/28/2024 1:26 PM EST Your incisions are now healed. Ok to shower. Ok to apply lotion Continue with walking in boot to heel. Repeat xray in 3.5 -4 weeks Follow-up in 3.5 -4 weeks documented in this encounterGood Samaritan Hospital12-13-2024 NoteHNO ID: [id number] Author: OPAL LOPEZ, ? Service: ? Author Type: Physician Type: Progress Notes Filed: 02/28/2024 15:35 Note Text: DOS: 02/04/24 POD: 24 POV: 3 Surgical side: right This 43 year old presents post op lapidus bunionectomy Pain level: 5/10 Vomiting, fever, chills, shortness of breath: no Pain Control: n/a Weightbearing status: partial weightbearing to heel in boot PAST MEDICAL HISTORY Diagnosis Date Anxiety 2006 Dr. Jaramillo Chronic constipation 01/23/2023 Chronic pelvic pain in female 2022 [employer] Yaz Skinner MD DDD (degenerative disc disease), lumbar 01/23/2023 Pelvic joint pain, left 01/23/2023 Current Outpatient Medications Medication Sig citalopram (CELEXA) 40 mg tablet Take 40 mg by mouth once daily. cephALEXin (KEFLEX) 500 mg capsule Take 1 capsule by mouth three times a day. No current facility-administered medications for this visit. ALLERGIES No Known Allergies Objective: Incision site is well coapted with no evidence of dehiscence. Suture was removed and incisions are now healed. Small bleeding from suture removal but no open wounds. no erythema and mild edema surrounding surgical site. No drainage. No lymphadenopathy. No lymphangitis. No surrounding cellulitis. Patient has no pain to palpation of right calf. Negative Yarbrough's test. Assessment: (Z98.890) Post-operative state (primary encounter diagnosis) Plan: Patient is 24 days s/p lapidus bunionectomy. At this time, suture was removed. All incisions are healed. Patient is now able to shower I will have her continue with boot and she can apply weight to heel for transfer Will have patient f/u in 3.5 weeks with follow-up xray At next follow-up, pending appearance on xray, may allow patient to start placing full weight in boot Discussed internal hardware. Discussed possible removal in future. If patient has any questions, she is to contact the office. Opal Lopez [facility]12-13-2024 NoteHNO ID: [id number] Author: YING BADILLO RN Service: ? Author Type: Registered Nurse Type: Progress Notes Filed: 02/28/2024 15:35 Note Text: AMB ROOMING INTAKE FLOWSHEET DATA Pain Pain Level: 5 Pain Location: Foot-Right Description: Aching, Sharp Frequency: Continuous Intervention/Comfort measure: Reposition, Relaxation, Cold Patient presents with: Right Foot - Post [facility]12-05-2024 NoteHNO ID: [id number] Author: ALICIA DIAZ LPN Service: ? Author Type: LICENSED NURSE Type: Progress Notes Filed: 02/25/2024 18:44 Note Text: Per Joshua Santa incision site was dressed with iodine, adaptic, nonadherent, 4 in roll gauze, and karen wrap. instructed/educated in its application, wear, and care. All questions were answered, and patient was able to demonstrate competence with the necessary skills to utilize the above equipment. Alic[facility]12-[facility]-20[facility] History of Present illness Narrative* Alicia Diaz LPN - 02/20/2024 2:04 PM EST Per Joshua Santa incision site was dressed with iodine, adaptic, nonadherent, 4 in roll gauze, and karen wrap. instructed/educated in its application, wear, and care. All questions were answered, and patient was able to demonstrate competence with the necessary skills to utilize the above equi pment. Alicia Diaz LPN * Opal Lopez - 02/20/2024 1:03 PM EST This 43 year old presents post op right lapidus bunionectomy Pain level: minimal Vomiting, fever, chills, shortness of breath: no Pain Control: n/a Weightbearing status: nwb Patient does report falling again recently . She does not feel that the pain is too severe PAST MEDICAL HISTORY Diagnosis Date Anxiety 2006 Dr. Jaramillo Chronic constipation 01/23/2023 Chronic pelvic pain in female 2022 [employer] Yaz Skinner MD DDD (degenerative disc disease), lumbar 01/23/2023 Pelvic joint pain, left 01/23/2023 Current Outpatient Medications Medication Sig citalopram (CELEXA) 40 mg tablet Take 40 mg by mouth once daily. cephALEXin (KEFLEX) 500 mg capsule Take 1 capsule by mouth three times a day. (Patient not taking: Reported on 02/20/2024) No current facility-administered medications for this visit. ALLERGIES No Known Allergies Objective: Incision site is well coapted with no evidence of dehiscence. No erythema and mild edemasurrounding surgical site. No drainage. No lymphadenopathy. No lymphangitis. No surrounding cellulitis. Patient has no pain to palpation of right calf. Negative Yarbrough's test. Xrays reviewed. Stable post-op appearance s/p lapidus bunionectomy. No loosening of hardware. No fracture noted. Expected post-op swelling noted. Assessment: (Z98.890) Post-operative state (primary encounter diagnosis) Plan: Bandage removed and new dressing applied. Sutures: due to swelling, will plan to remove next week Weightbearing status: ok for partial weightbearing in boot to right heel RTC 1 week Continue with aspirin for dvt prophylaxis Opal Lopez DPM * Wendie Mcmillan MA - 02/20/2024 12:50 PM EST AMB ROOMING INTAKE FLOWSHEET DATA Pain Pain Level: 6 Pain Location: Foot-Right Description: Aching, Sharp, Shooting, Surgical/Not Incision Frequency: Continuous Intervention/Comfort measure: Medication, Reposition, Cold, Modify dressing application, Positioning documented in this encounterGood Samaritan Hospital12-05-2024 Telephone encounter Note * Telephone Encounter - Alicia Diaz LPN - 02/20/2024 1:37 PM EST Patient see in office. Alicia Diaz LPN [facility]12-05-2024 Instructions* Patient Instructions* Opal Lopez - 02/20/2024 1:37 PM EST Your foot appears stable Continue with dressing change every 2 days or so Apply nonadherent with betadine followed by guaze and karen wrap vs tubigrip Plan to remove suture next week. Continue with boot. Ok to apply weight to heel for transfer Continue with 81 mg aspirin twice daily for dvt documented in this encounterGood Samaritan Hospital12-05-2024 Miscellaneous Notes* Telephone Encounter - Alicia Diaz LPN - 02/20/2024 1:37 PM EST Patient see in office. Alicia Diaz LPN documented in this encounterGood Samaritan Hospital12-05-2024 History of Present illness Narrative* Brittani Smith RT(R) - 02/20/2024 1:10 PM EST Radiology Service Progress Note PATIENT NAME: Joshua Dunn DATE OF SERVICE: February 20, 2024 TIME: 1:32 PM PATIENT IDENTITY VERIFICATION COMPLETED USING TWO (2) IDENTIFIERS: Name and Date of confirmedby patient verbally. FALL SCREENING: Has the patient had 2 falls in the last year or 1 fall with injury or currently using an Ambulatory Assistive Device (Walker, Cane, Wheelchair, Crutches, etc.)? Yes, Patient High Riskfor Falls What interventions were put in place to prevent falls during this visit? Increased Observations by Caregivers PATIENT GENDER DATA: Female. status: : No status: NO. PATIENT RELEVANT IMPLANT DATA REVIEWED: Not Applicable PATIENT PRESENTS WITH AN IMPLANTABLE OR ATTACHED JACK WINDER: No RADIOLOGY DEPARTMENT: General X-ray: Exam(s) Completed: Lower Extremity X- Ray(s): Foot, Right, NON-WT BEARING PERIPHERAL IV DATA: Not applicable SIGNED BY: RT Gerhard(R) February 20, 2024 1:32 PM documented in this encounterGood Samaritan Hospital12-05-2024 NoteHNO ID: [id number] Author: BRITTANI SMITH RT(R) Service: ? Author Type: Technologist Type: Progress Notes Filed: 02/20/2024 13:32 Note Text: Radiology Service Progress Note PATIENT NAME: Joshua Dunn DATE OF SERVICE: February 20, 2024 TIME: 1:32 PM PATIENT IDENTITY VERIFICATION COMPLETED USING TWO (2) IDENTIFIERS: Name and Date of confirmed by patient verbally. FALL SCREENING: Has the patient had 2 falls in the last year or 1 fall with injury or currently using an Ambulatory Assistive Device (Walker, Cane, Wheelchair, Crutches, etc.)? Yes, Patient High Risk for Falls What interventions were put in place to prevent falls during this visit? Increased Observations by Caregivers PATIENT GENDER DATA: Female. status: : No status: NO. PATIENT RELEVANT IMPLANT DATA REVIEWED: Not Applicable PATIENT PRESENTS WITH AN IMPLANTABLE OR ATTACHED JACK WINDER: No RADIOLOGY DEPARTMENT: General X-ray: Exam(s) Completed: Lower Extremity X-Ray(s): Foot, Right, NON-WT BEARING PERIPHERAL IV DATA: Not applicable SIGNED BY: RT Gerhard(R) February 20, 2024 1:32 [facility]12-05-2024 NoteHNO ID: [id number] Author: OPAL LOPEZ, ? Service: ? Author Type: Physician Type: Progress Notes Filed: 02/25/2024 18:44 Note Text: This 43 year old presents post op right lapidus bunionectomy Pain level: minimal Vomiting, fever, chills, shortness of breath: no Pain Control: n/a Weightbearing status: nwb Patient does report falling again recently . She does not feel that the pain is too severe PAST MEDICAL HISTORY Diagnosis Date Anxiety 2006 Dr. Jaramillo Chronic constipation 01/23/2023 Chronic pelvic pain in female 2022 [employer] Yaz Skinner MD DDD (degenerative disc disease), lumbar 01/23/2023 Pelvic joint pain, left 01/23/2023 Current Outpatient Medications Medication Sig citalopram (CELEXA) 40 mg tablet Take 40 mg by mouth once daily. cephALEXin (KEFLEX) 500 mg capsule Take 1 capsule by mouth three times a day. (Patient not taking: Reported on 02/20/2024) No current facility-administered medications for this visit. ALLERGIES No Known Allergies Objective: Incision site is well coapted with no evidence of dehiscence. No erythema and mild edema surrounding surgical site. No drainage. No lymphadenopathy. No lymphangitis. No surrounding cellulitis. Patient has no pain to palpation of right calf. Negative Yarbrough's test. Xrays reviewed. Stable post-op appearance s/p lapidus bunionectomy. No loosening of hardware. No fracture noted. Expected post-op swelling noted. Assessment: (Z98.890) Post-operative state (primary encounter diagnosis) Plan: Bandage removed and new dressing applied. Sutures: due to swelling, will plan to remove next week Weightbearing status: ok for partial weightbearing in boot to right heel RTC 1 week Continue with aspirin for dvt prophylaxis [facility]12-05-2024 NoteHNO ID: [id number] Author: WENDIE MCMILLAN MA Service: ? Author Type: Drug Room Operator Type: Progress Notes Filed: 02/25/2024 18:44 Note Text: AMB ROOMING INTAKE FLOWSHEET DATA Pain Pain Level: 6 Pain Location: Foot-Right Description: Aching, Sharp, Shooting, Surgical/Not Incision Frequency: Continuous Intervention/Comfort measure: Medication, Reposition, Cold, Modify dressing application, [facility]ingW[facility]umed[facility] Telephone encounter Note* Telephone Encounter - Alicia Diaz LPN - 02/06/2024 4:36 PM EST Patient was seen in office for 2 day post op visit. Patient called into office stating that there is painful burning sensation at every incision site. Provider was consulted. Per Dr. Lopez, have patient lossen dressing if pain falls to improve patient is to perform dressing change, remove boot and elevate foot 4 pillows high. Patient verbalized understanding and will contact office or provide if issues persist or worsen. Alicia Diaz LPN [facility]11-21-2024 Miscellaneous Notes* Telephone Encounter - Alicia Diaz LPN - 02/06/2024 4:36 PM EST Patient was seen in office for 2 day post op visit. Patient called into office stating that there is painful burning sensation at every incision site. Provider was consulted. Per Dr. Lopez, have patient lossen dressing if pain falls to improve patient is to perform dressing change, remove boot and elevate foot 4 pillows high. Patient verbalized understanding and will contact office or provide if issues persist or worsen. Alicia Diaz LPN documented in this encounterGood Samaritan [facility] History of Present illness Narrative* Alicia Diaz LPN - 02/06/2024 3:[address] Lopez Joshua was provided with donjoy aircast, size L, and instructed/educated in its application, wear, and care. All questions were answered, and patient was able to demonstrate competence with the necessary skills to utilize the above equipment. Billed to [place] Per Joshua Santa incision site was dressed with iodine, adaptic, non adherent, 4x4 guaze anchoring great toe secured with 4 in roll gauze and karen wrap. Instructed/educated in its application,wear, and care. All questions were answered, and patient was able to verbalize competence with the necessary skills to utilize the above equipment. Patient was provided with supplies. Alicia Diaz LPN * Opal Lopez - 02/06/2024 1:40 PM EST DOS: 02/04/24 POD: 2 POV: 1 Surgical side: right This 43 year old presents post op right foot lapidus bunionectomy (lapiplasty) Pain level: 7/10 Vomiting, fever, chills, shortness of breath: no Pain Control: percocet Weightbearing status: nwb Patient did sustain a fall today. She was coming down the steps and missed the last step. Her weight landed on her toe. PAST MEDICAL HISTORY Diagnosis Date Anxiety 2006 Dr. Jaramillo Chronic constipation 01/23/2023 Chronic pelvic pain in female 2022 [employer] Yaz Skinner MD DDD (degenerative disc disease), lumbar 01/23/2023 Pelvic joint pain, left 01/23/2023 Current Outpatient Medications Medication Sig cephALEXin (KEFLEX) 500 mg capsule Take 1 capsule by mouth three times a day. oxyCODONE-acetaminophen (PERCOCET) 5-325 mg tablet Take 1 tablet by mouth every 6 hours as needed for up to 7 days. citalopram (CELEXA) 40 mg tablet Take 40 mg by mouth once daily. No current facility-administered medications for this visit. ALLERGIES No Known Allergies Objective: Incision site is well coapted with no evidence of dehiscence. No erythema and moderate edema surrounding surgical site. No drainage. No lymphadenopathy. No lymphangitis. No surrounding cellulitis. Patient has no pain to palpation of right calf. Negative Yarbrough's test. Assessment: (W19.XXXA) Fall, initial encounter (primary encounter diagnosis) (M20.11) Hallux valgus of right foot (Z98.890) Post-operative state Plan: Bandage removed and new dressing applied. Incisions all look well. Will have her change dressing every 2 -3days. She will apply betadine and adaptic to incision followed by lashae camilo and karen. Willplace her in pneumatic boot. Sutures: will plan for removal at 3 weeks post-op. Weightbearing status: partial weightbearing to heel in boot for transfer only. RTC 2 weeks as this provider will be out of the office next week. This provider has provided patient with my phone number so she can contact me if she has any issues. Continue with 81 mg aspirin bid out of caution for dvt Reviewed xrays as patient had fall. I do not see any fracture or hardware loosening. Opal Lopez DPM Alicia Vasquez LPN - 02/06/2024 1:08 PM EST AMB ROOMING INTAKE FLOWSHEET DATA Pain Pain Level: 7 Pain Location: Foot-Right Description: Throbbing, Stabbing Duration Amount of Time: 3 Duration Units: Days Frequency: Continuous Intervention/Comfort measure: Relaxation, Reposition, Medication Patient presents with: Right Foot - Established Patient, Pain, Post Op, Swelling, Follow Up Patient presents to office 2 days s/p Lapidus bunionectomy with possible armida osteotomy, right foot. Patient states she took a fall this morning down 1 stair landing on her toes. Patient complains ofpain 09/24. Patient last took percocet around 4 Am and has been aleve instead of percocet when able. Alicia Diaz LPN documented in [facility] encounterGood [facility]24 NoteHNO ID: [id number] Author: ALICIA DIAZ LPN Service: ? Author Type: LICENSED NURSE Type: Progress Notes Filed: 02/06/2024 15:26 Note Text: Per Dr. LopezJoshua was provided with donjoy aircast, size L, and instructed/educated in its application, wear, and care. All questions were answered, and patient was able to demonstrate competence with the necessary skills to utilize the above equipment. Billed to [employer] Per Joshua Santa incision site was dressed with iodine, adaptic, non adherent, 4x4 guaze anchoring great toe secured with 4 in roll gauze and karen wrap. Instructed/educated in its application, wear, and care. All questions were answered, and patient was able to verbalize competence with the necessary skills to utilize the above equipment. Patient was provided with supplies. [facility] Inst[facility]* Patient Instructions* Opal Lopez - 02/06/2024 3:04 PM EST Your foot appears stable Would continue with boot Elevate your foot x 2-3 pillows to minimize swelling. Change dressing every 2-3 days. Apply betadine and adaptic to incision followed by lashae and karen Can take 81 mg aspirin twice daily to lower risk of blood clot If you have any shortness of breath or calf pain, present to Emergency Dept Call Dr. Lopez at [phone] with any questions. Opal Lopez DPM documented in this encounterGood [facility]11-[facility]24 History of Present illness Narrative* Brittani Smith RT(R) - 02/06/2024 1:50 PM EST Radiology Service Progress Note PATIENT NAME: Joshua Dunn DATE OF SERVICE: February 06, 2024 TIME: 4:21 PM PATIENT IDENTITY VERIFICATION COMPLETED USING TWO (2) IDENTIFIERS: Name and Date of confirmedby patient verbally. FALL SCREENING: Has the patient had 2 falls in the last year or 1 fall with injury or currently using an Ambulatory Assistive Device (Walker, Cane, Wheelchair, Crutches, etc.)? Yes, Patient High Riskfor Falls What interventions were put in place to prevent falls during this visit? Offered Assistance with Transfers/Clothing and Increased Observations by Caregivers PATIENT GENDER DATA: Female. status: : No status: NO. PATIENT RELEVANT IMPLANT DATA REVIEWED: Not Applicable PATIENT PRESENTS WITH AN IMPLANTABLE OR ATTACHED JACK WINDER: No RADIOLOGY DEPARTMENT: General X-ray: Exam(s) Completed: Lower Extremity X- Ray(s): Foot, Right PERIPHERAL IV DATA: Not applicable SIGNED BY: SAM Hennessy) February 06, 2024 4:21 PM documented in this encounterGood Samaritan Hospital11-21-2024 NoteHNO ID: [id number] Author: BRITTANI SMITH RT(R) Service: ? Author Type: Technologist Type: Progress Notes Filed: 02/06/2024 16:21 Note Text: Radiology Service Progress Note PATIENT NAME: Joshua Dunn DATE OF SERVICE: February 06, 2024 TIME: 4:21 PM PATIENT IDENTITY VERIFICATION COMPLETED USING TWO (2) IDENTIFIERS: Name and Date of confirmed by patient verbally. FALL SCREENING: Has the patient had 2 falls in the last year or 1 fall with injury or currently using an Ambulatory Assistive Device (Walker, Cane, Wheelchair, Crutches, etc.)? Yes, Patient High Risk for Falls What interventions were put in place to prevent falls during this visit? Offered Assistance with Transfers/Clothing and Increased Observations by Caregivers PATIENT GENDER DATA: Female. status: : No status: NO. PATIENT RELEVANT IMPLANT DATA REVIEWED: Not Applicable PATIENT PRESENTS WITH AN IMPLANTABLE OR ATTACHED JACK WINDER: No RADIOLOGY DEPARTMENT: General X-ray: Exam(s) Completed: Lower Extremity X-Ray(s): Foot, Right PERIPHERAL IV DATA: Not applicable SIGNED BY: RT Gerhard(Martha) February 06, 2024 4:21 [facility]11-21-2024 NoteHNO ID: [id number] Author: OPAL LOPEZ, ? Service: ? Author Type: Physician Type: Progress Notes Filed: 02/06/2024 15:14 Note Text: DOS: 02/04/24 POD: 2 POV: 1 Surgical side: right This 43 year old presents post op right foot lapidus bunionectomy (lapiplasty) Pain level: 7/10 Vomiting, fever, chills, shortness of breath: no Pain Control: percocet Weightbearing status: nwb Patient did sustain a fall today. She was coming down the steps and missed the last step. Her weight landed on her toe. PAST MEDICAL HISTORY Diagnosis Date Anxiety 2006 Dr. Jaramillo Chronic constipation 01/23/2023 Chronic pelvic pain in female 2022 [employer] Yaz Skinner MD DDD (degenerative disc disease), lumbar 01/23/2023 Pelvic joint pain, left 01/23/2023 Current Outpatient Medications Medication Sig cephALEXin (KEFLEX) 500 mg capsule Take 1 capsule by mouth three times a day. oxyCODONE-acetaminophen (PERCOCET) 5-325 mg tablet Take 1 tablet by mouth every 6 hours as needed for up to 7 days. citalopram (CELEXA) 40 mg tablet Take 40 mg by mouth once daily. No current facility-administered medications for this visit. ALLERGIES No Known Allergies Objective: Incision site is well coapted with no evidence of dehiscence. No erythema and moderate edema surrounding surgical site. No drainage. No lymphadenopathy. No lymphangitis. No surrounding cellulitis. Patient has no pain to palpation of right calf. Negative Yarbrough's test. Assessment: (W19.XXXA) Fall, initial encounter (primary encounter diagnosis) (M20.11) Hallux valgus of right foot (Z98.890) Post-operative state Plan: Bandage removed and new dressing applied. Incisions all look well. Will have her change dressing every 2 -3days. She will apply betadine and adaptic to incision followed by lashae camilo and karen. Will place her in pneumatic boot. Sutures: will plan for removal at 3 weeks post-op. Weightbearing status: partial weightbearing to heel in boot for transfer only. RTC 2 weeks as this provider will be out of the office next week. This provider has provided patient with my phone number so she can contact me if she has any issues. Continue with 81 mg aspirin bid out of caution for dvt Reviewed xrays as patient had fall. I do not see any fracture or hardware loosening. Opal Lopez [facility]11-21-2024 NoteHNO ID: [id number] Author: ALICIA DIAZ LPN Service: ? Author Type: LICENSED NURSE Type: Progress Notes Filed: 02/06/2024 15:14 Note Text: AMB ROOMING INTAKE FLOWSHEET DATA Pain Pain Level: 7 Pain Location: Foot-Right Description: Throbbing, Stabbing Duration Amount of Time: 3 Duration Units: Days Frequency: Continuous Intervention/Comfort measure: Relaxation, Reposition, Medication Patient presents with: Right Foot - Established Patient, Pain, Post Op, Swelling, Follow Up Patient presents to office 2 days s/p Lapidus bunionectomy with possible armida osteotomy, right foot. Patient states she took a fall this morning down 1 stair landing on her toes. Patient complains of pain 09/24. Patient last took percocet around 4 Am and has been aleve instead of percocet when able. [facility] Telephone encounter Note* Telephone Encounter - Radha Brar RN - 01/30/2024 9:59 AM EST Forms Faxed at this time [facility]-14-[facility]24 Miscellaneous Notes* Telephone Encounter - Radha Brar RN - 01/30/2024 9:59 AM EST Forms Faxed at this time * Telephone Encounter - Alicia Diaz LPN - 01/20/2024 4:34 PM EST Patient has been identified by name and date of : Yes, Provider opal Lopez Date 01/20/2024 Time 4:37 Type of form: FMLA Form received via: Fax When form is completed, fax form to fax number provided. Form has been forwarded to: Provider's desk. Provider name: Dr. John Diaz LPN documented in this encounterGood [facility]aritan [facility]11-04-2024 Telephone encounter Note * Telephone Encounter - Alicia Diaz LPN - 01/20/2024 4:34 PM EST Patient has been identified by name and date of : Yes, Provider opal Lopze Date 01/20/2024 Time 4:37 Type of form: FMLA Form received via: Fax When form is completed, fax form to fax number provided. Form has been forwarded to: Provider's desk. Provider name: Dr. John Diaz LPN [facility] Work Phone: [phone] History and physical note* Maye Ospina APRN.NEONATAL PEDIATRIC NURSE - 01/15/2024 3:29 PM EDT Images from the original note were not included. [facility] HISTORY AND PHYSICAL EXAMINATION SERVICE DATE: 01/15/2024 SERVICE TIME: 3:43 PM PRIMARY CARE PHYSICIAN: Taz López MD Assessment Patient has the following medical conditions which may affect jaya-operative course: Anxiety Assessment: controlled on rx Pelvic joint pain, left Assessment: chronic, otc analgesics as needed Marquez Activity Status Index: METS: Climb a flight of stairs or walk up a hill (5.50 METs) DASI Score: 5.5 Patient denies any chest pain or undue shortness of breath with the above physical activity. Clinical Frailty Scale: 1. Very fit STOP-Bang Score: Denies snoring loudly Denies feeling tired, fatigued, or sleepy during the daytime Has not been observed to stop breathing or choking/gasping during sleep Denies having high blood pressure BMI less than or equal to 35 kg/m^2 Patient 50 years old or younger Does not have a large neck Non-male patient STOP-Bang Score: 0 [id number] Score: Age: <65 Sex: female CHF history: No Hypertension history: No Stroke/TIA/thromboembolism history: No Vascular disease history: No Diabetes history: No [id number] Score: 1 ARISCAT Score: Age: <=50 Preoperative SpO2: >=96% Respiratory infection in the last month: No Preoperative anemia: No Surgical incision: peripheral Duration of surgery: 2-3 hrs Emergency procedure: No ARISCAT Score: 16 ANESTHESIA FINDINGS: Intubation History: No history of difficult intubation Significant Anesthesia Considerations: none Airway History: No history of difficult airway I - PHYSICAL EVALUATION AIRWAY Patient intubated: No. Tracheostomy tube not present Mallampati: II. TM distance: >3 FB. Neck ROM: full ROM without neurological symptoms. Mouth opening: adequate. Short neck: no. Thick neck: no Mohr present: no Lip Bite Test: I Microretrognathia/Micronagthia/Recessed Chin: No DENTAL Dental findings: teeth intact. Additional comments: +crowns/back. II - ANESTHESIA PLAN Anesthetic Plan: other Beta Adenike Monitoring Plan Post Procedure Analgesic Plan Prepared for Surgery: optimally prepared for surgery, pending [see comment]. labs CONSULTS: Patient does not require consults for optimization at this time Planned Anesthetic: other anesthesia choice The Following Tests/Procedures Have Been Initiated: Orders Placed This Encounter >CBC + AUTO DIFF Standing Status: Future Standing Expiration Date: 04/15/2024 >BMP Standing Status: Future Standing Expiration Date: 04/15/2024 REASON FOR VISIT: Joshua Dunn is a 43 year old female who is scheduled for Procedure(s): BUNIONECTOMY W/1ST MTJ AND MCJ ARTHRODESIS,ANY METHOD (Right) BUNIONECTOMY W/PROXIMAL PHALANX OSTEOTOMY,ANY METHOD (Right) at the request of Dr. Opal Lopezfor consultation. My final recommendation will be communicated back to the requesting physician by way of shared medical record or letter. Subjective The patient has the following: COVID-19 Immunization Status Overdue - Covid-19 Vaccine ( season) Overdue since 11/17/2023 05/20/2020 Imm Admin: COVID-19 original vaccine, full dose, monovalent (MODERNA) 04/19/2020 Imm Admin: COVID-19 original vaccine, full dose, monovalent (MODERNA) CHIEF COMPLAINT: Pre-op exam HPI: Joshua Dunn is a 43 year old seen for PAC due to scheduled above surgery because of right foot bunion. 10/14/2023, Dr. Opal Lopez Patient presents to clinic for follow-up bunion deformity of right foot Has had pain with the bunion since she 22 years old. States that she got her foot stuck under a go cart when she was 22 and has had pain ever since. She now has pain when shoes rub against the bunion Is here interested in bunion surgery. REVIEW OF SYSTEMS: General: No weight loss, malaise or fevers. 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 No neurological symptoms or problems. Respiratory: No history of current cough or dyspnea, or pneumonia in the past 6 weeks. No history of respiratory/pulmonary symptoms or problems. Cardiovascular: No history of HTN requiring medication, no history of angina, CHF, MO, cardiac surgery or stents. Denies rest pain, gangrene or revascularization/amputation for PVD. No history of cardiovascular symptoms or problems. GI: No history of GI symptoms or problems. No history of esophageal varices, recent ascites, or ETOH greater than 2 drinks per day. : No history of dysuria, frequency or incontinence, stones or chronic kidney disease. No difficulty urinating, nocturia > 1 time per night or hematuria. PEDIATRIC NURSE: Negative for abnormal vaginal bleeding, abnormal vaginal discharge. Endocrine: No history of diabetes. Has not taken steroids within the past 30 days. No history of endocrinological symptoms or problems. Hematology: No history of bleeding or clotting disorder. Patient is not taking anti-coagulation or platelet medications. No history of hematological symptoms or problems. Oncology: No history of CA metastasis, chemo within 30 days, or radiotherapy within 90 days. No history of oncological symptoms or problems. Psych: Positive for: anxiety (on rx). Musculoskeletal: See HPI. Positive for: joint pain (left pelvic). Skin: Negative for lesions, rash and itching. PAST MEDICAL HISTORY Diagnosis Date Anxiety 2006 Dr. Jaramillo Chronic constipation 01/23/2023 Chronic pelvic pain in female 2022 [employer] Yaz Skinner MD DDD (degenerative disc disease), lumbar 01/23/2023 Pelvic joint pain, left 01/23/2023 PAST SURGICAL HISTORY Procedure Laterality Date COLONOSCOPY SCREENING 11/2022 [facility] LAPAROSCOPIC APPENDECTOMY 03/18/2010 [facility] LAPAROSCOPIC SUPRACERVICAL HYSTERECTOMY 08/2022 Dr. Maryann Skinner, [facility] FAMILY HISTORY Problem Relation Age of Onset Diabetes Mother Heart Father mild valvular HD Heart Sister mild valvular HD No Known Problems Brother Heart Maternal Grandmother Hypertension Maternal Grandmother Diabetes Maternal Grandfather Prostate Cancer Maternal Grandfather Breast Cancer Paternal Grandmother Diabetes Paternal Grandfather Malig Hyperthermia No Family History Social History Tobacco Use Smoking status: Never Smokeless tobacco: Never Vaping Use Vaping status: Never Used Substance Use Topics Alcohol use: Yes Comment: 1 drink every few months. Drug use: No Prior to Admission medications as of 01/15/24 1533 Medication Sig Last Dose Taking citalopram (CELEXA) 40 mg tablet Take 40 mg by mouth once daily. Taking Yes No medication comments found. ALLERGIES No Known Allergies Objective PHYSICAL EXAM: General: alert and oriented (x3) and healthy appearance. Pertinent negatives noted - not distressed. Skin: normal color, no rash or lesions. HEENT: EOM intact and pupils equal round. Pertinent negatives noted - no carotid bruit. Cardiovascular: regular rate and rhythm, normal S1 and S2, no rub, murmurs, or gallop. Respiratory: normal breath sounds, no wheezes or crackles. No chest wall deformity or tenderness. Abdomen: soft. Pertinent negatives noted - not tender. Extremities: no deformity, no edema or tenderness, no joint swelling or clubbing. Neurological: normal cognition and motor skills. Gait normal. No weakness or sensory deficit. PAIN ASSESSMENT: Pain Pain Level: 5 Pain Location: Foot-Right Description: Pressure, Shooting Duration Amount of Time: 1 Duration Units: Years Frequency: Intermittent VITALS: BP 112/70 Pulse 72 Temp (Src) 97.7 (Temporal) Resp 14 Ht 5' 10 (1.78m) Wt 158 lb (71.7kg) SpO2 100% LMP 11/22/2015 BMI 22.67 kg/(m^2). Diagnostic tests reviewed for today's visit: Lab Value Units Date High Low HB No results within date range. HCT No results within date range. WBC No results within date range. PLT No results within date range. NA No results within date range. K No results within date range. GLUC No results within date range. BUN No results within date range. CREAT No results within date range. PTSEC No results within date range. INR No results within date range. APTT No results within date range. ALT No results within date range. AST No results within date range. TBILI No results within date range. TSH No results within date range. Lab Value Units Date High Low HCGQT No results within date range. UHCG No results within date range. HCG, BODY* No results within date range. Lab Value Units Date High Low ABORHD No results within date range. ABSCREEN No results within date range. No results found for: HBA1C No results found for this or any previous visit (from the past 8760 hour(s)). No results found for this or any previous visit (from the past 94926 hour(s)). Instructions Given to Patient: Instructions located in the after visit summary. Patient given verbal and written preop instructions and voices comprehension and compliance. SIGNATURE: Maye Ospina APRN.CNP PATIENT NAME: Joshua Dunn DATE: January 15, 2024 TIME: 3:29 PM PAGER/CONTACT #: [facility]10[facility] History and physical note* Maye Ospina APRN.CNP - 01/15/2024 3:29 PM EDT Images from the original note were not included. [facility] HISTORY AND PHYSICAL EXAMINATION SERVICE DATE: 01/15/2024 SERVICE TIME: 3:43 PM PRIMARY CARE PHYSICIAN: Taz López MD Assessment Patient has the following medical conditions which may affect jaya-operative course: Anxiety Assessment: controlled on rx Pelvic joint pain, left Assessment: chronic, otc analgesics as needed Marquez Activity Status Index: METS: Climb a flight of stairs or walk up a hill (5.50 METs) DASI Score: 5.5 Patient denies any chest pain or undue shortness of breath with the above physical activity. Clinical Frailty Scale: 1. Very fit STOP-Bang Score: Denies snoring loudly Denies feeling tired, fatigued, or sleepy during the daytime Has not been observed to stop breathing or choking/gasping during sleep Denies having high blood pressure BMI less than or equal to 35 kg/m^2 Patient 50 years old or younger Does not have a large neck Non-male patient STOP-Bang Score: 0 [id number] Score: Age: <65 Sex: female CHF history: No Hypertension history: No Stroke/TIA/thromboembolism history: No Vascular disease history: No Diabetes history: No [id number] Score: 1 ARISCAT Score: Age: <=50 Preoperative SpO2: >=96% Respiratory infection in the last month: No Preoperative anemia: No Surgical incision: peripheral Duration of surgery: 2-3 hrs Emergency procedure: No ARISCAT Score: 16 ANESTHESIA FINDINGS: Intubation History: No history of difficult intubation Significant Anesthesia Considerations: none Airway History: No history of difficult airway I - PHYSICAL EVALUATION AIRWAY Patient intubated: No. Tracheostomy tube not present Mallampati: II. TM distance: >3 FB. Neck ROM: full ROM without neurological symptoms. Mouth opening: adequate. Short neck: no. Thick neck: no Mohr present: no Lip Bite Test: I Microretrognathia/Micronagthia/Recessed Chin: No DENTAL Dental findings: teeth intact. Additional comments: +crowns/back. II - ANESTHESIA PLAN Anesthetic Plan: other Beta Adenike Monitoring Plan Post Procedure Analgesic Plan Prepared for Surgery: optimally prepared for surgery, pending [see comment]. labs CONSULTS: Patient does not require consults for optimization at this time Planned Anesthetic: other anesthesia choice The Following Tests/Procedures Have Been Initiated: Orders Placed This Encounter >CBC + AUTO DIFF Standing Status: Future Standing Expiration Date: 04/15/2024 >BMP Standing Status: Future Standing Expiration Date: 04/15/2024 REASON FOR VISIT: Joshua Dunn is a 43 year old female who is scheduled for Procedure(s): BUNIONECTOMY W/1ST MTJ AND MCJ ARTHRODESIS,ANY METHOD (Right) BUNIONECTOMY W/PROXIMAL PHALANX OSTEOTOMY,ANY METHOD (Right) at the request of Dr. Opal Lopezfor consultation. My final recommendation will be communicated back to the requesting physician by way of shared medical record or letter. Subjective The patient has the following: COVID-19 Immunization Status Overdue - Covid-19 Vaccine () Overdue since 11/17/2023 05/20/2020 Imm Admin: COVID-19 original vaccine, full dose, monovalent (MODERNA) 04/19/2020 Imm Admin: COVID-19 original vaccine, full dose, monovalent (MODERNA) CHIEF COMPLAINT: Pre-op exam HPI: Joshua Dunn is a 43 year old seen for PAC due to scheduled above surgery because of right foot bunion. 10/14/2023, Dr. Opal Lopez Patient presents to clinic for follow-up bunion deformity of right foot Has had pain with the bunion since she 22 years old. States that she got her foot stuck under a go cart when she was 22 and has had pain ever since. She now has pain when shoes rub against the bunion Is here interested in bunion surgery. REVIEW OF SYSTEMS: General: No weight loss, malaise or fevers. 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 No neurological symptoms or problems. Respiratory: No history of current cough or dyspnea, or pneumonia in the past 6 weeks. No history of respiratory/pulmonary symptoms or problems. Cardiovascular: No history of HTN requiring medication, no history of angina, CHF, MO, cardiac surgery or stents. Denies rest pain, gangrene or revascularization/amputation for PVD. No history of cardiovascular symptoms or problems. GI: No history of GI symptoms or problems. No history of esophageal varices, recent ascites, or ETOH greater than 2 drinks per day. : No history of dysuria, frequency or incontinence, stones or chronic kidney disease. No difficulty urinating, nocturia > 1 time per night or hematuria. PEDIATRIC NURSE: Negative for abnormal vaginal bleeding, abnormal vaginal discharge. Endocrine: No history of diabetes. Has not taken steroids within the past 30 days. No history of endocrinological symptoms or problems. Hematology: No history of bleeding or clotting disorder. Patient is not taking anti-coagulation or platelet medications. No history of hematological symptoms or problems. Oncology: No history of CA metastasis, chemo within 30 days, or radiotherapy within 90 days. No history of oncological symptoms or problems. Psych: Positive for: anxiety (on rx). Musculoskeletal: See HPI. Positive for: joint pain (left pelvic). Skin: Negative for lesions, rash and itching. PAST MEDICAL HISTORY Diagnosis Date Anxiety 2006 Dr. Jaramillo Chronic constipation 01/23/2023 Chronic pelvic pain in female 2022 [employer] Yaz Skinner MD DDD (degenerative disc disease), lumbar 01/23/2023 Pelvic joint pain, left 01/23/2023 PAST SURGICAL HISTORY Procedure Laterality Date COLONOSCOPY SCREENING 11/2022 [facility] LAPAROSCOPIC APPENDECTOMY 03/18/2010 [facility] LAPAROSCOPIC SUPRACERVICAL HYSTERECTOMY 08/2022 Dr. Maryann Skinner, [facility] FAMILY HISTORY Problem Relation Age of Onset Diabetes Mother Heart Father mild valvular HD Heart Sister mild valvular HD No Known Problems Brother Heart Maternal Grandmother Hypertension Maternal Grandmother Diabetes Maternal Grandfather Prostate Cancer Maternal Grandfather Breast Cancer Paternal Grandmother Diabetes Paternal Grandfather Malig Hyperthermia No Family History Social History Tobacco Use Smoking status: Never Smokeless tobacco: Never Vaping Use Vaping status: Never Used Substance Use Topics Alcohol use: Yes Comment: 1 drink every few months. Drug use: No Prior to Admission medications as of 01/15/24 1533 Medication Sig Last Dose Taking citalopram (CELEXA) 40 mg tablet Take 40 mg by mouth once daily. Taking Yes No medication comments found. ALLERGIES No Known Allergies Objective PHYSICAL EXAM: General: alert and oriented (x3) and healthy appearance. Pertinent negatives noted - not distressed. Skin: normal color, no rash or lesions. HEENT: EOM intact and pupils equal round. Pertinent negatives noted - no carotid bruit. Cardiovascular: regular rate and rhythm, normal S1 and S2, no rub, murmurs, or gallop. Respiratory: normal breath sounds, no wheezes or crackles. No chest wall deformity or tenderness. Abdomen: soft. Pertinent negatives noted - not tender. Extremities: no deformity, no edema or tenderness, no joint swelling or clubbing. Neurological: normal cognition and motor skills. Gait normal. No weakness or sensory deficit. PAIN ASSESSMENT: Pain Pain Level: 5 Pain Location: Foot-Right Description: Pressure, Shooting Duration Amount of Time: 1 Duration Units: Years Frequency: Intermittent VITALS: BP 112/70 Pulse 72 Temp (Src) 97.7 (Temporal) Resp 14 Ht 5' 10 (1.78m) Wt 158 lb (71.7kg) SpO2 100% LMP 11/22/2015 BMI 22.67 kg/(m^2). Diagnostic tests reviewed for today's visit: Lab Value Units Date High Low HB No results within date range. HCT No results within date range. WBC No results within date range. PLT No results within date range. NA No results within date range. K No results within date range. GLUC No results within date range. BUN No results within date range. CREAT No results within date range. PTSEC No results within date range. INR No results within date range. APTT No results within date range. ALT No results within date range. AST No results within date range. TBILI No results within date range. TSH No results within date range. Lab Value Units Date High Low HCGQT No results within date range. UHCG No results within date range. HCG, BODY* No results within date range. Lab Value Units Date High Low ABORHD No results within date range. ABSCREEN No results within date range. No results found for: HBA1C No results found for this or any previous visit (from the past 8760 hour(s)). No results found for this or any previous visit (from the past 32249 hour(s)). Instructions Given to Patient: Instructions located in the after visit summary. Patient given verbal and written preop instructions and voices comprehension and compliance. SIGNATURE: Maye Ospina APRN.CNP PATIENT NAME: Joshua Dunn DATE: January 15, 2024 TIME: 3:29 PM PAGER/CONTACT #: documented in this encounterGood Samaritan Hospital10-30-2024 Instructions* Patient Instructions* Maye Ospina APRN.CNP - 01/15/2024 3:28 PM EDT PATIENT PREOPERATIVE INSTRUCTIONS Opal Lopez DPM has scheduled you for your procedure at this surgery center: [facility]: [phone] --[address], [place] [address]. [facility]: [phone] -- [address] [place] [id number]. Please read below carefully for your personalized instructions. Dietary Restrictions: - No solid food after midnight. - You may have 12 ounces of clear liquids (water, clear juices such as apple juice or gatorade, carbonated beverages, clear tea, black coffee, jello) until 2 hours before scheduled arrival at facility. No red/purple coloring and no creamer/sugar Medications: Unless instructed differently below, stay on all of your medications until your surgery. Approved medications to take the morning of surgery with a sip of water: citalopram (CELEXA) If you start any new medications after today's visit, please contact the surgeon's office. Blood Thinning Medications: - Stop NSAIDS (Ibuprofen, Advil, Aleve, Motrin, Celebrex, Mobic, etc.) 7 days before surgery, as directed by your surgeon. - Stop Aspirin 7 days before surgery, as directed by your surgeon. - Stop Vitamin E, ALL multi-vitamins, herbals and dietary supplements 7 days before surgery. - You may take Tylenol (Acetaminophen) or any of your pain medications that do not contain aspirin or NSAIDS as needed. Important Reminders: - Candy, mints, and tobacco products are NOT permitted the morning of surgery. - Hearing aids, dentures and glasses may be worn the morning of surgery. - NO jewelry, body piercings, makeup, hairpins or contacts are to be worn the day of surgery. If you develop symptoms such as a fever, cold, or flu, or have other changes to your health within TWO DAYS of scheduled surgery or the morning of surgery, please contact the surgery center above. Personal Belongings: -Please have photo ID and insurance cards. -If you do not have a copy of advance directives on file with us, please bring a copy with you on the day of surgery. - Leave ALL valuables and money at home or with family members. For Outpatient Procedures: - YOU MUST HAVE A RESPONSIBLE CHANNELING MACHINE OPERATOR TAKE YOU HOME. A SPINDLE SETTER OR PAN DUMPER CANNOT BE MADE A RESPONSIBLE CHANNELING MACHINE OPERATOR. - We recommend that a responsible person stays with you overnight to take care of you. - You cannot stay in a hotel alone after outpatient surgery. You will not be permitted to have yoursurgery, if you do not have someone to take care of you. Arrival Time for Surgery: - The Surgery Center or hospital where you are having surgery will call the afternoon before surgery (or Saturday for Saturday surgery) with a scheduled arrival time. - If you have not heard by 4 pm, please contact the surgery center above. Please be aware that emergency situations arise, which may delay or change your surgical time. If this happens, we will notify you as soon as possible and regret any inconvenience. If you already have an Advance Directive, please fax a copy to [phone] or email to for it to be added to your chart. If you do not have an Advance Directive, you can find the appropriate form and more information at [email or web address]. We recommend that youcomplete the Advance Directive form found on the website and bring it with you the day of your surgery. It can be witnessed and scanned into your chart that day. Maye Ospina APRN.SHANTHI documented in this encounterGood Samaritan Hospital10-30-2024 Telephone encounter Note * Telephone Encounter - Opal Lopez - 01/15/2024 2:45 PM EDT Joshua Dunn is a patient that I would like to add to [facility]. I spoke with Amber who agreed to assist. February 03 we would add after his 3 cases. Would need his nurse or Salcedo to let hospital know that we are adding our patient. Katherin, would you be able to keep salcedo's block time but we add our lapidus to that slot. Alicia: I contacted our rep who is aware. I will also reach out to arth reps in case I need the staple. Thanks [facility] Work Phone: [phone]) 715-167110-30-2024 Miscellaneous Notes* Telephone Encounter - Opal Lopez - 01/15/2024 2:45 PM EDT Joshua Dunn is a patient that I would like to add to [facility]. I spoke with Amber who agreed to assist. February 03 we would add after his 3 cases. Would need his nurse or Salcedo to let hospital know that we are adding our patient. Katherin, would you be able to keep salcedo's block time but we add our lapidus to that slot. Alicia: I contacted our rep who is aware. I will also reach out to arthex reps in case I need the staple. Thanks * Telephone Encounter - Opal Lopez - 01/15/2024 1:49 PM EDT Patient name: Joshua Dunn* Type of surgery:Lapidus bunionectomy. Possible armida right* Diagnosis: hallux valgus right* Length of surgery:180* min Seasonal Package Handler needed: none* Anesthesia: general Special equipment: c arm. Vendor Equipment lapiplasty (treace). Arthrex dynamite stape (armida)* Special instructions: This case was scheduled for [facility] on the . Will now do at [facility] on the . to assist. documented in this encounterGood Samaritan Hospital10-30-2024 Telephone encounter Note * Telephone Encounter - Opal Lopez - 01/15/2024 1:49 PM EDT Patient name: Joshua Dunn* Type of surgery:Lapidus bunionectomy. Possible armida right* Diagnosis: hallux valgus right* Length of surgery:180* min Seasonal Package Handler needed: none* Anesthesia: general Special equipment: c arm. Vendor Equipment lapiplasty (treace). Arthrex dynamite stape (armida)* Special instructions: This case was scheduled for ovett on the . Will now do at [facility] on the . to assist. [facility]09-18-2024 NotePatient Outreach (INTMMN) JOSHUA DUNN ([id number]) 1980 F Date Time Provider Department 12/04/23 TAZ LÓPEZ During your visit today, we recorded the following information about you: Allergies As of Date: 12/04/2023 (No Known Allergies) Date Reviewed: 10/14/2023 Reviewed by: Alicia Diaz LPN - Fully Assessed Visit Diagnosis:Encounter for screening mammogram for breast cancer [Z12.31] Order(s):[facility] SCREENING W MILES [7035486] Order #: [id number] FUTURE Prescriptions as of 12/09/2023 - citalopram (CELEXA) 40 mg tablet Take 40 mg by mouth once daily. Problem List As Of Date 12/04/2023 Noted Resolved Dizziness [R42] 01/05/2013 06/07/2023 Fatigue [R53.83] 01/16/2013 06/07/2023 Anxiety [F41.9] 04/23/2014 Pelvic joint pain, left [M25.552] 01/23/2023 DDD (degenerative disc disease), lumbar [M51.36]01/23/2023 Chronic constipation [K59.09] 01/23/2023 Hallux valgus of right foot [M20.11] 11/06/2023 Encounter Status:Closed by MERCEDES STONE on 12/09/23[facility]-07[facility]23 Telephone encounter Note* Telephone Encounter - Alicia Daiz LPN - 11/07/2023 4:59 PM EDT Patient elected to schedule surgery for Lapidus bunionectomy with possible armida osteotomy, right foot on 02/03/[address] [facility]. Patient was provided with surgical packet including electronic and paper copy of surgical confirmation letter, hibiclens and instruction on how to use product as well asinstruction on where to go at [facility]. All post op were scheduled with in office as well. Patient verbalized understanding of all instructions. Surgery scheduled in [facility]. Alicia Diaz LPN [facility]08-22-2024 Miscellaneous Notes* Telephone Encounter - Alicia Diaz LPN - 11/07/2023 4:59 PM EDT Patient elected to schedule surgery for Lapidus bunionectomy with possible armida osteotomy, right foot on 02/03/[address] [facility]. Patient was provided with surgical packet including electronic and paper copy of surgical confirmation letter, hibiclens and instruction on how to use product as well asinstruction on where to go at [facility]. All post op were scheduled with in office as well. Patient verbalized understanding of all instructions. Surgery scheduled in epic. Alicia Diaz LPN * Telephone Encounter - Alicia Diaz LPN - 11/07/2023 8:50 AM EDT Called patient to schedule surgery for February 03 2024 at [facility]. No response. Left VM. Alicia Diaz LPN * Telephone Encounter - Alicia Diaz LPN - 10/24/2023 2:41 PM EDT Informed patient that we are looking at dates in January office will be in touch when more information is available. Alicia Diaz LPN * Telephone Encounter - Opal Lopez - 10/24/2023 2:10 PM EDT Please call patient to make sure that she was looking into January time for surgery * Telephone Encounter - Fartun Mckay MA - 10/24/2023 1:36 PM EDT Patient calling and asking if her surgery has been scheduled yet? * Telephone Encounter - Kate Corona LPN - 10/22/2023 11:47 AM EDT Patient was seen in office 10/13 and is wondering if a surgery date has been determined? Please advise. Kate Corona LPN documented in this encounterGood Samaritan Hospital08-22-2024 Telephone encounter Note * Telephone Encounter - Alicia Diaz LPN - 11/07/2023 8:50 AM EDT Called patient to schedule surgery for February 03 2024 at [facility]. No response. Left VM. Alicia Diaz LPN [facility]08-21-2024 History of Present illness Narrative* Jcoelin Hackett, PT - 11/06/2023 4:08 PM EDT Program_ID:[id number] Access Code: [email or web address] URL: [email or web address] Date: 11-06-2023 Prepared By: Jocelin Hackett Program Notes Patient Education - Walking with Crutches: Non Weight-Bearing - cc Gait Training Crutches Non Weight Bearing NWB * Jocelin Hackett PT - 11/06/2023 3:51 PM EDT Episode Visit Count: 1 Therapist That Will Accept/Oversee The Plan Of Care: Jocelin Hackett Start of Care Date: 11/06/23 Onset Date: 11/05/02 Plan of Care Certification Date: 11/06/23 Next Certification Due Date: 12/18/23 REHABILITATION AND SPORTS THERAPY PHYSICAL THERAPY EVALUATION PLAN OF CARE: Assessment: Joshua Dunn presents with diagnosis of hallux valgus of right foot that interferes with (correct and safe use of crutches) . She presents with impairments in ADL's, balance, gait, independence in exercise, joint mobility, overall function, patient reported outcome measures, symptom management, and tissue tenderness. PROMIS (Patient-Reported Outcomes Measurement Information System) scores were reviewed and identified as within normal limits. Prognosis for therapy is Good due to: current objective clinical presentation, good overall health status, acuteness of condition, within-session changes, good support system/ coping skills . She will benefit from skilled therapy services to meet the goals established for this plan of care as noted below. Anticipated post-operative precautions: NWB Anticipated ability to follow post-op precautions: Without caregiver assistance in their current home environment Goals for Episode of Care: created on 11/06/23 through 11/06/23 Patient will demonstrate independent and proper use of assisstive device to allow for improved walking quality and safety therefore reducing the risk of falls. Patient Goals: indep with B crutches while NWB RLE Planned Interventions, Frequency, and Duration: Current Frequency: 1 visit Duration: 1 visit Total Number of Visits Planned: 1 Planned Treatment Interventions: Therapeutic exercise (22217), Neuromuscular re- education (34337), Manual therapy (15833), Therapeutic activities (01986), Self- detention management (47669), Gait Training (85961) PLAN FOR NEXT VISIT: pt. indep with B crutches while NWB RLE - DC PT Patient demonstrates good understanding of plan of care and treatment. The above goals and plan of care were discussed and agreed upon by patient/family. SUBJECTIVE: for R 1st MT pain that pt. has had since 22 yo. She has the most pain when wearing shoes due to pressure on R foot bunion. Pt. has tried wearing [place] tennis shoes but this does not reduce pain. Pt. has no pain with wearing sandals. 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 Pt. plans to have karen alvarenga in January 2024. She presents today for crutch trainig. Has not yet aquired B crutches. Has never used crutches in the past. 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 Cancer Clinical Reasoning: No identified risk factors. Infection Clinical Reasoning: No identified risk factors. Cauda Equina Syndrome Clinical Reasoning: No identified risk factors. Red Flags - Cervical Cancer Clinical Reasoning: No identified risk factors. Infection Clinical Reasoning: No identified risk factors. Spine History Symptoms Location at Onset: Foot Symptoms Since Onset: Worsening Pain is Worse Always: (wearing closed toe shoes) Pain is Better Always: (wearing sandals) Pain: Pain Pain Level: 0 Pain Location: Foot - Right Description: Aching Frequency: (only when wearing shoes which compress against the 1st MT joint) Post Treatment Pain Post Treatment Pain Level: No Change Post Treatment Pain Location: Foot - Right PROMIS Scales 11/06/2023 03/14/2023 Higher is Better Phys Func - Score 53 (within normal limits) 51 (within normal limits) Phys Func - Percentile 62 54 Self-Eff Symptom - Score 56 (Average) 50 (Average) Self-Eff Symptom - Percentile 73 50 T-scores: mean of general population = 50. 5 points is clinically meaningfully difference Percentiles provide an indication of how the patient's score ranks in relation to the general population. Higher percentile rankings indicate better function/quality of life. 50th percentile is the average of the general population and indicates half of respondents had a worse score. OBJECTIVE MEASURES WITH LEVEL OF FUNCTION: Sensation - Lumbar Sensation: Grossly Intact Gait Weight Bearing Status: NWB (after surgery to be scheduled) Gait: Supervision Gait Distance (feet): 160 Gait Device: None Gait Deviations: General Deviations General Deviations/Observations: (cues and demo required for step to and step through gait pattern PWB progressing to swing to and swing through NWB RLE) Gait Observation: indep with NWB swing throught gait pattern by end of visit Education: Education Learning Preferences: Demonstration, Explanation, Performance, Printed Materials Barriers: None Learning/educational needs: Crutch Training Education Provided: Yes, see treatment interventions for education provided Education Provided To: Patient Education Mode/Type: Performance, Demonstration, Explanation/Discussion, Literature/Printed Materials Response to Education/Teach Back: States/Identifies, Return Demonstration TREATMENT: PT Treatment Interventions: Self-Skilled Nursing Management, Gait Training Evaluation Gait Training: Distance (feet): 80' 2x step through and 80' swing through Gait Cues: demo and cues to adv crutch at the same time as RLE while PWB and at the same time as LLE while NWB Assistive Device: B crutches Assist Level: SBA progressing to supervision Weight Bearing Status: PWB and progressed to NWB RLE Skilled Intervention: Patient was provided supervision, independence during pre- gait/gait training to prevent falls and insure safety. Facilitated proper gait cycle with the use of verbal, visual, and tactile cues for correction of gait deviations identified in the objective section above. Skilled judgment used to assess selection, proper sizing, and proper use of assistive device. Education provided to patient regarding the proper sequence for curb negotiation. Reviewed and educated patient on additions/changes for home program as noted above with an (*). Correct performance of home program was facilitated with verbal, visual, and tactile cueing. Self-Skilled Nursing Management: 1: correct adjustment of crutches 2: avoiding compressiong of brachial plexus 3: *hand outs provided Access Code: [email or web address] URL: [email or web address] Date: 11/06/2023 Prepared by: Jocelin Chandler Patient Education - Walking with Crutches: Non Weight-Bearing - cc Gait Training Crutches Non Weight Bearing NWB 4: provided set of crutches size 5'10 Skilled Intervention: Skilled judgment in the selection of proper modification for activity of daily living/home management based on clinical presentation, deficits, and needs. Provided written instruction for activities of daily living techniques to facilitate proper performance and compliance. Reviewed patient specific diagnosis in relation to activities of daily living/home management. Activity progression based on professional judgement. Minimum verbal cues for maintaining neutral spine alignment. Reviewed and educated patient on additions/changes for home program as noted above with an (*). Provided written instruction for home program to facilitate proper performance and compliance. Correct performance of home program was facilitated with verbal, visual, and tactile cueing. Billing * Evaluation Low Complexity: 1 Unit Self-Care/Home Management Treatment Minutes: 5 Gait Training Treatment Minutes: 10 Skilled Treatment Time Minutes (timed and untimed codes): 30 Total Session Time (minutes): 30 Session Start Time : 1545 Session Stop Time : 1615 Jocelin Hackett PT documented in this encounterGood Samaritan Hospital08-21-2024 NoteHNO ID: [id number] Author: JOCELIN HACKETT PT Service: ? Author Type: Physical Therapist Type: Progress Notes Filed: 11/06/2023 17:09 Note Text: Episode Visit Count: 1 Therapist That Will Accept/Oversee The Plan Of Care: Jocelin Hackett Start of Care Date: 11/06/23 Onset Date: 11/05/02 Plan of Care Certification Date: 11/06/23 Next Certification Due Date: 12/18/23 REHABILITATION AND SPORTS THERAPY PHYSICAL THERAPY EVALUATION PLAN OF CARE: Assessment: Joshua Dunn presents with diagnosis of hallux valgus of right foot that interferes with (correct and safe use of crutches) . She presents with impairments in ADL's, balance, gait, independence in exercise, joint mobility, overall function, patient reported outcome measures, symptom management, and tissue tenderness. PROMIS? (Patient-Reported Outcomes Measurement Information System) scores were reviewed and identified as within normal limits. Prognosis for therapy is Good due to: current objective clinical presentation, good overall health status, acuteness of condition, within-session changes, good support system/ coping skills . She will benefit from skilled therapy services to meet the goals established for this plan of care as noted below. Anticipated post-operative precautions: NWB Anticipated ability to follow post-op precautions: Without caregiver assistance in their current home environment Goals for Episode of Care: created on 11/06/23 through 11/06/23 Patient will demonstrate independent and proper use of assisstive device to allow for improved walking quality and safety therefore reducing the risk of falls. Patient Goals: indep with B crutches while NWB RLE Planned Interventions, Frequency, and Duration: Current Frequency: 1 visit Duration: 1 visit Total Number of Visits Planned: 1 Planned Treatment Interventions: Therapeutic exercise (47497), Neuromuscular re-education (88673), Manual therapy (95921), Therapeutic activities (02817), Self-detention management (68578), Gait Training (83151) PLAN FOR NEXT VISIT: pt. indep with B crutches while NWB RLE - DC PT Patient demonstrates good understanding of plan of care and treatment. The above goals and plan of care were discussed and agreed upon by patient/family. SUBJECTIVE: for R 1st MT pain that pt. has had since 22 yo. She has the most pain when wearing shoes due to pressure on R foot bunion. Pt. has tried wearing Hoka tennis shoes but this does not reduce pain. Pt. has no pain with wearing sandals. 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 Pt. plans to have surgery in January 2024. She presents today for crutch trainig. Has not yet aquired B crutches. Has never used crutches in the past. 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 Cancer Clinical Reasoning: No identified risk factors. Infection Clinical Reasoning: No identified risk factors. Cauda Equina Syndrome Clinical Reasoning: No identified risk factors. Red Flags - Cervical Cancer Clinical Reasoning: No identified risk factors. Infection Clinical Reasoning: No identified risk factors. Spine History Symptoms Location at Onset: Foot Symptoms Since Onset: Worsening Pain is Worse Always: (wearing closed toe shoes) Pain is Better Always: (wearing sandals) Pain: Pain Pain Level: 0 Pain Location: Foot - Right Description: Aching Frequency: (only when wearing shoes which compress against the 1st MT joint) Post Treatment Pain Post Treatment Pain Level: No Change Post Treatment Pain Location: Foot - Right PROMIS Scales 11/06/2023 03/14/2023 Higher is Better Phys Func - Score 53 (within normal limits) 51 (within normal limits) Phys Func - Percentile 62 54 Self-Eff Symptom - Score 56 (Average) 50 (Average) Self-Eff Symptom - Percentile 73 50 T-scores: mean of general population = 50. 5 points is clinically meaningfully difference Percentiles provide an indication of how the patient's score ranks in relation to the general population. Higher percentile rankings indicate better function/quality of life. 50th percentile is the average of the general population and indicates half of respondents had a worse score. OBJECTIVE MEASURES WITH LEVEL OF FUNCTION: Sensation - Lumbar Sensation: Grossly Intact Gait Weight Bearing Status: NWB (after surgery to be scheduled) Gait: Supervision Gait Distance (feet): 160 Gait De (more content not included)...[facility]08-08-2024 Telephone encounter Note* Telephone Encounter - Alicia Diaz LPN - 10/24/2023 2:41 PM EDT Informed patient that we are looking at dates in January office will be in touch when more information is available. Alicia Diaz LPN [facility]08-08-2024 Telephone encounter Note* Telephone Encounter - Opal Lopez - 10/24/2023 2:10 PM EDT Please call patient to make sure that she was looking into January time for surgery [facility] Work Phone: [phone]) 849-294808-08-2024 Telephone encounter Note* Telephone Encounter - Fartun Mckay MA - 10/24/2023 1:36 PM EDT Patient calling and asking if her surgery has been scheduled yet? [facility]08-06-2024 Telephone encounter Note* Telephone Encounter - Kate Corona LPN - 10/22/2023 11:47 AM EDT Patient was seen in office 10/13 and is wondering if a surgery date has been determined? Please advise. Kate Corona LPN [facility]07-29-2024 History of Present illness Narrative* Opal Lopez - 10/14/2023 8:09 AM EDT Images from the original note were not included. FOLLOW UP PODIATRIC OFFICE VISIT Chief Complaint: This 43 year old who presents for follow up:painful bunion of right foot Patient presents to clinic for follow-up bunion deformity of right foot Has had pain with the bunion since she 22 years old. States that she got her foot stuck under a go cart when she was 22 and has had pain ever since. She now has pain when shoes rub against the bunion Is here interested in bunion surgery. PAIN EVALUATION 10/07/2023 1611 Pain Level: 6 Pain Location: Foot-Right Description: Aching;Radiating Duration Units: Months Frequency: Intermittent Intervention/Comfort measure: Reposition;Positioning No results found for: HBA1C PCP: Taz López MD PAST MEDICAL HISTORY Diagnosis Date Anxiety 2006 Dr. Jaramillo Chronic constipation 01/23/2023 Chronic pelvic pain in female 2022 [employer] Yaz Skinner MD DDD (degenerative disc disease), lumbar 01/23/2023 Pelvic joint pain, left 01/23/2023 Current Outpatient Medications Medication Sig citalopram (CELEXA) 40 mg tablet Take 40 mg by mouth once daily. No current facility-administered medications for this visit. ALLERGIES No Known Allergies PAST SURGICAL HISTORY Procedure Laterality Date COLONOSCOPY SCREENING 11/2022 [facility] LAPAROSCOPIC APPENDECTOMY 03/18/2010 [facility] LAPAROSCOPIC SUPRACERVICAL HYSTERECTOMY 08/2022 Dr. Maryann Skinner, [facility] Physical Exam: OBJECTIVE: Constitutional: Pt is a well developed 43 year old female who is alert, oriented, cooperative and in no apparent distress. Eyes: Following during examination. No redness or drainage. Respiratory: RR normal and nonlabored. Even breathing. No evidence of distress. Psychology: Patient is engaged during conversation. Normal affect and mood. Does not appear depressed or anxious. NVSI unchanged from previous visit. Dermatological: Nails 1-5 b/l are normal. Webspaces clean and dry 1-4 b/l. Skin appears well hydrated and supple. good color, texture, turgor. No open lesions present. No callosities present. Musculoskeletal/Orthopaedic: Patient has pain to palpation of medial eminence of right 1st metatarsal Hypermobility is noted to right 1st metatarsal cun joint Subtle hammertoe is noted to right 5th toe Xrays reviewed. IM 1-2 ~15 degrees ASSESSMENT: (M20.11) Hallux valgus of right foot (primary encounter diagnosis) PLAN: Discussed bunion of right foot. Patient has hypermobile bunion causing her pain. She has tried wider shoes and inserts. She is interested in surgery Discussed surgical options for bunion deformity. Given the increased IM 1-2 combined with hypermobility, would make plans to pursue lapidus bunionectomy Discussed r/b/a to lapidus bunionectomy. Discussed post-op period of nwb followed by partial weightbearing to heel Patient consents to proceed with lapidus bunionectomy Will make arrangements to have patient seen by therapy for crutch training Discussed subtle hammertoe of right 5th toe. No pain. Will monitor. Opal Lopez DPM * Alicia Diaz LPN - 10/14/2023 8:06 AM EDT AMB ROOMING INTAKE FLOWSHEET DATA Pain Pain Level: 6 Pain Location: Foot-Right Description: Aching, Radiating Duration Units: Months Frequency: Intermittent Intervention/Comfort measure: Reposition, Positioning Patient presents with: Right Foot - Bunion, Follow Up, Established Patient, Pain Alicia Diaz LPN documented in this encounterGood [facility]06[facility] History of Present illness Narrative* Josey Yarbrough, RT(R) - 09/05/2023 4:40 PM EDT Radiology Service Progress Note PATIENT NAME: Joshua Dunn DATE OF SERVICE: September 05, 2023 TIME: 4:36 PM PATIENT IDENTITY VERIFICATION COMPLETED USING TWO (2) IDENTIFIERS: Name and Date of confirmedby patient verbally. FALL SCREENING: Has the patient had 2 falls in the last year or 1 fall with injury or currently using an Ambulatory Assistive Device (Walker, Cane, Wheelchair, Crutches, etc.)? No PATIENT GENDER DATA: Female. status: : No status: NO. PATIENT RELEVANT IMPLANT DATA REVIEWED: Yes PATIENT PRESENTS WITH AN IMPLANTABLE OR ATTACHED JACK WINDER: No RADIOLOGY DEPARTMENT: General X-ray: Exam(s) Completed: Lower Extremity X- Ray(s): Foot, Right and Wt. Bearing PERIPHERAL IV DATA: Not applicable SIGNED BY: RT Osman(R) September 05, 2023 4:36 PM documented in this encounterGood [facility]aritan Hospital06-20-2024 Instructions* Patient Instructions* Opal Lopez - 09/05/2023 4:18 PM EDT Powerstep Original Full length. Can purchase at [facility] [employer] and boots,shoes and more here in [place], [employer] in [place] or [place]. Also can find in [place] in [facility]. Powersteps can also be purchased online, starting around $45.00 If you have a metatarsal or dancer pad for your feet apply the pad directly to the insole so you can interchange between your shoes. Find a shoe with a removable insole and take this out and replace with your powerstep insole. Always bring powersteps with you when shopping for shoes so that you can make sure that everything fits well together Recommend wider shoes, ie deras, hoka, asics. Or shoes with mesh to accommodate bunion documented in this encounterGood Samaritan Hospital06-20-2024 History of Present illness Narrative* Opal Lopez - 09/05/2023 4:05 PM EDT Images from the original note were not included. 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 PAIN EVALUATION 08/31/2023 1132 Pain Level: 5 Pain Location: Foot-Right Description: Aching;Radiating Frequency: Intermittent Intervention/Comfort measure: Cold;Heat No results found for: HBA1C PCP: Taz López MD PAST MEDICAL HISTORY Diagnosis Date Anxiety 2006 Dr. Jaramillo Chronic constipation 01/23/2023 Chronic pelvic pain in female 2022 [employer] Yaz Skinner MD DDD (degenerative disc disease), lumbar 01/23/2023 Pelvic joint pain, left 01/23/2023 Current Outpatient Medications Medication Sig citalopram (CELEXA) 40 mg tablet Take 40 mg by mouth once daily. No current facility-administered medications for this visit. ALLERGIES No Known Allergies PAST SURGICAL HISTORY Procedure Laterality Date COLONOSCOPY SCREENING 11/2022 [facility] LAPAROSCOPIC APPENDECTOMY 03/18/2010 [facility] LAPAROSCOPIC SUPRACERVICAL HYSTERECTOMY 08/2022 Dr. Maryann Skinner, [facility] FAMILY HISTORY Problem Relation Age of Onset Diabetes Mother Heart Father mild valvular HD Heart Sister mild valvular HD No Known Problems Brother Heart Maternal Grandmother Hypertension Maternal Grandmother Diabetes Maternal Grandfather Prostate Cancer Maternal Grandfather Breast Cancer Paternal Grandmother Diabetes Paternal Grandfather Social History Tobacco Use Smoking status: Never Smokeless tobacco: Never Vaping Use Vaping Use: Never used Substance Use Topics Alcohol use: Yes Comment: 1 drink every few months. Drug use: No REVIEW OF SYSTEMS GENERAL: Negative for Malaise, significant weight loss, fever RESPIRATORY: Negative for cough, wheezing and shortness of breath CARDIOVASCULAR: Negative for chest pain, leg swelling and palpitations GI: Negative for abdominal discomfort, blood in stools or black stools and change in bowel habits : Negative for dysuria, frequency and incontinence MUSCULOSKELETAL: Negative for joint pain or swelling, back pain, and muscle pain. SKIN: Negative for lesions, rash, and itching. HEMATOLOGY/LYMPHOLOGY Negative for prolonged bleeding, bruising easily, and swollen nodes. ENDOCRINE: Negative for cold or heat intolerance, polyuria, polydipsia and goiter. NEURO: negative Physical Exam: Constitutional: Pt is a well developed 43 year old female who is alert, oriented and cooperative Eyes: Following during examination. No redness or drainage. Respiratory: RR normal and nonlabored. Even breathing. No evidence of distress or shortness of breath. Psychology: Patient is engaged during conversation. Normal affect and mood. Does not appear depressed or anxious during encounter. Vascular: Dorsalis pedis and posterior tibial pulses palpable b/l Capillary Fill time < 5 seconds to digits 1-5 b/l Skin temperature warm to cool proximal to distal b/l Hair growth present to digits Mild duskyness of toes likely that of raynauds Neurological: intact light touch/epicritic sensation b/l intact protective sensation no significant neurological deficits Dermatological: Nails 1-5 b/l appear normal. Webspaces clean and dry 1-4 b/l. Skin appears well hydrated and supple. good color, texture, turgor. No open lesions present. No callosities present. Musculoskeletal/Orthopaedic: Patient has pain to palpation of right first metatarsal head. Prominent bunion deformity more pronounced with weightbearing exam. Hypermobilitiy is noted of first metatarsal cun joint b/l Foot type is neutral structurally AJ ROM is full with knee extended and flexed 1st MPJ is full when loaded and no pain or crepitus are noted with ROM. MTJ, STJ are full and free of pain and crepitus. +5/5 muscle strength dorsiflexion, plantarflexion, inversion, eversion b/l Radiographs: 3 views right foot reviewed September 05, 2023: I have personally reviewed and interpreted these XR myself: these are nwb xrays. Moderate bunion defomrity of right 1st ray ASSESSMENT: (M20.11) Hallux valgus of right foot (primary encounter diagnosis) (R09.89) Diminished pulses in lower extremity PLAN: 1. History and physical examination performed. 2. XR reviewed with patient and interpreted today 3. Discussed bunion deformity of right foot. Discussed progressive nature of bunion deformity. Discussed conservative care not limited to wider shoes, inserts, padding. Discussed surgical options. Given the hypermobility of first metatarsal cun joint and moderate bunion defomrity on a nonweightbearing xray, suspect if she were to intervene surgically, would favor more proximal base procedure, ie lapidus. 4. Will repeat xrays with patient standing. 5. Will check pvr as I suspect she may have component of raynauds. 6. Will check vitamin d 7. F/u in 1 month to discuss options further Opal Lopez DPM Podiatry [address] [facility] [address] Dept: [phone] Dept * Radha Brar RN - 09/05/2023 3:48 PM EDT AMB ROOMING INTAKE FLOWSHEET DATA Pain Pain Level: 5 Pain Location: Foot-Right Description: Aching, Radiating Frequency: Intermittent Intervention/Comfort measure: Cold, Heat Patient presents with: Right Foot - New, Pain, Bunion patient presents for bunion of right foot. States that in the last few months it has become worse. XRay done 08/05/23. States that pain is worse with shoes when pressure is applied to the area documented in this encounterGood Samaritan Hospital05-[facility]24 History of Present illness Narrative* Usha Cook RT(R) - 08/05/2023 3:30 PM EDT Radiology Service Progress Note PATIENT NAME: Joshua Dunn DATE OF SERVICE: August 05, 2023 TIME: 3:28 PM PATIENT IDENTITY VERIFICATION COMPLETED USING TWO (2) IDENTIFIERS: Name and Date of confirmedby patient verbally. FALL SCREENING: Has the patient had 2 falls in the last year or 1 fall with injury or currently using an Ambulatory Assistive Device (Walker, Cane, Wheelchair, Crutches, etc.)? No PATIENT GENDER DATA: Female. status: : No status: NO. PATIENT RELEVANT IMPLANT DATA REVIEWED: Not Applicable PATIENT PRESENTS WITH AN IMPLANTABLE OR ATTACHED JACK WINDER: No RADIOLOGY DEPARTMENT: General X-ray: Exam(s) Completed: Lower Extremity X- Ray(s): Foot, Left PERIPHERAL IV DATA: Not applicable SIGNED BY: RT Aman(R) August 05, 2023 3:28 PM documented in this encounterGood Samaritan Hospital05-20-2024 History of Present illness Narrative* Favian Taylor MD - 08/05/2023 3:20 PM EDT Patient presents with: Pain (foot): Right foot pain x 1 week HPI: Right foot pain: Duration: flared up 1 week. Has had pain in the 1st MTP joint intermittently for years Location: lateral 1st MTP joint Character: sharp Radiation: No. Aggravating: pressure on the foot from her shoe Relieving: rest/removing shoe Pain relievers: none Associated: angle at the joint Pertinent negatives: Denies numbness, fever, recent injury/change in activity/change in footwear. No known history of gout. MEDICATIONS: citalopram (CELEXA) 40 mg tablet Take 40 mg by mouth once daily. ALLERGIES: ALLERGIES No Known Allergies VITALS: BP 110/82 Pulse 79 Temp 36.7 C (98 F) Resp 19 Wt 72.9 kg (160 lb 11.5 oz) LMP 11/22/2015 SpO2 99% BMI 23.39 kg/m PHYSICAL EXAM: GEN: pleasant, alert, no acute distress ANKLE: right . Swelling not present. No erythema or ecchymosis,. Halux valgus deformity at the 1st MTP. Range of motion: some discomfort with flexion/extension. non-painful to bear weight. Normal gait insandals. Palpation: Dorsal metatarsals - non-painful, lateral 1st metatarsal painful, proximal and middle 1st phalanges non-painful ASSESSMENT/PLAN: 1. Pain of right great toe - ICD9: 729.5, ICD10: M79.674 (primary diagnosis) 2. Hallux valgus of right foot - ICD9: 735.0, ICD10: M20.11 - XR FOOT GENERAL 3V AP/LAT/OBL RIGHT - FINDINGS: No acute fractures or subluxations are noted. There appears be borderline bunion deformity. The joint spaces are maintained, without obvious osteophyte formation. The mineralization of the bones is normal. There is no significant soft tissue swelling. Avoid tight shoe box to reduce pressure on prominent 1st MTP joint. Low suspicion for gout, but she may use NSAID scheduled for 1 week. - CONSULT TO PODIATRY to discuss bunion/valgus deformity treatment options. Favian Taylor MD documented in this encounterGood Samaritan Hospital03-23-2024 History of Present illness Narrative* Taz López MD - 06/08/2023 12:12 PM EDT This note was created using Chat [employer]. Subjective Patient presents with: Physical Joshua Dunn was here for a physical. She established primary care here last year. Her left pelvicjoint pain was controlled with physical therapy exercises. She followed regularly with Dr. Yaz Skinner for gynecology. Anxiety was well controlled on medication, prescribed by Dr. Skinner as well. She had significant issues with pelvic pain last year, whichresulted in hysterectomy and colonoscopy done in [place]. We reviewed health maintenance, and she will have records sent here. 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 The history is provided by the patient. Review of Systems Constitutional: Negative for appetite change, fatigue and unexpected weight change. HENT: Negative for congestion and rhinorrhea. Eyes: Negative for visual disturbance. Respiratory: Negative for cough, shortness of breath and wheezing. Cardiovascular: Negative for chest pain, palpitations and leg swelling. Gastrointestinal: Positive for constipation. Negative for abdominal pain, blood in stool, diarrhea,nausea and vomiting. Genitourinary: Negative for difficulty urinating and pelvic pain. Musculoskeletal: Negative for arthralgias, back pain and gait problem. Skin: Negative for color change. Neurological: Negative for dizziness and headaches. Psychiatric/Behavioral: Negative for dysphoric mood. PAST MEDICAL HISTORY Diagnosis Date Anxiety 2006 Dr. Jaramillo Chronic constipation 01/23/2023 Chronic pelvic pain in female 2022 [employer] Yaz Skinner MD DDD (degenerative disc disease), lumbar 01/23/2023 Pelvic joint pain, left 01/23/2023 PAST SURGICAL HISTORY Procedure Laterality Date COLONOSCOPY SCREENING 11/2022 [facility] LAPAROSCOPIC APPENDECTOMY 03/18/2010 [facility] LAPAROSCOPIC SUPRACERVICAL HYSTERECTOMY 08/2022 Dr. Maryann Skinner, [facility] FAMILY HISTORY Problem Relation Age of Onset Diabetes Mother Heart Father mild valvular HD Heart Sister mild valvular HD No Known Problems Brother Heart Maternal Grandmother Hypertension Maternal Grandmother Diabetes Maternal Grandfather Prostate Cancer Maternal Grandfather Breast Cancer Paternal Grandmother Diabetes Paternal Grandfather Social History Tobacco Use Smoking status: Never Smokeless tobacco: Never Vaping Use Vaping Use: Never used Substance Use Topics Alcohol use: Yes Comment: 1 drink every few months. Drug use: No ALLERGIES No Known Allergies Current Outpatient Medications Medication Sig citalopram (CELEXA) 40 mg tablet Take 40 mg by mouth once daily. No current facility-administered medications for this visit. Immunization History Administered Date(s) Administered COVID-19 original vaccine, full dose, monovalent (MODERNA) 04/19/2020 05/20/2020 influenza (IIV3) vaccine, trivalent, PF (AFLURIA, FLUARIX, FLULAVAL, FLUVIRIN, FLUZONE) 12/23/2015 influenza vaccine, unspecified formulation 12/24/2019 tetanus diphtheria pertussis (Tdap) vaccine, age 7+ yr (ADACEL, BOOSTRIX) 07/13/2008 Objective Blood Pressure 122/56 (BP Site: Left Arm, BP Position: Sitting, BP Cuff Size: Large Adult) Pulse 84 Temperature 36.6 C (97.9 F) Respiration 12 Height 176.5 cm (5' 9.5) Weight 73 kg (161 lb) Last Menstrual Period 11/22/2015 Oxygen Saturation 99% Body Mass Index 23.43 kg/m Physical Exam Constitutional: Appearance: Normal appearance. HENT: Head: Normocephalic. Nose: Nose normal. Mouth/Throat: Mouth: Mucous membranes are moist. Pharynx: Oropharynx is clear. Eyes: Extraocular Movements: Extraocular movements intact. Conjunctiva/sclera: Conjunctivae normal. Cardiovascular: Rate and Rhythm: Normal rate and regular rhythm. Heart sounds: No murmur heard. No gallop. Pulmonary: Effort: Pulmonary effort is normal. Breath sounds: Normal breath sounds. Abdominal: Palpations: Abdomen is soft. Tenderness: There is no abdominal tenderness. Musculoskeletal: General: No tenderness or deformity. Normal range of motion. Cervical back: Neck supple. Lymphadenopathy: Cervical: No cervical adenopathy. Skin: Findings: No rash. Neurological: General: No focal deficit present. Mental Status: She is oriented to person, place, and time. Gait: Gait normal. Psychiatric: Mood and Affect: Mood normal. Row Labels Depression Screening PHQ-2 Score 06/07/2023 0 Depression screening tool completed and reviewed. Based on score and interview, patient is not at risk for depression. Screening tool discussed with patient, and I recommended no further interventionat this time. Assessment and Plan 1. Routine medical exam - ICD9: V70.0, ICD10: Z00.00 (primary diagnosis) - Counseled on healthy diet and regular exercise - Health maintenance reviewed. She will update her information here. 2. Screening for lipid disorders - ICD9: V77.91, ICD10: Z13.220 - LIPID PANEL, NONFASTING Taz López MD documented in this encounterGood Samaritan [facility] History of Present illness Narrative* Lorena Stone PTA - 02/27/2023 5:52 PM EST Program_ID:[id number] Access Code: [email or web address] URL: [email or web address] Date: 02-27-2023 Prepared By: Brittani Cai Program Notes Exercises - Child's Pose Stretch - 2 x daily - 7 x weekly - sets - 3-5 reps - Child's Pose with Sidebending - 2 x daily - 7 x weekly - sets - 3-5 reps - Warm Up Cat - 2 x daily - 7 x weekly - 1-2 sets - 10 reps - Supine Single Knee to Chest Stretch - 2 x daily - 7 x weekly - sets - 3-5 reps - Supine Posterior Pelvic Tilt - 2 x daily - 7 x weekly - 1 sets - 10 reps - Supine Posterior Pelvic Tilt - 1 x daily - 7 x weekly - 2 sets - 10 reps - Supine March with Posterior Pelvic Tilt - 1 x daily - 7 x weekly - 2 sets - 10 reps - Supine Bridge - 1 x daily - 7 x weekly - 2 sets - 10 reps - Beginner Front Arm Support - 1 x daily - 7 x weekly - 2 sets - 10 reps - Seated Transversus Abdominis Bracing - 1 x daily - 7 x weekly - 2 sets - 10 reps * Lorena Stone PTA - 02/27/2023 5:51 PM EST Program_ID:[id number] Access Code: [email or web address] URL: [email or web address] Date: 02-27-2023 Prepared By: Brittani Cai Program Notes Exercises - Child's Pose Stretch - 2 x daily - 7 x weekly - sets - 3-5 reps - Child's Pose with Sidebending - 2 x daily - 7 x weekly - sets - 3-5 reps - Warm Up Cat - 2 x daily - 7 x weekly - 1-2 sets - 10 reps - Supine Single Knee to Chest Stretch - 2 x daily - 7 x weekly - sets - 3-5 reps - Supine Posterior Pelvic Tilt - 2 x daily - 7 x weekly - 1 sets - 10 reps - Supine Posterior Pelvic Tilt - 1 x daily - 7 x weekly - 2 sets - 10 reps - Supine March with Posterior Pelvic Tilt - 1 x daily - 7 x weekly - 2 sets - 10 reps - Supine Bridge - 1 x daily - 7 x weekly - 2 sets - 10 reps - Beginner Front Arm Support - 1 x daily - 7 x weekly - 2 sets - 10 reps * Jocelin Hackett, PT - 02/27/2023 5:17 PM EST Episode Visit Count: 2 Therapist That Will Accept/Oversee The Plan Of Care: Brittani Cai Start of Care Date: 02/11/23 Onset Date: 02/11/22 (about a year ago) Patient Identified by Name and Date of : Yes REHABILITATION AND SPORTS THERAPY PHYSICAL THERAPY TREATMENT NOTE ASSESSMENT: Joshua Dunn tolerated the session with fatigue and decreased symptoms. She demonstrated improvements in tolerance to exercise without increase in low back pain. The patient will continue to benefit from on going skilled physical therapy to progress toward set goals. PLAN FOR NEXT VISIT: Continue core stabilization strengthening as able. SUBJECTIVE: Pt reports that her back is really flared up since starting therapy. Pt states her backhas been more painful. Pt states that the olya pose going forward is not too bad, but going to either side causes increases in L side low back/ flank pain. Pain: Pain Pain Level: 6 Pain Location: Low Back/Lumbar Spine - Left, Hip - Left (lateral flank, posterolateral lumbosacral region) Frequency: Continuous Post Treatment Pain Post Treatment Pain Level: Better OBJECTIVE MEASURES WITH LEVEL OF FUNCTION: TREATMENT: Therapeutic Exercise: 1: child's pose stretch 3 x 30 sec holds 2: Olya pose with R and L sidebending 1x14 seconds- increased L low back pain . (discontinued forHEP) 3: cat stretches 3 x 30 sec 4: *Quadruped alt hip extension 2x10 B 5: Hooklying PPT 2x10 6: *Hooklying PPT with alt marching 2x10 B Skilled Intervention: Patient was educated in proper exercise technique and purpose for exercises. Reviewed and educated patient on additions/changes for home exercise program as above (*). Skilled judgment was used in selection of appropriate interventions. Provided written instruction for home exercise program to facilitate proper performance and compliance. Correct performance of therapeutic exercises was facilitated with verbal and visual cuing. Self-Skilled Nursing Management: 1: Education on sleeping position to decrease pressure on L hip and low bakc by using pillow between the knees. Skilled Intervention: Skilled judgment in the selection of proper modification for activity of daily living/home management based on clinical presentation, deficits, and needs. Billing Therapeutic Exercise Treatment Minutes: 39 Self-Care/Home Management Treatment Minutes: 3 Skilled Treatment Time Minutes (timed and untimed codes): 42 Total Session Time (minutes): 42 Session Start Time : 1716 Session Stop Time : 1758 PARAMJIT Bolaños PT documented in this encounterGood [facility]aritan [facility]11-29-2023 Note. MICRO - Microbiology PROCEDURE: Fungal Culture with Stain if Ind [*1] SOURCE: Vaginal BODY SITE: COLLECTED DATE/TIME: 02/06/2023 16:29 EST RECEIVED DATE/TIME: 02/06/2023 19:50 EST START DATE/TIME: 02/06/2023 19:50 EST FREE TEXT SOURCE: FINAL REPORTS Final Report [] Verified Date/Time/Personnel: 02/13/2023 08:55 EST Moderate Yeast Moderate Yeast #2 No mold isolated in 1 week. PRELIMINARY REPORTS Preliminary Report [] Verified Date/Time/Personnel: 02/11/2023 15:37 EST Moderate Yeast Moderate Yeast #2 Final report to follow. at 7 days STAINS FUNSM [] Verified Date/Time/Personnel: 02/08/2023 12:29 EST Fungal elements observed by calcofluor white stain. Performing Locations *1: This test was performed at: [facility], [address] [place] [address], [id number]- , [facility] ([place])02-11-2023 History of Present illness Narrative* Brittani Cai, PT - 02/11/2023 5:58 PM EST Program_ID:[id number] Access Code: [email or web address] URL: [email or web address] Date: 02-11-2023 Prepared By: Brittani Cai Program Notes Exercises - Child's Pose Stretch - 2 x daily - 7 x weekly - - 3-5 - Child's Pose with Sidebending - 2 x daily - 7 x weekly - - 3-5 - Warm Up Cat - 2 x daily - 7 x weekly - 1-2 - 10 - Supine Single Knee to Chest Stretch - 2 x daily - 7 x weekly - - 3-5 - Supine Posterior Pelvic Tilt - 2 x daily - 7 x weekly - 1 - 10 * Brittani Cai, PT - 02/11/2023 5:16 PM EST Episode Visit Count: 1 Therapist That Will Accept/Oversee The Plan Of Care: Brittani Cai Start of Care Date: 02/11/23 Onset Date: 02/11/22 (about a year ago) Patient Identified by Name and Date of : Yes REHABILITATION AND SPORTS THERAPY PHYSICAL THERAPY EVALUATION PLAN OF CARE: Assessment: Joshua Dunn presents with diagnosis of pelvic joint pain, left and DDD lumbar that interferes with sleeping . She presents with impairments in symptom management, tissue tenderness, andsoft tissue restrictions. Patient did not complete the PROMIS (Patient Reported Outcome Measures Information System). Prognosis for therapy is Excellent due to: current objective clinical presentation, good overall health status, within-session changes, good support system/ coping skills . She willbenefit from skilled therapy services to meet the goals established for this plan of care as noted below. Goals for Episode of Care: created on 02/11/23 through 04/13/23 [place] in home exercise program. Patient will decrease pain rating by 2 points to meet minimal clinical important difference for numeric pain rating scale. Patient will increase active ROM of lumbar spine and hip to no limitations and painfree to allow ptto to improve performance of ADLs. Patient will demonstrate increase in core strength to 5/5 during manual muscle testing in order to improve function for leisure / recreation skills, prior functional tasks, and work tasks. Patient will increase flexibility of L lumbosacral musculature to equal unaffected extremity/side and WNL to improve mechanics and decrease pain. Perform all daily, recreational, work activities, and undisturbed sleep without pain. Planned Interventions, Frequency, and Duration: Current Frequency: 1x every other week Duration: 8 weeks Total Number of Visits Planned: 4 Planned Treatment Interventions: Therapeutic exercise (38253), Neuromuscular re- education (83967), Manual therapy (27239), Self-detention management (11670), Patient/Family/Caregiver Education PLAN FOR NEXT VISIT: Assess response to initial treatment and HEP. Review HEP to insure correct performance and modify as appropriate. May progress stretches, core strengthening (bridging, quadruped hip ext, etc.), and continue with manual techniques utilizing foam roller, tennis or lacrosse ball. Patient demonstrates good understanding of plan of care and treatment. The above goals and plan of care were discussed and agreed upon by patient/family. SUBJECTIVE: Pt reports onset of pain about a year ago with no apparent cause. I can always feel it, but it's better and worse at times. Most painful at night when sleeps on L side. Wakes her up if rolls onto Lside. Using heat can be helpful. Denies any functional limitations. 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 Home Environment Patient Lives With: Spouse Intake Information: Prescription present Previous Treatment: NSAIDs , Heat Spine History Pain is Worse Always: (lying on L side at night) Pain is Better Always: (moving off of L side at night) Sleeping Position: Side lying right Sleep Affected by Pain: Pain awakens Pain: Pain Pain Level: 4 (at night increases to 7/10 if lying on L side) Pain Location: Low Back/Lumbar Spine - Left, Hip - Left (lateral flank, posterolateral lumbosacral region) Description: (like menstrual cramps crampy/achy) Frequency: Continuous Post Treatment Pain Post Treatment Pain Level: No Change Post Treatment Pain Description: (It feels like it pinpointed that area and stretched it out. Feels good.) PROMIS Scales T-scores: mean of general population = 50. 5 points is clinically meaningfully difference Percentiles provide an indication of how the patient's score ranks in relation to the general population. Higher percentile rankings indicate better function/quality of life. 50th percentile is the average of the general population and indicates half of respondents had a worse score. OBJECTIVE MEASURES WITH LEVEL OF FUNCTION: Posture / Alignment LE Observations: in supine, L leg appears shorter than R, however ASIS appear symmetrical. in proneL PSIS >R PSIS tender to palpation and L PSIS slightly inferior to R. Spine Observations L Lumbar Spine Palpation Tenderness: Quadratus Lumborum, PSIS (posterior superior iliac spine) (lateral aspect) Lumbar Spine AROM Lumbar Flexion: (fingertips to toes) Lumbar Extension: Normal Lumbar R Side-Bend: Increased pain, Minimal limitation Lumbar L Side-Bend: Minimal limitation Repeated Test Movements - Lumbar RFIL - Symptoms During: end range pain (end range flex, when feet are almost back to plinth) RFIL - Symptoms After: no effect LE Flexibility Flexibility: Straight Leg Raise (SKC: R normal, L mildly limited with increased pian/pulling) R SLR Flexibility: 60deg, pulling L posterior LS L SLR Flexibility: 60 deg, hamstring tightness Special Tests - Hip and Spine Hip and Spine Special Tests: SLR Test, SI Palpation Tests SLR Test: Left Negative, Right Negative Supine to Long Sit Test : negative Gait Gait Observation: Pt ambulates independently with no assistive device adn no gait abnormalities noted. Education: Education Learning Preferences: Demonstration, Explanation Barriers: None Learning/educational needs: Home exercise program, Plan of Care Education Provided: Yes, see treatment interventions for education provided Education Provided To: Patient Education Mode/Type: Demonstration, Explanation/Discussion, Literature/Printed Materials, Performance Response to Education/Teach Back: States/Identifies, Return Demonstration TREATMENT: PT Treatment Interventions: Therapeutic Exercise, Manual Therapy Evaluation Therapeutic Exercise: 1: *child's pose stretch 3 x 30 sec holds 2: *child's pose with R sidebending 3 x 30 sec 3: *cat stretches 3 x 30 sec 4: *SKC stretches 3 x 30 sec 5: *posterior pelvic tilts 5 sec holds x 10 Skilled Intervention: Patient was educated in proper exercise technique and purpose for exercises. Skilled judgment was used in selection of appropriate interventions. Provided written instruction for home exercise program to facilitate proper performance and compliance. Correct performance of therapeutic exercises was facilitated with verbal and visual cuing. Patient education as noted. Manual Therapy: 1: Foam roller to L lumbar and sacral musculature, and gluts with pt in prone lying x 8 min. Skilled Intervention: Manual skills to improve joint mobility, ROM, and decrease pain. Utilized anatomy knowledge of the therapist, and assessment of patient's response to intervention. Billing * Evaluation Low Complexity: 1 Unit Therapeutic Exercise Treatment Minutes: 22 Manual TherapyTreatment Minutes: 8 Skilled Treatment Time Minutes (timed and untimed codes): 48 Total Session Time (minutes): 48 Session Start Time : 1717 Session Stop Time : 1805 Brittani Cai PT documented in this encounterGood Samaritan Hospital11-23-2023 Note. MICRO - Microbiology PROCEDURE: Affirm Pathogens DNA Direct Probe [*1] SOURCE: Vaginal Fluid BODY SITE: Vagina COLLECTED DATE/TIME: 02/06/2023 16:29 EST RECEIVED DATE/TIME: 02/06/2023 19:21 EST START DATE/TIME: 02/06/2023 19:21 EST FREE TEXT SOURCE: FINAL REPORTS Final Report [] Verified Date/Time/Personnel: 02/07/2023 12:09 EST Trichomonas vaginalis DNA Probe Negative Gardnerella vaginalis DNA Probe Negative Judith species DNA Probe Positive Performing Locations *1: This test was performed at: [facility], [address] [place] [address], [id number]- , [facility] ([place])01-18-2023 Miscellaneous Notes* Telephone Encounter - Clarises Moran LPN - 01/18/2023 4:02 PM EDT Radiology came to the office to report they tried to complete pts hip x ray but pt just have a contrast. They already pulled the hip x ray. They are asking for you to re order this and pt will do it 01/22/23 and she will see you 01/23/23. They are asking you to order this STAT so you can get the results. They said left hip.I don't see it to re order. documented in this encounterGood Samaritan Hospital11-03-2023 History of Present illness Narrative* Josey Yarbrough RT(R) - 01/18/2023 3:40 PM EDT Radiology Service Progress Note PATIENT NAME: Joshua Dunn DATE OF SERVICE: January 18, 2023 TIME: 3:43 PM PATIENT IDENTITY VERIFICATION COMPLETED USING TWO (2) IDENTIFIERS: Name and Date of confirmedby patient verbally. FALL SCREENING: Has the patient had 2 falls in the last year or 1 fall with injury or currently using an Ambulatory Assistive Device (Walker, Cane, Wheelchair, Crutches, etc.)? No PATIENT GENDER DATA: Female. status: : No status: NO. PATIENT RELEVANT IMPLANT DATA REVIEWED: Yes RADIOLOGY DEPARTMENT: General X-ray: Exam(s) Completed: Spine X-Ray(s): Lumbar AP / LAT / L5-S1 PERIPHERAL IV DATA: Not applicable SIGNED BY: RT Osman(R) January 18, 2023 3:43 PM RADIOLOGY SERVICE PROGRESS NOTE DATE OF SERVICE: January 18, 2023 TIME OF SERVICE: 3:43 PM EVENT: EXAM/PROCEDURE NOT COMPLETED - Exam rescheduled for patient still had contrast from a CT the week prior overlying her pelvis. Left hip exam was not preformed due to contrast. Nurse was placing a phone note for provider to reorder the left hip and patient will come back later to complete imaging. ADDITIONAL EVENT DETAILS: N/A SIGNATURE: RT Osman(Martha) PATIENT NAME: Joshua Dunn DATE: January 18, 2023 TIME: 4:10 PM PAGER/CONTACT #: documented in this encounterGood Samaritan Hospital11-03-2023 History of Present illness Narrative* Patrica Deleon APRN.SHANTHI - 01/18/2023 7:00 AM EDT This Team Access Model visit is a virtual encounter. It required patient- provider interaction for the medical decision making as documented below. I have communicated my name and active licensure. The patient's identity and physical location wereverified at the time of this visit. Either the patient or their legal personal service representative has been informed of the risks and benefits of -- and alternatives to -- treatment through a remote evaluation andconsents to proceed with the evaluation remotely. Patient Location: [place] CC: Patient presents with: Abdominal Pain Follow Up: Abdominal pain HPI Joshua Dunn is a 42 year old female who is contacted today for a virtual visit. This is an established patient of Dr. Taz López MD. Patient was seen in primary care in March 2022 for LLQ abdominal pain. Initial tests were normal including amylase, lipase, CMP, CBC, urinalysis and H pylori. Abdominal pain was persisting and she was referred to GI. She saw her PEDIATRIC NURSE first however and eventually had complete hysterectomy for otherreasons. Pain did not improve with this and was evaluated by GI. Colonoscopy was normal. CT abdomen and pelvis in December was normal as well. Today patient reports ongoing LLQ abdominal pain. She states pain is in the suprapubic and hip areas on the left as well. Pain is a constant, mild ache but it is not particularly bothersome until sherolls onto her left side at night which wakes her up. Alleviated by repositioning onto her right side. Nothing else aggravates or alleviates the pain. She does have mild low back pain intermittently.Denies radiation of pain, numbness, tingling, weakness, gait disturbance, saddle anesthesia or leg pain. Chronic constipation improved with daily Metamucil. REVIEW OF SYSTEMS General: no fevers, no chills, no night sweats, no change in energy, and no significant changes in weight PAST MEDICAL HISTORY Diagnosis Date Anxiety 2006 Dr. Jaramillo PAST SURGICAL HISTORY Procedure Laterality Date LAPAROSCOPIC APPENDECTOMY 2010 [facility] ALLERGIES Patient has no known allergies. MEDICATIONS citalopram (CELEXA) 40 mg tablet Take 40 mg by mouth once daily. FAMILY HISTORY Problem Relation Age of Onset Diabetes Mother Diabetes Maternal Grandfather Breast Cancer Paternal Grandmother Heart Maternal Grandmother Prostate Cancer Maternal Grandfather Social History Tobacco Use Smoking status: Never Smokeless tobacco: Never Substance Use Topics Alcohol use: No Drug use: No EXAM: Virtual visit completed using video, limited exam completed. GENERAL: alert and appropriate, in no distress, well-hydrated, well nourished, and happy, smiling, interactive DATA REVIEWED: Outside chart from GI and gynecology reviewed. CT abdomen and pelvis reviewed. Colonoscopy results are not available. ASSESSMENT/PLAN: 1. Left lower quadrant abdominal pain - ICD9: 789.04, ICD10: R10.32 (primary diagnosis) Etiology unclear. No improvement after hysterectomy. Colonoscopy and CT abdomen/pelvis normal. Suspect pain is due to musculoskeletal cause. Differentials include referred pain from left hip or lumbar spine, myofascial pelvic pain, functional abdominal pain See plans below. Patient instructed to schedule follow-up in office for a more thorough evaluation 2. Chronic left hip pain - ICD9: 719.45, 338.29, ICD10: M25.552, G89.29 - XR HIP GENERAL 3V PELV/AP/LAT LEFT 3. Chronic bilateral low back pain without sciatica - ICD9: 724.2, 338.29, ICD10: M54.50, G89.29 - XR LUMBAR GENERAL 3V AP/LAT/L5-S1 Prescription instructions reviewed with patient as applicable. Potential red flag symptoms discussed with the patient. Reviewed appropriate action plan to take if red flag symptoms occur. Patient agreeable to treatment plan. During this patient visit I have spent approximately 30 minutes in counseling regarding treatment options, medications, test results, and coordinating care. Patrica Deleon APRN.CNP documented in this encounterGood Samaritan Hospital10-27-2023 Note ORIGINAL EXAMINATION: CT OF THE ABDOMEN AND PELVIS WITH CONTRAST 01/11/2023 1:36 pm TECHNIQUE: CT of the abdomen and pelvis was performed with the administration of intravenous contrast. Multiplanar reformatted images are provided for review. Automated exposure control, iterative reconstruction, and/or weight based adjustment of the mA/kV was utilized to reduce the radiation dose to as low as reasonably achievable. COMPARISON: None. HISTORY: ORDERING SYSTEM PROVIDED HISTORY: Reason for Exam: left lower quadrant pain, constipation FINDINGS: Lower Chest: Visualized lung bases unremarkable. Organs: Liver, spleen, pancreas, bilateral adrenal glands are unremarkable. Bilateral kidneys show normal morphology and enhancement pattern. Small 2-3 mm renal calculus seen on bilateral kidneys, no obstruction is seen. 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 The bilateral ureters nondilated. Urinary bladder unremarkable. GI/Bowel: Small hiatal hernia. No dilated bowel loops seen. No acute gastrointestinal abnormality. Scattered sigmoid colonic diverticula with no evidence of diverticulitis. Pelvis: Uterus not seen, possibly surgically absent. Peritoneum/Retroperitoneum: No obvious lymphadenopathy. No aortic aneurysm. Bones/Soft Tissues: Moderate degenerative changes in the lumbosacral spine region. IMPRESSION: No acute abnormality. Nonobstructing bilateral nephrolithiasis. I have personally reviewed the images of this examination and agree with the resident's findings and interpretation. Interpreted by: Marcelino Ronquillo MD Preliminary Report By: Royce Padilla Electronically signed By Marcelino Ronquillo MD Dictated Date: 01/11/2023 3:01:42 PM Prelim Date: 01/11/2023 4:43:12 PM Sign Date: 01/11/2023 4:43:12 PM Ordering Provider: [facility]09-11-2023 Hospital Discharge instructions Patient Education 11/26/2022 11:58:40 Monitored Anesthesia Care, Care After Monitored Anesthesia Care, Care After These instructions provide you with information about caring for yourself after your procedure. Your health care provider may also give you more specific instructions. Your treatment has been plannedaccording to current medical practices, but problems sometimes occur. Call your health care provider if you have any problems or questions after your procedure. What can I expect after the procedure? After your procedure, you may: Feel sleepy for several hours. Feel clumsy and have poor balance for several hours. Feel forgetful about what happened after the procedure. Have poor judgment for several hours. Feel nauseous or vomit. Have a sore throat if you had a breathing tube during the procedure. Follow these instructions at home: For at least 24 hours after the procedure: Have a responsible adult stay with you. It is important to have someone help care for you until youare awake and alert. Rest as needed. Do not: ?Participate in activities in which you could fall or become injured. ?Drive. ?Use heavy machinery. ?Drink alcohol. ?Take sleeping pills or medicines that cause drowsiness. ?Make important decisions or sign legal documents. ?Take care of children on your own. Eating and drinking Follow the diet that is recommended by your health care provider. If you vomit, drink water, juice, or soup when you can drink without vomiting. Make sure you have little or no nausea before eating solid foods. General instructions Take [id number] and prescription medicines only as told by your health care provider. If you have sleep apnea, surgery and certain medicines can increase your risk for breathing problems. Follow instructions from your health care provider about wearing your sleep device: ?Anytime you are sleeping, including during daytime naps. ?While taking prescription pain medicines, sleeping medicines, or medicines that make you drowsy. If you smoke, do not smoke without supervision. Keep all follow-up visits as told by your health care provider. This is important. Contact a health care provider if: You keep feeling nauseous or you keep vomiting. You feel light-headed. You develop a rash. You have a fever. Get help right away if: You have trouble breathing. Summary For several hours after your procedure, you may feel sleepy and have poor judgment. Have a responsible adult stay with you for at least 24 hours or until you are awake and alert. This information is not intended to replace advice given to you by your health care provider. Make sure you discuss any questions you have with your health care provider. Document Released: 06/24/2016 Document Revised: 06/02/2018 Document Reviewed: 06/24/2016 [employer] Patient Education 2020 [employer]. 11/26/2022 11:58:36 Colonoscopy, Adult, Care After Colonoscopy, Adult, Care After This sheet gives you information about how to care for yourself after your procedure. Your health care provider may also give you more specific instructions. If you have problems or questions, contact your health care provider. What can I expect after the procedure? After the procedure, it is common to have: A small amount of blood in your stool for 24 hours after the procedure. Some gas. Mild abdominal cramping or bloating. Follow these instructions at home: General instructions For the first 24 hours after the procedure: ?Do not drive or use machinery. ?Do not sign important documents. ?Do not drink alcohol. ?Do your regular daily activities at a slower pace than normal. ?Eat soft, yrww-wg-osraon foods. Take cgre-oal-humgxzb or prescription medicines only as told by your health care provider. Relieving cramping and bloating Try walking around when you have cramps or feel bloated. Apply heat to your abdomen as told by your health care provider. Use a heat source that your healthcare provider recommends, such as a moist heat pack or a heating pad. ?Place a towel between your skin and the heat source. ?Leave the heat on for 20 30 minutes. ?Remove the heat if your skin turns bright red. This is especially important if you are unable to feel pain, heat, or cold. You may have a greater risk of getting burned. Eating and drinking Drink enough fluid to keep your urine pale yellow. Resume your normal diet as instructed by your health care provider. Avoid heavy or fried foods thatare hard to digest. Avoid drinking alcohol for as long as instructed by your health care provider. Contact a health care provider if: You have blood in your stool 2 3 days after the procedure. Get help right away if: You have more than a small spotting of blood in your stool. You pass large blood clots in your stool. Your abdomen is swollen. You have nausea or vomiting. You have a fever. You have increasing abdominal pain that is not relieved with medicine. Summary After the procedure, it is common to have a small amount of blood in your stool. You may also have mild abdominal cramping and bloating. For the first 24 hours after the procedure, do not drive or use machinery, sign important documents, or drink alcohol. Contact your health care provider if you have a lot of blood in your stool, nausea or vomiting, a fever, or increased abdominal pain. This information is not intended to replace advice given to you by your health care provider. Make sure you discuss any questions you have with your health care provider. Document Released: 10/16/2004 Document Revised: 12/25/2017 Document Reviewed: 05/15/2016 [employer] Patient Education 2020 [employer] Follow Up Care 11/14/2022 13:11:02 With:OVIDIO SMITH Address: [address] [place] [address] [place] [address]- [phone] Business (1) When: Unknown [facility] 09-11-2023 Note Discharge Instructions Thank you for allowing [facility] to assist you with your healthcare needs. The following is importantdischarge information regarding your hospital visit. Your Care Team JADA LOPEZ MD, Dr. What to do next Instructions From Your Doctor Check in 10 years. Follow Up Appointments Follow Up with OVIDIO SMITH When Where: [address] [place] [address]- [phone] Business (1) Medications Please ask your primary doctor or pharmacist before taking any other medication not listed, including over the counter drugs, herbal medications, vitamins and or supplements as they may interact withyour home medications. What How Much When Instructions Last Dose Unchanged citalopram (citalopram 40 mg oral tablet) 1 tab(s) by mouth Once a day Unchanged polyethylene glycol 3350 with electrolytes (GaviLyte-G oral powder for reconstitution) 8 oz by mouth Every 10 minutes Duration: 1 Days Drink 8oz every 10 minutes until contents of bottle are consumed. Unchanged polyethylene glycol 3350 with electrolytes (PEG-3350 with Electrolytes (Eqv-GoLYTELY) oral powder for reconstitution) See instructions Take as directed 1 day before colonoscopy. Follow instructions as provided by your GI provider at [facility]. Please take this list to your next doctor s visit. Bring all medications you take, including over the counter medications, herbals and other supplements with you to your doctor s visit. Patients and families are reminded to discard old lists and to update any records with all medication providers or retail pharmacies. Education Materials Monitored Anesthesia Care, Care After These instructions provide you with information about caring for yourself after your procedure. Your health care provider may also give you more specific instructions. Your treatment has been plannedaccording to current medical practices, but problems sometimes occur. Call your health care provider if you have any problems or questions after your procedure. What can I expect after the procedure? After your procedure, you may: Feel sleepy for several hours. Feel clumsy and have poor balance for several hours. Feel forgetful about what happened after the procedure. Have poor judgment for several hours. Feel nauseous or vomit. Have a sore throat if you had a breathing tube during the procedure. Follow these instructions at home: For at least 24 hours after the procedure: Have a responsible adult stay with you. It is important to have someone help care for you until youare awake and alert. Rest as needed. Do not: ? Participate in activities in which you could fall or become injured. ? Drive. ? Use heavy machinery. ? Drink alcohol. ? Take sleeping pills or medicines that cause drowsiness. ? Make important decisions or sign legal documents. ? Take care of children on your own. Eating and drinking Follow the diet that is recommended by your health care provider. If you vomit, drink water, juice, or soup when you can drink without vomiting. Make sure you have little or no nausea before eating solid foods. General instructions Take mjaa-khn-movgiyx and prescription medicines only as told by your health care provider. If you have sleep apnea, surgery and certain medicines can increase your risk for breathing problems. Follow instructions from your health care provider about wearing your sleep device: ? Anytime you are sleeping, including during daytime naps. ? While taking prescription pain medicines, sleeping medicines, or medicines that make you drowsy. If you smoke, do not smoke without supervision. Keep all follow-up visits as told by your health care provider. This is important. Contact a health care provider if: You keep feeling nauseous or you keep vomiting. You feel light-headed. You develop a rash. You have a fever. Get help right away if: You have trouble breathing. Summary For several hours after your procedure, you may feel sleepy and have poor judgment. Have a responsible adult stay with you for at least 24 hours or until you are awake and alert. This information is not intended to replace advice given to you by your health care provider. Make sure you discuss any questions you have with your health care provider. Document Released: 06/24/2016 Document Revised: 06/02/2018 Document Reviewed: 06/24/2016 [employer] Patient Education 2020 [employer]. Colonoscopy, Adult, Care After This sheet gives you information about how to care for yourself after your procedure. Your health care provider may also give you more specific instructions. If you have problems or questions, contact your health care provider. What can I expect after the procedure? After the procedure, it is common to have: A small amount of blood in your stool for 24 hours after the procedure. Some gas. Mild abdominal cramping or bloating. Follow these instructions at home: General instructions For the first 24 hours after the procedure: ? Do not drive or use machinery. ? Do not sign important documents. ? Do not drink alcohol. ? Do your regular daily activities at a slower pace than normal. ? Eat soft, ccoz-fr-rfwyrz foods. Take yxvn-lcu-oualeww or prescription medicines only as told by your health care provider. Relieving cramping and bloating Try walking around when you have cramps or feel bloated. Apply heat to your abdomen as told by your health care provider. Use a heat source that your healthcare provider recommends, such as a moist heat pack or a heating pad. ? Place a towel between your skin and the heat source. ? Leave the heat on for 20 30 minutes. ? Remove the heat if your skin turns bright red. This is especially important if you are unable to feel pain, heat, or cold. You may have a greater risk of getting burned. Eating and drinking Drink enough fluid to keep your urine pale yellow. Resume your normal diet as instructed by your health care provider. Avoid heavy or fried foods thatare hard to digest. Avoid drinking alcohol for as long as instructed by your health care provider. Contact a health care provider if: You have blood in your stool 2 3 days after the procedure. Get help right away if: You have more than a small spotting of blood in your stool. You pass large blood clots in your stool. Your abdomen is swollen. You have nausea or vomiting. You have a fever. You have increasing abdominal pain that is not relieved with medicine. Summary After the procedure, it is common to have a small amount of blood in your stool. You may also have mild abdominal cramping and bloating. For the first 24 hours after the procedure, do not drive or use machinery, sign important documents, or drink alcohol. Contact your health care provider if you have a lot of blood in your stool, nausea or vomiting, a fever, or increased abdominal pain. This information is not intended to replace advice given to you by your health care provider. Make sure you discuss any questions you have with your health care provider. Document Released: 10/16/2004 Document Revised: 12/25/2017 Document Reviewed: 05/15/2016 [employer] Patient Education 2020 [employer] Additional Information VACCINATE! IT SAVES LIVES! Members of the community who have not yet received the COVID-19 vaccine and would like to receive it can visit one of [facility] vaccine clinics. There are many vaccine clinic locations within the [facility]. For locations and available times, please visit https://gettheshot.coronavirus.[place].gov/. It is important to note that some COVID mobile vaccine clinics are held outdoors and may be canceled in rainy or stormy conditions. To learn more about pediatric vaccinations (ages 5-11), we invite you to visit the [facility] [facility] webpage. https://www.[employer]s.org/pages/5520-Phset-Nkfpiyiqfus-Sytuenwsbl-Cchlv-Hff stions.htmlTo learn more about the COVID-19 vaccine, we invite you to visit the CDC website for a list of frequently asked questions.https://www.cdc.gov/coronavirus/2019-ncov/vaccines/faq.html [facility] Patient Portal Access Instructions: Stay connected with your healthcare team and access your personal medical information anytime with the [facility] Patient Portal. Please follow the directions below to create your [facility] account: 1.Access the email account you provided upon registration to the hospital/physician office.2.Look for an invitation email from [facility].3.Open the email and access the invitation link: AcceptInvitation to [facility].4.Fill in the required byers to create your account. To access your account, visit [email or web address]. Click the blue button labeled Access Patient Portal and then log in with the username and password that you created in the steps above. You will be able to view your test results, lab results, a summary of your visits, upcoming appointments and more. There is also a convenient messaging option where you can send secure messages to your p rovider. In addition, you will have the ability to download any documents or summaries to your computer and/or send the information securely to a physician. Remember that your healthcare information is confidential, so carefully consider who you will allowto register on the [facility] Patient Portal for access to your information. You can also access the [facility] Patient Portal on the [employer] chan. Simply click on Patient Portal and then log into your account. If you would like to receive a full copy of your medical records, please contact the [facility] Medical Records Department by calling [phone], Saturday through Saturday between 8 a.m. and 4:30 p.m. HOW TO SAFELY DISPOSE OF PRESCRIPTION MEDICATIONS Please use one of the following methods to safely dispose of your unused medications. 1.Use a drug disposal kit: the drug disposal pouch allows you to safely discard your old and unuseddrugs. Ask your nurse to give you one when you are discharged.2.Visit a local take-back location: Many local pharmacies and police departments have programs that collect old and unwanted prescriptiondrugs. Call your local pharmacy or go to http://[employer]/3Q9Av4x to find one close to you.3.Make use of household items: Use cat litter or old coffee grounds to dispose medications if other options arenot available. Mix your drugs with these household products, seal them in an airtight container andthrow it into the garbage. Call [facility]: [phone] to be sure your drugs can be disposed of in this way. Some medicines may require a different approach.4.Never flush your medications down the toilet. IF YOU HAVE BEEN PRESCRIBED AN OPIOID FOR PAIN If you have been prescribed an opioid (such as hydrocodone, oxycodone or morphine), it is critical to understand the possible side effects and risks of opioid pain medications. Even when taken as directed, opioids can have several side effects including: Tolerance, meaning you might need to take more of a medication for the same pain relief. Nausea, vomiting and/or constipation. Sleepiness, dizziness, dry mouth, confusion, depression or itching. Physical dependence, meaning you have withdrawal symptoms when a medication is stopped, can develop within a few days. KNOW YOUR RESPONSIBILITIES It is important to know exactly how much and how often to take the opioid pain medications you are prescribed. Never take opioids in higher amounts or more often than prescribed. Do not combine opioids with alcohol or other drugs that cause drowsiness, such as benzodiazepines, also known as benzos, including diazepam and alprazolam, muscle relaxants or sleep aids. Never sell or share prescription opioids. This is illegal. Store opioids in a secure place and out of reach of others (including children, family, friends and visitors). The last page of this document has been signed and retained as a CHART COPY. Signatures Patient Education Materials Monitored Anesthesia Care, Care After Colonoscopy, Adult, Care After Medication Leaflets My discharge plan and instructions have been reviewed and explained to me and I,JOSHUA DUNN understand my current condition and have read and understand these discharge instructions. I have received a written copy of the plan/instructions. If I have questions, I am aware that I should contact my doctor. 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 Signature: Date/Time: Relationship to Patient: Witness Name/Signature: Date/Time: [facility]09-11-2023 Anesthesiology Consult note Patient: JOSHUA DUNN Age: 42 years Sex: Female : 1980 Associated Diagnoses: None Author: DARIUSZ DEMPSEY APRN-TIRE SHOP MECHANIC Assessment Postanesthesia assessment Vitals: Vital signs from flowsheet : Vital Signs 11/26/2022 11:40 EDT Heart Rate Monitored 67 bpm bpm Respiratory Rate - Anes 22 br/min br/min Systolic Blood Pressure Non-Invasive 110 mmHg mmHg Diastolic Blood Pressure Non-Invasive 76 mmHg mmHg 11/26/2022 11:35 EDT Heart Rate Monitored 69 bpm bpm Respiratory Rate - Anes 25 br/min br/min Systolic Blood Pressure Non-Invasive 127 mmHg mmHg Diastolic Blood Pressure Non-Invasive 88 mmHg mmHg 11/26/2022 11:30 EDT Heart Rate Monitored 74 bpm bpm Respiratory Rate - Anes 20 br/min br/min Systolic Blood Pressure Non-Invasive 115 mmHg mmHg Diastolic Blood Pressure Non-Invasive 79 mmHg mmHg 11/26/2022 11:25 EDT Heart Rate Monitored 78 bpm bpm Respiratory Rate - Anes 19 br/min br/min Systolic Blood Pressure Non-Invasive 107 mmHg mmHg Diastolic Blood Pressure Non-Invasive 71 mmHg mmHg 11/26/2022 11:21 EDT Systolic Blood Pressure Non-Invasive 133 mmHg mmHg Diastolic Blood Pressure Non-Invasive 78 mmHg mmHg 11/26/2022 10:46 EDT Temperature Temporal Artery 36.5 DegC Apical Heart Rate 77 bpm Respiratory Rate 20 br/min Systolic Blood Pressure Non-Invasive 115 mmHg Diastolic Blood Pressure Non-Invasive 72 mmHg . Mental status: at preoperative baseline. Respiratory function: lungs are clear to auscultation, respirations are non-labored. Respiratory support: none. CV function: Normal rate, Regular rhythm. Cardiovascular support: none. Pain: Self-reports no pain, Post op control No intervention needed. Nausea status: denies nausea. Postoperative hydration status: within normal limits. Digitally Signed by DARIUSZ DEMPSEY on 11/26/2022 11:45 AM [facility]09-11-2023 Anesthesiology Consult note Patient: JOSHUA DUNN Age: 42 years Sex: Female : 1980 Associated Diagnoses: None Author: ADRIUSZ DEMPSEY Preoperative Information Anesthesia history Patient's history: negative. Family's history: negative. Health Status Allergies: Allergic Reactions (Selected) No Known Medication Allergies, Allergies (1) ActiveReaction No Known Medication AllergiesNone Documented Current medications: (Selected) Inpatient Medications Ordered LR 1,000 mL: 50 mL/hr, Intravenous Prescriptions Prescribed PEG-3350 with Electrolytes (Eqv-GoLYTELY) oral powder for reconstitution: See Instructions, Take asdirected 1 day before colonoscopy. Follow instructions as provided by your GI provider at [facility]., 1 EA, 0 Refill(s) citalopram 40 mg oral tablet: 40 mg, 1 tab(s), Oral, qDay, 90 tab(s), 3 Refill(s) Documented Medications Documented GaviLyte-G oral powder for reconstitution: 8 oz, Oral, q10min, for 1 day(s), Drink 8oz every 10 minutes until contents of bottle are consumed., 1 EA, 0 Refill(s), Medications (1) Active Scheduled: (0) Continuous: (1) Lactated Ringers Infusion 1,000 mL 1,000 mL, Intravenous, 50 mL/hr PRN: (0) Problem list: Medical (Selected) Change in bowel habit / SNOMED CT 938943143 / Confirmed Anxiety / SNOMED CT 74960112 / Confirmed Chronic pelvic pain in female / SNOMED CT 709979512 / Confirmed Constipation / SNOMED CT 71229724 / Confirmed Female infertility / SNOMED CT 79661874 / Confirmed, Active Problems (5) Anxiety Change in bowel habit Chronic pelvic pain in female Constipation Female infertility Histories Past Medical History: No active or resolved past medical history items have been selected or recorded. Family History: Breast cancer Paternal Grandmother High blood pressure Father Hypercholesterolemia Father Malignant tumor of prostate Maternal Grandfather Coronary artery disease Maternal Grandmother Diabetes Mother Maternal Grandmother Procedure history: Laparoscopic appendectomy (21149629) in 2010 at 30 Years. Hysterectomy ([id number]). Comments: 11/26/2022 10:57 EDT - Nori Gonzalez RN Laparoscopic Social History Social & Psychosocial Habits Alcohol 10/15/2022 Use: Never Substance Abuse 10/15/2022 Use: Never Tobacco 10/15/2022 Tobacco Use: Never (less than 100 in l Nutrition/Health 10/15/2022 Caffeine intake amount: 1 daily . Physical Examination Vital Signs 11/26/2022 10:46 EDT Temperature Temporal Artery 36.5 DegC Apical Heart Rate 77 bpm Respiratory Rate 20 br/min Systolic Blood Pressure Non-Invasive 115 mmHg Diastolic Blood Pressure Non-Invasive 72 mmHg Vital Signs(last 24 hrs) Last Charted Resp Rate 20 br/min (NOV 26 10:46) TMY457 mmHg (NOV 26 10:46) DBP72 mmHg (NOV 26 10:46) BMI21.91 (NOV 26 10:59) Measurements from flowsheet : Measurements 11/26/2022 10:59 EDT Height 175 cm Admission Weight 67.1 kg [place] Body Weight 65.96 kg BSA Admission 1.82 Body Mass Index 21.91 kg/m2 11/26/2022 10:46 EDT Height 175 cm Admission Weight 67.1 kg [place] Body Weight 65.96 kg Admission Body Mass Index 21.91 m2 Pain assessment: Pain Assessment 11/26/2022 10:46 EDT Primary Pain Intensity 0 Pain Scale Type 0-10 Pain scale . General: Alert and oriented. Airway: Normal temporomandibular joint mobility. Mallampati classification: II (soft palate, fauces, uvula visible). Dentition Evaluation: Denies loose/chipped teeth. Respiratory: Lungs are clear to auscultation, Respirations are non-labored. Cardiovascular: Normal rate, Regular rhythm. Neurologic: Alert, Oriented. Review / Management Results review: No qualifying data available , Lab results 11/26/2022 11:15 EDT SN - CAt - Case Attendee SN - CAt - Case Attendee SN - CAt - Case Attendee SN - CAt - Case Attendee SN - CAt - Case Attendee SN - CAt - Case Attendee SN - CAt - Case Attendee SN - CAt - Case Attendee SN - CAt - Role Performed Primary Surgeon SN - CAt - Role Performed Drum Drier SN - CAt - Role Performed TIRE SHOP MECHANIC SN - CAt - Role Performed Freight Delivery Driver 1 11/26/2022 11:02 EDT Lactated Ringers Injection Begin Bag 1,000 mL mL 11/26/2022 10:59 EDT Designated Person #1 We May Share PHI Designated Person #1 We May Share PHI Designated Person #1 Relationship Spouse Height 175 cm Admission Weight 67.1 kg [place] Body Weight 65.96 kg BSA Admission 1.82 Body Mass Index 21.91 kg/m2 Status No, per patient Sensory Deficits None Infectious Disease Symptoms Patient states no symptoms Infectious Disease Recent Exposure No Alcohol and Drug Use No Employee of Institutional Living No Health Care Employee No History of Exposure to TB No History of Positive Chest X-Ray for TB No History of Positive TB Skin Test No Homeless No Known Immunosuppression No Recent Immigrant No Resident of Institutional Living No Bloody Sputum No Fatigue No Fever No Loss of Appetite No Night Sweats No Persistent Cough > 3 Weeks No Weight Loss No Barriers to Learning None evident Teaching Method Explanation, Printed materials Preferred Spoken Language Faroese Preferred Written Language Faroese Information Given by Patient Patient's Current Physicians [facility] Discharge To, Anticipated Home with family care Prev Test Positive/Diagnosis w/COVID-19 Yes Previous COVID-19 Positive 2019 Current Quarantine/Isolated any Illness No Any Contact with Sick Animals/Birds No Traveled Anywhere in Last 30 Days No No Personal Devices, Patient Valuables Glasses Admission Note-Nursing Procedure/Therapy Intake 11/26/2022 10:58 EDT Continuous IV Infusions LR Antecubital Right 11/26/2022 22 gauge Peripheral IV Activity: Insert new site Peripheral IV Dressing Condition: Clean, Dry, Intact Peripheral IV Dressing Activity: Applied, Transparent dressing Peripheral IV Line Status/Patency: Continuous infusion Peripheral IV Line Care: Secured with tape Peripheral IV Site Condition: No complications Peripheral IV Number of Attempts: 1 11/26/2022 10:53 EDT IV Present Present Allergies No Anesthesia Extension Set Applied Yes Health Unit Clerk On Yes Colon Prep Results Excellent Consent Form Signed Yes Patient Dressed In Hospital gown Pre-op Preparation Glasses removed History & Physical Update On Chart Yes History & Physical On Chart Yes Bowel Prep Completed Yes Obstructive Sleep Apnea Assess Completed No Belongings At Bedside Transferred with patient Personal Home Medications Received No home medications were brought in Belongings Sent Home None Belongings to Security/Secured in Dept None NPO Status Maintained Allergy Band on and Verified No Blood Band on and Verified No Patient ID Band on and Verified Yes Implants Verified Yes Pacemaker/AICD Verified Yes Site Verified by Patient/Family Yes Anesthesia Consent Signed Yes Blood Consent Signed No Last Fluid Intake 11/26/2022 4:00 Last Food Intake 11/24/2022 10:55 Last Void 11/26/2022 8:00 11/26/2022 10:46 EDT Height 175 cm Admission Weight 67.1 kg [place] Body Weight 65.96 kg Admission Body Mass Index 21.91 m2 Temperature Temporal Artery 36.5 DegC Apical Heart Rate 77 bpm Respiratory Rate 20 br/min Systolic Blood Pressure Non-Invasive 115 mmHg Diastolic Blood Pressure Non-Invasive 72 mmHg Primary Pain Intensity 0 Pain Scale Type 0-10 Pain scale Heart Rhythm Regular Respirations Unlabored All Lobes Breath Sounds Clear Oxygen Therapy Room air Oxygen Saturation 99 % Abdomen Description Non-distended Abdomen Palpation Non-Tender Bowel Sounds All Quadrants Present Urinary Elimination Voiding, no difficulties Skin Symptoms Bruising Skin Temperature Warm Skin Description [place], Dry Skin Integrity Intact Mucous Membrane Color [place] Skin Moisture General Dry Characteristics of Speech Clear Level of Consciousness Alert Strength All Extremities Strong Tone All Extremities Normal Affect/Behavior Appropriate, Calm, Cooperative Orientation Oriented x 4 [place] Motor (2) Moves 4 extremities voluntarily or on command [place] Respirations (2) Spontaneous respiration without support, RR > 10 [place] Blood Pressure (2) BP 20% above or below preanesthetic level [place] Pulse (2) Pulse 20% above or below preanesthetic level [place] Oxygen Saturation (2) 94% or more [place] Level of Consciousness (2) Fully awake [place] III Score 12 Standard Safety ID band on, Call device within reach, Bed in low position, Wheels locked . Assessment and Plan [place] [employer] (ASA) physical status classification: Class II. Anesthetic Preoperative Plan Anesthetic technique: MAC. Postoperative pain management: Per surgeon. Risks discussed: nausea, vomiting, hypotension, allergic reaction, serious complications. Informed consent: signed by patient. Digitally Signed by DARIUSZ DEMPSEY on 11/26/2022 11:16 AM [facility]07-07-2023 Note. MICRO - Microbiology PROCEDURE: Affirm Pathogens DNA Direct Probe [*1] SOURCE: Vaginal Fluid BODY SITE: Vaginal Cuff COLLECTED DATE/TIME: 09/19/2022 19:11 EDT RECEIVED DATE/TIME: 09/20/2022 15:11 EDT START DATE/TIME: 09/20/2022 15:11 EDT FREE TEXT SOURCE: FINAL REPORTS Final Report [] Verified Date/Time/Personnel: 09/21/2022 11:43 EDT Judith species DNA Probe Positive Gardnerella vaginalis DNA Probe Negative Trichomonas vaginalis DNA Probe Negative Performing Locations *1: This test was performed at: [address], [address] [place], [place] [address]-21-2022 Note. MICRO - Microbiology PROCEDURE: Urine Culture [*1] SOURCE: Urine, Clean Catch BODY SITE: COLLECTED DATE/TIME: 09/19/2022 17:00 EDT RECEIVED DATE/TIME: 09/19/2022 19:21 EDT START DATE/TIME: 09/19/2022 19:22 EDT FREE TEXT SOURCE: FINAL REPORTS Final Report [] Verified Date/Time/Personnel: 09/21/2022 08:14 EDT 10,000 - 50,000 cfu/ml Mixed growth consistent with normal urogenital alfred. PRELIMINARY REPORTS Preliminary Report [] Verified Date/Time/Personnel: 09/20/2022 10:21 EDT Culture results pending. Performing Locations *1: This test was performed at: [address], [address] [place], [place] [id number] Evaluation + Plan note Future Scheduled Tests Laboratory* Affirm Pathogens DNA Direct Probe 09/19/22 Radiology* MA Mammo Screening Bilateral w/ Miles 10/15/22 [facility] 06-16-2023 Evaluation + Plan noteExtracted from: Title:History and Physical Author:STACY SKINNER MD Date:08/31/22 Chronic pelvic pain in femal e Orders: IV Catheter Insertion/Care NPO Sequential Compression Device Application Sign Consent Sign Consent Type and Screen (AO) Vital Signs [facility] 06-16-2023 Hospital Discharge instructions Patient Education 08/31/2022 09:25:46 Cystoscopy Cystoscopy Cystoscopy is a procedure that is used to help diagnose and sometimes treat conditions that affect the lower urinary tract. The lower urinary tract includes the bladder and the urethra. The urethra is the tube that drains urine from the bladder. Cystoscopy is done using a thin, tube-shaped instrument with a light and camera at the end (cystoscope). The cystoscope may be hard or flexible, depending on the goal of the procedure. The cystoscope is inserted through the urethra, into the bladder. Cystoscopy may be recommended if you have: Urinary tract infections that keep coming back. Blood in the urine (hematuria). An inability to control when you urinate (urinary incontinence) or an overactive bladder. Unusual cells found in a urine sample. A blockage in the urethra, such as a urinary stone. Painful urination. An abnormality in the bladder found during an intravenous pyelogram (IVP) or CT scan. Cystoscopy may also be done to remove a sample of tissue to be examined under a microscope (biopsy). Tell a health care provider about: Any allergies you have. All medicines you are taking, including vitamins, herbs, eye drops, creams, and vgrb-bek-kfwlxlr medicines. Any problems you or family members have had with anesthetic medicines. Any blood disorders you have. Any surgeries you have had. Any medical conditions you have. Whether you are or may be . What are the risks? Generally, this is a safe procedure. However, problems may occur, including: Infection. Bleeding. Allergic reactions to medicines. Damage to other structures or organs. What happens before the procedure? Ask your health care provider about: ?Changing or stopping your regular medicines. This is especially important if you are taking diabetes medicines or blood thinners. ?Taking medicines such as aspirin and ibuprofen. These medicines can thin your blood. Do not take these medicines unless your health care provider tells you to take them. ?Taking aeen-vtr-vnmfqua medicines, vitamins, herbs, and supplements. Follow instructions from your health care provider about eating or drinking restrictions. Ask your health care provider what steps will be taken to help prevent infection. These may include: ?Washing skin with a germ-killing soap. ?Taking antibiotic medicine. You may have an exam or testing, such as: ? X-rays of the bladder, urethra, or kidneys. ?Urine tests to check for signs of infection. Plan to have someone take you home from the hospital or clinic. What happens during the procedure? You will be given one or more of the following: ?A medicine to help you relax (sedative). ?A medicine to numb the area (local anesthetic). The area around the opening of your urethra will be cleaned. The cystoscope will be passed through your urethra into your bladder. Germ-free (sterile) fluid will flow through the cystoscope to fill your bladder. The fluid will stretch your bladder so that your health care provider can clearly examine your bladder wolfe. Your doctor will look at the urethra and bladder. Your doctor may take a biopsy or remove stones. The cystoscope will be removed, and your bladder will be emptied. The procedure may vary among health care providers and hospitals. What can I expect after the procedure? After the procedure, it is common to have: Some soreness or pain in your abdomen and urethra. Urinary symptoms. These include: ?Mild pain or burning when you urinate. Pain should stop within a few minutes after you urinate. This may last for up to 1 week. ?A small amount of blood in your urine for several days. ?Feeling like you need to urinate but producing only a small amount of urine. Follow these instructions at home: Medicines Take fyhr-rox-dygbohj and prescription medicines only as told by your health care provider. If you were prescribed an antibiotic medicine, take it as told by your health care provider. Do notstop taking the antibiotic even if you start to feel better. General instructions Return to your normal activities as told by your health care provider. Ask your health care provider what activities are safe for you. Do not drive for 24 hours if you were given a sedative during your procedure. Watch for any blood in your urine. If the amount of blood in your urine increases, call your healthcare provider. Follow instructions from your health care provider about eating or drinking restrictions. If a tissue sample was removed for testing (biopsy) during your procedure, it is up to you to get your test results. Ask your health care provider, or the department that is doing the test, when yourresults will be ready. Drink enough fluid to keep your urine pale yellow. Keep all follow-up visits as told by your health care provider. This is important. Contact a health care provider if you: Have pain that gets worse or does not get better with medicine, especially pain when you urinate. Have trouble urinating. Have more blood in your urine. Get help right away if you: Have blood clots in your urine. Have abdominal pain. Have a fever or chills. Are unable to urinate. Summary Cystoscopy is a procedure that is used to help diagnose and sometimes treat conditions that affect the lower urinary tract. Cystoscopy is done using a thin, tube-shaped instrument with a light and camera at the end. After the procedure, it is common to have some soreness or pain in your abdomen and urethra. Watch for any blood in your urine. If the amount of blood in your urine increases, call your healthcare provider. If you were prescribed an antibiotic medicine, take it as told by your health care provider. Do notstop taking the antibiotic even if you start to feel better. This information is not intended to replace advice given to you by your health care provider. Make sure you discuss any questions you have with your health care provider. Document Released: 03/01/2001 Document Revised: 02/24/2019 Document Reviewed: 02/24/2019 [employer] Patient Education 2020 [employer]. 08/31/2022 09:25:35 Salpingectomy, Care After Salpingectomy, Care After This sheet gives you information about how to care for yourself after your procedure. Your health care provider may also give you more specific instructions. If you have problems or questions, contact your health care provider. What can I expect after the procedure? After the procedure, it is common to have: Pain in your abdomen. Some light vaginal bleeding (spotting) for a few days. Tiredness. Your recovery time will vary depending on which method your surgeon used for your surgery. Follow these instructions at home: Incision care Follow instructions from your health care provider about how to take care of your incisions. Make sure you: ?Wash your hands with soap and water before and after you change your bandage (dressing). If soap and water are not available, use hand flatwork finisher hand. ?Change or remove your dressing as told by your health care provider. ?Leave any stitches (sutures), skin glue, or adhesive strips in place. These skin closures may needto stay in place for 2 weeks or longer. If adhesive strip edges start to loosen and curl up, you may trim the loose edges. Do not remove adhesive strips completely unless your health care provider tells you to do that. Keep your dressing clean and dry. Check your incision area every day for signs of infection. Check for: ?Redness, swelling, or pain that gets worse. ?Fluid or blood. ?Warmth. ?Pus or a bad smell. Activity Rest as told by your health care provider. Avoid sitting for a long time without moving. Get up to take short walks every 1 2 hours. This is important to improve blood flow and breathing. Ask for help if you feel weak or unsteady. Return to your normal activities as told by your health care provider. Ask your health care provider what activities are safe for you. Do not drive until your health care provider says that it is safe. Do not lift anything that is heavier than 10 lb (4.5 kg), or the limit that you are told, until your health care provider says that it is safe. This may be 2 6 weeks depending on your surgery. Until your health care provider approves: ?Do not douche. ?Do not use tampons. ?Do not have sex. Medicines Take eogu-njx-jjfkael and prescription medicines only as told by your health care provider. Ask your health care provider if the medicine prescribed to you: ?Requires you to avoid driving or using heavy machinery. ?Can cause constipation. You may need to take actions to prevent or treat constipation, such as: ?Drink enough fluid to keep your urine pale yellow. ?Take ncew-wbb-ugtezok or prescription medicines. ?Eat foods that are high in fiber, such as beans, whole grains, and fresh fruits and vegetables. ?Limit foods that are high in fat and processed sugars, such as fried or sweet foods. General instructions Wear compression stockings as told by your health care provider. These stockings help to prevent blood clots and reduce swelling in your legs. Do not use any products that contain nicotine or tobacco, such as cigarettes, e- cigarettes, and chewing tobacco. If you need help quitting, ask your health care provider. Do not take baths, swim, or use a hot tub until your health care provider approves. You may take showers. Keep all follow-up visits as told by your health care provider. This is important. Contact a health care provider if you have: Pain when you urinate. Redness, swelling, or pain around an incision. Fluid or blood coming from an incision. Pus or a bad smell coming from an incision. An incision that feels warm to the touch. A fever. Abdominal pain that gets worse or does not get better with medicine. An incision that starts to break open. A rash. Light-headedness. Nausea and vomiting. Get help right away if you: Have pain in your chest or leg. Develop shortness of breath. Faint. Have increased or heavy vaginal bleeding, such as soaking a pad in an hour. Summary After the procedure, it is common to feel tired, have some pain in your abdomen, and have some light vaginal bleeding for a few days. Follow instructions from your health care provider about how to take care of your incisions. Return to your normal activities as told by your health care provider. Ask your health care provider what activities are safe for you. Do not douche, use tampons, or have sex until your health care provider approves. Keep all follow-up visits as told by your health care provider. This information is not intended to replace advice given to you by your health care provider. Make sure you discuss any questions you have with your health care provider. Document Released: 06/08/2011 Document Revised: 02/23/2019 Document Reviewed: 02/23/2019 [employer] Patient Education 2020 [employer]. 08/31/2022 09:25:25 Total Laparoscopic Hysterectomy, Care After Total Laparoscopic Hysterectomy, Care After This sheet gives you information about how to care for yourself after your procedure. Your health care provider may also give you more specific instructions. If you have problems or questions, contact your health care provider. What can I expect after the procedure? After the procedure, it is common to have: Pain and bruising around your incisions. A sore throat, if a breathing tube was used during surgery. Fatigue. Poor appetite. Less interest in sex. If your ovaries were also removed, it is also common to have symptoms of menopause such as hot flashes, night sweats, and lack of sleep (insomnia). Follow these instructions at home: Bathing Do not take baths, swim, or use a hot tub until your health care provider approves. You may need toonly take showers for 2 3 weeks. Keep your bandage (dressing) dry until your health care provider says it can be removed. Incision care Follow instructions from your health care provider about how to take care of your incisions. Make sure you: ?Wash your hands with soap and water before you change your dressing. If soap and water are not available, use hand flatwork finisher hand. ?Change your dressing as told by your health care provider. ?Leave stitches (sutures), skin glue, or adhesive strips in place. These skin closures may need to stay in place for 2 weeks or longer. If adhesive strip edges start to loosen and curl up, you may trim the loose edges. Do not remove adhesive strips completely unless your health care provider tells you to do that. Check your incision area every day for signs of infection. Check for: ?Redness, swelling, or pain. ?Fluid or blood. ?Warmth. ?Pus or a bad smell. Activity Get plenty of rest and sleep. Do not lift anything that is heavier than 10 lbs (4.5 kg) for one month after surgery, or as long as told by your health care provider. Do not drive or use heavy machinery while taking prescription pain medicine. Do not drive for 24 hours if you were given a medicine to help you relax (sedative). Return to your normal activities as told by your health care provider. Ask your health care provider what activities are safe for you. Lifestyle Do not use any products that contain nicotine or tobacco, such as cigarettes and e-cigarettes. These can delay healing. If you need help quitting, ask your health care provider. Do not drink alcohol until your health care provider approves. General instructions Do not douche, use tampons, or have sex for at least 6 weeks, or as told by your health care provider. Take klem-sns-mstotdj and prescription medicines only as told by your health care provider. To monitor yourself for a fever, take your temperature at least once a day during recovery. If you struggle with physical or emotional changes after your procedure, speak with your health care provider or a therapist. To prevent or treat constipation while you are taking prescription pain medicine, your health care provider may recommend that you: ?Drink enough fluid to keep your urine clear or pale yellow. ?Take ntib-emo-tqmbhfz or prescription medicines. ?Eat foods that are high in fiber, such as fresh fruits and vegetables, whole grains, and beans. ?Limit foods that are high in fat and processed sugars, such as fried and sweet foods. Keep all follow-up visits as told by your health care provider. This is important. Contact a health care provider if: You have chills or a fever. You have redness, swelling, or pain around an incision. You have fluid or blood coming from an incision. Your incision feels warm to the touch. You have pus or a bad smell coming from an incision. An incision breaks open. You feel dizzy or light-headed. You have pain or bleeding when you urinate. You have diarrhea, nausea, or vomiting that does not go away. You have abnormal vaginal discharge. You have a rash. You have pain that does not get better with medicine. Get help right away if: You have a fever and your symptoms suddenly get worse. You have severe abdominal pain. You have chest pain. You have shortness of breath. You faint. You have pain, swelling, or redness on your leg. You have heavy vaginal bleeding with blood clots. Summary After the procedure it is common to have abdominal pain. Your provider will give you medication forthis. Do not take baths, swim, or use a hot tub until your health care provider approves. Do not lift anything that is heavier than 10 lbs (4.5 kg) for one month after surgery, or as long as told by your health care provider. Notify your provider if you have any signs or symptoms of infection after the procedure. This information is not intended to replace advice given to you by your health care provider. Make sure you discuss any questions you have with your health care provider. Document Released: 12/23/2013 Document Revised: 02/14/2018 Document Reviewed: 05/15/2017 [employer] Patient Education 2020 [employer]. 08/31/2022 09:24:37 How to Use Cold Therapy, Sane-kd-Yyak How to Use Cold Therapy Cold therapy, or cryotherapy, is a treatment that uses cold temperatures to treat an injury or medical condition. It includes using cold packs or ice packs to reduce pain and swelling. Only use cold therapy if your doctor says it is okay. What are the risks? Generally, cold therapy is a safe treatment. However, it is not safe for: People who are not able to say they are in pain. These include small children and people who have memory problems. People who have certain conditions, such as: ?A problem in the vessels that slows blood flow to the fingers and toes (Raynaud's syndrome). ?Feeling very cold easily (cold hypersensitivity). ?Lack of feeling in the area being iced. Cold therapy may not be safe for people who have other conditions. Do not use it without talking toyour doctor if you have: A heart condition. High blood pressure. Open or healing wounds. An infection. Pain and swelling in your joints (rheumatoid arthritis). Poor blood flow in the body. Diabetes. Certain skin conditions. How can I make a cold pack? When using a cold pack at home to reduce pain and swelling, you can use: A silica gel cold pack that has been left in the freezer. You can buy this online or in stores. A sealable plastic bag that has been filled with crushed ice. A washcloth or paper towels soaked in cold (or ice) water. A plastic bag of frozen vegetables. Throw them away when you are finished using them as a cold pack. Supplies needed: A cold pack. A towel. This can be dry or damp, based on what you like. How to use cold therapy 1.Have your cold pack ready. 2.Place a towel between the cold pack and your skin. You may also wrap the cold pack in a towel. 3.Put the cold pack on the affected area. Keep it on for no more than 20 minutes at a time. 4.Check your skin after 5 minutes to make sure that there is no damage to the area. Check for: White spots on your skin. Your skin may look blotchy or mottled. Skin that looks blue or pale. Skin that feels waxy or hard. 5.Repeat these steps as many times each day as told by your doctor. Always use a towel to avoid direct contact with your skin. Contact a doctor if: You start to have white spots on your skin. This may give your skin a blotchy or mottled look. Your skin turns blue or pale. Your skin becomes waxy or hard. Your swelling gets worse. Summary Cold therapy, or cryotherapy, is used to treat an injury or other conditions. It includes using cold packs or ice packs to reduce pain and swelling. Cold therapy is not safe for people who are not able to say they are in pain. When using cold packs or ice packs, always place a towel between the cold source and your skin. Check your skin after 5 minutes of icing it. This is to make sure that there is no skin damage. Contact your doctor if you notice changes in your skin or your swelling gets worse. This information is not intended to replace advice given to you by your health care provider. Make sure you discuss any questions you have with your health care provider. Document Released: 08/20/2008 Document Revised: 12/01/2018 Document Reviewed: 12/01/2018 [employer] Patient Education 2020 [employer]. 08/31/2022 07:24:14 8- Post Op PEDIATRIC NURSE Surgery (02/2020) (CUSTOM) What to Do After Your Gynecology Surgery This sheet will give you general information on what to do when you are home after surgery. However, you should always follow any specific instructions given to you by your surgeon. Pain Medication Please follow the directions on the label of your medication and use your discharge medication listprovided by the hospital. Do not take this medication on an empty stomach. This may cause a stomachache. Use a stool softener or gentle laxative (milk of magnesia) if needed. Constipation is not uncommon while taking oral pain medication. Use less of any narcotic pain medication as soon as your pain allows. You may take trhn-tjw-wllbzogmrqf medication if you no longer need your prescribed pain medication. Wixu-kbe-kgtuzet pain medications are Tylenol (acetaminophen) or Advil (ibuprofen). Do not take Tylenol if you are still taking [place] or Percocet. They are the same type of medication. Too much acetaminophen can hurt your liver. Activity It is OK to use the stairs, but try to avoid them or take less trips right after surgery. After surgery, you may feel tired. Rest is important for healing. Slowly increase your activity level by walking and doing normal activities as you feel comfortable. Follow surgeon instructions on driving. You may not be able to drive for one to six weeks dependingon what surgery and incisions you have. Do not drive while taking narcotic pain medication. They should be out of your system for 24 hours. Diet Eating smaller meals instead of three large meals is good. This may help with your appetite and nutrition. Good nutrition will help you heal. Follow diet instructions that you were taught after surgery. Infection Prevention Washing your hands is one of the best ways to prevent infection. Always wash your hands before and after touching your incision or dressing. Hands carry germs that can cause infections. Try not to touch your incision. Keep the Incision Clean Wear clean, loose-fitting clothes to prevent clothes from rubbing on the incision. Put clean sheets on your bed when you get home. Do not let other people or animals touch the incision. Showering You may start to shower 24 hours after your surgery. Use a clean washcloth and towel on your incision before you use it on any other area of your body. Adjust the shower spray to gentle and use warm water. Gently wash over your incision using antibacterial soap and water and pat it dry. Do not rub the incision. Do not soak or submerge in the bathtub or hot tub until your surgeon says it is OK. Wound Care When you go home, you may leave your incision(s) open to the air. Your incision(s) may be closed with sutures or gwyn. If incision is closed with sutures under the skin, you do not need to have these removed as they will dissolve on their own. If incision is closed with gwyn, the gwyn will need to be removed. If your incision is horizontal (sideways), they need to be removed within three to seven days. If your incision is vertical (up and down), they need to be removed within 10 14 days. If you have thin white tape strips (Steri-Strips) over your incision, keep them dry. Do not remove them unless they begin curling up at the sides and are almost falling off or have been in place for seven days. If your incision begins coming apart, has drainage (thick, foul smelling, white, yellow, green, pink or red) with redness around the incision and feels warm to touch, call your surgeon. You may have an infection. Vaginal Care You may have drainage after surgery. Normal colors are watery, brown-black discharge. Vaginal spotting and bleeding are normal. However, if you are soaking two pads in one hour, that isnot normal. Call your surgeon. No tampons or douching. NO SEXUAL INTERCOURSE FOR 6 WEEKS. Call Your Doctor If: Your pain is not controlled by pain medication. You have a fever of 100.4 degrees or higher. You have a lot of bleeding from the incision or a lot of vaginal bleeding (more than two pads per hour). You have bad stomach pain or you start throwing up. If you are unable to reach your doctor, go to the hospital. Follow Up If a follow-up appointment has not been made, please call your surgeon s office within a day. Let the office know if you have wgyn and they will schedule them to be removed. Contact your surgeon for any specific problems or questions that you may have. Follow Up Care 07/13/2022 11:02:20 With:YAZ SKINNER MD Address: [address] [place] [phone] When: Unknown Comments:CALL DR CASTRO OFFICE SOON FOR A 2 WEEK FOLLOW UP APPOINTMENT AND WITH ANY QUESTIONS OR CONCERNS. GO TO THE EMERGENCY ROOM WITH ANY URGENT CONCERNS. With:YAZ SKINNER Address: [address] [place] [phone] Business (1) When:Within 2 Week(s) [facility] 06-16-2023 Summary of episode note Discharge Instructions Thank you for allowing [facility] to assist you with your healthcare needs. The following is importantdischarge information regarding your hospital visit. Your Care Team JADA LOPEZ MD, DR Your Diagnosis Chronic pelvic pain in female Postoperative pain What to do next Follow Up Appointments Follow Up with YAZ SKINNER MD When Why: CALL DR CASTRO OFFICE SOON FOR A 2 WEEK FOLLOW UP APPOINTMENT AND WITH ANY QUESTIONS OR CONCERNS. GO TO THE EMERGENCY ROOM WITH ANY URGENT CONCERNS. Where: [address] [place] [phone] Follow Up with YAZ SKINNER When In 2 weeks [facility] [address] [facility] [address] [facility] [place] [address]- [phone] Business (1) The Following Activity and Diet Have Been Ordered for You Discharge Activity - Ordered -- Lifting Restricted less than 10 pounds, 08/31/22 9:21:00 EDT Discharge Driving Restrictions - Ordered -- No driving until pain-free, 08/31/22 9:21:00 EDT Discharge Return to Work, School, or Sports (Discharge Return to status) - Ordered -- within 2 weeks, May return to: work, 08/31/22 9:21:00 EDT Discharge Diet - Ordered -- Follow the post-operative/post-procedure diet instructions provided by your physician's office.,08/31/22 9:21:00 EDT The Following Equipment Has Been Ordered for You Discharge Home Equipment Discharge Wound Care - Ordered -- Follow the post-operative/post-procedure wound care instructions provided by your physician's office., 08/31/22 9:21:00 EDT Allergies No Known Medication Allergies Medications Please ask your primary doctor or pharmacist before taking any other medication not listed, including over the counter drugs, herbal medications, vitamins and or supplements as they may interact withyour home medications. What How Much When Why Instructions Last Dose New acetaminophen (Tylenol Extra Strength 500 mg oraltablet) 1 tab(s) by mouth Every 4 hours Duration: 14 Days Refills: 1 Pickup at [facility] #[id number] New docusate (Colace 100 mg oral capsule) 1 cap by mouth Two (2) times a day as needed for as needed for constipation Pickup at [facility] #[id number] New ibuprofen (ibuprofen 800 mg oral tablet) 1 tab(s) by mouth Every 8 hours Duration: 14 Days Pickup at [facility] #[id number] New oxyCODONE (Roxicodone 5 mg oral tablet ( IMMEDIATE release )) 1 tab(s) by mouth Every 6 hours Postoperative pain Duration: 7 Days Pickup at [facility] #[id number] New polyethylene glycol 3350 (MiraLax oral powder for reconstitution) 17 gram(s) by mouth Once a day Duration: 14 Days dissolve in water before taking Pickup at [facility] #[id number] Unchanged citalopram (citalopram 40 mg oral tablet) 1 tab(s) by mouth Once a day Pharmacy Information [facility] #[id number]: [address] [place], [place] [phone] Please take this list to your next doctor s visit. Bring all medications you take, including over the counter medications, herbals and other supplements with you to your doctor s visit. Patients and families are reminded to discard old lists and to update any records with all medication providers or retail pharmacies. Medication Leaflets oxycodone (ox i KOE done) Oxaydo, OxyCONTIN, Oxyfast, OxyIR, Roxicodone, Xtampza ER What is the most important information I should know about oxycodone? MISUSE OF OPIOID MEDICINE CAN CAUSE ADDICTION, OVERDOSE, OR . Keep the medication in a place where others cannot get to it. Taking opioid medicine during may cause life-threatening withdrawal symptoms in the . Fatal side effects can occur if you use opioid medicine with alcohol, or with other drugs that cause drowsiness or slow your breathing. What is oxycodone? Oxycodone is an opioid pain medication used to treat moderate to severe pain. The extended-release form of oxycodone is for mtcndw-yic-isxlr treatment of pain and should not be used on an as-needed basis for pain. Oxycodone may also be used for purposes not listed in this medication guide. What should I discuss with my healthcare provider before using oxycodone? You should not use oxycodone if you are allergic to it, or if you have: severe asthma or breathing problems; or a blockage in your stomach or intestines. You should not use oxycodone unless you are already using a similar opioid medicine and are tolerant to it. Most brands of oxycodone are not approved for use in people under 18. OxyContin should not be givento a child younger than 11 years old. Tell your doctor if you have ever had: breathing problems, sleep apnea; a head injury, or seizures; drug or alcohol addiction, or mental illness; liver or kidney disease; urination problems; or problems with your gallbladder, pancreas, or thyroid. If you use opioid medicine while you are , your baby could become dependent on the drug. This can cause life-threatening withdrawal symptoms in the baby after it is born. Babies born dependent on opioids may need medical treatment for several weeks. Ask a doctor before using opioid medicine if you are . Tell your doctor if you notice severe drowsiness or slow breathing in the nursing baby. How should I use oxycodone? Follow the directions on your prescription label and read all medication guides. Never use oxycodone in larger amounts, or for longer than prescribed. Tell your doctor if you feel an increased urge to take more of this medicine. Never share opioid medicine with another person, especially someone with a history of drug abuse oraddiction. MISUSE CAN CAUSE ADDICTION, OVERDOSE, OR . Keep the medication in a place where others cannot get to it. Selling or giving away opioid medicine is against the law. Stop taking all other plpplq-jls-jsfqz opioid pain medicines when you start taking extended-releaseoxycodone. Take oxycodone with food. Swallow the capsule or tablet whole to avoid exposure to a potentially fatal overdose. Do not crush, chew, break, open, or dissolve. If you cannot swallow a capsule whole, open it and sprinkle the medicine into a spoonful of puddingor applesauce. Swallow the mixture right away without chewing. Do not save it for later use. Never crush or break an oxycodone pill to inhale the powder or mix it into a liquid to inject the drug into your vein. This can cause in . Measure liquid medicine carefully. Use the dosing syringe provided, or use a medicine dose-measuring device (not a kitchen spoon). You should not stop using oxycodone suddenly. Follow your doctor's instructions about tapering yourdose. Store at room temperature, away from heat, moisture, and light. Keep track of your medicine. Oxycodone is a drug of abuse and you should be aware if anyone is using your medicine improperly or without a prescription. Do not keep leftover opioid medication. Just one dose can cause in someone using this medicine accidentally or improperly. Ask your pharmacist where to locate a drug take-back disposal program.If there is no take-back program, flush the unused medicine down the toilet. What happens if I miss a dose? Since oxycodone is used for pain, you are not likely to miss a dose. Skip any missed dose if it is almost time for your next dose. Do not use two doses at one time. What happens if I overdose? Seek emergency medical attention or call the Poison Help line at . An opioid overdosecan be fatal, especially in a child or other person using the medicine without a prescription. Overdose symptoms may include severe drowsiness, pinpoint pupils, slow breathing, or no breathing. Your doctor may recommend you get naloxone (a medicine to reverse an opioid overdose) and keep it with you at all times. A person caring for you can give the naloxone if you stop breathing or don't wake up. Your caregiver must still get emergency medical help and may need to perform CPR (cardiopulmonary resuscitation) on you while waiting for help to arrive. Anyone can buy naloxone from a pharmacy or local health department. Make sure any person caring foryou knows where you keep naloxone and how to use it. What should I avoid while using oxycodone? Do not drink alcohol. Dangerous side effects or could occur. Avoid driving or operating machinery until you know how oxycodone will affect you. Dizziness or severe drowsiness can cause falls or other accidents. Avoid medication errors. Always check the brand and strength of oxycodone you get from the pharmacy. What are the possible side effects of oxycodone? Get emergency medical help if you have signs of an allergic reaction: hives; difficult breathing; swelling of your face, lips, tongue, or throat. Opioid medicine can slow or stop your breathing, and may occur. A person caring for you should give naloxone and/or seek emergency medical attention if you have slow breathing with long pauses,blue colored lips, or if you are hard to wake up. Call your doctor at once if you have: noisy breathing, sighing, shallow breathing, breathing that stops during sleep; a slow heart rate or weak pulse; a light-headed feeling, like you might pass out; confusion, unusual thoughts or behavior; seizure (convulsions); low cortisol levels-- nausea, vomiting, loss of appetite, dizziness, worsening tiredness or weakness; or high levels of serotonin in the body--agitation, hallucinations, fever, sweating, shivering, fast heart rate, muscle stiffness, twitching, loss of coordination, nausea, vomiting, diarrhea. Serious breathing problems may be more likely in older adults and in those who are debilitated or have wasting syndrome or chronic breathing disorders. Common side effects may include: drowsiness, headache, dizziness, tiredness; or constipation, stomach pain, nausea, vomiting. This is not a complete list of side effects and others may occur. Call your doctor for medical advice about side effects. You may report side effects to FDA at 4-443-ONL-1356. What other drugs will affect oxycodone? You may have breathing problems or withdrawal symptoms if you start or stop taking certain other medicines. Tell your doctor if you also use an antibiotic, antifungal medication, heart or blood pressure medication, seizure medication, or medicine to treat HIV or hepatitis C. Opioid medication can interact with many other drugs and cause dangerous side effects or . Be sure your doctor knows if you also use: cold or allergy medicines, bronchodilator asthma/COPD medication, or a diuretic ('water pill'); medicines for motion sickness, irritable bowel syndrome, or overactive bladder; other opioids--opioid pain medicine or prescription cough medicine; a sedative like Valium--diazepam, alprazolam, lorazepam, Xanax, Klonopin, Versed, and others; drugs that make you sleepy or slow your breathing--a sleeping pill, muscle relaxer, medicine to treat mood disorders or mental illness; or drugs that affect serotonin levels in your body--a stimulant, or medicine for depression, Parkinson's disease, migraine headaches, serious infections, or nausea and vomiting. This list is not complete and many other drugs may affect oxycodone. This includes prescription npydwjp-xon-naavomr medicines, vitamins, and herbal products. Not all possible drug interactions are listed here. Where can I get more information? Your pharmacist can provide more information about oxycodone. Remember, keep this and all other medicines out of the reach of children, never share your medicines with others, and use this medication only for the indication prescribed. Every effort has been made to ensure that the information provided by [employer] is accurate, up-to-date, and complete, but no guarantee is made to that effect. Drug information contained herein may be time sensitive. [employer] information has been compiled for use by healthcare practitioners and consumers in the [place] and therefore [employer] does not warrant that uses outside of the [place] are appropriate, unless specifically indicated otherwise. [employer]'s drug information does not endorse drugs, diagnose patients or recommend therapy. [employer] drug information isan informational resource designed to assist licensed healthcare practitioners in caring for their p atients and/or to serve consumers viewing this service as a supplement to, and not a substitute for, the expertise, skill, knowledge and judgment of healthcare practitioners. The absence of a warningfor a given drug or drug combination in no way should be construed to indicate that the drug or drug combination is safe, effective or appropriate for any given patient. [facility] does not assume any responsibility for any aspect of healthcare administered with the aid of information [facility] provides. The information contained herein is not intended to cover all possible uses, directions, precautions, warnings, drug interactions, allergic reactions, or adverse effects. If you have questions about the drugs you are taking, check with your doctor, nurse or pharmacist. Copyright 1440-5881 [facility] [employer]. Version: 14.02. Revision Date: 04/14/2020. acetaminophen (oral) (a SEET a MIN oh fen) Actamin, Anacin AF, Aurophen, Bromo [place], Children's Tylenol, Mapap, M-Pap, Pharbetol, Silapap Childrens, Tactinal, Tempra Quicklets, Tycolene, Tylenol, Vitapap What is the most important information I should know about acetaminophen? An overdose of acetaminophen can damage your liver or cause . Call your doctor at once if you have upper stomach pain, loss of appetite, dark urine, or jaundice (yellowing of your skin or eyes). Stop taking this medicine and get medical help if you have skin redness or a blistering rash. What is acetaminophen? Acetaminophen is used to reduce fever and relieve minor pain caused by conditions such as colds or flu, headache, muscle aches, arthritis, and menstrual cramps. Acetaminophen may also be used for purposes not listed in this medication guide. What should I discuss with my healthcare provider before taking acetaminophen? You should not take acetaminophen if you are allergic to it, or if you take other medications that contain acetaminophen. Ask a doctor or pharmacist if this medicine is safe to use if you've ever had cirrhosis of the liver, or if you drink alcohol daily. Ask a doctor before using this medicine if you are or . How should I take acetaminophen? Use exactly as directed on the label, or as prescribed by your doctor. An acetaminophen overdose can damage your liver or cause . Adults and teenagers at least 12 years old: Do not take more than 1000 milligrams (mg) at one time or more than 4000 mg in 24 hours. Children younger than 12 years old: Do not take more than 5 doses of children's formula acetaminophen in 24 hours. Do not give extra-strength acetaminophen to a child younger than 12 years old without medical advice. A child's dose is based on age and weight. Carefully follow the dosing instructions provided with this medicine. Ask a doctor before giving this medicine to a child younger than 2 years. Acetaminophen made for infants comes with its own medicine dropper or oral syringe. Measuring with the wrong device may cause an overdose. Use only the provided dosing device provided to measure an 's dose. Acetaminophen comes in many different forms such as capsules, liquid, chewable or disintegrating tablets, and dissolving powders or granules. Read and carefully follow any Instructions for Use provided with your medicine. Ask your doctor or pharmacist if you need help. Stop taking acetaminophen and call your doctor if: you still have a sore throat after 2 days of use; you still have a fever after 3 days of use; you still have pain after 7 days of use (or 5 days if treating a child); you have a skin rash, ongoing headache, nausea, vomiting, redness or swelling; or your symptoms get worse, or if you have any new symptoms. Taking acetaminophen may cause false results with certain blood glucose monitors. If you have diabetes, ask your doctor about the best way to monitor your blood sugar levels while using acetaminophen. Store at room temperature away from heat and moisture. What happens if I miss a dose? Acetaminophen is used when needed. If you are on a dosing schedule, skip any missed dose. Do not use two doses at one time. What happens if I overdose? Seek emergency medical attention or call the Poison Help line at . An overdose can befatal. Overdose symptoms include vomiting, stomach pain, and yellowing of your skin or eyes. What should I avoid while taking acetaminophen? Avoid using other medicines that may contain acetaminophen. Avoid drinking alcohol. What are the possible side effects of acetaminophen? Get emergency medical help if you have signs of an allergic reaction: hives; difficulty breathing; swelling of your face, lips, tongue, or throat. In rare cases, acetaminophen may cause a severe skin reaction that can be fatal, even if you took acetaminophen in the past and had no reaction. Stop taking this medicine and call your doctor right away if you have skin redness or a rash that spreads and causes blistering and peeling. Stop taking acetaminophen and call your doctor at once if you have signs of liver problems: stomach pain (upper right side); loss of appetite; tiredness, itching; dark urine, sherice-colored stools; or jaundice (yellowing of the skin or eyes). Less serious side effects may be more likely, and you may have none at all. This is not a complete list of side effects and others may occur. Call your doctor for medical advice about side effects. You may report side effects to FDA at 3-699-OXI-9429. What other drugs will affect acetaminophen? Other drugs may affect acetaminophen, including prescription and ydva-dfs-dcsyfkc medicines, vitamins, and herbal products. Tell your doctor about all other medicines you use. Where can I get more information? Your pharmacist can provide more information about acetaminophen. Remember, keep this and all other medicines out of the reach of children, never share your medicines with others, and use this medication only for the indication prescribed. Every effort has been made to ensure that the information provided by [employer] is accurate, up-to-date, and complete, but no guarantee is made to that effect. Drug information contained herein may be time sensitive. [employer] information has been compiled for use by healthcare practitioners and consumers in the [place] and therefore [employer] does not warrant that uses outside of the [place] are appropriate, unless specifically indicated otherwise. [employer] drug information does not endorse drugs, diagnose patients or recommend therapy. [employer] drug information isan informational resource designed to assist licensed healthcare practitioners in caring for their p atients and/or to serve consumers viewing this service as a supplement to, and not a substitute for, the expertise, skill, knowledge and judgment of healthcare practitioners. The absence of a warningfor a given drug or drug combination in no way should be construed to indicate that the drug or drug combination is safe, effective or appropriate for any given patient. [employer] does not assume any responsibility for any aspect of healthcare administered with the aid of information [employer] provides. The information contained herein is not intended to cover all possible uses, directions, precautions, warnings, drug interactions, allergic reactions, or adverse effects. If you have questions about the drugs you are taking, check with your doctor, nurse or pharmacist. Copyright 7229-8510 [employer]. Version: .. Revision Date: 05/05/2021. Education Materials Cystoscopy Cystoscopy is a procedure that is used to help diagnose and sometimes treat conditions that affect the lower urinary tract. The lower urinary tract includes the bladder and the urethra. The urethra is the tube that drains urine from the bladder. Cystoscopy is done using a thin, tube-shaped instrument with a light and camera at the end (cystoscope). The cystoscope may be hard or flexible, depending on the goal of the procedure. The cystoscope is inserted through the urethra, into the bladder. Cystoscopy may be recommended if you have: Urinary tract infections that keep coming back. Blood in the urine (hematuria). An inability to control when you urinate (urinary incontinence) or an overactive bladder. Unusual cells found in a urine sample. A blockage in the urethra, such as a urinary stone. Painful urination. An abnormality in the bladder found during an intravenous pyelogram (IVP) or CT scan. Cystoscopy may also be done to remove a sample of tissue to be examined under a microscope (biopsy). Tell a health care provider about: Any allergies you have. All medicines you are taking, including vitamins, herbs, eye drops, creams, and abro-vhw-iojibyq medicines. Any problems you or family members have had with anesthetic medicines. Any blood disorders you have. Any surgeries you have had. Any medical conditions you have. Whether you are or may be . What are the risks? Generally, this is a safe procedure. However, problems may occur, including: Infection. Bleeding. Allergic reactions to medicines. Damage to other structures or organs. What happens before the procedure? Ask your health care provider about: ? Changing or stopping your regular medicines. This is especially important if you are taking diabetes medicines or blood thinners. ? Taking medicines such as aspirin and ibuprofen. These medicines can thin your blood. Do not take these medicines unless your health care provider tells you to take them. ? Taking eoba-hgv-jkugyeq medicines, vitamins, herbs, and supplements. Follow instructions from your health care provider about eating or drinking restrictions. Ask your health care provider what steps will be taken to help prevent infection. These may include: ? Washing skin with a germ-killing soap. ? Taking antibiotic medicine. You may have an exam or testing, such as: ? X-rays of the bladder, urethra, or kidneys. ? Urine tests to check for signs of infection. Plan to have someone take you home from the hospital or clinic. What happens during the procedure? You will be given one or more of the following: ? A medicine to help you relax (sedative). ? A medicine to numb the area (local anesthetic). The area around the opening of your urethra will be cleaned. The cystoscope will be passed through your urethra into your bladder. Germ-free (sterile) fluid will flow through the cystoscope to fill your bladder. The fluid will stretch your bladder so that your health care provider can clearly examine your bladder wolfe. Your doctor will look at the urethra and bladder. Your doctor may take a biopsy or remove stones. The cystoscope will be removed, and your bladder will be emptied. The procedure may vary among health care providers and hospitals. What can I expect after the procedure? After the procedure, it is common to have: Some soreness or pain in your abdomen and urethra. Urinary symptoms. These include: ? Mild pain or burning when you urinate. Pain should stop within a few minutes after you urinate. This may last for up to 1 week. ? A small amount of blood in your urine for several days. ? Feeling like you need to urinate but producing only a small amount of urine. Follow these instructions at home: Medicines Take qxbg-zxx-dayrpfd and prescription medicines only as told by your health care provider. If you were prescribed an antibiotic medicine, take it as told by your health care provider. Do notstop taking the antibiotic even if you start to feel better. General instructions Return to your normal activities as told by your health care provider. Ask your health care provider what activities are safe for you. Do not drive for 24 hours if you were given a sedative during your procedure. Watch for any blood in your urine. If the amount of blood in your urine increases, call your healthcare provider. Follow instructions from your health care provider about eating or drinking restrictions. If a tissue sample was removed for testing (biopsy) during your procedure, it is up to you to get your test results. Ask your health care provider, or the department that is doing the test, when yourresults will be ready. Drink enough fluid to keep your urine pale yellow. Keep all follow-up visits as told by your health care provider. This is important. Contact a health care provider if you: Have pain that gets worse or does not get better with medicine, especially pain when you urinate. Have trouble urinating. Have more blood in your urine. Get help right away if you: Have blood clots in your urine. Have abdominal pain. Have a fever or chills. Are unable to urinate. Summary Cystoscopy is a procedure that is used to help diagnose and sometimes treat conditions that affect the lower urinary tract. Cystoscopy is done using a thin, tube-shaped instrument with a light and camera at the end. After the procedure, it is common to have some soreness or pain in your abdomen and urethra. Watch for any blood in your urine. If the amount of blood in your urine increases, call your healthcare provider. If you were prescribed an antibiotic medicine, take it as told by your health care provider. Do notstop taking the antibiotic even if you start to feel better. This information is not intended to replace advice given to you by your health care provider. Make sure you discuss any questions you have with your health care provider. Document Released: 03/01/2001 Document Revised: 02/24/2019 Document Reviewed: 02/24/2019 [employer] Patient Education 2020 [employer]. Salpingectomy, Care After This sheet gives you information about how to care for yourself after your procedure. Your health care provider may also give you more specific instructions. If you have problems or questions, contact your health care provider. What can I expect after the procedure? After the procedure, it is common to have: Pain in your abdomen. Some light vaginal bleeding (spotting) for a few days. Tiredness. Your recovery time will vary depending on which method your surgeon used for your surgery. Follow these instructions at home: Incision care Follow instructions from your health care provider about how to take care of your incisions. Make sure you: ? Wash your hands with soap and water before and after you change your bandage (dressing). If soap and water are not available, use hand flatwork finisher hand. ? Change or remove your dressing as told by your health care provider. ? Leave any stitches (sutures), skin glue, or adhesive strips in place. These skin closures may need to stay in place for 2 weeks or longer. If adhesive strip edges start to loosen and curl up, you maytrim the loose edges. Do not remove adhesive strips completely unless your health care provider tells you to do that. Keep your dressing clean and dry. Check your incision area every day for signs of infection. Check for: ? Redness, swelling, or pain that gets worse. ? Fluid or blood. ? Warmth. ? Pus or a bad smell. Activity Rest as told by your health care provider. Avoid sitting for a long time without moving. Get up to take short walks every 1 2 hours. This is important to improve blood flow and breathing. Ask for help if you feel weak or unsteady. Return to your normal activities as told by your health care provider. Ask your health care provider what activities are safe for you. Do not drive until your health care provider says that it is safe. Do not lift anything that is heavier than 10 lb (4.5 kg), or the limit that you are told, until your health care provider says that it is safe. This may be 2 6 weeks depending on your surgery. Until your health care provider approves: ? Do not douche. ? Do not use tampons. ? Do not have sex. Medicines Take uddr-uef-njgeqyj and prescription medicines only as told by your health care provider. Ask your health care provider if the medicine prescribed to you: ? Requires you to avoid driving or using heavy machinery. ? Can cause constipation. You may need to take actions to prevent or treat constipation, such as: ? Drink enough fluid to keep your urine pale yellow. ? Take pjfl-hov-iiqduvj or prescription medicines. ? Eat foods that are high in fiber, such as beans, whole grains, and fresh fruits and vegetables. ? Limit foods that are high in fat and processed sugars, such as fried or sweet foods. General instructions Wear compression stockings as told by your health care provider. These stockings help to prevent blood clots and reduce swelling in your legs. Do not use any products that contain nicotine or tobacco, such as cigarettes, e- cigarettes, and chewing tobacco. If you need help quitting, ask your health care provider. Do not take baths, swim, or use a hot tub until your health care provider approves. You may take showers. Keep all follow-up visits as told by your health care provider. This is important. Contact a health care provider if you have: Pain when you urinate. Redness, swelling, or pain around an incision. Fluid or blood coming from an incision. Pus or a bad smell coming from an incision. An incision that feels warm to the touch. A fever. Abdominal pain that gets worse or does not get better with medicine. An incision that starts to break open. A rash. Light-headedness. Nausea and vomiting. Get help right away if you: Have pain in your chest or leg. Develop shortness of breath. Faint. Have increased or heavy vaginal bleeding, such as soaking a pad in an hour. Summary After the procedure, it is common to feel tired, have some pain in your abdomen, and have some light vaginal bleeding for a few days. Follow instructions from your health care provider about how to take care of your incisions. Return to your normal activities as told by your health care provider. Ask your health care provider what activities are safe for you. Do not douche, use tampons, or have sex until your health care provider approves. Keep all follow-up visits as told by your health care provider. This information is not intended to replace advice given to you by your health care provider. Make sure you discuss any questions you have with your health care provider. Document Released: 06/08/2011 Document Revised: 02/23/2019 Document Reviewed: 02/23/2019 [employer] Patient Education 2020 [employer]. Total Laparoscopic Hysterectomy, Care After This sheet gives you information about how to care for yourself after your procedure. Your health care provider may also give you more specific instructions. If you have problems or questions, contact your health care provider. What can I expect after the procedure? After the procedure, it is common to have: Pain and bruising around your incisions. A sore throat, if a breathing tube was used during surgery. Fatigue. Poor appetite. Less interest in sex. If your ovaries were also removed, it is also common to have symptoms of menopause such as hot flashes, night sweats, and lack of sleep (insomnia). Follow these instructions at home: Bathing Do not take baths, swim, or use a hot tub until your health care provider approves. You may need toonly take showers for 2 3 weeks. Keep your bandage (dressing) dry until your health care provider says it can be removed. Incision care Follow instructions from your health care provider about how to take care of your incisions. Make sure you: ? Wash your hands with soap and water before you change your dressing. If soap and water are not available, use hand flatwork finisher hand. ? Change your dressing as told by your health care provider. ? Leave stitches (sutures), skin glue, or adhesive strips in place. These skin closures may need to stay in place for 2 weeks or longer. If adhesive strip edges start to loosen and curl up, you may trim the loose edges. Do not remove adhesive strips completely unless your health care provider tells you to do that. Check your incision area every day for signs of infection. Check for: ? Redness, swelling, or pain. ? Fluid or blood. ? Warmth. ? Pus or a bad smell. Activity Get plenty of rest and sleep. Do not lift anything that is heavier than 10 lbs (4.5 kg) for one month after surgery, or as long as told by your health care provider. Do not drive or use heavy machinery while taking prescription pain medicine. Do not drive for 24 hours if you were given a medicine to help you relax (sedative). Return to your normal activities as told by your health care provider. Ask your health care provider what activities are safe for you. Lifestyle Do not use any products that contain nicotine or tobacco, such as cigarettes and e-cigarettes. These can delay healing. If you need help quitting, ask your health care provider. Do not drink alcohol until your health care provider approves. General instructions Do not douche, use tampons, or have sex for at least 6 weeks, or as told by your health care provider. Take ciej-ufc-kbnhves and prescription medicines only as told by your health care provider. To monitor yourself for a fever, take your temperature at least once a day during recovery. If you struggle with physical or emotional changes after your procedure, speak with your health care provider or a therapist. To prevent or treat constipation while you are taking prescription pain medicine, your health care provider may recommend that you: ? Drink enough fluid to keep your urine clear or pale yellow. ? Take qzyp-rqo-scbsfff or prescription medicines. ? Eat foods that are high in fiber, such as fresh fruits and vegetables, whole grains, and beans. ? Limit foods that are high in fat and processed sugars, such as fried and sweet foods. Keep all follow-up visits as told by your health care provider. This is important. Contact a health care provider if: You have chills or a fever. You have redness, swelling, or pain around an incision. You have fluid or blood coming from an incision. Your incision feels warm to the touch. You have pus or a bad smell coming from an incision. An incision breaks open. You feel dizzy or light-headed. You have pain or bleeding when you urinate. You have diarrhea, nausea, or vomiting that does not go away. You have abnormal vaginal discharge. You have a rash. You have pain that does not get better with medicine. Get help right away if: You have a fever and your symptoms suddenly get worse. You have severe abdominal pain. You have chest pain. You have shortness of breath. You faint. You have pain, swelling, or redness on your leg. You have heavy vaginal bleeding with blood clots. Summary After the procedure it is common to have abdominal pain. Your provider will give you medication forthis. Do not take baths, swim, or use a hot tub until your health care provider approves. Do not lift anything that is heavier than 10 lbs (4.5 kg) for one month after surgery, or as long as told by your health care provider. Notify your provider if you have any signs or symptoms of infection after the procedure. This information is not intended to replace advice given to you by your health care provider. Make sure you discuss any questions you have with your health care provider. Document Released: 12/23/2013 Document Revised: 02/14/2018 Document Reviewed: 05/15/2017 [employer] Patient Education 2020 [employer] How to Use Cold Therapy Cold therapy, or cryotherapy, is a treatment that uses cold temperatures to treat an injury or medical condition. It includes using cold packs or ice packs to reduce pain and swelling. Only use cold therapy if your doctor says it is okay. What are the risks? Generally, cold therapy is a safe treatment. However, it is not safe for: People who are not able to say they are in pain. These include small children and people who have memory problems. People who have certain conditions, such as: ? A problem in the vessels that slows blood flow to the fingers and toes (Raynaud's syndrome). ? Feeling very cold easily (cold hypersensitivity). ? Lack of feeling in the area being iced. Cold therapy may not be safe for people who have other conditions. Do not use it without talking toyour doctor if you have: A heart condition. High blood pressure. Open or healing wounds. An infection. Pain and swelling in your joints (rheumatoid arthritis). Poor blood flow in the body. Diabetes. Certain skin conditions. How can I make a cold pack? When using a cold pack at home to reduce pain and swelling, you can use: A silica gel cold pack that has been left in the freezer. You can buy this online or in stores. A sealable plastic bag that has been filled with crushed ice. A washcloth or paper towels soaked in cold (or ice) water. A plastic bag of frozen vegetables. Throw them away when you are finished using them as a cold pack. Supplies needed: A cold pack. A towel. This can be dry or damp, based on what you like. How to use cold therapy 1. Have your cold pack ready. 2. Place a towel between the cold pack and your skin. You may also wrap the cold pack in a towel. 3. Put the cold pack on the affected area. Keep it on for no more than 20 minutes at a time. 4. Check your skin after 5 minutes to make sure that there is no damage to the area. Check for: White spots on your skin. Your skin may look blotchy or mottled. Skin that looks blue or pale. Skin that feels waxy or hard. 5. Repeat these steps as many times each day as told by your doctor. Always use a towel to avoid direct contact with your skin. Contact a doctor if: You start to have white spots on your skin. This may give your skin a blotchy or mottled look. Your skin turns blue or pale. Your skin becomes waxy or hard. Your swelling gets worse. Summary Cold therapy, or cryotherapy, is used to treat an injury or other conditions. It includes using cold packs or ice packs to reduce pain and swelling. Cold therapy is not safe for people who are not able to say they are in pain. When using cold packs or ice packs, always place a towel between the cold source and your skin. Check your skin after 5 minutes of icing it. This is to make sure that there is no skin damage. Contact your doctor if you notice changes in your skin or your swelling gets worse. This information is not intended to replace (more content not included)... [facility] Allyssamadan [id number] Note Date of Service 08/31/22 Chief Complaint Pelvic pain History of Present Illness 42 yo with chronic pelvic pain here for TLH, possible BSO and Cystoscopy. No new medical problems. Pain started around January persistent despite continuous hormone use. PEDIATRIC NURSE history: Menarche: 02/29 Menses: irregular but monthly lasting 7-9 days Menopause: n/a HRT: n/a Contraception: none Prior contraception: 2 years STDs: denies Sexually active: yes, no issues Hx of abuse: denies Pap: 2019 Hx of abnormal pap: denies Gardasil: NA Pregnancies: none Hereditary genetic disease carrier testing: Infertility: yes 2007 normal HSG, did clomid and IUIs, stopped prior to IVF for adoption Chronic pelvic pain: denies Gynecology past issues or surgeries: infertility and abnormal menses, history of frequent UTIs Mammogram: 02/14/2021 heterodense BIRADS 2 US L breast: 4x5x2 mm cyst @ 11OC 2CMFN, and 3d2v3uy @ 10 OC 4CMFN Hx of breast bx: no Colonoscopy: NA DXA: NA Family PEDIATRIC NURSE history: Breast/colon/ovarian/uterine cancer: PGM w breast ca 50s, MGF w prostate ca Hereditary cancer carrier testing: Osteoporosis or hip fractures: no Blood clots, bleeding or clotting disorders: no Review of Systems Constitutional: Negative for fever, negative for chills, Eyes: Negative for vision changes, Cardiovascular: Negative for chest pain, negative for lightheadedness Respiratory: Negative for shortness of breath at rest, negative for shortness of breath with activity, Gastrointestinal: Negative for abdominal pain, negative for nausea, negative for vomiting, negativefor dyschezia, negative for hematochezia Genitourinary: Negative for dysuria,negative for leakage, negative vaginal discharge, negative for vaginal bleeding Neurological: Negative for abnormal or changing headaches, negative for numbness, negative for weakness, negativefor dizziness Physical Exam Vitals and Measurements T: 37.1 C (Temporal Artery) HR: 61 RR: 13 BP: 104/67 SpO2: 99% HT: 175 cm WT: 70 kg Weight Dosing Weight: 70 kg (08/31/22) General: well groomed, well developed female who appears stated age Neuro: alert and oriented CN II-XII grossly intact Psych: pleasant mood, normal affect HEENT: NC/AT EOMI, neck without thyromegaly. no cervical lymphadenopathy CV: S1/S2 No MRCG, RRR Chest: CTABL no WRR Abd: S/NT/ND, BS present, no HSM Extremities: warm dry and intact, no clubbing, cyanosis or edema present. no rashes, varicosities, scars. no visible tattoos or piercings. Lab Results No 36 Hour Lab Data Assessment/Plan Chronic pelvic pain in female Orders: IV Catheter Insertion/Care NPO Sequential Compression Device Application Sign Consent Sign Consent Type and Screen (AO) Vital Signs Problem List/Past Medical History Ongoing Anxiety Asthma Change in bowel habit Chronic pelvic pain in female Constipation Female infertility Historical No qualifying data Procedure/Surgical History Laparoscopic appendectomy: 2010 Medications Home Medications (1) Active citalopram 40 mg oral tablet 40 mg = 1 tab(s), Oral, qDay Allergies No Known Medication Allergies Social History Alcohol Use: Never., 05/01/2022 Nutrition/Health Caffeine intake amount: 1 daily., 05/01/2022 Substance Abuse Use: Never., 09/11/2021 Tobacco Nicotine Use: Never (less than 100 in lifetime)., 09/11/2021 Family History Breast cancer: Paternal Grandmother. Coronary artery disease: Maternal Grandmother. Diabetes: Mother and Maternal Grandmother. High blood pressure: Father. Hypercholesterolemia: Father. Malignant tumor of prostate: Maternal Grandfather. Immunizations No qualifying data available. Code Status No qualifying data available. Digitally Signed by YAZ SKINNER MD on 08/31/2022 07:23 AM [facility]06-16-2023 Anesthesiology Consult note Patient: JOSHUA DUNN Age: 42 years Sex: Female : 1980 Associated Diagnoses: None Author: TAZ CASTREJON APRN-[employer] Preoperative Information Time of last food or liquid consumption: 08/30/2022 21:00:00 Anesthesia history Patient's history: negative. Family's history: negative. Review of Systems Ear/Nose/Mouth/Throat: Negative except as documented in history of present illness. Respiratory: Negative except as documented in history of present illness. Cardiovascular: Negative except as documented in history of present illness. Gastrointestinal: Negative except as documented in history of present illness. Genitourinary: Negative except as documented in history of present illness. Endocrine: Negative except as documented in history of present illness. Musculoskeletal: Negative except as documented in history of present illness. Integumentary: Negative except as documented in history of present illness. Neurologic: Negative except as documented in history of present illness. Health Status Allergies: Allergic Reactions (Selected) No Known Medication Allergies, Allergies (1) ActiveReaction No Known Medication AllergiesNone Documented Current medications: (Selected) Inpatient Medications Ordered LR 1,000 mL: 25 mL/hr, Intravenous, Stop: 08/31/22 23:59:00 EDT Prescriptions Prescribed citalopram 40 mg oral tablet: 40 mg, 1 tab(s), Oral, qDay, 90 tab(s), 3 Refill(s), Medications (1) Active Scheduled: (0) Continuous: (1) Lactated Ringers 1,000 mL 1,000 mL, Intravenous, 25 mL/hr PRN: (0) Problem list: Medical Change in bowel habit / SNOMED CT 399984656 / Confirmed Anxiety / SNOMED CT 15076675 / Confirmed Chronic pelvic pain in female / SNOMED CT 014831892 / Confirmed Constipation / SNOMED CT 80704627 / Confirmed Female infertility / SNOMED CT 93647487 / Confirmed Inactive: Asthma / SNOMED CT 001921347 Canceled: Intermittent constipation / SNOMED CT 29913595 Canceled: Intermittent diarrhea / SNOMED CT 258901617, Active Problems (5) Anxiety Change in bowel habit Chronic pelvic pain in female Constipation Female infertility Histories Past Medical History: No active or resolved past medical history items have been selected or recorded. Family History: Breast cancer Paternal Grandmother High blood pressure Father Hypercholesterolemia Father Malignant tumor of prostate Maternal Grandfather Coronary artery disease Maternal Grandmother Diabetes Mother Maternal Grandmother Procedure history: Laparoscopic appendectomy (31063627) in 2010 at 30 Years. Social History Social & Psychosocial Habits Alcohol 05/01/2022 Use: Never Substance Abuse 09/11/2021 Use: Never Tobacco 09/11/2021 Tobacco Use: Never (less than 100 in l Nutrition/Health 05/01/2022 Caffeine intake amount: 1 daily . Physical Examination Vital Signs 08/31/2022 6:22 EDT Temperature Temporal Artery 37.1 DegC Peripheral Pulse Rate 61 bpm Respiratory Rate 13 br/min LOW Systolic Blood Pressure Non-Invasive 104 mmHg Diastolic Blood Pressure Non-Invasive 67 mmHg Vital Signs(last 24 hrs) Last Charted Resp Rate L 13br/min (AUG 31 06:22) SKO702 mmHg (AUG 31 06:22) DBP67 mmHg (AUG 31:) Measurements from flowsheet : Measurements 08/31/2022 6:22 EDT Height 175 cm Height in inches 68.9 inch(es) Admission Weight 70 kg Weight Lbs 154 lb Weight Method Stated [place] Body Weight 65.96 kg Admission Body Mass Index 22.86 m2 08/31/2022 6:19 EDT Body Mass Index 22.86 kg/m2 Pain assessment: Pain Assessment 08/31/2022 6:22 EDT Primary Pain Intensity 0 Pain Scale Type 0-10 Pain scale . General: Alert and oriented. Airway: Normal neck range of motion. Mallampati classification: II (soft palate, fauces, uvula visible). Head: Normocephalic. Dentition Evaluation: Intact, Own teeth. Neck: Full range of motion. Respiratory: Lungs are clear to auscultation. Cardiovascular: Normal rate. Heart Sounds: Normal. Gastrointestinal: Soft. Musculoskeletal Normal range of motion. Integumentary: Intact, Warm, Dry. Neurologic: Alert, Oriented. Review / Management Results review: No qualifying data available , Lab results 08/31/2022 6:59 EDT cefazolin 2 gram(s) gram(s) famotidine 20 mg mg metroNIDAZOLE 500 mg mg Lactated Ringers Injection Begin Bag 1,000 mL mL Sodium Chloride 0.9% 100 mL mL 08/31/2022 6:41 EDT SN - Preop - CTm Pt in SDS Room 08/31/2022 6:09 SN - Preop - CTm Pt Ready for OR/Proced 08/31/2022 6:41 08/31/2022 6:41 EDT IV Present Present Allergies No Anesthesia Extension Set Applied Yes Health Unit Clerk On Yes CHG Preoperative Wash/Wipe Night before procedure, Day of procedure History & Physical Update On Chart Yes History & Physical On Chart Yes Obstructive Sleep Apnea Assess Completed Yes Allergy Band on and Verified No Blood Band on and Verified No Patient ID Band on and Verified Yes Implants Verified Yes Pacemaker/AICD Verified Yes Site Verified by Patient/Family Yes 08/31/2022 6:40 EDT Hand Left 08/31/2022 20 gauge Peripheral IV Activity: Insert new site Peripheral IV Dressing Condition: Clean, Dry, Intact Peripheral IV Dressing Activity: Applied Peripheral IV Line Status/Patency: Continuous infusion Peripheral IV Site Condition: No complications Peripheral IV Equipment: Extension set Peripheral IV Number of Attempts: 1 08/31/2022 6:22 EDT Height 175 cm Height in inches 68.9 inch(es) Admission Weight 70 kg Weight Lbs 154 lb Weight Method Stated [place] Body Weight 65.96 kg Admission Body Mass Index 22.86 m2 Temperature Temporal Artery 37.1 DegC Peripheral Pulse Rate 61 bpm Respiratory Rate 13 br/min LOW Systolic Blood Pressure Non-Invasive 104 mmHg Diastolic Blood Pressure Non-Invasive 67 mmHg Primary Pain Intensity 0 Pain Scale Type 0-10 Pain scale Heart Sounds ICU S1S2 Heart Rhythm Regular Respirations Unlabored Respiratory Pattern Regular Breath Sounds Auscultated Anterior only All Lobes Breath Sounds Clear Cough None Oxygen Therapy Room air Oxygen Saturation 99 % Abdomen Description Non-distended, Soft Abdomen Palpation Non-Tender Bowel Sounds All Quadrants Present Skin Temperature Warm Skin Description Normal for ethnicity Skin Integrity Intact Skin Moisture General Dry Neurological Symptoms Patient denies Extremity Movement Equal Characteristics of Speech Clear Level of Consciousness Alert JACKIE Yes Strength All Extremities Strong Tone All Extremities Normal Sensation All Extremities Intact Affect/Behavior Appropriate, Calm, Cooperative Orientation Oriented x 4 [place] Motor (2) Moves 4 extremities voluntarily or on command Agapito Respirations (2) Spontaneous respiration without support, RR > 10 [place] Blood Pressure (2) BP 20% above or below preanesthetic level [place] Pulse (2) Pulse 20% above or below preanesthetic level Agapito Oxygen Saturation (2) 94% or more Agapito Level of Consciousness (2) Fully awake Ag[place]ito III Score 12 Activity Status ADL Ambulating in paez, Awake Assistive Device None SCD On/Re-applied bilateral knee high Standard Safety ID band on, Call device within reach, Bed in low position, Wheels locked, Non-Slip footwear, Precautions maintained 08/31/2022 6:20 EDT Urinary Elimination Voiding, no difficulties Consent Form Signed Yes Patient Dressed In Hospital gown, No undergarments Pre-op Preparation Glasses removed CHG Skin Prep Completed for Eligible Surgery Belongings At Bedside Glasses, Pants, Shoes, T-shirt, Undergarments NPO Status Maintained Blood Consent Signed Yes Last Fluid Intake 08/30/2022 21:30 Last Food Intake 08/30/2022 21:30 Last Void 08/31/2022 6:10 08/31/2022 6:19 EDT Body Mass Index 22.86 kg/m2 Advance Directive Location Unable to obtain copy Infectious Disease Symptoms Patient states no symptoms Safety Brochure Information Reviewed Yes [facility] Video Viewed No Teaching Evaluation Verbalizes/Nonverbally indicates understanding Admission Note-Nursing Same Day Patient History (Modified) 08/31/2022 6:11 EDT Test Urine Negative test (u) int test (u) int QC PRGUN Negative QC PRGUP Positive . Assessment and Plan [place] [employer] (ASA) physical status classification: Class II. Anesthetic Preoperative Plan Premedication: intravenous. Anesthetic technique: General. Induction: intravenously. Maintenance airway: Oral endotracheal tube. Postoperative pain management: Per surgeon. Risks discussed: nausea, vomiting, headache, sore throat, dental injury, hypotension, allergic reaction, serious complications. Informed consent: signed by patient. Notes: Anxiety; pelvic pain; asthma. Digitally Signed by TAZ CASTREJON on 08/31/2022 07:17 AM [facility]05-12-2023 Instructions* Patient Instructions* Haim Saravia APRN.CNP - 07/27/2022 5:29 PM EDT [facility] PATIENT INFO PHARYNGITIS OVERVIEW A sore throat (pharyngitis) is a common problem, and usually is caused by a viral or bacterial infection. Sore throat usually resolves on its own without complications in adults, although it is important to know when to seek medical attention. Viruses can cause a sore throat and other upper respiratory infections, such as the common cold. Sore throat caused by a virus is not treated with antibiotics, but instead may be treated with rest, pain medication, and other therapies aimed at relieving symptoms. Strep throat is a particular kind of pharyngitis that is caused by a bacterium known as group A streptococcus (GAS). Strep throat is treated with a course of antibiotics. SORE THROAT SYMPTOMS Viral pharyngitis -- Most people with a sore throat have a virus. The most common viruses are thosethat cause upper respiratory infections, such as the common cold. Symptoms of a viral infection can include: A runny or congested nose Irritation or redness of the eyes Cough, hoarseness, or soreness in the roof of the mouth Some viruses cause a fever and can make you feel quite ill. Strep throat -- Approximately 10 percent of adults with a sore throat have strep throat. Signs and symptoms of strep throat include the following: Pain in the throat Fever (temperature greater than 100.4 F or 38 C) Enlarged lymph glands in the neck White patches of pus on the side or back of the throat No cough, runny nose, or irritation/redness of the eyes Other infections -- Many other less common but more serious infections can cause a sore throat, including mononucleosis (mono), influenza (the flu), N. gonococcus (gonorrhea), human immunodeficiency virus (HIV), and others. When to seek urgent help -- See your doctor or nurse immediately if you have a sore throat along with any of the following: Difficulty breathing Skin rash Drooling because you cannot swallow Swelling of the neck or tongue Stiff neck or difficulty opening the mouth SORE THROAT DIAGNOSIS Most people with a sore throat get better without treatment. There is no specific treatment for a sore throat caused by usual cold viruses. Is it strep or not? -- A combination of symptoms (fever, enlarged glands in the neck, white patcheson your tonsils, and no cough) can help in determining if you have strep. If you have two or more symptoms, a rapid test or throat culture may be done. People with fewer than two symptoms usually do not need testing or treatment for strep throat. Rapid test -- The rapid test determines if there are streptococcus bacteria on a throat swab. The test can be done in a clinician's office and the results are available within a few minutes. The testis accurate in most cases, although a small percentage of tests are falsely negative (the bacteria are present but the test is negative). Throat culture -- A throat culture involves swabbing the throat, sending the swab to a laboratory, and waiting 24 to 48 hours for the results. Throat cultures are slightly more accurate than the rapid test. TREATMENT OF SORE THROAT Sore throat treatment -- Antibiotics do not help throat pain caused by a virus and are not recommended. Sore throat caused by viral infections usually lasts four to five days. During this time, treatments to reduce pain may be helpful. Several therapies can help to relieve throat pain. Pain medication -- You can treat your throat pain with a mild pain reliever such as acetaminophen (Tylenol ) or a non-steroidal anti-inflammatory agent such as ibuprofen or naproxen (Motrin or Aleve ). Oral rinses -- Salt-water gargles are an old stand-by for throat pain. It is not clear that salt water works to relieve pain, but it is unlikely to be harmful. Most recipes suggest 1/4 to 1/2 teaspoon of salt per one cup (8 ounces) of warm water. Sprays -- Sprays containing topical anesthetics (eg, benzocaine, phenol) are available to treat sore throat. However, such sprays are no more effective than sucking on hard candy. Lozenges -- A variety of lozenges (cough drops) are available to treat throat pain or relieve dryness. However, it is not clear that lozenges work any better than other forms of hard candy, which aregenerally less expensive. Other treatments -- Other treatments that may help with throat pain include sipping warm beverages (eg, honey or lemon tea, chicken soup), cold beverages, or eating cold or frozen desserts (eg, ice cream, popsicles). Alternative therapies -- Health food stores, vitamin outlets, and Internet Web sites offer alternative treatments for relief of sore throat pain. We do not recommend these type of treatments due to the risks of contamination with pesticides/herbicides, inaccurate labeling and dosing information, and a lack of studies showing that these treatments are safe and effective. Strep throat -- Although strep throat typically resolves on its own within two to five days, treatment with antibiotics is recommended for adults whose rapid test or throat culture is positive for strep throat. Penicillin, or an antibiotic related to penicillin, is the treatment of choice for strep throat. Itis usually given in pill or liquid form two to four times per day for 10 days. A one time injectionof penicillin is also available. People who are allergic to penicillin are given an alternate antibiotic. It is important to finish the entire course of treatment to completely eliminate the infection. If symptoms do not begin to improve or worsen by three days of antibiotic treatment, you should seeyour doctor or nurse again. Return to work/school -- If you have been diagnosed with strep throat, stay home from work or school until you have completed 24 hours of antibiotics. Within 24 hours of beginning antibiotic treatment, you will feel better and will be less contagious [1]. If you have a sore throat (not diagnosed as strep), you may participate in your usual activities assoon as you feel well. SORE THROAT PREVENTION Hand washing is an essential and highly effective way to prevent the spread of infection. Wet your hands with water and plain soap, and rub them together for 15 to 30 seconds. Pay special attention to the fingernails, between the fingers, and the wrists. Rinse your hands thoroughly, and dry them with a clean towel. Alcohol-based hand rubs are a good alternative for disinfecting hands if a sink is not available. Hand rubs should be spread over the entire surface of hands, fingers, and wrists until dry, and may be used several times. These rubs can be used repeatedly without skin irritation or loss of effectiveness. Hand rubs are available as a liquid or wipe in small, portable sizes that are easy to carry in a pocket or handbag. When a sink is available, visibly soiled hands should be washed with soap and water. Wash your hands after coughing, blowing the nose, or sneezing. While it is not always possible to avoid being near a person who is sick, avoiding touching your eyes, nose, or mouth to prevent the spread of infection. In addition, tissues should be used to cover the mouth when sneezing or coughing. These used tissues should be disposed of promptly. Sneezing/coughing into your sleeve (at the inner elbow) is anotherway to contain sprays of saliva and secretions and will not contaminate your hand documented in this encounterGood [facility]aritan Hospital05-12-[facility]23 History of Present illness Narrative* Haim Saravia APRN.CNP - 07/27/2022 4:40 PM EDT I have communicated my name and active licensure. The patient's identity and physical location wereverified at the time of this visit. Either the patient or their legal personal service representative has been informed of the risks and benefits of -- and alternatives to -- treatment through a remote evaluation andconsents to proceed with the evaluation remotely. Telemedicine Visit - Distance Health Virtual Visit Note Patient seen on [employer] platform. Location of patient: [place] History of Present Illness Joshua Dunn is a 42 year old year old female who presents with symptoms that started yesterday. Symptoms include: Positive for sore throat, swollen lymph nodes, headache, body aches, slightly hoarse voice, PND Negative for Fever, Chills/Sweats, Cough, Nasal congestion, Rhinorrhea, Face pain/pressure, Teeth pain , Otalgia, Nausea, and Emesis Oral intake: Adequate Tobacco use: No Second hand smoke exposure: No Recent exposure to strep:Yes - two sons currently being treated Sick contacts: Yes Recent travel: None OTC meds/remedies that patient has tried: Ashanti PAST MEDICAL HISTORY Diagnosis Date Anxiety 2006 Dr. Jaramillo PAST SURGICAL HISTORY Procedure Laterality Date LAPAROSCOPIC APPENDECTOMY 2010 [facility] FAMILY HISTORY Problem Relation Age of Onset Diabetes Mother Diabetes Maternal Grandfather Breast Cancer Paternal Grandmother Heart Maternal Grandmother Prostate Cancer Maternal Grandfather Social History Tobacco Use Smoking status: Never Smokeless tobacco: Never Substance Use Topics Alcohol use: No Drug use: No Current Outpatient Medications Medication Sig citalopram (CELEXA) 40 mg tablet Take 40 mg by mouth once daily. No current facility-administered medications for this visit. ALLERGIES No Known Allergies Video Exam (Examination performed via Video enabled technology) General appearance: Alert, oriented, pleasant, in NAD :Yes Ill appearing :No Lethargic appearing :No Eyes: Sclera clear :Yes Conjunctiva without erythema :Yes Ears: Tragus / outer ear tenderness by self palpation :No Oropharynx: moderate erythema, bilat tonsils 1; uvula is midline and without deviation, negative for unilateral extremely swollen tonsil, or bulging of posterior soft palate Frontal sinus tenderness by self palpation;No Maxillary sinus tenderness by self palpation :No Tender cervical adenopathy by self palpation :Yes Respiratory distress :No Coughing noted :No Audible wheezing noted :No Centor Criteria - Age (2-14=+1, 15-44=0, >=45 -1): 0 - Tonsillar exudates: 0 - Tender anterior cervical adenopathy: +1 - Fever by history (>38 or 100.4): 0 - Absence of cough: +1 0 points- probability of strep is 1-2.5% 1 point- probability of strep is 5-10% 2 points- probability of strep is 11-17% 3 points- probability of strep is 28-35% 4 points- probability of strep is 51-53% ASSESSMENT/PLAN: 1. Pharyngitis, unspecified etiology - ICD9: 462, ICD10: J02.9 (primary diagnosis) - STREP A MOLECULAR (POC) 2. Strep throat exposure - ICD9: V01.89, ICD10: Z20.818 - Strep test ordered. Please route results/chart back to MY CARE PROVIDER POOL [[id number]]. - If POSITIVE, medication already discussed with pt and will be sent to pharmacy on file at time ofvisit. - If NEGATIVE, results will be released to [facility]. - Discussed viral etiology and rationale for treatment. - Alere Strep Test NEGATIVE, no culture pending - Trial Flonase, saline nose spray to help with PND - [id number] ibuprofen and/or Tylenol as needed for pain - Gargle with warm salt water as needed - Throat lozenges or throat sprays to help reduce throat pain as needed - Sipping warm beverages (warm tea with honey or lemon, chicken soup), cold beverages, or eating cold or frozen desserts , such as popsicles. - If your symptoms persist and do not improve in 3-5 days, please follow up in person - Red flags discussed for need for in person care, including inability to swallow (having to spit out your secretions), difficulty breathing, chest pain, or other concerning symptoms, please go to the nearest ER. - All questions answered Haim aSravia APRN.NEONATAL PEDIATRIC NURSE If you let us know who your primary care provider is, we will send them a notification of today s visit through our electronic medical records system. Since not all providers have access to our notifications, we strongly encourage you to share the following record of today s visit with your primarycare provider at your next visit. This will help in providing you the best care. If you do not have an established Primary Care physician and would like to continue care with a [facility] Primary Care physician, please ask your provider to place a Establish PrimaryCare order. Use [employer] to manage your care, wherever you are, 08/10, on your mobile device or computer. [facility] connects you to [employer] so you can access all your health information in one place and also schedule and request virtual appointments with primary care providers. documented in this encounterGood Samaritan Hospital02-16-2023 Miscellaneous Notes* Telephone Encounter - Anamika Corbett LPN - 05/03/2022 1:09 PM EST Info faxed. Anamika Corbett LPN documented in this encounterGood Samaritan Hospital12-27-2022 History of Present illness Narrative* Patrica Deleon APRN.SHANTHI - 03/13/2022 3:13 PM EST CC Patient presents with: Abdominal Pain HPI Joshua Dunn is a 41 year old female who presents with abdominal pain for for 6 weeks. Location: left lower abdomen without radiation Described as: constant ache Aggravating factors: wakes her up at night when lays on the left side Alleviating factors: repositioning, Advil Denies: dysuria, urgency, frequency, hesitancy, hematuria, blood in stools or black stools, change in bowel habit, diarrhea, heart burn, nausea, vomiting, decreased appetite, bloating, excessive belching Denies strenuous activities or injury. No aerobic exercise. GI history: none. Surgeries: appendectomy. Endoscopy: None She saw her PEDIATRIC NURSE for the pain due to concerns about possible ovarian cyst. Transvaginal ultrasound was negative. Patient denies chance of REVIEW OF SYSTEMS General: no fevers, no chills, no night sweats, no change in energy, and no significant changes in weight Respiratory: no cough, no wheezing, no shortness of breath Cardiovascular: no chest pain, no chest pressure, no palpitations, and no swelling PAST MEDICAL HISTORY Diagnosis Date Anxiety 2006 Dr. Jaramillo PAST SURGICAL HISTORY Procedure Laterality Date LAPAROSCOPIC APPENDECTOMY 2010 [facility] ALLERGIES Patient has no known allergies. MEDICATIONS citalopram (CELEXA) 40 mg tablet Take 40 mg by mouth once daily. ofloxacin (FLOXIN) 0.3 % otic solution INSTILL 10 DROPS INTO AFFECTED EAR(S) once daily for 10 days FAMILY HISTORY Problem Relation Age of Onset Diabetes Mother Diabetes Maternal Grandfather Breast Cancer Paternal Grandmother Heart Maternal Grandmother Prostate Cancer Maternal Grandfather Social History Tobacco Use Smoking status: Never Smokeless tobacco: Never Substance Use Topics Alcohol use: No Drug use: No PHYSICAL EXAM BP 121/78 Pulse 73 Resp 14 Wt 70.8 kg (156 lb) LMP 11/22/2015 BMI 22.71 kg/m General Appearance: well appearing, in no acute distress, alert Skin: Skin color, texture, turgor normal for age; Eyes: conjunctiva pink and moist, no icterus, sclera white, non-injected Lungs: Lungs clear to auscultation. No wheezing, rhonchi, rales. Heart: RRR without murmur, gallop, or rubs. No ectopy Abdomen: Soft, non-distended. mild LLQ and suprapubic abdominal tenderness with palpation. No guarding or rebound tenderness. Bowel sounds normal and active. No masses, organomegaly. CVA tenderness absent ASSESSMENT/PLAN: 1. Left lower quadrant abdominal pain - ICD9: 789.04, ICD10: R10.32 Etiology unclear. Differential diagnoses includes IBS or musculoskeletal pain. No alarm symptoms orexam findings. - UA DIP B/O negative. Check labs: - CBC + DIFF - COMP METABOLIC PANEL Advil as needed for pain Follow-up pending results Prescription instructions reviewed with patient as applicable. Potential red flag symptoms discussed with the patient. Reviewed appropriate action plan to take if red flag symptoms occur. Patient agreeable to treatment plan. Patrica Deleon APRN.CNP documented in this encounterGood Samaritan Hospital06-27-2022 Evaluation + Plan note Diagnostic Tests Pending * HPV Screen, DNA Probe 09/11/21 [facility] 11-01-2013 History of Past illness Narrative* Problem Noted Date Diagnosed Date Resolved Date Fatigue 01/16/2013 06/07/2023 Last Assessment & Plan: Feels more tired and fatigued than usual. She says she gets enough of sleep but wakes up very tired, and stays tired. Feels run down, and gotten worse in the last 1 month. Recently her kids were a little ill and she was dizzy, nothing that was prescribed really helped her at that time, now she feels a lot better. And the dizzness is wearing off. Dizziness 01/05/2013 06/07/2023 Last Assessment & Plan: Dizzy all the time, feels like things around her her spinning a low spinning more like an Imbalance, doesn't feel steady even on the road. This started last Saturday, 7 days ago. All of a sudden, just woke up one morning with that. Doesn't remember hurting herself. Never feels like a black out. She does not have the intense spinning. Has no trouble hearing, no ringing in the ears.nothing makes it better or worse, Has not progressively gotten worse or better. No fevers since 2 days. Had fever for a few days, very Mild. No running nose or post nasal drip, Everybody at home is sick.they are sick. was sick. documented as of this encounter (statuses as of 06/08/2023) [facility] Plan note Future Appointments [facility] Evaluation + Plan note Future Appointments Appointment Date:10/15/2022 01:00:00 PM Scheduled Provider:YAZ SKINNER MD Location: [facility] Appointment Type:[facility] Post Op Future Scheduled Tests Laboratory* Affirm Pathogens DNA Direct Probe 09/19/22 [facility] Evaluation noteNo assessment information available [facility] Work Phone: Evalutqlye note* Diagnosis Left lower quadrant abdominal pain- Primary documented in this encounter [facility] note* Diagnosis Left lower quadrant abdominal pain- Primary Diarrhea, unspecified type documented in this encounter [facility] note* Diagnosis Pharyngitis, unspecified etiology- Primary Strep throat exposure Contact with or exposure to other communicable diseases [facility] for screening [facility] for [facility] cancer [facility] Diagnosis Left lower quadrant abdominal pain- Primary Chronic left hip pain Pain in joint, pelvic region and thigh Chronic bilateral low back pain without sciatica [facility] Diagnosis Chronic left hip pain- Primary Pain in joint, pelvic region and thigh [facility] note* Diagnosis Pelvic joint pain, left- Primary DDD (degenerative disc disease), lumbar Degeneration of lumbar or lumbosacral intervertebral disc [facility] Diagnosis Pelvic joint pain, left- Primary DDD (degenerative disc disease), lumbar Degeneration of lumbar or lumbosacral intervertebral disc [facility]* Diagnosis Routine medical exam- Primary Routine general medical examination at a [facility] care facility Screening for lipid disorders [facility]* Diagnosis Pain of right great toe- Primary Hallux valgus of right foot Pain of right great toe [facility] Diagnosis Hallux valgus of right foot Diminished pulses in lower extremity Other symptoms involving cardiovascular system [facility] Diagnosis Hallux valgus of right foot- Primary Diminished pulses in lower extremity Other symptoms involving cardiovascular system [facility]* Diagnosis Hallux valgus of right foot- Primary [facility]* Diagnosis Hallux valgus of right foot [facility] Diagnosis Pain of right great toe Acquired hallux valgus of right foot Hallux valgus (acquired) [facility]* Diagnosis Chronic left hip pain Pain in joint, pelvic region and thigh Chronic bilateral low back pain without sciatica Acquired hallux valgus of right foot Hallux valgus (acquired) [facility]* Diagnosis Chronic left hip pain Pain in joint, pelvic region and thigh Acquired hallux valgus of right foot Hallux valgus (acquired) [facility]* Diagnosis Encounter for screening mammogram for breast cancer Acquired hallux valgus of right foot Hallux valgus (acquired) [facility]* Diagnosis Pre-operative examination- Primary Preoperative examination, unspecified Anxiety Anxiety state, unspecified Pelvic joint pain, left * Assessment & Plan Note - Maye Ospina APRN.CNP - 01/15/2024 3:43 PM EDT Associated Problem(s): Pelvic joint pain, left Assessment: chronic, otc analgesics as needed * Assessment & Plan Note - Maye Ospina APRN.CNP - 01/15/2024 3:43 PM EDT Associated Problem(s): Anxiety Assessment: controlled on rx [facility] Diagnosis Pre-operative examination- Primary Preoperative examination, unspecified Anxiety Anxiety state, unspecified Pelvic joint pain, left Hallux valgus of right foot- Primary [facility]* Diagnosis Pre-operative examination- Primary Preoperative examination, unspecified Anxiety Anxiety state, unspecified Pelvic joint pain, left Fall, initial encounter- Primary Hallux valgus of right foot Post-operative state Other postprocedural status [facility]* Diagnosis Pre-operative examination- Primary Preoperative examination, unspecified Anxiety Anxiety state, unspecified Pelvic joint pain, left Fall, initial encounter [facility]* Diagnosis Pre-operative examination- Primary Preoperative examination, unspecified Anxiety Anxiety state, unspecified Pelvic joint pain, left Post-operative state- Primary Other postprocedural status [facility] Diagnosis Pre-operative examination- Primary Preoperative examination, unspecified Anxiety Anxiety state, unspecified Pelvic joint pain, left Post-operative state Other postprocedural status [facility] Diagnosis Pre-operative examination- Primary Preoperative examination, unspecified Anxiety Anxiety state, unspecified Pelvic joint pain, left Post-operative state- Primary Other postprocedural status [facility]* Diagnosis Pre-operative examination- Primary Preoperative examination, unspecified Anxiety Anxiety state, unspecified Pelvic joint pain, left Post-operative state- Primary Other postprocedural status documented in this encounter [facility] note* Diagnosis Pre-operative examination- Primary Preoperative examination, unspecified Anxiety Anxiety state, unspecified Pelvic joint pain, left Post-operative state- Primary Other postprocedural status Hallux valgus of right foot documented in this encounter [facility] note* Diagnosis Pre-operative examination- Primary Preoperative examination, unspecified Anxiety Anxiety state, unspecified Pelvic joint pain, left Post-operative state- Primary Other postprocedural status documented in this encounter [facility] note* Diagnosis Pre-operative examination- Primary Preoperative examination, unspecified Anxiety Anxiety state, unspecified Pelvic joint pain, left Post-operative state Other postprocedural status documented in this encounter [facility] note* Diagnosis Pre-operative examination- Primary Preoperative examination, unspecified Anxiety Anxiety state, unspecified Pelvic joint pain, left Post-operative state- Primary Other postprocedural status Hallux valgus of right foot Gait disturbance Abnormality of gait documented in this encounter [facility] note* Diagnosis Pre-operative examination- Primary Preoperative examination, unspecified Anxiety Anxiety state, unspecified Pelvic joint pain, left Post-operative state- Primary Other postprocedural status Hallux valgus of right foot Gait disturbance Abnormality of gait documented in this encounter [facility] note* Diagnosis Pre-operative examination- Primary Preoperative examination, unspecified Anxiety Anxiety state, unspecified Pelvic joint pain, left Post-operative state- Primary Other postprocedural status Hallux valgus of right foot Gait disturbance Abnormality of gait documented in this encounter [facility] note* Diagnosis Pre-operative examination- Primary Preoperative examination, unspecified Anxiety Anxiety state, unspecified Pelvic joint pain, left Post-operative state- Primary Other postprocedural status Hallux valgus of right foot Gait disturbance Abnormality of gait documented in this encounter [facility] note* Diagnosis Pre-operative examination- Primary Preoperative examination, unspecified Anxiety Anxiety state, unspecified Pelvic joint pain, left Post-operative state- Primary Other postprocedural status Hallux valgus of right foot Gait disturbance Abnormality of gait documented in this encounter [facility] note* Diagnosis Pre-operative examination- Primary Preoperative examination, unspecified Anxiety Anxiety state, unspecified Pelvic joint pain, left Post-operative state- Primary Other postprocedural status Hallux valgus of right foot Gait disturbance Abnormality of gait documented in this encounter [facility] note* Diagnosis Pre-operative examination- Primary Preoperative examination, unspecified Anxiety Anxiety state, unspecified Pelvic joint pain, left Post-operative state- Primary Other postprocedural status Hallux valgus of right foot Gait disturbance Abnormality of gait documented in this encounter [facility] note* Diagnosis Pre-operative examination- Primary Preoperative examination, unspecified Anxiety Anxiety state, unspecified Pelvic joint pain, left Post-operative state Other postprocedural status documented in this encounter [facility] note* Diagnosis Pre-operative examination- Primary Preoperative examination, unspecified Anxiety Anxiety state, unspecified Pelvic joint pain, left Post-operative state- Primary Other postprocedural status Numbness and tingling of foot Disturbance of skin sensation documented in this encounter [facility] note* Diagnosis Pre-operative examination- Primary Preoperative examination, unspecified Anxiety Anxiety state, unspecified Pelvic joint pain, left Closed nondisplaced fracture of metatarsal bone of left foot, unspecified metatarsal, initial encounter- Primary Post-operative state Other postprocedural status Acute pain of right knee documented in this encounter [facility] note* Diagnosis Pre-operative examination- Primary Preoperative examination, unspecified Anxiety Anxiety state, unspecified Pelvic joint pain, left Sprain of unspecified site of right knee, initial encounter documented in this encounter [facility] note* Diagnosis Pre-operative examination- Primary Preoperative examination, unspecified Anxiety Anxiety state, unspecified Pelvic joint pain, left Closed nondisplaced fracture of metatarsal bone of left foot, unspecified metatarsal, initial encounter- Primary documented in this encounter [facility] note* Diagnosis Pre-operative examination- Primary Preoperative examination, unspecified Anxiety Anxiety state, unspecified Pelvic joint pain, left Acute pain of right knee documented in this encounter [facility] note* Diagnosis Pre-operative examination- Primary Preoperative examination, unspecified Anxiety Anxiety state, unspecified Pelvic joint pain, left Closed nondisplaced fracture of metatarsal bone of left foot, unspecified metatarsal, initial encounter Post-operative state Other postprocedural status documented in this encounter [facility] note* Diagnosis Pre-operative examination- Primary Preoperative examination, unspecified Anxiety Anxiety state, unspecified Pelvic joint pain, left Closed nondisplaced fracture of metatarsal bone of left foot, unspecified metatarsal, initial encounter documented in this encounter [facility] course Narrative No data available for this section [facility] Discharge instructions No data available for this section [facility] Progress note No data available for this section [facility] Reason for referral (narrative)* Diagnostic Procedure Only (Routine) - Pending Review Specialty Diagnoses / Procedures Referred By Contac t Referred To Contact [facility] Diagnoses Encounter for screening mammogram for breast cancer Procedures KATHY SCREENING SCREENING MAMMOGRAPHY BI 2-VIEW BREAST INC CAD Taz López MD [address] [place] [address] [facility] [address] [facility] [place] [address] Referral ID Status Reason Start Date Expiration Date Visits Requested Visits Authorized [id number] Pending Review Auto-Generat ed Referral 08/15/2022 09/14/[address] [facility] for referral (narrative)* Diagnostic Procedure Only (Routine) - Closed Specialty Diagnoses / Procedures Referred By Contac t Referred To Contact XR IMAGING Diagnoses Chronic bilateral low back pain without sciatica Procedures XR LUMBAR GENERAL 3V AP/LAT/L5-S1 RADEX SPINE LUMBOSACRAL 2/3 VIEWS Patrica Deleon APRN.CNP [address] [place] [address] [place] [address] Referral ID Status Reason Start Date Expiration Date V isits Requested Visits Authorized [id number] Closed Auto-Generate d Referral 01/18/2023 02/17/[address] [facility] for referral (narrative)* Diagnostic Procedure Only (Urgent) - Pending Review Specialty Diagnoses / Procedures Referred By Contac t Referred To Contact [facility] Diagnoses Chronic left hip pain Procedures XR HIP GENERAL 3V PELV/AP/LAT LEFT RADEX HIP UNILATERAL WITH PELVIS 2-3 VIEWS Patrica Deleon APRN.CNP [address] [place] [address] [place] [address] Referral ID Status Reason Start Date Expiration Date Visits Requested Visits Authorized [id number] Pending Review Auto-Generat ed Referral 01/21/2023 02/20/[address] [facility] for referral (narrative)* Outpatient Procedure (Routine) - Authorized Specialty Diagnoses / Procedures Referred By Contac t Referred To Contact [facility] Diagnoses Hallux valgus of right foot Diminished pulses in lower extremity Procedures PVR ANK PRESS [facility] NON-INVAS PHYSIOLOGIC STD EXTREMITY ART 2 LEVEL Opal Lopez [address] [facility] [place] [address] [facility] [place] [address] [place] [id number] Referral ID Status Reason Start Date Expiration Date Visits Requested Visits Authorized [id number] Authorized Auto-Generat ed Referral 09/05/2023 09/04/2024 1 1 * Diagnostic Procedure Only (Routine) - Closed Specialty Diagnoses / Procedures Referred By Contac t Referred To Contact XR IMAGING Diagnoses Hallux valgus of right foot Diminished pulses in lower extremity Procedures XR FOOT GENERAL 3V AP/LAT/OBL RIGHT RADEX FOOT COMPLETE MINIMUM 3 VIEWS Opal Lopez [address] [place] [address] [place] [address] Referral ID Status Reason Start Date Expiration Date V isits Requested Visits Authorized [id number] Closed Auto-Generate d Referral 09/05/2023 10/04/[address] [facility] for referral (narrative)* Diagnostic Procedure Only (Urgent) - Closed Specialty Diagnoses / Procedures Referred By Contac t Referred To Contact X[facility] IMAG[facility] Diagnoses Pain of right great toe Procedures XR FOOT GENERAL 3V AP/LAT/OBL RIGHT RADEX FOOT COMPLETE MINIMUM 3 VIEWS Favian Taylor MD [address] [place] [address] [place] [address] Referral ID Status Reason Start Date Expiration Date V isits Requested Visits Authorized [id number] Closed Auto-Generate d Referral 08/05/2023 09/03/[address] [facility] for referral (narrative)* Diagnostic Procedure Only (Routine) - Closed Specialty Diagnoses / Procedures Referred By Contac t Referred To Contact XR IMAGING Diagnoses Chronic bilateral low back pain without sciatica Procedures XR LUMBAR GENERAL 3V AP/LAT/L5-S1 RADEX SPINE LUMBOSACRAL 2/3 VIEWS Patrica Briscoe SUPERVISOR COSTUMING.NEONATAL PEDIATRIC NURSE [address] [place] [address] [place] [address] Referral ID Status Reason Start Date Expiration Date V isits Requested Visits Authorized [id number] Closed Auto-Generate d Referral 01/18/2023 02/17/[address] [facility] for referral (narrative)* Diagnostic Procedure Only (Urgent) - Closed Specialty Diagnoses / Procedures Referred By Contac t Referred To Contact XR IMAGING Diagnoses Chronic left hip pain Procedures XR HIP GENERAL 3V PELV/AP/LAT LEFT RADEX HIP UNILATERAL WITH PELVIS 2-3 VIEWS Patrica Briscoe SUPERVISOR COSTUMING.NEONATAL PEDIATRIC NURSE [address] [place] [address] [place] [address] Referral ID Status Reason Start Date Expiration Date V isits Requested Visits Authorized [id number] Closed Auto-Generate d Referral 01/21/2023 02/20/2024 1 1 [facility] for referral (narrative)* Diagnostic Procedure Only (Routine) - New Request Specialty Diagnoses / Procedures Referred By Contac t Referred To Contact [facility] Diagnoses Encounter for screening mammogram for breast cancer Procedures KATHY SCREENING W MILES SCREENING DIGITAL BREAST TOMOSYNTHESIS BI SCREENING MAMMOGRAPHY BI 2-VIEW BREAST INC CAD Taz López MD [address] [place] [address] [facility] [address] [facility] [place] [address] Referral ID Status Reason Start Date Expiration Date Visits Requested Visits Authorized [id number] New Request Auto-Generat ed Referral 12/04/2023 01/02/[address] [facility] for referral (narrative)* Diagnostic Procedure Only (Routine) - Closed Specialty Diagnoses / Procedures Referred By Neal t Referred To Contact XR IMAGING Diagnoses Fall, initial encounter Procedures XR FOOT GENERAL 3V AP/LAT/OBL RIGHT RADEX FOOT COMPLETE MINIMUM 3 VIEWS TestOpal jc [address] [address] [place] [address] Referral ID Status Reason Start Date Expiration Date V isits Requested Visits Authorized [id number] Closed Auto-Generate d Referral 02/06/2024 03/07/[address] [facility] for referral (narrative)* Diagnostic Procedure Only (Routine) - Closed Specialty Diagnoses / Procedures Referred By Neal t Referred To Contact XR IMAGING Diagnoses Post-operative state Procedures XR FOOT GENERAL 3V AP/LAT/OBL RIGHT RADEX FOOT COMPLETE MINIMUM 3 VIEWS TestOpal jc [address] [address] [place] [address] Referral ID Status Reason Start Date Expiration Date V isits Requested Visits Authorized [id number] Closed Auto-Generate d Referral 02/18/2024 03/19/[address] [facility] for referral (narrative)* Diagnostic Procedure Only (Routine) - New Request Specialty Diagnoses / Procedures Referred By Neal t Referred To Contact XR IMAGING Diagnoses Post-operative state Procedures XR FOOT GENERAL 3V AP/LAT/OBL RIGHT RADEX FOOT COMPLETE MINIMUM 3 VIEWS Opal Lopez [address] [address] [place] [address] Referral ID Status Reason Start Date Expiration Date Visits Requested Visits Authorized [id number] New Request Auto-Generat ed Referral 03/29/[address] [facility] for referral (narrative)* Diagnostic Procedure Only (Routine) - Closed Specialty Diagnoses / Procedures Referred By Koreyac t Referred To Contact XR IMAGING Diagnoses Post-operative state Procedures XR FOOT GENERAL 3V AP/LAT/OBL RIGHT RADEX FOOT COMPLETE MINIMUM 3 VIEWS Opal Lopez [address] [place] [address] [place] [address] Referral ID Status Reason Start Date Expiration Date V isits Requested Visits Authorized [id number] Closed Auto-Generate d Referral 04/23/2024 05/23/[address] [facility] for referral (narrative)No reason for referral [facility] Work Phone: [facility] for visit Narrative* Diagnostic Procedure Only (Routine) - Closed Specialty Diagnoses / Procedures Referred By Contac t Referred To Contact XR IMAGING Diagnoses Hallux valgus of right foot Diminished pulses in lower extremity Procedures XR FOOT GENERAL 3V AP/LAT/OBL RIGHT RADEX FOOT COMPLETE MINIMUM 3 VIEWS Opal Lopez [address] [place] [address] [place] [address] Referral ID Status Reason Start Date Expiration Date V isits Requested Visits Authorized [id number] Closed Auto-Generate d Referral 09/05/2023 10/04/[address] [facility] for visit Narrative* Diagnostic Procedure Only (Urgent) - Closed Specialty Diagnoses / Procedures Referred By Contac t Referred To Contact XR IMAGING Diagnoses Pain of right great toe Procedures XR FOOT GENERAL 3V AP/LAT/OBL RIGHT RADEX FOOT COMPLETE MINIMUM 3 VIEWS Favian Taylor MD [address] [place] [address] [place] [address] Referral ID Status Reason Start Date Expiration Date V isits Requested Visits Authorized [id number] Closed Auto-Generate d Referral 08/05/2023 09/03/[address] [facility] for visit Narrative* Diagnostic Procedure Only (Routine) - Closed Specialty Diagnoses / Procedures Referred By Contac t Referred To Contact XR IMAGING Diagnoses Chronic bilateral low back pain without sciatica Procedures XR LUMBAR GENERAL 3V AP/LAT/L5-S1 RADEX SPINE LUMBOSACRAL 2/3 VIEWS Patrica Briscoe, SUPERVISOR COSTUMING.NEONATAL PEDIATRIC NURSE [address] [place] [address] [place] [address] Referral ID Status Reason Start Date Expiration Date V isits Requested Visits Authorized [id number] Closed Auto-Generate d Referral 01/18/2023 02/17/[address] [facility] for visit Narrative* Diagnostic Procedure Only (Urgent) - Closed Specialty Diagnoses / Procedures Referred By Contac t Referred To Contact XR IMAGING Diagnoses Chronic left hip pain Procedures XR HIP GENERAL 3V PELV/AP/LAT LEFT RADEX HIP UNILATERAL WITH PELVIS 2-3 VIEWS Patrica Briscoe, SUPERVISOR COSTUMING.NEONATAL PEDIATRIC NURSE [address] [place] [address] [place] [address] Referral ID Status Reason Start Date Expiration Date V isits Requested Visits Authorized [id number] Closed Auto-Generate d Referral 01/21/2023 02/20/[address] [facility] for visit Narrative* Diagnostic Procedure Only (Routine) - Closed Specialty Diagnoses / Procedures Referred By Contac t Referred To Contact XR IMAGING Diagnoses Fall, initial encounter Procedures XR FOOT GENERAL 3V AP/LAT/OBL RIGHT RADEX FOOT COMPLETE MINIMUM 3 VIEWS Opal Lopez [address] [address] [place] [address] Referral ID Status Reason Start Date Expiration Date V isits Requested Visits Authorized [id number] Closed Auto-Generate d Referral 02/06/2024 03/07/[address] [facility] for visit Narrative* Diagnostic Procedure Only (Routine) - Closed Specialty Diagnoses / Procedures Referred By Contac t Referred To Contact XR IMAGING Diagnoses Post-operative state Procedures XR FOOT GENERAL 3V AP/LAT/OBL RIGHT RADEX FOOT COMPLETE MINIMUM 3 VIEWS Test[place], Opal [address] [address] [place] [address] Referral ID Status Reason Start Date Expiration Date V isits Requested Visits Authorized [id number] Closed Auto-Generate d Referral 02/18/2024 03/19/[address] [facility] for visit Narrative* Diagnostic Procedure Only (Routine) - Closed Specialty Diagnoses / Procedures Referred By Contac t Referred To Contact XR IMAGING Diagnoses Post-operative state Procedures XR FOOT GENERAL 3V AP/LAT/OBL RIGHT RADEX FOOT COMPLETE MINIMUM 3 VIEWS Testrake, Opal [address] [address] [place] [address] Referral ID Status Reason Start Date Expiration Date V isits Requested Visits Authorized [id number] Closed Auto-Generate d Referral 02/28/2024 03/29/[address] [facility] for visit Narrative* Diagnostic Procedure Only (Routine) - Closed Specialty Diagnoses / Procedures Referred By Contac t Referred To Contact XR IMAGING Diagnoses Post-operative state Procedures XR FOOT GENERAL 3V AP/LAT/OBL RIGHT RADEX FOOT COMPLETE MINIMUM 3 VIEWS Testrake, Opal [address] [address] [place] [address] Referral ID Status Reason Start Date Expiration Date V isits Requested Visits Authorized [id number] Closed Auto-Generate d Referral 04/23/2024 05/23/[address] [facility] for visit Narrative* Diagnostic Procedure Only (Routine) - Closed Specialty Diagnoses / Procedures Referred By Contac t Referred To Contact XR IMAGING Diagnoses Post-operative state Procedures XR FOOT GENERAL 3V AP/LAT/OBL RIGHT RADEX FOOT COMPLETE MINIMUM 3 VIEWS Opal Lopez[address] [place] [address] Phone: tel: fax: [place] [address] Referral ID Status Reason Start Date Expiration Date V isits Requested Visits Authorized [id number] Closed Auto-Generate d Referral 07/02/2024 08/01/[address] [facility] for visit Narrative* Diagnostic Procedure Only (Routine) - Closed Specialty Diagnoses / Procedures Referred By Contac t Referred To Contact XR IMAGING Diagnoses Acute pain of right knee Procedures XR KNEE GENERAL 4V AP BOTH/PA BOTH/LAT/MERC RIGHT RADIOLOGIC EXAM KNEE COMPLETE 4/MORE VIEWS Opal Lopez[address] [place] [address] Phone: tel: fax: [place] [address] Referral ID Status Reason Start Date Expiration Date V isits Requested Visits Authorized [id number] Closed Auto-Generate d Referral 10/02/2024 11/01/[address] [facility] for visit Narrative* Diagnostic Procedure Only (Routine) - Closed Specialty Diagnoses / Procedures Referred By Contac t Referred To Contact XR IMAGING Diagnoses Closed nondisplaced fracture of metatarsal bone of left foot, unspecified metatarsal, initial encounter Post-operative state Procedures XR FOOT GENERAL 3V AP/LAT/OBL BILATERAL RADEX FOOT COMPLETE MINIMUM 3 VIEWS Opal Lopez[address] [place] [address] Phone: tel: fax: [place] [address] Referral ID Status Reason Start Date Expiration Date V isits Requested Visits Authorized [id number] Closed Auto-Generate d Referral 10/02/2024 11/01/[address] [facility] for visit Narrative* Diagnostic Procedure Only (Routine) - Closed Specialty Diagnoses / Procedures Referred By Contac t Referred To Contact XR IMAGING Diagnoses Closed nondisplaced fracture of metatarsal bone of left foot, unspecified metatarsal, initial encounter Procedures XR FOOT GENERAL 3V AP/LAT/OBL LEFT RADEX FOOT COMPLETE MINIMUM 3 VIEWS Opal Lopez [address] [place] [address] Phone: tel: fax: [place] [address] Referral ID Status Reason Start Date Expiration Date V isits Requested Visits Authorized [id number] Closed Auto-Generate d Referral 10/02/2024 11/01/2025 1 1 [facility] note* Rosa Allen RN: PERFORM Event Display: Outpatient Patient Summary Authored Date: [id number] Discharge Instructions Thank you for allowing [facility] to assist you with your healthcare needs. The following is importantdischarge information regarding your hospital visit. Your Care Team JADA LOPEZ MD, DR Your Diagnosis Chronic pelvic pain in female Postoperative pain What to do next Follow Up Appointments Follow Up with YAZ SKINNER MD When Why: CALL DR CASTRO OFFICE SOON FOR A 2 WEEK FOLLOW UP APPOINTMENT AND WITH ANY QUESTIONS OR CONCERNS. GO TO THE EMERGENCY ROOM WITH ANY URGENT CONCERNS. Where: [address] [place] [id number] [phone] Follow Up with YAZ SKINNER When In 2 weeks Where: [address] [place] [id number] [phone] Business (1) The Following Activity and Diet Have Been Ordered for You Discharge Activity - Ordered -- Lifting Restricted less than 10 pounds, 08/31/22 9:21:00 EDT Discharge Driving Restrictions - Ordered -- No driving until pain-free, 08/31/22 9:21:00 EDT Discharge Return to Work, School, or Sports (Discharge Return to status) - Ordered -- within 2 weeks, May return to: work, 08/31/22 9:21:00 EDT Discharge Diet - Ordered -- Follow the post-operative/post-procedure diet instructions provided by your physician's office.,08/31/22 9:21:00 EDT The Following Equipment Has Been Ordered for You Discharge Home Equipment Discharge Wound Care - Ordered -- Follow the post-operative/post-procedure wound care instructions provided by your physician's office., 08/31/22 9:21:00 EDT Allergies No Known Medication Allergies Medications Please ask your primary doctor or pharmacist before taking any other medication not listed, including over the counter drugs, herbal medications, vitamins and or supplements as they may interact withyour home medications. What How Much When Why Instructions Last Dose New acetaminophen (Tylenol Extra Strength 500 mg oraltablet) 1 tab(s) by mouth Every 4 hours Duration: 14 Days Refills: 1 Pickup at [facility] #[id number] New docusate (Colace 100 mg oral capsule) 1 cap by mouth Two (2) times a day as needed for as needed for constipation Pickup at [facility] #[id number] New ibuprofen (ibuprofen 800 mg oral tablet) 1 tab(s) by mouth Every 8 hours Duration: 14 Days Pickup at [facility] #[id number] New oxyCODONE (Roxicodone 5 mg oral tablet ( IMMEDIATE release )) 1 tab(s) by mouth Every 6 hours Postoperative pain Duration: 7 Days Pickup at [facility] #[id number] New polyethylene glycol 3350 (MiraLax oral powder for reconstitution) 17 gram(s) by mouth Once a day Duration: 14 Days dissolve in water before taking Pickup at [facility] #[id number] Unchanged citalopram (citalopram 40 mg oral tablet) 1 tab(s) by mouth Once a day Pharmacy Information [facility] #[id number]: [address] [place], [place] [phone] Please take this list to your next doctor s visit. Bring all medications you take, including over the counter medications, herbals and other supplements with you to your doctor s visit. Patients and families are reminded to discard old lists and to update any records with all medication providers or retail pharmacies. Medication Leaflets oxycodone (ox i KOE done) Oxaydo, OxyCONTIN, Oxyfast, OxyIR, Roxicodone, Xtampza ER What is the most important information I should know about oxycodone? MISUSE OF OPIOID MEDICINE CAN CAUSE ADDICTION, OVERDOSE, OR . Keep the medication in a place where others cannot get to it. Taking opioid medicine during may cause life-threatening withdrawal symptoms in the . Fatal side effects can occur if you use opioid medicine with alcohol, or with other drugs that cause drowsiness or slow your breathing. What is oxycodone? Oxycodone is an opioid pain medication used to treat moderate to severe pain. The extended-release form of oxycodone is for eqprwj-gjv-nrdpl treatment of pain and should not be used on an as-needed basis for pain. Oxycodone may also be used for purposes not listed in this medication guide. What should I discuss with my healthcare provider before using oxycodone? You should not use oxycodone if you are allergic to it, or if you have: severe asthma or breathing problems; or a blockage in your stomach or intestines. You should not use oxycodone unless you are already using a similar opioid medicine and are tolerant to it. Most brands of oxycodone are not approved for use in people under 18. OxyContin should not be givento a child younger than 11 years old. Tell your doctor if you have ever had: breathing problems, sleep apnea; a head injury, or seizures; drug or alcohol addiction, or mental illness; liver or kidney disease; urination problems; or problems with your gallbladder, pancreas, or thyroid. If you use opioid medicine while you are , your baby could become dependent on the drug. This can cause life-threatening withdrawal symptoms in the baby after it is born. Babies born dependent on opioids may need medical treatment for several weeks. Ask a doctor before using opioid medicine if you are . Tell your doctor if you notice severe drowsiness or slow breathing in the nursing baby. How should I use oxycodone? Follow the directions on your prescription label and read all medication guides. Never use oxycodone in larger amounts, or for longer than prescribed. Tell your doctor if you feel an increased urge to take more of this medicine. Never share opioid medicine with another person, especially someone with a history of drug abuse oraddiction. MISUSE CAN CAUSE ADDICTION, OVERDOSE, OR . Keep the medication in a place where others cannot get to it. Selling or giving away opioid medicine is against the law. Stop taking all other rbuleo-xlp-bbnxc opioid pain medicines when you start taking extended-releaseoxycodone. Take oxycodone with food. Swallow the capsule or tablet whole to avoid exposure to a potentially fatal overdose. Do not crush, chew, break, open, or dissolve. If you cannot swallow a capsule whole, open it and sprinkle the medicine into a spoonful of puddingor applesauce. Swallow the mixture right away without chewing. Do not save it for later use. Never crush or break an oxycodone pill to inhale the powder or mix it into a liquid to inject the drug into your vein. This can cause in . Measure liquid medicine carefully. Use the dosing syringe provided, or use a medicine dose-measuring device (not a kitchen spoon). You should not stop using oxycodone suddenly. Follow your doctor's instructions about tapering yourdose. Store at room temperature, away from heat, moisture, and light. Keep track of your medicine. Oxycodone is a drug of abuse and you should be aware if anyone is using your medicine improperly or without a prescription. Do not keep leftover opioid medication. Just one dose can cause in someone using this medicine accidentally or improperly. Ask your pharmacist where to locate a drug take-back disposal program.If there is no take-back program, flush the unused medicine down the toilet. What happens if I miss a dose? Since oxycodone is used for pain, you are not likely to miss a dose. Skip any missed dose if it is almost time for your next dose. Do not use two doses at one time. What happens if I overdose? Seek emergency medical attention or call the Poison Help line at . An opioid overdosecan be fatal, especially in a child or other person using the medicine without a prescription. Overdose symptoms may include severe drowsiness, pinpoint pupils, slow breathing, or no breathing. Your doctor may recommend you get naloxone (a medicine to reverse an opioid overdose) and keep it with you at all times. A person caring for you can give the naloxone if you stop breathing or don't wake up. Your caregiver must still get emergency medical help and may need to perform CPR (cardiopulmonary resuscitation) on you while waiting for help to arrive. Anyone can buy naloxone from a pharmacy or local health department. Make sure any person caring foryou knows where you keep naloxone and how to use it. What should I avoid while using oxycodone? Do not drink alcohol. Dangerous side effects or could occur. Avoid driving or operating machinery until you know how oxycodone will affect you. Dizziness or severe drowsiness can cause falls or other accidents. Avoid medication errors. Always check the brand and strength of oxycodone you get from the pharmacy. What are the possible side effects of oxycodone? Get emergency medical help if you have signs of an allergic reaction: hives; difficult breathing; swelling of your face, lips, tongue, or throat. Opioid medicine can slow or stop your breathing, and may occur. A person caring for you should give naloxone and/or seek emergency medical attention if you have slow breathing with long pauses,blue colored lips, or if you are hard to wake up. Call your doctor at once if you have: noisy breathing, sighing, shallow breathing, breathing that stops during sleep; a slow heart rate or weak pulse; a light-headed feeling, like you might pass out; confusion, unusual thoughts or behavior; seizure (convulsions); low cortisol levels-- nausea, vomiting, loss of appetite, dizziness, worsening tiredness or weakness; or high levels of serotonin in the body--agitation, hallucinations, fever, sweating, shivering, fast heart rate, muscle stiffness, twitching, loss of coordination, nausea, vomiting, diarrhea. Serious breathing problems may be more likely in older adults and in those who are debilitated or have wasting syndrome or chronic breathing disorders. Common side effects may include: drowsiness, headache, dizziness, tiredness; or constipation, stomach pain, nausea, vomiting. This is not a complete list of side effects and others may occur. Call your doctor for medical advice about side effects. You may report side effects to FDA at 8-856-LAY-7717. What other drugs will affect oxycodone? You may have breathing problems or withdrawal symptoms if you start or stop taking certain other medicines. Tell your doctor if you also use an antibiotic, antifungal medication, heart or blood pressure medication, seizure medication, or medicine to treat HIV or hepatitis C. Opioid medication can interact with many other drugs and cause dangerous side effects or . Be sure your doctor knows if you also use: cold or allergy medicines, bronchodilator asthma/COPD medication, or a diuretic ('water pill'); medicines for motion sickness, irritable bowel syndrome, or overactive bladder; other opioids--opioid pain medicine or prescription cough medicine; a sedative like Valium--diazepam, alprazolam, lorazepam, Xanax, Klonopin, Versed, and others; drugs that make you sleepy or slow your breathing--a sleeping pill, muscle relaxer, medicine to treat mood disorders or mental illness; or drugs that affect serotonin levels in your body--a stimulant, or medicine for depression, Parkinson's disease, migraine headaches, serious infections, or nausea and vomiting. This list is not complete and many other drugs may affect oxycodone. This includes prescription agrzefl-use-zupkaxd medicines, vitamins, and herbal products. Not all possible drug interactions are listed here. Where can I get more information? Your pharmacist can provide more information about oxycodone. Remember, keep this and all other medicines out of the reach of children, never share your medicines with others, and use this medication only for the indication prescribed. Every effort has been made to ensure that the information provided by [employer]') is accurate, up-to-date, and complete, but no guarantee is made to that effect. Drug information contained herein may be time sensitive. [employer] information has been compiled for use by healthcare practitioners and consumers in the [place] and therefore [employer] does not warrant that uses outside of the [place] are appropriate, unless specifically indicated otherwise. [employer] drug information does not endorse drugs, diagnose patients or recommend therapy. [employer] drug information isan informational resource designed to assist licensed healthcare practitioners in caring for their p atients and/or to serve consumers viewing this service as a supplement to, and not a substitute for, the expertise, skill, knowledge and judgment of healthcare practitioners. The absence of a warningfor a given drug or drug combination in no way should be construed to indicate that the drug or drug combination is safe, effective or appropriate for any given patient. [employer] does not assume any responsibility for any aspect of healthcare administered with the aid of information [employer] provides. The information contained herein is not intended to cover all possible uses, directions, precautions, warnings, drug interactions, allergic reactions, or adverse effects. If you have questions about the drugs you are taking, check with your doctor, nurse or pharmacist. Copyright 5535-2223 [employer]. Version: 14.02. Revision Date: 04/14/2020. acetaminophen (oral) (a SEET a MIN oh fen) Actamin, Anacin AF, Aurophen, Bromo [place], Children's Tylenol, Mapap, M-Pap, Pharbetol, Silapap Childrens, Tactinal, Tempra Quicklets, Tycolene, Tylenol, Vitapap What is the most important information I should know about acetaminophen? An overdose of acetaminophen can damage your liver or cause . Call your doctor at once if you have upper stomach pain, loss of appetite, dark urine, or jaundice (yellowing of your skin or eyes). Stop taking this medicine and get medical help if you have skin redness or a blistering rash. What is acetaminophen? Acetaminophen is used to reduce fever and relieve minor pain caused by conditions such as colds or flu, headache, muscle aches, arthritis, and menstrual cramps. Acetaminophen may also be used for purposes not listed in this medication guide. What should I discuss with my healthcare provider before taking acetaminophen? You should not take acetaminophen if you are allergic to it, or if you take other medications that contain acetaminophen. Ask a doctor or pharmacist if this medicine is safe to use if you've ever had cirrhosis of the liver, or if you drink alcohol daily. Ask a doctor before using this medicine if you are or . How should I take acetaminophen? Use exactly as directed on the label, or as prescribed by your doctor. An acetaminophen overdose can damage your liver or cause . Adults and teenagers at least 12 years old: Do not take more than 1000 milligrams (mg) at one time or more than 4000 mg in 24 hours. Children younger than 12 years old: Do not take more than 5 doses of children's formula acetaminophen in 24 hours. Do not give extra-strength acetaminophen to a child younger than 12 years old without medical advice. A child's dose is based on age and weight. Carefully follow the dosing instructions provided with this medicine. Ask a doctor before giving this medicine to a child younger than 2 years. Acetaminophen made for infants comes with its own medicine dropper or oral syringe. Measuring with the wrong device may cause an overdose. Use only the provided dosing device provided to measure an infant's dose. Acetaminophen comes in many different forms such as capsules, liquid, chewable or disintegrating tablets, and dissolving powders or granules. Read and carefully follow any Instructions for Use provided with your medicine. Ask your doctor or pharmacist if you need help. Stop taking acetaminophen and call your doctor if: you still have a sore throat after 2 days of use; you still have a fever after 3 days of use; you still have pain after 7 days of use (or 5 days if treating a child); you have a skin rash, ongoing headache, nausea, vomiting, redness or swelling; or your symptoms get worse, or if you have any new symptoms. Taking acetaminophen may cause false results with certain blood glucose monitors. If you have diabetes, ask your doctor about the best way to monitor your blood sugar levels while using acetaminophen. Store at room temperature away from heat and moisture. What happens if I miss a dose? Acetaminophen is used when needed. If you are on a dosing schedule, skip any missed dose. Do not use two doses at one time. What happens if I overdose? Seek emergency medical attention or call the Poison Help line at . An overdose can befatal. Overdose symptoms include vomiting, stomach pain, and yellowing of your skin or eyes. What should I avoid while taking acetaminophen? Avoid using other medicines that may contain acetaminophen. Avoid drinking alcohol. What are the possible side effects of acetaminophen? Get emergency medical help if you have signs of an allergic reaction: hives; difficulty breathing; swelling of your face, lips, tongue, or throat. In rare cases, acetaminophen may cause a severe skin reaction that can be fatal, even if you took acetaminophen in the past and had no reaction. Stop taking this medicine and call your doctor right away if you have skin redness or a rash that spreads and causes blistering and peeling. Stop taking acetaminophen and call your doctor at once if you have signs of liver problems: stomach pain (upper right side); loss of appetite; tiredness, itching; dark urine, sherice-colored stools; or jaundice (yellowing of the skin or eyes). Less serious side effects may be more likely, and you may have none at all. This is not a complete list of side effects and others may occur. Call your doctor for medical advice about side effects. You may report side effects to FDA at 6-274-EMC-1170. What other drugs will affect acetaminophen? Other drugs may affect acetaminophen, including prescription and rkec-czb-bcavzon medicines, vitamins, and herbal products. Tell your doctor about all other medicines you use. Where can I get more information? Your pharmacist can provide more information about acetaminophen. Remember, keep this and all other medicines out of the reach of children, never share your medicines with others, and use this medication only for the indication prescribed. Every effort has been made to ensure that the information provided by [employer]') is accurate, up-to-date, and complete, but no guarantee is made to that effect. Drug information contained herein may be time sensitive. [employer] information has been compiled for use by healthcare practitioners and consumers in the [place] and therefore [employer] does not warrant that uses outside of the [place] are appropriate, unless specifically indicated otherwise. [employer] drug information does not endorse drugs, diagnose patients or recommend therapy. [employer] drug information isan informational resource designed to assist licensed healthcare practitioners in caring for their p atients and/or to serve consumers viewing this service as a supplement to, and not a substitute for, the expertise, skill, knowledge and judgment of healthcare practitioners. The absence of a warningfor a given drug or drug combination in no way should be construed to indicate that the drug or drug combination is safe, effective or appropriate for any given patient. [employer] does not assume any responsibility for any aspect of healthcare administered with the aid of information [employer] provides. The information contained herein is not intended to cover all possible uses, directions, precautions, warnings, drug interactions, allergic reactions, or adverse effects. If you have questions about the drugs you are taking, check with your doctor, nurse or pharmacist. Copyright 3058-1100 [employer]. Version: 22.02. Revision Date: 05/05/2021. Education Materials Cystoscopy Cystoscopy is a procedure that is used to help diagnose and sometimes treat conditions that affect the lower urinary tract. The lower urinary tract includes the bladder and the urethra. The urethra is the tube that drains urine from the bladder. Cystoscopy is done using a thin, tube-shaped instrument with a light and camera at the end (cystoscope). The cystoscope may be hard or flexible, depending on the goal of the procedure. The cystoscope is inserted through the urethra, into the bladder. Cystoscopy may be recommended if you have: Urinary tract infections that keep coming back. Blood in the urine (hematuria). An inability to control when you urinate (urinary incontinence) or an overactive bladder. Unusual cells found in a urine sample. A blockage in the urethra, such as a urinary stone. Painful urination. An abnormality in the bladder found during an intravenous pyelogram (IVP) or CT scan. Cystoscopy may also be done to remove a sample of tissue to be examined under a microscope (biopsy). Tell a health care provider about: Any allergies you have. All medicines you are taking, including vitamins, herbs, eye drops, creams, and lvnu-doh-rgqmgfb medicines. Any problems you or family members have had with anesthetic medicines. Any blood disorders you have. Any surgeries you have had. Any medical conditions you have. Whether you are or may be . What are the risks? Generally, this is a safe procedure. However, problems may occur, including: Infection. Bleeding. Allergic reactions to medicines. Damage to other structures or organs. What happens before the procedure? Ask your health care provider about: ? Changing or stopping your regular medicines. This is especially important if you are taking diabetes medicines or blood thinners. ? Taking medicines such as aspirin and ibuprofen. These medicines can thin your blood. Do not take these medicines unless your health care provider tells you to take them. ? Taking ruln-yhn-dxnzpjj medicines, vitamins, herbs, and supplements. Follow instructions from your health care provider about eating or drinking restrictions. Ask your health care provider what steps will be taken to help prevent infection. These may include: ? Washing skin with a germ-killing soap. ? Taking antibiotic medicine. You may have an exam or testing, such as: ? X-rays of the bladder, urethra, or kidneys. ? Urine tests to check for signs of infection. Plan to have someone take you home from the hospital or clinic. What happens during the procedure? You will be given one or more of the following: ? A medicine to help you relax (sedative). ? A medicine to numb the area (local anesthetic). The area around the opening of your urethra will be cleaned. The cystoscope will be passed through your urethra into your bladder. Germ-free (sterile) fluid will flow through the cystoscope to fill your bladder. The fluid will stretch your bladder so that your health care provider can clearly examine your bladder wolfe. Your doctor will look at the urethra and bladder. Your doctor may take a biopsy or remove stones. The cystoscope will be removed, and your bladder will be emptied. The procedure may vary among health care providers and hospitals. What can I expect after the procedure? After the procedure, it is common to have: Some soreness or pain in your abdomen and urethra. Urinary symptoms. These include: ? Mild pain or burning when you urinate. Pain should stop within a few minutes after you urinate. This may last for up to 1 week. ? A small amount of blood in your urine for several days. ? Feeling like you need to urinate but producing only a small amount of urine. Follow these instructions at home: Medicines Take hsgk-mpc-khsdhph and prescription medicines only as told by your health care provider. If you were prescribed an antibiotic medicine, take it as told by your health care provider. Do notstop taking the antibiotic even if you start to feel better. General instructions Return to your normal activities as told by your health care provider. Ask your health care provider what activities are safe for you. Do not drive for 24 hours if you were given a sedative during your procedure. Watch for any blood in your urine. If the amount of blood in your urine increases, call your healthcare provider. Follow instructions from your health care provider about eating or drinking restrictions. If a tissue sample was removed for testing (biopsy) during your procedure, it is up to you to get your test results. Ask your health care provider, or the department that is doing the test, when yourresults will be ready. Drink enough fluid to keep your urine pale yellow. Keep all follow-up visits as told by your health care provider. This is important. Contact a health care provider if you: Have pain that gets worse or does not get better with medicine, especially pain when you urinate. Have trouble urinating. Have more blood in your urine. Get help right away if you: Have blood clots in your urine. Have abdominal pain. Have a fever or chills. Are unable to urinate. Summary Cystoscopy is a procedure that is used to help diagnose and sometimes treat conditions that affect the lower urinary tract. Cystoscopy is done using a thin, tube-shaped instrument with a light and camera at the end. After the procedure, it is common to have some soreness or pain in your abdomen and urethra. Watch for any blood in your urine. If the amount of blood in your urine increases, call your healthcare provider. If you were prescribed an antibiotic medicine, take it as told by your health care provider. Do notstop taking the antibiotic even if you start to feel better. This information is not intended to replace advice given to you by your health care provider. Make sure you discuss any questions you have with your health care provider. Document Released: 03/01/2001 Document Revised: 02/24/2019 Document Reviewed: 02/24/2019 [employer] Patient Education 2020 [employer]. Salpingectomy, Care After This sheet gives you information about how to care for yourself after your procedure. Your health care provider may also give you more specific instructions. If you have problems or questions, contact your health care provider. What can I expect after the procedure? After the procedure, it is common to have: Pain in your abdomen. Some light vaginal bleeding (spotting) for a few days. Tiredness. Your recovery time will vary depending on which method your surgeon used for your surgery. Follow these instructions at home: Incision care Follow instructions from your health care provider about how to take care of your incisions. Make sure you: ? Wash your hands with soap and water before and after you change your bandage (dressing). If soap and water are not available, use hand flatwork finisher hand. ? Change or remove your dressing as told by your health care provider. ? Leave any stitches (sutures), skin glue, or adhesive strips in place. These skin closures may need to stay in place for 2 weeks or longer. If adhesive strip edges start to loosen and curl up, you maytrim the loose edges. Do not remove adhesive strips completely unless your health care provider tells you to do that. Keep your dressing clean and dry. Check your incision area every day for signs of infection. Check for: ? Redness, swelling, or pain that gets worse. ? Fluid or blood. ? Warmth. ? Pus or a bad smell. Activity Rest as told by your health care provider. Avoid sitting for a long time without moving. Get up to take short walks every 1 2 hours. This is important to improve blood flow and breathing. Ask for help if you feel weak or unsteady. Return to your normal activities as told by your health care provider. Ask your health care provider what activities are safe for you. Do not drive until your health care provider says that it is safe. Do not lift anything that is heavier than 10 lb (4.5 kg), or the limit that you are told, until your health care provider says that it is safe. This may be 2 6 weeks depending on your surgery. Until your health care provider approves: ? Do not douche. ? Do not use tampons. ? Do not have sex. Medicines Take zlae-lmf-rtzkgal and prescription medicines only as told by your health care provider. Ask your health care provider if the medicine prescribed to you: ? Requires you to avoid driving or using heavy machinery. ? Can cause constipation. You may need to take actions to prevent or treat constipation, such as: ? Drink enough fluid to keep your urine pale yellow. ? Take hmpq-hqu-labitat or prescription medicines. ? Eat foods that are high in fiber, such as beans, whole grains, and fresh fruits and vegetables. ? Limit foods that are high in fat and processed sugars, such as fried or sweet foods. General instructions Wear compression stockings as told by your health care provider. These stockings help to prevent blood clots and reduce swelling in your legs. Do not use any products that contain nicotine or tobacco, such as cigarettes, e- cigarettes, and chewing tobacco. If you need help quitting, ask your health care provider. Do not take baths, swim, or use a hot tub until your health care provider approves. You may take showers. Keep all follow-up visits as told by your health care provider. This is important. Contact a health care provider if you have: Pain when you urinate. Redness, swelling, or pain around an incision. Fluid or blood coming from an incision. Pus or a bad smell coming from an incision. An incision that feels warm to the touch. A fever. Abdominal pain that gets worse or does not get better with medicine. An incision that starts to break open. A rash. Light-headedness. Nausea and vomiting. Get help right away if you: Have pain in your chest or leg. Develop shortness of breath. Faint. Have increased or heavy vaginal bleeding, such as soaking a pad in an hour. Summary After the procedure, it is common to feel tired, have some pain in your abdomen, and have some light vaginal bleeding for a few days. Follow instructions from your health care provider about how to take care of your incisions. Return to your normal activities as told by your health care provider. Ask your health care provider what activities are safe for you. Do not douche, use tampons, or have sex until your health care provider approves. Keep all follow-up visits as told by your health care provider. This information is not intended to replace advice given to you by your health care provider. Make sure you discuss any questions you have with your health care provider. Document Released: 06/08/2011 Document Revised: 02/23/2019 Document Reviewed: 02/23/2019 [employer] Patient Education 2020 [employer]. Total Laparoscopic Hysterectomy, Care After This sheet gives you information about how to care for yourself after your procedure. Your health care provider may also give you more specific instructions. If you have problems or questions, contact your health care provider. What can I expect after the procedure? After the procedure, it is common to have: Pain and bruising around your incisions. A sore throat, if a breathing tube was used during surgery. Fatigue. Poor appetite. Less interest in sex. If your ovaries were also removed, it is also common to have symptoms of menopause such as hot flashes, night sweats, and lack of sleep (insomnia). Follow these instructions at home: Bathing Do not take baths, swim, or use a hot tub until your health care provider approves. You may need toonly take showers for 2 3 weeks. Keep your bandage (dressing) dry until your health care provider says it can be removed. Incision care Follow instructions from your health care provider about how to take care of your incisions. Make sure you: ? Wash your hands with soap and water before you change your dressing. If soap and water are not available, use hand flatwork finisher hand. ? Change your dressing as told by your health care provider. ? Leave stitches (sutures), skin glue, or adhesive strips in place. These skin closures may need to stay in place for 2 weeks or longer. If adhesive strip edges start to loosen and curl up, you may trim the loose edges. Do not remove adhesive strips completely unless your health care provider tells you to do that. Check your incision area every day for signs of infection. Check for: ? Redness, swelling, or pain. ? Fluid or blood. ? Warmth. ? Pus or a bad smell. Activity Get plenty of rest and sleep. Do not lift anything that is heavier than 10 lbs (4.5 kg) for one month after surgery, or as long as told by your health care provider. Do not drive or use heavy machinery while taking prescription pain medicine. Do not drive for 24 hours if you were given a medicine to help you relax (sedative). Return to your normal activities as told by your health care provider. Ask your health care provider what activities are safe for you. Lifestyle Do not use any products that contain nicotine or tobacco, such as cigarettes and e-cigarettes. These can delay healing. If you need help quitting, ask your health care provider. Do not drink alcohol until your health care provider approves. General instructions Do not douche, use tampons, or have sex for at least 6 weeks, or as told by your health care provider. Take aihe-hxr-scbespg and prescription medicines only as told by your health care provider. To monitor yourself for a fever, take your temperature at least once a day during recovery. If you struggle with physical or emotional changes after your procedure, speak with your health care provider or a therapist. To prevent or treat constipation while you are taking prescription pain medicine, your health care provider may recommend that you: ? Drink enough fluid to keep your urine clear or pale yellow. ? Take mrfx-eon-tfgvojc or prescription medicines. ? Eat foods that are high in fiber, such as fresh fruits and vegetables, whole grains, and beans. ? Limit foods that are high in fat and processed sugars, such as fried and sweet foods. Keep all follow-up visits as told by your health care provider. This is important. Contact a health care provider if: You have chills or a fever. You have redness, swelling, or pain around an incision. You have fluid or blood coming from an incision. Your incision feels warm to the touch. You have pus or a bad smell coming from an incision. An incision breaks open. You feel dizzy or light-headed. You have pain or bleeding when you urinate. You have diarrhea, nausea, or vomiting that does not go away. You have abnormal vaginal discharge. You have a rash. You have pain that does not get better with medicine. Get help right away if: You have a fever and your symptoms suddenly get worse. You have severe abdominal pain. You have chest pain. You have shortness of breath. You faint. You have pain, swelling, or redness on your leg. You have heavy vaginal bleeding with blood clots. Summary After the procedure it is common to have abdominal pain. Your provider will give you medication forthis. Do not take baths, swim, or use a hot tub until your health care provider approves. Do not lift anything that is heavier than 10 lbs (4.5 kg) for one month after surgery, or as long as told by your health care provider. Notify your provider if you have any signs or symptoms of infection after the procedure. This information is not intended to replace advice given to you by your health care provider. Make sure you discuss any questions you have with your health care provider. Document Released: 12/23/2013 Document Revised: 02/14/2018 Document Reviewed: 05/15/2017 [employer] Patient Education 2020 [employer] How to Use Cold Therapy Cold therapy, or cryotherapy, is a treatment that uses cold temperatures to treat an injury or medical condition. It includes using cold packs or ice packs to reduce pain and swelling. Only use cold therapy if your doctor says it is okay. What are the risks? Generally, cold therapy is a safe treatment. However, it is not safe for: People who are not able to say they are in pain. These include small children and people who have memory problems. People who have certain conditions, such as: ? A problem in the vessels that slows blood flow to the fingers and toes (Raynaud's syndrome). ? Feeling very cold easily (cold hypersensitivity). ? Lack of feeling in the area being iced. Cold therapy may not be safe for people who have other conditions. Do not use it without talking toyour doctor if you have: A heart condition. High blood pressure. Open or healing wounds. An infection. Pain and swelling in your joints (rheumatoid arthritis). Poor blood flow in the body. Diabetes. Certain skin conditions. How can I make a cold pack? When using a cold pack at home to reduce pain and swelling, you can use: A silica gel cold pack that has been left in the freezer. You can buy this online or in stores. A sealable plastic bag that has been filled with crushed ice. A washcloth or paper towels soaked in cold (or ice) water. A plastic bag of frozen vegetables. Throw them away when you are finished using them as a cold pack. Supplies needed: A cold pack. A towel. This can be dry or damp, based on what you like. How to use cold therapy 1. Have your cold pack ready. 2. Place a towel between the cold pack and your skin. You may also wrap the cold pack in a towel. 3. Put the cold pack on the affected area. Keep it on for no more than 20 minutes at a time. 4. Check your skin after 5 minutes to make sure that there is no damage to the area. Check for: White spots on your skin. Your skin may look blotchy or mottled. Skin that looks blue or pale. Skin that feels waxy or hard. 5. Repeat these steps as many times each day as told by your doctor. Always use a towel to avoid direct contact with your skin. Contact a doctor if: You start to have white spots on your skin. This may give your skin a blotchy or mottled look. Your skin turns blue or pale. Your skin becomes waxy or hard. Your swelling gets worse. Summary Cold therapy, or cryotherapy, is used to treat an injury or other conditions. It includes using cold packs or ice packs to reduce pain and swelling. Cold therapy is not safe for people who are not able to say they are in pain. When using cold packs or ice packs, always place a towel between the cold source and your skin. Check your skin after 5 minutes of icing it. This is to make sure that there is no skin damage. Contact your doctor if you notice changes in your skin or your swelling gets worse. This information is not intended to replace advice given to you by your health care provider. Make sure you discuss any questions you have with your health care provider. Document Released: 08/20/2008 Document Revised: 12/01/2018 Document Reviewed: 12/01/2018 [employer] Patient Education 2020 [employer] What to Do After Your Gynecology Surgery This sheet will give you general information on what to do when you are home after surgery. However, you should always follow any specific instructions given to you by your surgeon. Pain Medication Please follow the directions on the label of your medication and use your discharge medication listprovided by the hospital. Do not take this medication on an empty stomach. This may cause a stomachache. Use a stool softener or gentle laxative (milk of magnesia) if needed. Constipation is not uncommon while taking oral pain medication. Use less of any narcotic pain medication as soon as your pain allows. You may take mvti-pnw-xkwkjjitill medication if you no longer need your prescribed pain medication. Ggeq-okr-jpntjsz pain medications are Tylenol (acetaminophen) or Advil (ibuprofen). Do not take Tylenol if you are still taking [place] or Percocet. They are the same type of medication. Too much acetaminophen can hurt your liver. Activity It is OK to use the stairs, but try to avoid them or take less trips right after surgery. After surgery, you may feel tired. Rest is important for healing. Slowly increase your activity level by walking and doing normal activities as you feel comfortable. Follow surgeon instructions on driving. You may not be able to drive for one to six weeks dependingon what surgery and incisions you have. Do not drive while taking narcotic pain medication. They should be out of your system for 24 hours. Diet Eating smaller meals instead of three large meals is good. This may help with your appetite and nutrition. Good nutrition will help you heal. Follow diet instructions that you were taught after surgery. Infection Prevention Washing your hands is one of the best ways to prevent infection. Always wash your hands before and after touching your incision or dressing. Hands carry germs that can cause infections. Try not to touch your incision. Keep the Incision Clean Wear clean, loose-fitting clothes to prevent clothes from rubbing on the incision. Put clean sheets on your bed when you get home. Do not let other people or animals touch the incision. Showering You may start to shower 24 hours after your surgery. Use a clean washcloth and towel on your incision before you use it on any other area of your body. Adjust the shower spray to gentle and use warm water. Gently wash over your incision using antibacterial soap and water and pat it dry. Do not rub the incision. Do not soak or submerge in the bathtub or hot tub until your surgeon says it is OK. Wound Care When you go home, you may leave your incision(s) open to the air. Your incision(s) may be closed with sutures or gwyn. If incision is closed with sutures under the skin, you do not need to have these removed as they will dissolve on their own. If incision is closed with gwyn, the gwyn will need to be removed. If your incision is horizontal (sideways), they need to be removed within three to seven days. If your incision is vertical (up and down), they need to be removed within 10 14 days. If you have thin white tape strips (Steri-Strips) over your incision, keep them dry. Do not remove them unless they begin curling up at the sides and are almost falling off or have been in place for seven days. If your incision begins coming apart, has drainage (thick, foul smelling, white, yellow, green, pink or red) with redness around the incision and feels warm to touch, call your surgeon. You may have an infection. Vaginal Care You may have drainage after surgery. Normal colors are watery, brown-black discharge. Vaginal spotting and bleeding are normal. However, if you are soaking two pads in one hour, that isnot normal. Call your surgeon. No tampons or douching. NO SEXUAL INTERCOURSE FOR 6 WEEKS. Call Your Doctor If: Your pain is not controlled by pain medication. You have a fever of 100.4 degrees or higher. You have a lot of bleeding from the incision or a lot of vaginal bleeding (more than two pads per hour). You have bad stomach pain or you start throwing up. If you are unable to reach your doctor, go to the hospital. Follow Up If a follow-up appointment has not been made, please call your surgeon s office within a day. Let the office know if you have gwyn and they will schedule them to be removed. Contact your surgeon for any specific problems or questions that you may have. Additional Information VACCINATE! IT SAVES LIVES! Members of the community who have not yet received the COVID-19 vaccine and would like to receive it can visit one of [facility] vaccine clinics. There are many vaccine clinic locations within the [facility]. For locations and available times, please visit [email or web address].[place].gov/. It is important to note that some COVID mobile vaccine clinics are held outdoors and may be canceled in rainy or stormy conditions. To learn more about pediatric vaccinations (ages 5-11), we invite you to visit the [facility] webpage. [email or web address] learn more about the COVID-19 vaccine, we invite you to visit the CDC website for a list of frequently asked questions.https://www.cdc.gov/coronavirus/2019-ncov/vaccines/faq.html [facility] Patient Portal Access Instructions: Stay connected with your healthcare team and access your personal medical information anytime with the [facility] Patient Portal. Please follow the directions below to create your [facility] account: 1.Access the email account you provided upon registration to the hospital/physician office.2.Look for an invitation email from [facility].3.Open the email and access the invitation link: AcceptInvitation to [facility].4.Fill in the required byers to create your account. To access your account, visit [email or web address]. Click the blue button labeled Access Patient Portal and then log in with the username and password that you created in the steps above. You will be able to view your test results, lab results, a summary of your visits, upcoming appointments and more. There is also a convenient messaging option where you can send secure messages to your p [employer]. In addition, you will have the ability to download any documents or summaries to your computer and/or send the information securely to a physician. Remember that your healthcare information is confidential, so carefully consider who you will allowto register on the [facility] Patient Portal for access to your information. You can also access the [facility] Patient Portal on the [facility] chan. Simply click on Patient Portal and then log into your account. If you would like to receive a full copy of your medical records, please contact the [facility] Medical Records Department by calling [phone], Saturday through Saturday between 8 a.m. and 4:30 p.m. HOW TO SAFELY DISPOSE OF PRESCRIPTION MEDICATIONS Please use one of the following methods to safely dispose of your unused medications. 1.Use a drug disposal kit: the drug disposal pouch allows you to safely discard your old and unuseddrugs. Ask your nurse to give you one when you are discharged.2.Visit a local take-back location: Many local pharmacies and police departments have programs that collect old and unwanted prescriptiondrugs. Call your local pharmacy or go to http://[employer]/1U1Kq9a to find one close to you.3.Make use of household items: Use cat litter or old coffee grounds to dispose medications if other options arenot available. Mix your drugs with these household products, seal them in an airtight container andthrow it into the garbage. Call [facility]: [phone] to be sure your drugs can be disposed of in this way. Some medicines may require a different approach.4.Never flush your medications down the toilet. IF YOU HAVE BEEN PRESCRIBED AN OPIOID FOR PAIN If you have been prescribed an opioid (such as hydrocodone, oxycodone or morphine), it is critical to understand the possible side effects and risks of opioid pain medications. Even when taken as directed, opioids can have several side effects including: Tolerance, meaning you might need to take more of a medication for the same pain relief. Nausea, vomiting and/or constipation. Sleepiness, dizziness, dry mouth, confusion, depression or itching. Physical dependence, meaning you have withdrawal symptoms when a medication is stopped, can develop within a few days. KNOW YOUR RESPONSIBILITIES It is important to know exactly how much and how often to take the opioid pain medications you are prescribed. Never take opioids in higher amounts or more often than prescribed. Do not combine opioids with alcohol or other drugs that cause drowsiness, such as benzodiazepines, also known as benzos, including diazepam and alprazolam, muscle relaxants or sleep aids. Never sell or share prescription opioids. This is illegal. Store opioids in a secure place and out of reach of others (including children, family, friends and visitors). The last page of this document has been signed and retained as a CHART COPY. [employer]atures Patient Education Materials Cystoscopy Salpingectomy, Care After Total Laparoscopic Hysterectomy, Care After How to Use Cold Therapy, [id number] 8- Post Op PEDIATRIC NURSE Surgery (02/2020) (CUSTOM) Medication Leaflets oxycodone, acetaminophen 500 mg oral tablet My discharge plan and instructions have been reviewed and explained to me and I,JOSHUA DUNN understand my current condition and have read and understand these discharge instructions. I have received a written copy of the plan/instructions. If I have questions, I am aware that I should contact my doctor. 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 Signature: Date/Time: Relationship to Patient: Witness Name/Signature: Date/Time: [facility] Family History No Family History Records Found Relationship Condition Age at Onset Recorded Date/T chandu grandmother Malignant neoplasm of breast Unknown mother Diabetes mellitus Unknown father Hypertension Unknown High blood cholesterol Unknown Reason for Referral Specialty Diagnoses / Procedures Referred By Neal adwn Referred To Contact PHYSICAL THERAPY Diagnoses Hallux valgus of right foot Procedures CONSULT TO PHYSICAL THERAPY PHYSICAL THERAPY EVALUATION HIGH COMPLEX 45 MINS Opal Lopez [address] [place] [address] [facility] [address] [place] [address] Referral ID Status Reason Start Date Expiration Date Visits Requested Visits Authorized [id number] Authorized Auto-Generat ed Referral 03/18/2023 03/17/2024 99 99 Specialty Diagnoses / Procedures Referred By Neal dawn Referred To Contact Podiatry Diagnoses Pain of right great toe Hallux valgus of right foot Procedures CONSULT TO PODIATRY OFFICE/OUTPATIENT [facility] MDM 60 MINUTES Favian Taylor MD [address] [place] [address] Referral ID Status Reason Start Date Expiration Date Visits Requested Visits Authorized [id number] Authorized PCP Requested Referral 08/05/2023 08/04/2024 1 1 Specialty Diagnoses / Procedures Referred By Neal dawn Referred To Contact XR IMAGING Diagnoses Pain of right great toe Procedures XR FOOT GENERAL 3V AP/LAT/OBL RIGHT RADEX FOOT COMPLETE MINIMUM 3 VIEWS Favian Taylor MD [address] [place] [address] [place] [address] Referral ID Status Reason Start Date Expiration Date V isits Requested Visits Authorized [id number] Closed Auto-Generate d Referral 08/05/2023 09/03/2024 1 1 Specialty Diagnoses / Procedures Referred By Contact Referred To Contact Gastroenterology / INITIAL DEPT Diagnoses Left lower quadrant abdominal pain Diarrhea, unspecified type Procedures CONSULT TO GASTROENTEROLOGY OFFICE/OUTPATIENT NEW HIGH MDM 60-74 MINUTES OFFICE/OUTPATIENT NEW MODERATE MDM 45-59 MINUTES Older, BLANCA Burciaga [address] [place] [address] Initial Department Referral ID Status Reason Start Date Expiration Date Visits Requested Visits Authorized [id number] Waiting for Response PCP Requested Referral 04/23/2022 04/23/2023 1 1 Chief Complaint and Reason for Visit Chief Complaint SCREENING Chief Complaint Admit Date L FOOT, R LEG INJURY October 01, 2024 5:0 2pm Reason for Visit Admit Date Muscle strain of right lower leg October 012024 5:02pm Nondisplaced fracture of fifth left meta tarsal bone October 01, 2024 5:02pm Advance Directives No Advanced Directives Records Found Advance Directive Response Recorded Date/ Time Living Will No January 10 6:05pm Power of Labor 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 Professor No January 10, 2022 6:05pm Summary Purpose Additional Source Comments Care Team (unrecognized sect ion and content) Care Team Personnel Name: JOLENE ANDERSON APRN - NEONATAL PEDIATRIC NURSE Position: P4 Advanced Practice Nurse Med Service: Employed Provider Member Role: Primary Care Physician Address: Address: [address] [place] [id number] Care Team Related Persons Name: CYNDEE DUNN Address: Home [address] [place], [place] [id number] Name: AMADO DUNN Address: Home [address] [place], [place] [id number] Goals (unrecognized section and content) Goals may be documented in a n alternate section Source Comments (unrecognize d section and content) In the event this informatio n is protected by the Federal Confidentiality of Alcohol and Drug Abuse Patient Records regulations: The Federal rules restrict any use of the information to criminally investigate or prosecute any alcohol or drug abuse patient.[facility] the event this information is protected by the Federal Confidentiality of Alcohol and Drug Abuse Patient Records regulations: The Federal rules restrict any use of the information to criminally investigate or prosecute any alcohol or drug abuse patient.[facility] HospitalIn the event this information is protected by the Federal Confidentiality of Alcohol and Drug Abuse Patient Records regulations: The Federal rules restrict any use of the information to criminally investigate or prosecute any alcohol or drug abuse patient.[facility] HospitalIn the event this information is protected by the Federal Confidentiality of Alcohol and Drug Abuse Patient Records regulations: The Federal rules restrict any use of the information to criminally investigate or prosecute any alcohol or drug abuse patient.[facility] HospitalIn the event this information is protected by the Federal Confidentiality of Alcohol and Drug Abuse Patient Records regulations: The Federal rules restrict any use of the information to criminally investigate or prosecute any alcohol or drug abuse patient.[facility] HospitalIn the event this information is protected by the Federal Confidentiality of Alcohol and Drug Abuse Patient Records regulations: The Federal rules restrict any use of the information to criminally investigate or prosecute any alcohol or drug abuse patient.[facility] HospitalIn the event this information is protected by the Federal Confidentiality of Alcohol and Drug Abuse Patient Records regulations: The Federal rules restrict any use of the information to criminally investigate or prosecute any alcohol or drug abuse patient.[facility] HospitalIn the event this information is protected by the Federal Confidentiality of Alcohol and Drug Abuse Patient Records regulations: The Federal rules restrict any use of the information to criminally investigate or prosecute any alcohol or drug abuse patient.[facility] HospitalIn the event this information is protected by the Federal Confidentiality of Alcohol and Drug Abuse Patient Records regulations: The Federal rules restrict any use of the information to criminally investigate or prosecute any alcohol or drug abuse patient.[facility] HospitalIn the event this information is protected by the Federal Confidentiality of Alcohol and Drug Abuse Patient Records regulations: The Federal rules restrict any use of the information to criminally investigate or prosecute any alcohol or drug abuse patient.[facility] HospitalIn the event this information is protected by the Federal Confidentiality of Alcohol and Drug Abuse Patient Records regulations: The Federal rules restrict any use of the information to criminally investigate or prosecute any alcohol or drug abuse patient.[facility] HospitalIn the event this information is protected by the Federal Confidentiality of Alcohol and Drug Abuse Patient Records regulations: The Federal rules restrict any use of the information to criminally investigate or prosecute any alcohol or drug abuse patient.[facility] HospitalIn the event this information is protected by the Federal Confidentiality of Alcohol and Drug Abuse Patient Records regulations: The Federal rules restrict any use of the information to criminally investigate or prosecute any alcohol or drug abuse patient.[facility] HospitalIn the event this information is protected by the Federal Confidentiality of Alcohol and Drug Abuse Patient Records regulations: The Federal rules restrict any use of the information to criminally investigate or prosecute any alcohol or drug abuse patient.[facility] HospitalIn the event this information is protected by the Federal Confidentiality of Alcohol and Drug Abuse Patient Records regulations: The Federal rules restrict any use of the information to criminally investigate or prosecute any alcohol or drug abuse patient.[facility] HospitalIn the event this information is protected by the Federal Confidentiality of Alcohol and Drug Abuse Patient Records regulations: The Federal rules restrict any use of the information to criminally investigate or prosecute any alcohol or drug abuse patient.[facility] HospitalIn the event this information is protected by the Federal Confidentiality of Alcohol and Drug Abuse Patient Records regulations: The Federal rules restrict any use of the information to criminally investigate or prosecute any alcohol or drug abuse patient.[facility] HospitalIn the event this information is protected by the Federal Confidentiality of Alcohol and Drug Abuse Patient Records regulations: The Federal rules restrict any use of the information to criminally investigate or prosecute any alcohol or drug abuse patient.[facility] HospitalIn the event this information is protected by the Federal Confidentiality of Alcohol and Drug Abuse Patient Records regulations: The Federal rules restrict any use of the information to criminally investigate or prosecute any alcohol or drug abuse patient.[facility] HospitalIn the event this information is protected by the Federal Confidentiality of Alcohol and Drug Abuse Patient Records regulations: The Federal rules restrict any use of the information to criminally investigate or prosecute any alcohol or drug abuse patient.[facility] HospitalIn the event this information is protected by the Federal Confidentiality of Alcohol and Drug Abuse Patient Records regulations: The Federal rules restrict any use of the information to criminally investigate or prosecute any alcohol or drug abuse patient.[facility] HospitalIn the event this information is protected by the Federal Confidentiality of Alcohol and Drug Abuse Patient Records regulations: The Federal rules restrict any use of the information to criminally investigate or prosecute any alcohol or drug abuse patient.[facility] HospitalIn the event this information is protected by the Federal Confidentiality of Alcohol and Drug Abuse Patient Records regulations: The Federal rules restrict any use of the information to criminally investigate or prosecute any alcohol or drug abuse patient.[facility] HospitalIn the event this information is protected by the Federal Confidentiality of Alcohol and Drug Abuse Patient Records regulations: The Federal rules restrict any use of the information to criminally investigate or prosecute any alcohol or drug abuse patient.[facility] HospitalIn the event this information is protected by the Federal Confidentiality of Alcohol and Drug Abuse Patient Records regulations: The Federal rules restrict any use of the information to criminally investigate or prosecute any alcohol or drug abuse patient.[facility] HospitalIn the event this information is protected by the Federal Confidentiality of Alcohol and Drug Abuse Patient Records regulations: The Federal rules restrict any use of the information to criminally investigate or prosecute any alcohol or drug abuse patient.[facility] HospitalIn the event this information is protected by the Federal Confidentiality of Alcohol and Drug Abuse Patient Records regulations: The Federal rules restrict any use of the information to criminally investigate or prosecute any alcohol or drug abuse patient.[facility] HospitalIn the event this information is protected by the Federal Confidentiality of Alcohol and Drug Abuse Patient Records regulations: The Federal rules restrict any use of the information to criminally investigate or prosecute any alcohol or drug abuse patient.[facility] HospitalIn the event this information is protected by the Federal Confidentiality of Alcohol and Drug Abuse Patient Records regulations: The Federal rules restrict any use of the information to criminally investigate or prosecute any alcohol or drug abuse patient.[facility] HospitalIn the event this information is protected by the Federal Confidentiality of Alcohol and Drug Abuse Patient Records regulations: The Federal rules restrict any use of the information to criminally investigate or prosecute any alcohol or drug abuse patient.[facility] HospitalIn the event this information is protected by the Federal Confidentiality of Alcohol and Drug Abuse Patient Records regulations: The Federal rules restrict any use of the information to criminally investigate or prosecute any alcohol or drug abuse patient.[facility] HospitalIn the event this information is protected by the Federal Confidentiality of Alcohol and Drug Abuse Patient Records regulations: The Federal rules restrict any use of the information to criminally investigate or prosecute any alcohol or drug abuse patient.[facility] HospitalIn the event this information is protected by the Federal Confidentiality of Alcohol and Drug Abuse Patient Records regulations: The Federal rules restrict any use of the information to criminally investigate or prosecute any alcohol or drug abuse patient.[facility] HospitalIn the event this information is protected by the Federal Confidentiality of Alcohol and Drug Abuse Patient Records regulations: The Federal rules restrict any use of the information to criminally investigate or prosecute any alcohol or drug abuse patient.[facility] HospitalIn the event this information is protected by the Federal Confidentiality of Alcohol and Drug Abuse Patient Records regulations: The Federal rules restrict any use of the information to criminally investigate or prosecute any alcohol or drug abuse patient.[facility] HospitalIn the event this information is protected by the Federal Confidentiality of Alcohol and Drug Abuse Patient Records regulations: The Federal rules restrict any use of the information to criminally investigate or prosecute any alcohol or drug abuse patient.[facility] HospitalIn the event this information is protected by the Federal Confidentiality of Alcohol and Drug Abuse Patient Records regulations: The Federal rules restrict any use of the information to criminally investigate or prosecute any alcohol or drug abuse patient.[facility] HospitalIn the event this information is protected by the Federal Confidentiality of Alcohol and Drug Abuse Patient Records regulations: The Federal rules restrict any use of the information to criminally investigate or prosecute any alcohol or drug abuse patient.[facility] HospitalIn the event this information is protected by the Federal Confidentiality of Alcohol and Drug Abuse Patient Records regulations: The Federal rules restrict any use of the information to criminally investigate or prosecute any alcohol or drug abuse patient.[facility] HospitalIn the event this information is protected by the Federal Confidentiality of Alcohol and Drug Abuse Patient Records regulations: The Federal rules restrict any use of the information to criminally investigate or prosecute any alcohol or drug abuse patient.[facility] HospitalIn the event this information is protected by the Federal Confidentiality of Alcohol and Drug Abuse Patient Records regulations: The Federal rules restrict any use of the information to criminally investigate or prosecute any alcohol or drug abuse patient.[facility] HospitalIn the event this information is protected by the Federal Confidentiality of Alcohol and Drug Abuse Patient Records regulations: The Federal rules restrict any use of the information to criminally investigate or prosecute any alcohol or drug abuse patient.[facility] HospitalIn the event this information is protected by the Federal Confidentiality of Alcohol and Drug Abuse Patient Records regulations: The Federal rules restrict any use of the information to criminally investigate or prosecute any alcohol or drug abuse patient.[facility] HospitalIn the event this information is protected by the Federal Confidentiality of Alcohol and Drug Abuse Patient Records regulations: The Federal rules restrict any use of the information to criminally investigate or prosecute any alcohol or drug abuse patient.[facility] HospitalIn the event this information is protected by the Federal Confidentiality of Alcohol and Drug Abuse Patient Records regulations: The Federal rules restrict any use of the information to criminally investigate or prosecute any alcohol or drug abuse patient.[facility] HospitalIn the event this information is protected by the Federal Confidentiality of Alcohol and Drug Abuse Patient Records regulations: The Federal rules restrict any use of the information to criminally investigate or prosecute any alcohol or drug abuse patient.[facility] HospitalIn the event this information is protected by the Federal Confidentiality of Alcohol and Drug Abuse Patient Records regulations: The Federal rules restrict any use of the information to criminally investigate or prosecute any alcohol or drug abuse patient.[facility] HospitalIn the event this information is protected by the Federal Confidentiality of Alcohol and Drug Abuse Patient Records regulations: The Federal rules restrict any use of the information to criminally investigate or prosecute any alcohol or drug abuse patient.[facility] HospitalIn the event this information is protected by the Federal Confidentiality of Alcohol and Drug Abuse Patient Records regulations: The Federal rules restrict any use of the information to criminally investigate or prosecute any alcohol or drug abuse patient.[facility] HospitalIn the event this information is protected by the Federal Confidentiality of Alcohol and Drug Abuse Patient Records regulations: The Federal rules restrict any use of the information to criminally investigate or prosecute any alcohol or drug abuse patient.[facility] HospitalIn the event this information is protected by the Federal Confidentiality of Alcohol and Drug Abuse Patient Records regulations: The Federal rules restrict any use of the information to criminally investigate or prosecute any alcohol or drug abuse patient.[facility] HospitalIn the event this information is protected by the Federal Confidentiality of Alcohol and Drug Abuse Patient Records regulations: The Federal rules restrict any use of the information to criminally investigate or prosecute any alcohol or drug abuse patient.[facility] HospitalIn the event this information is protected by the Federal Confidentiality of Alcohol and Drug Abuse Patient Records regulations: The Federal rules restrict any use of the information to criminally investigate or prosecute any alcohol or drug abuse patient.[facility] HospitalIn the event this information is protected by the Federal Confidentiality of Alcohol and Drug Abuse Patient Records regulations: The Federal rules restrict any use of the information to criminally investigate or prosecute any alcohol or drug abuse patient.[facility] HospitalIn the event this information is protected by the Federal Confidentiality of Alcohol and Drug Abuse Patient Records regulations: The Federal rules restrict any use of the information to criminally investigate or prosecute any alcohol or drug abuse patient.[facility] HospitalIn the event this information is protected by the Federal Confidentiality of Alcohol and Drug Abuse Patient Records regulations: The Federal rules restrict any use of the information to criminally investigate or prosecute any alcohol or drug abuse patient.[facility] Reason for Visit (unrecogniz ed section and content) Reason Comments PT Discharge Specialty Diagnoses / Procedures Referred By Contac t Referred To Contact [facility] Diagnoses Post-operative state Hallux valgus of right foot Gait disturbance Procedures CONSULT TO PHYSICAL THERAPY PHYSICAL THERAPY EVALUATION HIGH COMPLEX 45 MINS Opal Lopez [address] [address] Phone: tel: fax: [facility] [address] [place] [address] Referral ID Status Reason Start Date Expiration Date Visits Requested Visits Authorized [id number] Authorized Auto-Generat ed Referral 03/18/2024 03/17/2025 99 99 Reason Comments Physical Therapy Reason Comments PT Eval Specialty Diagnoses / Procedures Referred By Neal dawn Referred To Contact PHYSICAL THERAPY Diagnoses Hallux valgus of right foot Procedures CONSULT TO PHYSICAL THERAPY PHYSICAL THERAPY EVALUATION HIGH COMPLEX 45 MINS Opal Lopez [address] [place] [address] Pt [facility] [address] [place] [address] Referral ID Status Reason Start Date Expiration Date Visits Requested Visits Authorized [id number] Authorized Auto-Generat ed Referral 03/18/2023 03/17/2024 99 99 Reason Comments Abdominal Pain Specialty Diagnoses / Procedures Referred By Contac t Referred To Contact Internal Medicine / INTERNAL MEDICINE Diagnoses Pain in the abdomen Pain in left abdomen Procedures OFFICE/OUTPATIENT ESTABLISHED MOD MDM 30-39 MIN 4C SAME DAY Patrica Deleon, SUPERVISOR COSTUMING.NEONATAL PEDIATRIC NURSE [address] [place] [address] Patrica Deleon, SUPERVISOR COSTUMING.NEONATAL PEDIATRIC NURSE [address] [place] [address] Referral ID Status Reason Start Date Expiration Date Visits Re quested Visits Authorized [id number] Closed 03/13/2022 03/17/2022 1 1 Reason Comments Sore Throat Reason Comments Abdominal Pain Follow Up Abdominal pain Reason Comments Orders Specialty Diagnoses / Procedures Referred By Contac t Referred To Contact [facility] Diagnoses Pelvic joint pain, left DDD (degenerative disc disease), lumbar Procedures CONSULT TO PHYSICAL THERAPY PHYSICAL THERAPY EVALUATION HIGH COMPLEX 45 MINS Older, Patrica, SUPERVISOR COSTUMING.NEONATAL PEDIATRIC NURSE [address] [place] [address] [facility] [place] [address] [place] [address] Referral ID Status Reason Start Date Expiration Date Visits Requested Visits Authorized [id number] Authorized Auto-Generat ed Referral 03/18/2022 03/17/2023 99 99 Specialty Diagnoses / Procedures Referred By Contac t Referred To Contact PHYSICAL THERAPY Diagnoses Pelvic joint pain, left DDD (degenerative disc disease), lumbar Procedures CONSULT TO PHYSICAL THERAPY PHYSICAL THERAPY EVALUATION HIGH COMPLEX 45 MINS Patrica Briscoe M, SUPERVISOR COSTUMING.NEONATAL PEDIATRIC NURSE [address] [place] [address] Pt [facility] [address] [place] [address] Reason Comments Physical Reason Comments Pain (foot) Right foot pain x 1 week Reason Comments New Pain Bunion Reason Comments Bunion Follow Up Established Patient Pain Reason Comments Schedule Surgery Reason Comments Consult Reason Comments Patient Update Reason Comments Established Patient Pain Post Op Swelling Follow Up Reason Comments Post Op Reason Comments Post Op Reason Comments FMLA Paperwork Reason Comments Post Op Established Patient Follow Up Pain Reason Comments Established Patient Follow Up Pain Post Op Reason Comments Established Patient Fracture Pain Swelling Reason Comments Right Knee Pain Care Teams (unrecognized sec tion and content) Bark Peeler Relationship Specialty Start Date End Date Taz López MD [address] [facility], [place] [address] PCP - General Internal Medicine 04/09/22 Bark Peeler Relationship Specialty Start Date End Date Taz López MD [address] [facility], [place] [address] PCP - General Internal Medicine 04/09/22 Bark Peeler Relationship Specialty Start Date End Date Taz López MD [address] [facility], [place] [address] PCP - General Internal Medicine 04/09/22 Bark Peeler Relationship Specialty Start Date End Date Taz López MD [address] [facility], [place] [address] PCP - General Internal Medicine 04/09/22 Team Status: Active Member Role Status Dates No Primary Care Physician Family Provider Active Dr. Jada Lopez MD Primary Care Provider Active Team Status: Inactive Member Role Status Dates Dr. aJda Lopez MD Primary Care Provider Active FRANCINE LANGSTON Attending Provider, Referring Provider Active Bark Peeler Relationship Specialty Start Date End Date Tza López MD [address] [facility], [place] [address] PCP - General Internal Medicine 04/09/22 Bark Peeler Relationship Specialty Start Date End Date Taz López MD [address] [facility], [place] [id number] PCP - General Internal Medicine 04/09/22 Bark Peeler Relationship Specialty Start Date End Date Taz López MD [address] [facility] [place] [address] PCP - General Internal Medicine 04/09/22 Bark Peeler Relationship Specialty Start Date End Date Taz López MD [address] [facility] [place] [address] PCP - General Internal Medicine 04/09/22 Bark Peeler Relationship Specialty Start Date End Date Taz López MD [address] [facility] [place] [address] PCP - General Internal Medicine 04/09/22 Bark Peeler Relationship Specialty Start Date End Date Taz López MD [address] [facility] [place] [address] PCP - General Internal Medicine 04/09/22 Bark Peeler Relationship Specialty Start Date End Date Taz López MD [address] [facility] [place] [address] PCP - General Internal Medicine 04/09/22 Bark Peeler Relationship Specialty Start Date End Date Taz López MD [address] [facility] [place] [address] PCP - General Internal Medicine 04/09/22 Bark Peeler Relationship Specialty Start Date End Date Taz López MD [address] [facility] [place] [address] PCP - General Internal Medicine 04/09/22 Bark Peeler Relationship Specialty Start Date End Date Taz López MD [address] [facility] [place] [address] PCP - General Internal Medicine 04/09/22 Bark Peeler Relationship Specialty Start Date End Date Taz López MD [address] [facility] [place] [address] PCP - General Internal Medicine 04/09/22 Bark Peeler Relationship Specialty Start Date End Date Taz López MD [address] [facility] [place] [address] PCP - General Internal Medicine 04/09/22 Bark Peeler Relationship Specialty Start Date End Date Taz López MD [address] [facility] [place] [address] PCP - General Internal Medicine 04/09/22 Bark Peeler Relationship Specialty Start Date End Date Taz López MD [address] [facility] [place] [address] PCP - General Internal Medicine 04/09/22 Bark Peeler Relationship Specialty Start Date End Date Taz López MD [address] [facility] [place] [address] PCP - General Internal Medicine 04/09/22 Bark Peeler Relationship Specialty Start Date End Date Taz López MD [address] [facility] [place] [address] PCP - General Internal Medicine 04/09/22 Bark Peeler Relationship Specialty Start Date End Date Taz López MD [address] [facility] [place] [address] PCP - General Internal Medicine 04/09/22 Bark Peeler Relationship Specialty Start Date End Date Taz López MD [address] [facility] [place] [address] PCP - General Internal Medicine 04/09/22 Bark Peeler Relationship Specialty Start Date End Date Taz López MD [address] [facility] [place] [address] PCP - General Internal Medicine 04/09/22 Patrica Briscoe, SUPERVISOR COSTUMING.NEONATAL PEDIATRIC NURSE [address] [facility] [place] [address] Long Term Internal Medicine 02/24/24 Bark Peeler Relationship Specialty Start Date End Date Taz López MD [address] [place] [address] PCP - General Internal Medicine 04/09/22 Patrica Briscoe, SUPERVISOR COSTUMING.NEONATAL PEDIATRIC NURSE [address] [facility] [place] [address] Long Term Internal Medicine 02/24/24 Bark Peeler Relationship Specialty Start Date End Date Taz López MD [address] [facility] [place] [address] PCP - General Internal Medicine 04/09/22 Patrica Briscoe, SUPERVISOR COSTUMING.NEONATAL PEDIATRIC NURSE [address] [facility] [place] [address] Long Term Internal Medicine 02/24/24 Bark Peeler Relationship Specialty Start Date End Date Taz López MD [address] [facility] [place] [address] PCP - General Internal Medicine 04/09/22 Patrica Briscoe, SUPERVISOR COSTUMING.NEONATAL PEDIATRIC NURSE [address] [facility] [place] [address] Long Term Internal Medicine 02/24/24 Bark Peeler Relationship Specialty Start Date End Date Taz López MD [address] [facility] [place] [address] PCP - General Internal Medicine 04/09/22 Patrica Briscoe, SUPERVISOR COSTUMING.NEONATAL PEDIATRIC NURSE [address] [facility] [place] [address] Long Term Internal Medicine 02/24/24 Bark Peeler Relationship Specialty Start Date End Date Taz López MD [address] [facility] [place] [address] PCP - General Internal Medicine 04/09/22 Patrica Briscoe, SUPERVISOR COSTUMING.NEONATAL PEDIATRIC NURSE [address] [facility] [place] [address] Long Term Internal Medicine 02/24/24 Bark Peeler Relationship Specialty Start Date End Date Taz López MD [address] [place] [address] PCP - General Internal Medicine 04/09/22 Patrica Briscoe, SUPERVISOR COSTUMING.NEONATAL PEDIATRIC NURSE [address] [facility] [place] [address] Long Term Internal Medicine 02/24/24 Bark Peeler Relationship Specialty Start Date End Date Taz López MD [address] [place] [address] PCP - General Internal Medicine 04/09/22 Patrica Briscoe, SUPERVISOR COSTUMING.NEONATAL PEDIATRIC NURSE [address] [facility] [place] [address] Long Term Internal Medicine 02/24/24 Bark Peeler Relationship Specialty Start Date End Date Taz López MD [address] [facility] [place] [address] PCP - General Internal Medicine 04/09/22 Patrica Briscoe, SUPERVISOR COSTUMING.NEONATAL PEDIATRIC NURSE [address] [facility] [place] [address] Long Term Internal Medicine 02/24/24 Bark Peeler Relationship Specialty Start Date End Date Taz López MD [address] [facility] [place] [address] PCP - General Internal Medicine 04/09/22 Patrica Briscoe, SUPERVISOR COSTUMING.NEONATAL PEDIATRIC NURSE [address] [facility] [place] [address] Long Term Internal Medicine 02/24/24 Bark Peeler Relationship Specialty Start Date End Date aTz López MD [address] [facility] [place] [address] PCP - General Internal Medicine 04/09/22 Patrica Briscoe, SUPERVISOR COSTUMING.NEONATAL PEDIATRIC NURSE [address] [facility] [place] [address] Long Term Internal Medicine 02/24/24 Bark Peeler Relationship Specialty Start Date End Date Taz López MD [address] [facility] [place] [address] PCP - General Internal Medicine 04/09/22 Patrica Briscoe, SUPERVISOR COSTUMING.NEONATAL PEDIATRIC NURSE [address] [facility] [place] [address] Long Term Internal Medicine 02/24/24 Bark Peeler Relationship Specialty Start Date End Date Taz López MD [address] [facility] [place] [address] PCP - General Internal Medicine 04/09/22 Patrica Briscoe, SUPERVISOR COSTUMING.NEONATAL PEDIATRIC NURSE [address] [facility] [place] [address] Long Term Internal Medicine 02/24/24 Bark Peeler Relationship Specialty Start Date End Date Taz López MD [address] [place] [address] PCP - General Internal Medicine 04/09/22 Patrica Briscoe, SUPERVISOR COSTUMING.NEONATAL PEDIATRIC NURSE [address] [facility] [place] [address] Long Term Internal Medicine 02/24/24 Bark Peeler Relationship Specialty Start Date End Date Taz López MD [address] [facility] [place] [address] PCP - General Internal Medicine 04/09/22 Patrica Briscoe, SUPERVISOR COSTUMING.NEONATAL PEDIATRIC NURSE [address] [facility] [place] [address] Long Term Internal Medicine 02/24/24 Bark Peeler Relationship Specialty Start Date End Date Taz López MD [address] [facility] [place] [address] PCP - General Internal Medicine 04/09/22 Patrica Brsicoe, SUPERVISOR COSTUMING.NEONATAL PEDIATRIC NURSE [address] [place], [place] [address] Long Term Internal Medicine 02/24/24 Bark Peeler Relationship Specialty Start Date End Date Taz López MD [address] [place], [place] [address] PCP - General Internal Medicine 04/09/22 Patrica Briscoe, SUPERVISOR COSTUMING.NEONATAL PEDIATRIC NURSE [address] [place] [address] Long Term Internal Medicine 02/24/24 Bark Peeler Relationship Specialty Start Date End Date Taz López MD [address] [place], [place] [address] PCP - General Internal Medicine 04/09/22 Patrica Briscoe, SUPERVISOR COSTUMING.NEONATAL PEDIATRIC NURSE [address] [place], [place] [address] Long Term Internal Medicine 02/24/24 Bark Peeler Relationship Specialty Start Date End Date Taz López MD [address] [place] [address] PCP - General Internal Medicine 04/09/22 Patrica Briscoe, SUPERVISOR COSTUMING.NEONATAL PEDIATRIC NURSE [address] [place], [place] [address] [phone] Long Term Internal Medicine 02/24/24 Team Status: Active Member Role/Relationship Status Dates No Primary Care Physician Family Provider Active Dr. Taz López MD Primary Care Provider Active Team Status: Active Member Role/Relationship Status Dates Dr. Taz López MD Primary Care Provider Active Start: October 01, 2024 Sergio Issac PA, PA Attending Provider Active Sta rt: October 01, 2024 STEWART Zuleta Referring Provider Active Sta rt: October 01, 2024 Team Status: Inactive Member Role/Relationship Status Dates Dr. Taz López MD Primary Care Provider Active Start: October 01, 2024 End: October 01, 2024 Dr. Taz López MD Referring Provider Active Start: October 01, 2024 End: October 01, 2024 STEWART Zuleta Attending Provider Active Sta rt: October 01, 2024 End: October 01, 2024 Team Status: Inactive Member Role/Relationship Status Dates Dr. Taz López MD Primary Care Provider Active Start: October 01, 2024 End: October 01, 2024 STEWART Zuleta Attending Provider Active Sta rt: October 01, 2024 End: October 01, 2024 STEWART Zuleta Referring Provider Active Sta rt: October 01, 2024 End: October 01, 2024 Bark Peeler Relationship Specialty Start Date End Date Taz López MD [address] [place] [address] PCP - General Internal Medicine 04/09/22 Patrica Briscoe, SUPERVISOR COSTUMING.NEONATAL PEDIATRIC NURSE [address] [place] [address] Long Term Internal Medicine 02/24/24 INFORMATION SOURCE (unrecogn ized section and content) DATE CREATED AUTHOR 02/15/2023 [facility] DATE CREATED AUTHOR AUTHOR'S ORGANIZ ATION 02/07/2024 [facility] DATE CREATED AUTHOR AUTHOR'S ORGANIZ ATION 10/24/2024 [facility] DATE CREATED AUTHOR AUTHOR'S ORGANIZ ATION 10/24/2024 [facility] FOR RECORDS PERTAINING TO PATIENTS WHO ARE OR HAVE BEEN ENROLLED IN A CHEMICAL DEPENDENCY/SUBSTANCEABUSE PROGRAM, SOME INFORMATION MAY BE OMITTED. This clinical summary was aggregated from multiple sources. Caution should be exercised in using it in the provision of clinical care. This summary normalizes information from multiple sources, and as a consequence, information in this document may materially change the coding, format and clinical context of patient data. In addition, data may be omitted in some cases. CLINICAL DECISIONS SHOULD BE BASED ON THE PRIMARY CLINICAL RECORDS. [email or web address] [email or web address]. provides no warranty or guarantee of the accuracy or completeness of information in this document.
== END | disposition home or self-care (01) ==
LOC: OPBI 07:30
PROVIDERS: PCP Internal Medicine; Referring Provider Obstetrics & Gynecology; Visit Provider Obstetrics & Gynecology
DX: Z12.31 Encounter for screening mammogram for malignant neoplasm of breast (principal)
CPT/HCPCS: 77063; 77067